=== PATIENT | male | born 1975 | race Caucasian/White ===

== ENCOUNTER 2017-07-05 17:32 | Emergency (ER) | payer MEDICAID, SELFPAY ==
[2017-07-05 17:33] VITALS: BP 133/67; PULSE 68; RESP 19; TEMP 37; O2SAT 99; BMI 23.1
--- NOTE | 2017-07-05 18:18 | ED.RN ---
PT STATED THAT HE WAS TIRED OF WAITING. LEFT WITHOUT BEING SEEN.
--- NOTE | 2017-07-05 18:26 | ED.RN ---
PT STATED THAT HE WAS TOLD BY THIS RN THAT WE WERE NOT BUSY. EXPLAINED TO PT THAT HE WOULD NOT HAVE BEEN TOLD THAT BECAUSE WE CANNOT GIVES TIMES OR STATE WE ARE BUSY OR NOT. PT STATED IT'S PLAN NAURUAN YOU KNOW IF YOU ARE BUSY OR NOT. THIS RN APOLOGIZED TO PT OF THE MISUNDERSTANDING, BUT AGAIN SAID WE NEVER SAY WE ARE NOT BUSY. PT ASKED FOR THIS RN'S NAME AND LEFT.
== END 2017-07-05 18:29 | disposition left against medical advice (07) ==
LOC: ED 18:25
PROVIDERS: Emergency Provider Emergency Medicine; Family Provider Nurse Practitioner Family; PCP Nurse Practitioner Family
DX: M27.3 Alveolitis of jaws (principal)

== ENCOUNTER 2017-08-18 02:52 | Emergency (ER) | payer MEDICAID, SELFPAY ==
[2017-08-18 02:53] VITALS: BP 137/92; PULSE 91; RESP 17; TEMP 36.4; O2SAT 99; BMI 25.8
--- NOTE | 2017-08-18 03:01 | RAD_ITS ---
STUDY: X-RAY CHEST REASON FOR EXAM: Male, 42 years old. Chest pain TECHNIQUE: Single AP portable view of the chest. COMPARISON: None. FINDINGS: The lungs are clear and expanded. There is no demonstrated pleural abnormality. Normal size heart. Normal mediastinum and luis. Normal visualized pulmonary arteries. Normal visualized aortic arch and descending thoracic aorta. Normal visualized thoracic spine. Normal visualized ribs, clavicles, and shoulders. There is no demonstrated abnormality of the visualized soft tissue structures of the upper abdomen. RAD/Chest 1 View (Portable) IMPRESSION: Normal x-ray examination of the chest. Electronically Signed: Nathalie Lentz MD at 3:29 EDT Tel , Service support ,
--- NOTE | 2017-08-18 03:01 | EKG12_ITS ---
Test Reason : CP Blood Pressure : / mmHG Vent. Rate : 085 BPM Atrial Rate : 085 BPM P-R Int : 150 ms QRS Dur : 092 ms QT Int : 360 ms P-R-T Axes : 083 078 060 degrees QTc Int : 428 ms Normal sinus rhythm Normal ECG Confirmed by BING HICKEY, DANIELLE ([id number]), story editor TRAVIS HARRISON ([id number]) on 08/19/2017 3:33:07 PM Referred By: BONG Confirmed By:DANIELLE SMART MD
[2017-08-18 03:10] LABS: Absolute Lymphocyte Count 2.63 X10^3/ul (0.83-4.51); Absolute Neutrophil Count 5.1 X10^3/uL (2.0-7.7); Basophil# 0.04 X10^3/uL; Basophil% 0.4 % (0-1); Eosinophil# 0.22 X10^3/uL; Eosinophils% 2.5 % (0-5); Hematocrit 44.8 % (40-54); Lymphocyte # 2.63 X10^3/ul (4.0); Lymphocyte % 29.6 % (19-41); Mean Corp Hgb Conc 33.5 g/gl (32-36); Mean Corpuscular Hgb 29.9 pg (27.0-32.0); Mean Corpuscular Volume 89.2 fL (80-94); Mean Platelet Vol. 9.6 fl (6.2-12.0); Monocyte# 0.87 X10^3/uL; Monocyte% 9.8 % (0-10); Neutrophil # 5.12 X10^3/uL (2.7-7.7); Neutrophil % 57.5 % (47-70); Platelet Count 294 K/mm3 (150-450); RBC Distribution Width CV 13.8 % (11.6-14.6); RBC Distribution Width SD 44.7 fl (35.1-43.9); Red Blood Count 5.02 M/mm3 (4.6-6.2); White Blood Count 8.9 K/mm3 (4.4-11.0)
[2017-08-18 03:13] LABS: POSITIVE COUNT NO; POSITIVE DIFFERENTIAL NO; POSITIVE MORPHOLOGY NO
[2017-08-18] MEDS: Aspirin 81 MG TAB.CHEW 324 MG PO (03:15)
[2017-08-18 03:43] LABS: Anion Gap 8 (5-15); BUN 13 mg/dL (7-18); BUN/Creat Ratio 14.6 RATIO (10-20); Calcium,Total 8.8 mg/dL (8.5-10.1); Chloride 107 mmol/L (98-107); Creatinine, Serum 0.89 mg/dL (0.70-1.30); EST Glomerular Filtration Rate 100 mL/min (>60); Est Glom Filt Rate - Afr Amer 121 mL/min (>60); Estimated Creatinine Clearance 126.99 ml/min; Glucose 85 mg/dL (74-106); Sodium Level 143 mmol/L (136-145)
--- NOTE | 2017-08-18 03:57 | ED.DCSUM_ITS ---
- ER Visit Summary Date of Service: 08/18/17 Chief Complaint: Chest pain History of Present Illness: The patient is a 42 M wax and waning chest pain past 4 days. Localized left lateral chest. Mild dyspnea. States just the discomfort. No worsening or relieving factors. No nausea. No vomiting. No diaphoresis. No recent illness. No PE risk factors. Tobacco history. Denies history of hypertension, diabetes, hypercholesterolemia. No family history of GA young age. States diagnosed with paroxysmal atrial fibrillation a few months back. He is cardioverted in the hospital. Taken off Xarelto by cardiology Dr. Canchola per patient. Does not recommend any additional therapy. Was told likely because of his caffeine use. Does admit to occasional marijuana. Physical Examination: General: Alert and oriented ?3, no acute distress HEENT: Normocephalic, atraumatic. Moist mucosa membranes Neck: supple, nontender. Cardiovascular: Regular rate and rhythm, no murmurs Respiratory: Normal breath sounds, symmetric, no distress Abdomen: Soft, nontender, nondistended Extremities: Nontender, no edema, pulses intact ?4 Neuro: no focal neurological deficits. Test Results: EKG sinus rate of [address] or T-wave changes. Troponin less than 0.02. Creatinine 0.89. Chest x-ray negative. Emergency Department Course and Treatment: Patient was treated with aspirin. Cardiac workup negative. Waxing waning symptoms past 4 days with a negative troponin less likely cardiac in nature. PE RC criteria was negative. Heart scores a 1. Heart pathway guideline was discussed with the patient. Discussed patient follow with PCP or Dr. Canchola for outpatient follow-up. Likely a stress test. Return if any worsening symptoms. Discussed tobacco cessation. All questions were answered. Treatment Plan: [] Disposition: Discharge Impression: 1. Atypical chest pain This note was generated with [employer] Pel[employer] software. It may contain incorrect words, spelling, and punctuation that were not noted in review of the chart prior to signing ED Disposition - Plan for ED Patient: Disposition: Home or Assisted Living Chief Complaint: Chest Pain Diagnosis: Atypical chest pain Instructions: ED Chest Pain Atypical Unkn Cause Referrals: Katiana De Dios NP-C [Primary Care Provider] - 3-5 Days
[2017-08-18 04:39] VITALS: BP 107/69; PULSE 84; RESP 16; O2SAT 97
== END 2017-08-18 04:39 | disposition home or self-care (01) ==
PROVIDERS: Emergency Provider Emergency Medicine; Family Provider Nurse Practitioner Family; PCP Nurse Practitioner Family
DX: R07.89 Other chest pain (principal); R06.00 Dyspnea, unspecified; F17.200 Nicotine dependence, unspecified, uncomplicated
CPT/HCPCS: 71045; 80048; 84484; 85025; 93005; 99285; A4216

== ENCOUNTER 2017-12-02 21:38 | Emergency (ER) | payer MEDICAID, SELFPAY ==
[2017-12-02 21:39] VITALS: BP 135/78; PULSE 92; RESP 20; TEMP 36.7; O2SAT 98; BMI 27.4
[2017-12-02] MEDS: HYDROcodone Bitartrate/Apap 5/325 Tablet PO (22:09)
--- NOTE | 2017-12-02 22:10 | ED.RN ---
PATIENT REFUSED NAPROXEN BECAUSE HE ALREADY TOOK SOME THIS EVENING.
--- NOTE | 2017-12-02 22:11 | ED.VISSUMM ---
- ER Visit Summary Date of Service: 12/02/17 Chief Complaint: Acute exacerbation of low back pain. History of Present Illness: The patient is a 42 M with history of chronic back pain secondary to degenerative disc disease. He states he bent over felt a pop. He denies bowel bladder dysfunction. I saddle paresthesia anesthesia. No foot drop. Denies quadricep weakness going up or down steps. There is no history of trauma. He denies fever, chills night sweats. He denies dysuria, frequency, urgency or hematuria. Localizes the pain to the low lumbar region. Physical Examination: Patient was lying on the cot with his feet dangling over the end of the bed at the knees and his head flexed to 90?. Vital signs remarkable slight elevation blood pressure 135/78. HEENT exam unremarkable. Insert cardiopulmonary exam abdomen soft nontender no palpable cell mass abdominal bruit. Inspection of the back is unremarkable. He has minimal pain if at any. Straight leg test is negative. Crossover test is negative. Patella and ankle reflex are 3+. EHL is intact. Normal sensation. No foot drop with walking. Movement causes him pain. Test Results: None are indicated Emergency Department Course and Treatment: Patient was treated with one [place] tablet and 500 mg Naprosyn. Treatment Plan: Rest, ice and anti-inflammatory Disposition: Discharged to home with spouse Impression: Acute lumbar strain without sciatica This note was generated with [employer] dictation software. It may contain incorrect words, spelling, and punctuation that were not noted in review of the chart prior to signing ED Disposition - Plan for ED Patient: Disposition: Home or Assisted Living Chief Complaint: Back Instructions: ED Sprain Strain Lumbar Prescriptions: Naproxen [Naprosyn] 500 mg PO BID #14 tab Referrals: Katiana De Dios, DOCTOR OF NURSING PRACTICE-C [Primary Care Provider] - 3-5 Days if not improving
--- NOTE | 2017-12-02 22:17 | ED.DCSUM_ITS ---
- ER Visit Summary Date of Service: 12/02/17 Chief Complaint: Acute exacerbation of low back pain. History of Present Illness: The patient is a 42 M with history of chronic back pain secondary to degenerative disc disease. He states he bent over felt a pop. He denies bowel bladder dysfunction. I saddle paresthesia anesthesia. No foot drop. Denies quadricep weakness going up or down steps. There is no history of trauma. He denies fever, chills night sweats. He denies dysuria, frequency, urgency or hematuria. Localizes the pain to the low lumbar region. Physical Examination: Patient was lying on the cot with his feet dangling over the end of the bed at the knees and his head flexed to 90?. Vital signs remarkable slight elevation blood pressure 135/78. HEENT exam unremarkable. Insert cardiopulmonary exam abdomen soft nontender no palpable cell mass abdominal bruit. Inspection of the back is unremarkable. He has minimal pain if at any. Straight leg test is negative. Crossover test is negative. Patella and ankle reflex are 3+. EHL is intact. Normal sensation. No foot drop with walking. Movement causes him pain. Test Results: None are indicated Emergency Department Course and Treatment: Patient was treated with one [place] tablet and 500 mg Naprosyn. Treatment Plan: Rest, ice and anti-inflammatory Disposition: Discharged to home with spouse Impression: Acute lumbar strain without sciatica This note was generated with [employer] dictation software. It may contain incorrect words, spelling, and punctuation that were not noted in review of the chart prior to signing ED Disposition - Plan for ED Patient: Disposition: Home or Assisted Living Chief Complaint: Back Instructions: ED Sprain Strain Lumbar Prescriptions: Naproxen [Naprosyn] 500 mg PO BID #14 tab Referrals: Katiana De Dios, SERVICE DOG TRAINER-C [Primary Care Provider] - 3-5 Days if not improving
== END 2017-12-02 22:47 | disposition home or self-care (01) ==
PROVIDERS: Emergency Provider Emergency Medicine; Family Provider Nurse Practitioner Family; PCP Nurse Practitioner Family
DX: S39.012A Strain of muscle, fascia and tendon of lower back, initial encounter (principal); X50.1XXA Overexertion from prolonged static or awkward postures, initial encounter; Y93.9 Activity, unspecified; Y92.9 Unspecified place or not applicable; Y99.9 Unspecified external cause status; R03.0 Elevated blood-pressure reading, without diagnosis of hypertension; R05 Cough; M54.9 Dorsalgia, unspecified; G89.29 Other chronic pain; Z72.0 Tobacco use
CPT/HCPCS: 99283

== ENCOUNTER 2018-01-04 19:37 | Emergency (ER) | payer MEDICAID, SELFPAY ==
[2018-01-04 19:39] VITALS: BP 140/90; PULSE 103; RESP 13; TEMP 36.6; O2SAT 100; BMI 26.9
--- NOTE | 2018-01-04 19:39 | ED.RN ---
PULLED OLD EKG'S FOR
--- NOTE | 2018-01-04 19:43 | EKG12_ITS ---
Test Reason : PALPITATIONS Blood Pressure : / mmHG Vent. Rate : 103 BPM Atrial Rate : 103 BPM P-R Int : 148 ms QRS Dur : 098 ms QT Int : 330 ms P-R-T Axes : 074 082 044 degrees QTc Int : 432 ms Sinus tachycardia Otherwise normal ECG Confirmed by MARGARITA HICKEY, NADINE ([id number]), video editor TRAVIS HARRISON ([id number]) on 01/07/2018 9:54:44 AM Referred By: AURE Confirmed By:NADINE AVILA MD
--- NOTE | 2018-01-04 19:48 | RAD_ITS ---
STUDY: X-RAY CHEST REASON FOR EXAM: Male, 42 years old. Chest pain and palpitations for several days. TECHNIQUE: Single AP portable view of the chest. COMPARISON: August 18, 2017. FINDINGS: Telemetry wires overlie the chest. The lungs are mildly hyperexpanded. There is no acute infiltrate or mass. There is no pneumothorax. There is no demonstrated pleural abnormality. Normal size heart. Normal mediastinum and luis. Normal visualized pulmonary arteries. Normal visualized aortic arch and descending thoracic aorta. The thoracic spine is obscured by the mediastinum. Normal visualized ribs, clavicles, and shoulders. There is no demonstrated abnormality of the visualized soft tissue structures of the upper abdomen. RAD/Chest 1 View (Portable) IMPRESSION: No acute cardiopulmonary disease or interval change. Electronically Signed: Eloy Zendejas DO at 20:17 EDT Tel [phone], Service support ,
[2018-01-04 19:53] VITALS: O2SAT 98
--- NOTE | 2018-01-04 19:56 | CT_ITS ---
STUDY: CTA CHEST REASON FOR EXAM: Male, 42 years old. Chest pain. History of hypertension and atrial fibrillation. RADIATION DOSAGE (If Supplied By Facility): CTDIvol = ( 16.91 ) mGy, DLP = ( 557.45 ) mGycm TECHNIQUE: The examination was performed with the intravenous administration of 100ML ml of Isovue 370 contrast material. Post-processing of the angiographic images was performed, with multiplanar reformation and 3D reconstruction. Individualized dose optimization techniques were used for this CT. COMPARISON: Chest, January 04, 2018. FINDINGS: Normal enhancement of the main pulmonary artery and right and left pulmonary arteries. Normal enhancement of the bilateral peripheral pulmonary arteries. There is no demonstrated pulmonary embolism. Normal thoracic aorta and visualized great vessels. There is no demonstrated aortic dissection. Normal heart and pericardium. Normal mediastinum. Normal hilar regions. Normal visualized trachea and bronchi. The lungs are hyper expanded, with flattening of the hemidiaphragms. Minimal subpleural blebs in both apices. There is no focal mass or infiltrate within the lungs. Normal pleura. Normal chest wall structures. Normal osseous structures. There are small cysts seen in segment 4A of the liver. The gallbladder is contracted. Abdomen appears otherwise unremarkable. CT/CTA Chest W/WO Contrast IMPRESSION: 1. No evidence of pulmonary embolus. 2. No aortic dissection or aneurysm. 3. Mild emphysematous changes lungs without focal mass or infiltrate. 4. Hepatic cysts. Electronically Signed: Eloy Zendejas DO at 21:20 EDT Tel [phone], Service support ,
[2018-01-04 20:04] LABS: Absolute Lymphocyte Count 3.27 X10^3/ul (0.83-4.51); Absolute Neutrophil Count 5.9 X10^3/uL (2.0-7.7); Basophil# 0.05 X10^3/uL; Basophil% 0.5 % (0-1); Eosinophil# 0.23 X10^3/uL; Eosinophils% 2.2 % (0-5); Hematocrit 44.8 % (40-54); Hemoglobin 15.6 g/dl (13.0-16.5); Lymphocyte # 3.27 X10^3/ul (4.0); Lymphocyte % 31.3 % (19-41); Mean Corp Hgb Conc 34.8 g/gl (32-36); Mean Corpuscular Hgb 29.8 pg (27.0-32.0); Mean Corpuscular Volume 85.7 fL (80-94); Mean Platelet Vol. 9.8 fl (6.2-12.0); Monocyte# 0.94 X10^3/uL; Neutrophil # 5.92 X10^3/uL (2.7-7.7); Neutrophil % 56.6 % (47-70); Platelet Count 319 K/mm3 (150-450); RBC Distribution Width SD 40.6 fl (35.1-43.9); Red Blood Count 5.23 M/mm3 (4.6-6.2); White Blood Count 10.5 K/mm3 (4.4-11.0)
[2018-01-04 20:14] LABS: POSITIVE COUNT NO; POSITIVE DIFFERENTIAL NO; POSITIVE MORPHOLOGY NO
[2018-01-04 20:16] LABS: Anion Gap 6 (5-15); BUN 14 mg/dL (7-18); BUN/Creat Ratio 16.5 RATIO (10-20); Calcium,Total 9.8 mg/dL (8.5-10.1); Chloride 106 mmol/L (98-107); Creatinine, Serum 0.85 mg/dL (0.70-1.30); EST Glomerular Filtration Rate 106 mL/min (>60); Est Glom Filt Rate - Afr Amer 128 mL/min (>60); Estimated Creatinine Clearance 136.69 ml/min; Glucose 89 mg/dL (74-106); Potassium 3.8 mmol/L (3.5-5.1); Sodium Level 140 mmol/L (136-145)
[2018-01-04 20:34] LABS: Thyroid Stim Hormone (TSH) 0.68 uIU/mL (0.358-3.74)
[2018-01-04] MEDS: Acetaminophen 500 MG Tablet 1000 MG PO (20:38)
[2018-01-04 22:24] VITALS: BP 110/53; PULSE 63; RESP 17; O2SAT 98
--- NOTE | 2018-01-04 23:13 | ED.VISSUMM ---
- ER Visit Summary Date of Service: 01/04/18 Chief Complaint: Chest pain palpitations History of Present Illness: The patient is a 42 M presenting for evaluation secondary chest pain and palpitations. Patient reports that over the course last 4-5 days he has been having issues with palpitations. Patient reports that the symptoms seem to got worse today. He reports that it is a pounding type sensation in his chest as well as tightness and heaviness in his chest. Patient states that he has no exacerbating relieving factors has been associated with him feeling somewhat ill recently associated with a cough and kind of generalized myalgias. Patient reports that he does have a history of spontaneous A. fib that he is status post cardioversion 4. Patient is a smoker, has a history of hypertension, and his mother also had a history of an abdominal aortic aneurysm and his family has a history of Sirena-Danlos syndrome. Physical Examination: Vital signs are within normal limits, except for tachycardia rate of 103 patient is afebrile. General: Patient is well-nourished well-developed and in no acute distress. Head: Normocephalic, atraumatic Eyes: Pupils equal round and reactive bilaterally, extra occular motion intact bialterally ENT: Moist mucous membranes Neck: Supple, no lymphadenopathy, no JVD, no meningismus CVS: Heart regular tachycardia, no murmurs, rubs or gallops, radial pulses 2+ bilaterally Resp: Respirations nondistressed, lung sounds clear bilaterally Abdomen: Soft, nontender, nondistended, no palpable masses, normal bowel sounds Back: Nontender Extremities: Nontender, atraumatic, active full range of motion, no peripheral edema Skin: warm, no rashes, no petechia Neuro: Alert and oriented x 4, CN 2-12 intact, no lateralizing neurological defecits Psyc: Normal affect Test Results: EKG demonstrates sinus tachycardia with rate of [address] segments normal T waves no changes from a prior EKG. CBC chemistry troponin TSH were all found to be unremarkable. CT angiogram of the chest shows no evidence of dissection a aortic aneurysm or pulmonary emboli Emergency Department Course and Treatment: Patient presented for evaluation secondary chest pain palpitations. His workup is negative as noted above. His MARCE score is 0 his heart score is 1. His symptoms seem rather atypical for anything cardiac. Patient potentially is having some palpitations and then has an element of anxiety over this. I do not believe he requires admission. Patient will follow up with his primary care physician. Disposition: Discharge Impression: 1. Palpitations This note was generated with [employer] dictation software. It may contain incorrect words, spelling, and punctuation that were not noted in review of the chart prior to signing ED Disposition - Plan for ED Patient: Disposition: Home or Assisted Living Chief Complaint: Chest Pain Diagnosis: Palpitations Instructions: ED Chest Pain NonCardiac Referrals: Katiana De Dios MOTORCYCLE SUBASSEMBLY REPAIRER-C [Primary Care Provider] - 1-2 Weeks
[2018-01-04 23:16] VITALS: BP 110/78; PULSE 76; RESP 18; O2SAT 99
--- NOTE | 2018-01-04 23:17 | ED.DCSUM_ITS ---
- ER Visit Summary Date of Service: 01/04/18 Chief Complaint: Chest pain palpitations History of Present Illness: The patient is a 42 M presenting for evaluation secondary chest pain and palpitations. Patient reports that over the course last 4-5 days he has been having issues with palpitations. Patient reports that the symptoms seem to got worse today. He reports that it is a pounding type sensation in his chest as well as tightness and heaviness in his chest. Patient states that he has no exacerbating relieving factors has been associated with him feeling somewhat ill recently associated with a cough and kind of generalized myalgias. Patient reports that he does have a history of spontaneous A. fib that he is status post cardioversion 4. Patient is a smoker , has a history of hypertension, and his mother also had a history of an abdominal aortic aneurysm and his family has a history of Sirena-Danlos syndrome. Physical Examination: Vital signs are within normal limits, except for tachycardia rate of 103 patient is afebrile. General: Patient is well-nourished well-developed and in no acute distress. Head: Normocephalic, atraumatic Eyes: Pupils equal round and reactive bilaterally, extra occular motion intact bialterally ENT: Moist mucous membranes Neck: Supple, no lymphadenopathy, no JVD, no meningismus CVS: Heart regular tachycardia, no murmurs, rubs or gallops, radial pulses 2+ bilaterally Resp: Respirations nondistressed, lung sounds clear bilaterally Abdomen: Soft, nontender, nondistended, no palpable masses, normal bowel sounds Back: Nontender Extremities: Nontender, atraumatic, active full range of motion, no peripheral edema Skin: warm, no rashes, no petechia Neuro: Alert and oriented x 4, CN 2-12 intact, no lateralizing neurological defecits Psyc: Normal affect Test Results: EKG demonstrates sinus tachycardia with rate of [address] segments normal T waves no changes from a prior EKG. CBC chemistry troponin TSH were all found to be unremarkable. CT angiogram of the chest shows no evidence of dissection a aortic aneurysm or pulmonary emboli Emergency Department Course and Treatment: Patient presented for evaluation secondary chest pain palpitations. His workup is negative as noted above. His MARCE score is 0 his heart score is 1. His symptoms seem rather atypical for anything cardiac. Patient potentially is having some palpitations and then has an element of anxiety over this. I do not believe he requires admission. Patient will follow up with his primary care physician. Disposition: Discharge Impression: 1. Palpitations This note was generated with [employer] dictation software. It may contain incorrect words, spelling, and punctuation that were not noted in review of the chart prior to signing ED Disposition - Plan for ED Patient: Disposition: Home or Assisted Living Chief Complaint: Chest Pain Diagnosis: Palpitations Instructions: ED Chest Pain NonCardiac Referrals: Katiana De Dios HONEYCOMB BLANKET MAKER-C [Primary Care Provider] - 1-2 Weeks
== END 2018-01-04 23:22 | disposition home or self-care (01) ==
PROVIDERS: Emergency Provider Emergency Medicine; Family Provider Nurse Practitioner Family; PCP Nurse Practitioner Family
DX: R00.2 Palpitations (principal); R00.0 Tachycardia, unspecified; R07.9 Chest pain, unspecified; I48.91 Unspecified atrial fibrillation; I10 Essential (primary) hypertension; F17.200 Nicotine dependence, unspecified, uncomplicated; Z79.82 Long term (current) use of aspirin; Z79.1 Long term (current) use of non-steroidal anti-inflammatories (NSAID)
CPT/HCPCS: 71045; 71275; 80048; 84443; 84484; 85025; 93005; 99284; Q9967; A4216

== ENCOUNTER 2018-04-21 22:57 | Emergency (ER) | payer MEDICAID, SELFPAY ==
[2018-04-21 22:57] VITALS: BP 154/84; PULSE 73; RESP 16; TEMP 35.7; BMI 29.1
--- NOTE | 2018-04-21 23:16 | ED.VISSUMM ---
- ER Visit Summary Date of Service: 04/21/18 Chief Complaint: Dental pain History of Present Illness: The patient is a 43 M status post root canal this morning, his numbing wore off and now he is in significant pain. He has no new complaints. He has no bleeding no fever chills and no facial swelling. Physical Examination: Otherwise unremarkable exam left lower last molar shows what I presume is a temporary filling, there is no periapical swelling no facial swelling and no drainable abscess. Emergency Department Course and Treatment: Patient persisted to ask me why he is having so much pain and to figure out his diagnosis, I told him he needs to follow-up with his dentist for that, I do not see any signs of infection, he is on antibiotics. I will give him analgesics for home. His last opiate prescription was 10 months ago Disposition: Discharge stable condition Impression: Dental pain This note was generated with [employer] dictation software. It may contain incorrect words, spelling, and punctuation that were not noted in review of the chart prior to signing ED Disposition - Plan for ED Patient: Disposition: Home or Assisted Living Chief Complaint: Dental Instructions: ED Tooth Pain Additional Instructions: Call your dentist in the morning for prompt reevaluation
--- NOTE | 2018-04-21 23:21 | ED.DEP ---
ED Disposition - Plan for ED Patient: Disposition: Home or Assisted Living Chief Complaint: Dental Instructions: ED Tooth Pain Prescriptions: Hydrocodone Bitart/Apap 5-325 [[place] 5MG-325MG] 1 tab PO Q4H PRN PRN 2 Days #10 tab PRN Reason: Pain Additional Instructions: Call your dentist in the morning for prompt reevaluation
[2018-04-21] MEDS: oxyCODONE 5 MG Tablet PO (23:23)
--- NOTE | 2018-04-21 23:24 | DCINST.ED_ITS ---
ED Disposition - Plan for ED Patient: Disposition: Home or Assisted Living Chief Complaint: Dental Instructions: ED Tooth Pain Prescriptions: Hydrocodone Bitart/Apap 5-325 [[place] 5MG-325MG] 1 tab PO Q4H PRN PRN 2 Days #10 tab PRN Reason: Pain Additional Instructions: Call your dentist in the morning for prompt reevaluation
== END 2018-04-21 23:32 | disposition home or self-care (01) ==
PROVIDERS: Emergency Provider Emergency Medicine; Family Provider Nurse Practitioner Family; PCP Nurse Practitioner Family
DX: K08.89 Other specified disorders of teeth and supporting structures (principal); Z98.818 Other dental procedure status; Z72.0 Tobacco use; Z79.82 Long term (current) use of aspirin; Z79.1 Long term (current) use of non-steroidal anti-inflammatories (NSAID)
CPT/HCPCS: 99283

== ENCOUNTER 2018-04-23 16:17 | Emergency (ER) | payer MEDICAID, SELFPAY ==
[2018-04-23 16:18] VITALS: BP 146/94; PULSE 90; RESP 16; TEMP 36.6; O2SAT 96; BMI 29.1
--- NOTE | 2018-04-23 16:38 | ED.DCSUM_ITS ---
- ER Visit Summary Date of Service: 04/23/18 Chief Complaint: [Dental pain] History of Present Illness: The patient is a 43 M [presents with dental pain and concern over the last 2 days. Patient states that he had a root canal done 2 days ago. Patient states that he had root canals on teeth #14 and 15. Feels like things went well with tooth #14 however he is having a lot of severe discomfort to tooth #15. Patient denies any fever although has had some chills. He denies any recent trauma. Currently he is on amoxicillin.] Physical Examination: [HEENT-PERRLA, EOMI. Cranial nerves II through XII grossly intact. TMs clear. Mucous membranes moist. No adenopathy. Dentition- patient has temporary fillings in teeth numbers 15 and 14. Patient has tenderness to palpation over tooth #14. No gingival erythema or abscess noted. Cardiovascular-regular rate and rhythm without murmur or ectopy Lungs-clear to auscultation, chest wall stable without crepitus or subcu emphysema Abdomen-normoactive bowel sounds, soft, nontender, no rebound or rigidity, no peritoneal signs. Extremities-intact ?4, normal range of motion, normal pulses, atraumatic] Test Results: [None indicated] Emergency Department Course and Treatment: [I did perform an oars report and I do not see any concerns for narcotic abuse at this point. Patient will be given a prescription for [place] to help manage his pain until he can see his dentist in 3 days.] Treatment Plan: [[place] for pain and I will switch him to clindamycin] Disposition: [Discharged home in stable condition. Patient advised to see his dentist as scheduled in 3 days.] Impression: [Dental pain status post root canal] This note was generated with [employer] dictation software. It may contain incorrect words, spelling, and punctuation that were not noted in review of the chart prior to signing ED Disposition - Plan for ED Patient: Chief Complaint: Dental Referrals: Katiana D eDios NP-C [Primary Care Provider] -
--- NOTE | 2018-04-23 16:38 | ED.DEP ---
ED Disposition - Plan for ED Patient: Chief Complaint: Dental Instructions: ED Tooth Pain Prescriptions: Hydrocodone Bitart/Apap 5-325 [[place] 5MG-325MG] 1 tab PO Q4H PRN PRN 2 Days #14 tab PRN Reason: Pain Clindamycin HCl [Cleocin] 300 mg PO Q6H #40 cap Referrals: Katiana De Dios, ENCYCLOPEDIA RESEARCH WORKER-C [Primary Care Provider] - Additional Instructions: see your dentist
--- NOTE | 2018-04-23 16:39 | DCINST.ED_ITS ---
ED Disposition - Plan for ED Patient: Chief Complaint: Dental Instructions: ED Tooth Pain Prescriptions: Hydrocodone Bitart/Apap 5-325 [[place] 5MG-325MG] 1 tab PO Q4H PRN PRN 2 Days #14 tab PRN Reason: Pain Clindamycin HCl [Cleocin] 300 mg PO Q6H #40 cap Referrals: Katiana De Dios, CAR MECHANIC HELPER-C [Primary Care Provider] - Additional Instructions: see your dentist
[2018-04-23 17:01] VITALS: RESP 14
== END 2018-04-23 17:02 | disposition home or self-care (01) ==
LOC: ED 17:01
PROVIDERS: Emergency Provider Emergency Medicine; Family Provider Nurse Practitioner Family; PCP Nurse Practitioner Family
DX: K08.89 Other specified disorders of teeth and supporting structures (principal); Z98.818 Other dental procedure status; Z72.0 Tobacco use; Z79.82 Long term (current) use of aspirin; Z79.1 Long term (current) use of non-steroidal anti-inflammatories (NSAID)
CPT/HCPCS: 99282

== ENCOUNTER 2018-06-30 01:00 | Emergency (ER) | payer MEDICAID, SELFPAY ==
--- NOTE | 2018-06-30 01:30 | CT_ITS ---
STUDY: CT BRAIN WITHOUT CONTRAST REASON FOR EXAM: Male, 43 years old. Headache RADIATION DOSAGE (If Supplied By Facility): CTDIvol = ( 44.99 ) mGy, DLP = ( 812.98 ) mGycm TECHNIQUE: Transaxial CT imaging of the brain was performed without administration of intravenous contrast material. Individualized dose optimization techniques were used for this CT. COMPARISON: None. FINDINGS: Normal soft tissue structures. Normal calvarium. Normal size ventricles and extra-axial spaces for the patient's age. Normal white matter tracts of the cerebral hemispheres. Normal basal ganglia and thalami. Normal brainstem. Normal cerebellum. There is no intracranial hemorrhage. There are no findings of an acute ischemic infarction. Normal visualized paranasal sinuses. CT/Brain/Head without Contrast IMPRESSION: Normal unenhanced CT scan of the brain. Electronically Signed: Bari García MD at 2:05 EST Tel , Service support ,
--- NOTE | 2018-07-04 23:41 | ED.DCSUM_ITS ---
- ER Visit Summary Date of Service: 07/04/18 Chief Complaint: [] Headache History of Present Illness: The patient is a 43 M complaining of headache since yesterday gradual onset continuous pressure throbbing the left frontal region. He tried Aleve with moderate relief. No history of migraines. He does have a sore throat. Physical Examination: [] Vital signs reviewed General: Well-nourished well-developed Head: Normocephalic atraumatic Eyes: Pupils equal round and reactive to light extraocular movements intact ENT: TMs clear no hemotympanum no trauma Neck: Nontender full range of motion Cardiovascular: Regular rate rhythm no murmurs normal S1-S2 Respiratory: No distress clear to auscultation bilaterally chest nontender Abdomen: Soft nontender nondistended normal bowel sounds no masses Back: Nontender no CVA tenderness Extremities: Nontender active range of motion ?4 extremities no trauma Skin: Normal color no trauma Neuro alert oriented cranial nerves II through XII intact normal strength sensation reflexes. No temporal artery tenderness Test Results: [] Emergency Department Course and Treatment: [] CT head negative. Given Toradol intramuscular with resolution of his headache. At this time will be discharged. Resting comfortably. I have a low suspicion for intracranial tumor or subarachnoid hemorrhage. We will follow-up as an outpatient Treatment Plan: [] Disposition: [] Impression: [] Headache This note was generated with [employer] dictation software. It may contain incorrect words, spelling, and punctuation that were not noted in review of the chart prior to signing ED Disposition - Plan for ED Patient: Referrals: Katiana De Dios, [id number] [Primary Care Provider] -
--- OUTSIDE RECORDS SUMMARY | 2018-09-01 01:38 | XMS RPT_ITS ---
:1975 Author Organization OH[facility] Care Team Providers Name Role Phone Deejay Whitt Attending Unavailable Swihart CAT DRIVER, Katiana Primary Care Unavailable Swihart CAT DRIVER, Katiana Primary Care Unavailable Elvin Painting Attending Unavailable Swihart CAT DRIVER, Katiana Primary Care Unavailable Jose Carlos Brandt Attending Unavailable Swihart CAT DRIVER, Katiana Primary Care Unavailable Sugey Ramirez Attending Unavailable Swihart CAT DRIVER, Katiana Primary Care Unavailable Simon Cerna Attending Unavailable Swihart CAT DRIVER, Katiana Primary Care Unavailable Reuben Cooper Attending Unavailable Swihart CAT DRIVER, Katiana Primary Care Unavailable Michelle Edwards Attending Unavailable PROBLEMS PROBLEMS DATE TYPE CONDITION / CODE ATTENDING STATUS SOURCE 04/23/2018 Unknown K08.89 - Other [place], Remus Active [facility] of Hospital teeth and Repository supporting structures / K08.89(ICD-10) PROCEDURES PROCEDURES No Procedure Records FoundRESULTS RESULTS BRAIN/HEAD WITHOUT Observed: 06/30/2018 Status: F Source: [place] CONTRAST 6:43 AM [facility] RE[facility]IT[facility] Imaging Services [address] [place] [address] Brain/Head without Contrast MR#: [id number] Acct: [id number] Name: GRETA ALMAGUER Rep #: [id number] : 1975 M 43 From: Bari García MD PCP: Katiana De Jesus Status: REG ER Study: Brain/Head without Contrast Date of Exam: 06/30/18 Exam# [id number] Ordering Dr: Deejay Whitt MD STUDY: CT BRAIN WITHOUT CONTRAST REASON FOR EXAM: Male, 43 years old. Headache RADIATION DOSAGE (If Supplied By Facility): CTDIvol = ( 44.99 ) mGy, DLP = ( 812.98 ) mGycm TECHNIQUE: Transaxial CT imaging of the brain was performed without administration of intravenous contrast material. Individualized dose optimization techniques were used for this CT. COMPARISON: None. FINDINGS: Normal soft tissue structures. Normal calvarium. Normal size ventricles and extra-axial spaces for the patient's age. Normal white matter tracts of the cerebral hemispheres. Normal basal ganglia and thalami. Normal brainstem. Normal cerebellum. There is no intracranial hemorrhage. There are no findings of an acute ischemic infarction. Normal visualized paranasal sinuses. CT/Brain/Head without Contrast IMPRESSION: Normal unenhanced CT scan of the brain. Electronically Signed: Bari García MD at 2:05 EST Tel , Service support , CC: Katiana MORALES; Deejay Whitt MD Hatch Supervisor: Signed DISCHARGE INSTRUCTION Observed: 04/23/2018 Status: F Source: [place] 4:39 PM [facility] REPOSITORY [facility] Medical Records Department [address] [place] [address] Discharge Instruction 04/23/188 MR#: [id number] Acct: [id number] Name: GRETA ALMAGUER Rep #: [id number] : 1975 43 From: Sugey Ramirez DO PCP: Katiana De Jesus Status: PRE ER ED Disposition - Plan for ED Patient: Chief Complaint: Dental Instructions: ED Tooth Pain Prescriptions: Hydrocodone Bitart/Apap 5-325 [Sunapee 5MG-325MG] 1 tab PO Q4H PRN PRN 2 Days #14 tab PRN Reason: Pain Clindamycin HCl [Cleocin] 300 mg PO Q6H #40 cap Referrals: Katiana De Dios, QUALITY ASSURANCE/R&D LAB TECHNICIAN-C [Primary Care Provider] - Additional Instructions: see your dentist What to do if you have Problems For any increased pain, shortness of breath, bleeding, nausea or vomiting, chest pain, or any unexpected problems, contact your Primary Care Provider. Call [facility] ([phone]) or report to the closest Emergency Room. Call 911 if necessary. 04/23/181638 <Electronically signed by Sugey Ramirez DO> Date Sugey Ramirez DO Cosigner Signature (If Indicated): Date CC: Katiana MORALES EMERGENCY DEPARTMENT Observed: 04/23/2018 Status: F Source: [place] SUMMARY 4:38 PM [facility] REPOSITORY [facility] Medical Records Department [address] [place] [address] Emergency Department Summary 04/23/186 MR#: [id number] Acct: [id number] Name: KAYEGRETA Rep #: [id number] : 1975 43 From: Sugey Ramirez DO PCP: Katiana De Jesus Status: PRE ER - ER Visit Summary Date of Service: 04/23/18 Chief Complaint: [Dental pain] History of Present Illness: The patient is a 43 M [presents with dental pain and concern over the last 2 days. Patient states that he had a root canal done 2 days ago. Patient states that he had root canals on teeth #14 and 15. Feels like things went well with tooth #14 however he is having a lot of severe discomfort to tooth #15. Patient denies any fever although has had some chills. He denies any recent trauma. Currently he is on amoxicillin.] Physical Examination: [HEENT-PERRLA, EOMI. Cranial nerves II through XII grossly intact. TMs clear. Mucous membranes moist. No adenopathy. Dentition- patient has temporary fillings in teeth numbers 15 and 14. Patient has tenderness to palpation over tooth #14. No gingival erythema or abscess noted. Cardiovascular-regular rate and rhythm without murmur or ectopy Lungs-clear to auscultation, chest wall stable without crepitus or subcu emphysema Abdomen-normoactive bowel sounds, soft, nontender, no rebound or rigidity, no peritoneal signs. Extremities-intact 4, normal range of motion, normal pulses, atraumatic] Test Results: [None indicated] Emergency Department Course and Treatment: [I did perform an oars report and I do not see any concerns for narcotic abuse at this point. Patient will be given a prescription for Sunapee to help manage his pain until he can see his dentist in 3 days.] Treatment Plan: [Sunapee for pain and I will switch him to clindamycin] Disposition: [Discharged home in stable condition. Patient advised to see his dentist as scheduled in 3 days.] Impression: [Dental pain status post root canal] This note was generated with [employer] dictation software. It may contain incorrect words, spelling, and punctuation that were not noted in review of the chart prior to signing ED Disposition - Plan for ED Patient: Chief Complaint: Dental Referrals: Katiana De Dios, QUALITY ASSURANCE/R&D LAB TECHNICIAN-C [Primary Care Provider] - What to do if you have Problems For any increased pain, shortness of breath, bleeding, nausea or vomiting, chest pain, or any unexpected problems, contact your Primary Care Provider. Call [facility] ([phone]) or report to the closest Emergency Room. Call 911 if necessary. 04/23/18 1638 <Electronically signed by Sugey Ramirez DO> Date Sugey Ramirez DO Cosigner Signature (If Indicated): Date CC: Katiana MORALES DISCHARGE INSTRUCTION Observed: 04/21/2018 Status: F Source: [place] 11:24 PM [facility] REPOSITORY [facility] Medical Records Department [address] [place] [address] Discharge Instruction 04/21/182320 MR#: [id number] Acct: [id number] Name: GRETA ALMAGUER Rep #: [id number] : 1975 43 From: Simon Cerna MD PCP: Katiana De Jesus Status: REG ER ED Disposition - Plan for ED Patient: Disposition: Home or Assisted Living Chief Complaint: Dental Instructions: ED Tooth Pain Prescriptions: Hydrocodone Bitart/Apap 5-325 [Sunapee 5MG-325MG] 1 tab PO Q4H PRN PRN 2 Days #10 tab PRN Reason: Pain Additional Instructions: Call your dentist in the morning for prompt reevaluation What to do if you have Problems For any increased pain, shortness of breath, bleeding, nausea or vomiting, chest pain, or any unexpected problems, contact your Primary Care Provider. Call [facility] ([phone]) or report to the closest Emergency Room. Call 911 if necessary. 04/21/182323 <Electronically signed by Simon Cerna MD> Date Simon Crena MD Cosigner Signature (If Indicated): Date CC: Katiana MORALES EMERGENCY DEPARTMENT Observed: 04/21/2018 Status: F Source: [place] SUMMARY 11:19 PM [facility] REPOSITORY [facility] Medical Records Department [address] [place] [address] Emergency Department Summary 04/21/18 2316 MR#: [id number] Acct: [id number] Name: GRETA ALMAGUER Rep #: [id number] : 1975 43 From: Simon Cerna MD PCP: Katiana De Jesus Status: REG ER - ER Visit Summary Date of Service: 04/21/18 Chief Complaint: Dental pain History of Present Illness: The patient is a 43 M status post root canal this morning, his numbing wore off and now he is in significant pain. He has no new complaints. He has no bleeding no fever chills and no facial swelling. Physical Examination: Otherwise unremarkable exam left lower last molar shows what I presume is a temporary filling, there is no periapical swelling no facial swelling and no drainable abscess. Emergency Department Course and Treatment: Patient persisted to ask me why he is having so much pain and to figure out his diagnosis, I told him he needs to follow-up with his dentist for that, I do not see any signs of infection, he is on antibiotics. I will give him analgesics for home. His last opiate prescription was 10 months ago Disposition: Discharge stable condition Impression: Dental pain This note was generated with [employer] dictation software. It may contain incorrect words, spelling, and punctuation that were not noted in review of the chart prior to signing ED Disposition - Plan for ED Patient: Disposition: Home or Assisted Living Chief Complaint: Dental Instructions: ED Tooth Pain Additional Instructions: Call your dentist in the morning for prompt reevaluation What to do if you have Problems For any increased pain, shortness of breath, bleeding, nausea or vomiting, chest pain, or any unexpected problems, contact your Primary Care Provider. Call [employer] [facility] ([phone]) or report to the closest Emergency Room. Call 911 if necessary. 04/21/18 8619 <Electronically signed by Simon Cerna MD> Date Simon Cerna MD Cosigner Signature (If Indicated): Date CC: Katiana MORALES 12 LEAD ELECTROCARDIOGRAM Observed: 01/07/2018 Status: F Source: [place] 9:55 AM [facility] Cardiovascular Services [address] [place] [address] 12 Lead EKG 01/04/181938 MR#: [id number] Acct: [id number] Name: GRETA ALMAGUER Rep #: [id number] : 1975 42 From: Simon Avila MD Attending Dr: Status: DEP ER Ordering Dr: Jose Carlos Brandt MD Date: 01/04/18 Location: ED Sex: M C Admitted: Test Reason : PALPITATIONS Blood Pressure : / mmHG Vent. Rate : 103 BPM Atrial Rate : 103 BPM P-R Int : 148 ms QRS Dur : 098 ms QT Int : 330 ms P-R-T Axes : 074 082 044 degrees QTc Int : 432 ms Sinus tachycardia Otherwise normal ECG Confirmed by MARGARITA HICKEY, SIMON ([id number]), general expeditor TRAVIS HARRISON ([id number]) on 01/07/2018 9:54:44 AM Referred By: AURE Confirmed By:SIMON AVILA MD 01/07/18 0954 Date Simon Avila MD CC: Katiana MORALES; Jose Carlos Brandt Signed EMERGENCY DEPARTMENT Observed: 01/05/2018 Status: F Source: [place] SUMMARY 1:45 AM [facility] REPOSITORY [facility] Medical Records Department [address] [place] [address] Emergency Department Summary 01/04/18 2313 MR#: [id number] Acct: [id number] Name: GRETA ALMAGUER Rep #: [id number] : 1975 42 From: Jose Carlos Brandt MD PCP: Katiana De Jesus Status: DEP ER - ER Visit Summary Date of Service: 01/04/18 Chief Complaint: Chest pain palpitations History of Present Illness: The patient is a 42 M presenting for evaluation secondary chest pain and palpitations. Patient reports that over the course last 4-5 days he has been having issues with palpitations. Patient reports that the symptoms seem to got worse today. He reports that it is a pounding type sensation in his chest as well as tightness and heaviness in his chest. Patient states that he has no exacerbating relieving factors has been associated with him feeling somewhat ill recently associated with a cough and kind of generalized myalgias. Patient reports that he does have a history of spontaneous A. fib that he is status post cardioversion 4. Patient is a smoker, has a history of hypertension, and his mother also had a history of an abdominal aortic aneurysm and his family has a history of Sirena-Danlos syndrome. Physical Examination: Vital signs are within normal limits, except for tachycardia rate of 103 patient is afebrile. General: Patient is well-nourished well-developed and in no acute distress. Head: Normocephalic, atraumatic Eyes: Pupils equal round and reactive bilaterally, extra occular motion intact bialterally ENT: Moist mucous membranes Neck: Supple, no lymphadenopathy, no JVD, no meningismus CVS: Heart regular tachycardia, no murmurs, rubs or gallops, radial pulses 2+ bilaterally Resp: Respirations nondistressed, lung sounds clear bilaterally Abdomen: Soft, nontender, nondistended, no palpable masses, normal bowel sounds Back: Nontender Extremities: Nontender, atraumatic, active full range of motion, no peripheral edema Skin: warm, no rashes, no petechia Neuro: Alert and oriented x 4, CN 2-12 intact, no lateralizing neurological defecits Psyc: Normal affect Test Results: EKG demonstrates sinus tachycardia with rate of [address] segments normal T waves no changes from a prior EKG. CBC chemistry troponin TSH were all found to be unremarkable. CT angiogram of the chest shows no evidence of dissection a aortic aneurysm or pulmonary emboli Emergency Department Course and Treatment: Patient presented for evaluation secondary chest pain palpitations. His workup is negative as noted above. His MARCE score is 0 his heart score is 1. His symptoms seem rather atypical for anything cardiac. Patient potentially is having some palpitations and then has an element of anxiety over this. I do not believe he requires admission. Patient will follow up with his primary care physician. Disposition: Discharge Impression: 1. Palpitations This note was generated with [employer] dictation software. It may contain incorrect words, spelling, and punctuation that were not noted in review of the chart prior to signing ED Disposition - Plan for ED Patient: Disposition: Home or Assisted Living Chief Complaint: Chest Pain Diagnosis: Palpitations Instructions: ED Chest Pain NonCardiac Referrals: Katiana De Dios, QUALITY ASSURANCE/R&D LAB TECHNICIAN-C [Primary Care Provider] - 1-2 Weeks What to do if you have Problems For any increased pain, shortness of breath, bleeding, nausea or vomiting, chest pain, or any unexpected problems, contact your Primary Care Provider. Call [employer] [facility] ([phone]) or report to the closest Emergency Room. Call 911 if necessary. 01/05/18 0145 <Electronically signed by Jose Carlos Brandt MD> Date Jose Carlos Brandt MD Cosigner Signature (If Indicated): Date CC: Katiana MORALES CTA CHEST W/WO Observed: 01/04/2018 Status: F Source: [place] CONTRAST 7:57 PM [facility] REPOSITORY [facility] [place] [address] CTA Chest W/WO Contrast MR#: [id number] Acct: [id number] Name: GRETA ALMAGUER Rep #: [id number] : 1975 M 42 From: Eloy Zendejas DO PCP: Katiana De Jesus Status: REG ER Study: CTA Chest W/WO Contrast Date of Exam: 01/04/18 Exam# [id number] Ordering Dr: Jose Carlos Brandt MD STUDY: CTA CHEST REASON FOR EXAM: Male, 42 years old. Chest pain. History of hypertension and atrial fibrillation. RADIATION DOSAGE (If Supplied By Facility): CTDIvol = ( 16.91 ) mGy, DLP = ( 557.45 ) mGycm TECHNIQUE: The examination was performed with the intravenous administration of 100ML ml of Isovue 370 contrast material. Post-processing of the angiographic images was performed, with multiplanar reformation and 3D reconstruction. Individualized dose optimization techniques were used for this CT. COMPARISON: Chest, January 04, 2018. FINDINGS: Normal enhancement of the main pulmonary artery and right and left pulmonary arteries. Normal enhancement of the bilateral peripheral pulmonary arteries. There is no demonstrated pulmonary embolism. Normal thoracic aorta and visualized great vessels. There is no demonstrated aortic dissection. Normal heart and pericardium. Normal mediastinum. Normal hilar regions. Normal visualized trachea and bronchi. The lungs are hyper expanded, with flattening of the hemidiaphragms. Minimal subpleural blebs in both apices. There is no focal mass or infiltrate within the lungs. Normal pleura. Normal chest wall structures. Normal osseous structures. There are small cysts seen in segment 4A of the liver. The gallbladder is contracted. Abdomen appears otherwise unremarkable. CT/CTA Chest W/WO Contrast IMPRESSION: 1. No evidence of pulmonary embolus. 2. No aortic dissection or aneurysm. 3. Mild emphysematous changes lungs without focal mass or infiltrate. 4. Hepatic cysts. Electronically Signed: Eloy Zendejas DO at 21:20 EDT Tel [phone], Service support , CC: Katiana MORALES; Jose Carlos Brandt Hatch Supervisor: Signed CBC W/DIFF, AUTOMATED Collected: 01/04/2018 Status: F Source: [place] 7:45 PM [facility] REPOSITORY TYPE CODE TESTS RESULT OUT OF RANGE REFERENCE UNITS LAB L100.1000 4.4-11.0 K/mm3 Normal WBC 10.5 LAB L100.1200 4.6-6.2 M/mm3 Normal RBC 5.23 LAB L100.1300 13.0-16.5 g/dl Normal HGB 15.6 LAB L100.1400 40-54 % Normal HCT 44.8 LAB L100.1500 80-94 fL Normal MCV 85.7 LAB L100.1600 27.0-32.0 pg Normal MCH 29.8 LAB L100.1700 32-36 g/gl Normal MCHC 34.8 LAB L100.1810 11.6-14.6 % Normal RDW CV 13.0 LAB L100.1820 35.1-43.9 fl Normal RDW SD 40.6 LAB L100.1900 150-450 K/mm3 Normal PLT 319 LAB L100.2000 6.2-12.0 fl Normal MPV 9.8 LAB L100.2100 47-70 % Normal NEUT% 56.6 LAB L100.2200 19-41 % Normal LY% 31.3 LAB L100.2300 0-10 % Normal MONO% 9.0 LAB L100.2400 0-5 % Normal EO% 2.2 LAB L100.2500 0-1 % Normal BASO% 0.5 LAB L100.2550 0.0-0.9 % Normal IM GRAN % 0.400 Result Comment: IG% - Immature Granulocytes (promyelocytes, myelocytes and metamyelocytes) > 1% indicates that a LEFT SHIFT is Present. LAB L100.2620 2.0-7.7 X10 3/uL Normal Absolute Neut 5.9 LAB L100.2720 0.83-4.51 X10 3/ul Normal Absolute Lymph 3.27 Performed By: #### L100.0100 #### [facility] [place], [address] BASIC METABOLIC Collected: 01/04/2018 Status: F Source: [place] PROFILE (BMP) 7:45 PM [facility] REPOSITORY TYPE CODE TESTS RESULT OUT OF RANGE REFERENCE UNITS LAB L501.0100 74-106 mg/dL Normal GLU 89 Result Comment: Please note revised GLUCOSE reference range effective 2017. LAB L501.1000 7-18 mg/dL Normal BUN 14 LAB L501.1100 0.70-1.30 mg/dL Normal CREAT,SERUM 0.85 Result Comment: The validity of the calculated GFR AND GFRAA in patients over 70 years has not been determined. Clinical correlation is essential. LAB L501.1110 >60 mL/min Normal EST GFR 106 Result Comment: Non- GFR Calc LAB L501.1115 >60 mL/min Normal EST GFR - AA 128 Result Comment: GFR Calc LAB L501.1255 ml/min Normal Estimated CRCL 136.69 LAB L501.1300 10-20 RATIO BUN/CRE Normal 16.5 LAB L501.2200 8.5-10 mg/dL .1 CA Normal 9.8 LAB L501.5300 136-14 mmol/L 5 NA Normal 140 LAB L501.5600 3.5-5. mmol/L 1 K Normal 3.8 LAB L501.5900 98-107 mmol/L CL Normal 106 LAB L501.6100 21.0-3 mmol/L 2.0 CO2 Normal 28.0 LAB L501.6200 5-15 GAP Normal 6 Performed By: #### L500.2500, L501.4010 #### [facility] [address] [place], [address] TROPONIN-I Collected: 01/04/2018 Status: F Source: [place] 7:45 PM [facility] REPOSITORY TYPE CODE TESTS RESULT OUT OF RANGE REFERENCE UNITS LAB L501.4010 <0.045 ng/mL Normal < 0.015 TROPONIN-I Result Comment: TROPONIN-I EXPECTED VALUES <0.045 Negative 0.045 - 0.590 Consistent with Cardiac Damage > OR = 0.600 Critical Value Not every elevated troponin is indicative of AK. These values should be used with clinical judgement in examining the patient's clinical picture for diagnosis. To establish a diagnosis of AK versus myocardial injury, there must be a demonstrated rise and/or fall in the troponin values, in addition to ischemic symptoms, EKG changes, new regional wall motion abnormality, and/or angiographical evidence. PLEASE NOTE: REFERENCE RANGES EDITED 17 Performed By: #### L500.2500, L501.4010 #### [facility] [address] [place], [address] THYROID STIM HORMONE Collected: 01/04/2018 Status: F Source: [place] (TSH) 7:45 PM [facility] REPOSITORY TYPE CODE TESTS RESULT OUT OF RANGE REFERENCE UNITS LAB L501.9520 0.358-3.74 uIU/mL Normal TSH 0.68 Performed By: #### L501.9520 #### [facility] [address] [place], [address] CHEST 1 VIEW Observed: 01/04/2018 Status: F Source: [place] (PORTABLE) 7:44 PM [facility] REPOSITORY [facility] Imaging Services [address] [place] [address] Chest 1 View (Portable) MR#: [id number] Acct: [id number] Name: GRETA ALMAGUER Rep #: [id number] : 1975 M 42 From: Eloy Zendejas DO PCP: Katiana De Jesus Status: REG ER Study: Chest 1 View (Portable) Date of Exam: 01/04/18 Exam# [id number] Ordering Dr: Jose Carlos Brandt MD STUDY: X-RAY CHEST REASON FOR EXAM: Male, 42 years old. Chest pain and palpitations for several days. TECHNIQUE: Single AP portable view of the chest. COMPARISON: August 18, 2017. FINDINGS: Telemetry wires overlie the chest. The lungs are mildly hyperexpanded. There is no acute infiltrate or mass. There is no pneumothorax. There is no demonstrated pleural abnormality. Normal size heart. Normal mediastinum and luis. Normal visualized pulmonary arteries. Normal visualized aortic arch and descending thoracic aorta. The thoracic spine is obscured by the mediastinum. Normal visualized ribs, clavicles, and shoulders. There is no demonstrated abnormality of the visualized soft tissue structures of the upper abdomen. RAD/Chest 1 View (Portable) IMPRESSION: No acute cardiopulmonary disease or interval change. Electronically Signed: Elyo Zendejas DO at 20:17 EDT Tel [phone], Service support , CC: Katiana MORALES; Jose Carlos Brandt Hatch Supervisor: Signed EMERGENCY DEPARTMENT Observed: 12/02/2017 Status: F Source: [place] SUMMARY 10:17 PM [facility] REPOSITORY [facility] Medical Records Department [address] [place] [address] Emergency Department Summary 12/02/17 2211 MR#: [id number] Acct: [id number] Name: GRETA ALMAGUER Rep #: [id number] : 1975 42 From: Elvin Painting MD PCP: Katiana De Jesus Status: REG ER - ER Visit Summary Date of Service: 12/02/17 Chief Complaint: Acute exacerbation of low back pain. History of Present Illness: The patient is a 42 M with history of chronic back pain secondary to degenerative disc disease. He states he bent over felt a pop. He denies bowel bladder dysfunction. I saddle paresthesia anesthesia. No foot drop. Denies quadricep weakness going up or down steps. There is no history of trauma. He denies fever, chills night sweats. He denies dysuria, frequency, urgency or hematuria. Localizes the pain to the low lumbar region. Physical Examination: Patient was lying on the cot with his feet dangling over the end of the bed at the knees and his head flexed to 90 . Vital signs remarkable slight elevation blood pressure 135/78. HEENT exam unremarkable. Insert cardiopulmonary exam abdomen soft nontender no palpable cell mass abdominal bruit. Inspection of the back is unremarkable. He has minimal pain if at any. Straight leg test is negative. Crossover test is negative. Patella and ankle reflex are 3+. EHL is intact. Normal sensation. No foot drop with walking. Movement causes him pain. Test Results: None are indicated Emergency Department Course and Treatment: Patient was treated with one Sunapee tablet and 500 mg Naprosyn. Treatment Plan: Rest, ice and anti-inflammatory Disposition: Discharged to home with spouse Impression: Acute lumbar strain without sciatica This note was generated with [employer] dictation software. It may contain incorrect words, spelling, and punctuation that were not noted in review of the chart prior to signing ED Disposition - Plan for ED Patient: Disposition: Home or Assisted Living Chief Complaint: Back Instructions: ED Sprain Strain Lumbar Prescriptions: Naproxen [Naprosyn] 500 mg PO BID #14 tab Referrals: Katiana De Dios, QUALITY ASSURANCE/R&D LAB TECHNICIAN-C [Primary Care Provider] - 3-5 Days if not improving What to do if you have Problems For any increased pain, shortness of breath, bleeding, nausea or vomiting, chest pain, or any unexpected problems, contact your Primary Care Provider. Call [facility] ([phone]) or report to the closest Emergency Room. Call 911 if necessary. 12/02/172216 <Electronically signed by Elvin Painting MD> Date Elvin Painting MD Cosigner Signature (If Indicated): Date CC: Katiana MORALES 12 LEAD ELECTROCARDIOGRAM Observed: 08/19/2017 Status: F Source: [place] 3:33 PM [facility] REPOSITORY [facility] Cardiovascular Services [address] [place] [address] 12 Lead EKG 08/18/17 0252 MR#: [id number] Acct: [id number] Name: GRETA ALMAGUER Rep #: [id number] : 1975 42 From: Javier Canchola MD Attending Dr: Status: DEP ER Ordering Dr: Reuben Cooper DO Date: 08/18/17 Location: ED Sex: M C Admitted: Test Reason : CP Blood Pressure : / mmHG Vent. Rate : 085 BPM Atrial Rate : 085 BPM P-R Int : 150 ms QRS Dur : 092 ms QT Int : 360 ms P-R-T Axes : 083 078 060 degrees QTc Int : 428 ms Normal sinus rhythm Normal ECG Confirmed by JAVIER CANCHOLA MD ([id number]), general expeditor TRAVIS HARRISON ([id number]) on 08/19/2017 3:33:07 PM Referred By: BONG Confirmed By:JAVIER CANCHOLA MD 08/19/17 1533 Date Javier Canchola MD CC: Katiana MORALES; Reuben Cooper Signed EMERGENCY DEPARTMENT Observed: 08/18/2017 Status: F Source: [place] SUMMARY 6:16 AM [facility] REPOSITORY [facility] Medical Records Department [address] [place] [address] Emergency Department Summary 08/18/17 0357 MR#: [id number] Acct: [id number] Name: GRETA ALMAGUER Rep #: [id number] : 1975 42 From: Reuben Rashid PCP: Katiana De Jesus Status: DEP ER - ER Visit Summary Date of Service: 08/18/17 Chief Complaint: Chest pain History of Present Illness: The patient is a 42 M wax and waning chest pain past 4 days. Localized left lateral chest. Mild dyspnea. States just the discomfort. No worsening or relieving factors. No nausea. No vomiting. No diaphoresis. No recent illness. No PE risk factors. Tobacco history. Denies history of hypertension, diabetes, hypercholesterolemia. No family history of AK young age. States diagnosed with paroxysmal atrial fibrillation a few months back. He is cardioverted in the hospital. Taken off Xarelto by cardiology Dr. Canchola per patient. Does not recommend any additional therapy. Was told likely because of his caffeine use. Does admit to occasional marijuana. Physical Examination: General: Alert and oriented 3, no acute distress HEENT: Normocephalic, atraumatic. Moist mucosa membranes Neck: supple, nontender. Cardiovascular: Regular rate and rhythm, no murmurs Respiratory: Normal breath sounds, symmetric, no distress Abdomen: Soft, nontender, nondistended Extremities: Nontender, no edema, pulses intact 4 Neuro: no focal neurological deficits. Test Results: EKG sinus rate of [address] or T-wave changes. Troponin less than 0.02. Creatinine 0.89. Chest x-ray negative. Emergency Department Course and Treatment: Patient was treated with aspirin. Cardiac workup negative. Waxing waning symptoms past 4 days with a negative troponin less likely cardiac in nature. PE RC criteria was negative. Heart scores a 1. Heart pathway guideline was discussed with the patient. Discussed patient follow with PCP or Dr. Canchola for outpatient follow-up. Likely a stress test. Return if any worsening symptoms. Discussed tobacco cessation. All questions were answered. Treatment Plan: [] Disposition: Discharge Impression: 1. Atypical chest pain This note was generated with Tradesyation software. It may contain incorrect words, spelling, and punctuation that were not noted in review of the chart prior to signing ED Disposition - Plan for ED Patient: Disposition: Home or Assisted Living Chief Complaint: Chest Pain Diagnosis: Atypical chest pain Instructions: ED Chest Pain Atypical Unkn Cause Referrals: Katiana De Dios, QUALITY ASSURANCE/R&D LAB TECHNICIAN-C [Primary Care Provider] - 3-5 Days What to do if you have Problems For any increased pain, shortness of breath, bleeding, nausea or vomiting, chest pain, or any unexpected problems, contact your Primary Care Provider. Call [facility] ([phone]) or report to the closest Emergency Room. Call 911 if necessary. 08/18/17 0616 <Electronically signed by Reuben Rashid> Date Reuben Rashid Cosigner Signature (If Indicated): Date CC: Katiana MORALES CHEST 1 VIEW Observed: 08/18/2017 Status: F Source: [place] (PORTABLE) 3:02 AM [facility] REPOSITORY [facility] Imaging Services [address] [place] [address] Chest 1 View (Portable) MR#: [id number] Acct: [id number] Name: GRETA ALMAGUER Rep #: [id number] : 1975 M 42 From: Nathalie Lentz MD PCP: Katiana De Jesus Status: PRE ER Study: Chest 1 View (Portable) Date of Exam: 08/18/17 Exam# [id number] Ordering Dr: Reuben Cooper DO STUDY: X-RAY CHEST REASON FOR EXAM: Male, 42 years old. Chest pain TECHNIQUE: Single AP portable view of the chest. COMPARISON: None. FINDINGS: The lungs are clear and expanded. There is no demonstrated pleural abnormality. Normal size heart. Normal mediastinum and luis. Normal visualized pulmonary arteries. Normal visualized aortic arch and descending thoracic aorta. Normal visualized thoracic spine. Normal visualized ribs, clavicles, and shoulders. There is no demonstrated abnormality of the visualized soft tissue structures of the upper abdomen. RAD/Chest 1 View (Portable) IMPRESSION: Normal x-ray examination of the chest. Electronically Signed: Nathalie Lentz MD at 3:29 EDT Tel , Service support , CC: Katiana MORALES; Reuben Cooper Hatch Supervisor: Signed CBC W/DIFF, AUTOMATED Collected: 08/18/2017 Status: F Source: [place] 2:55 AM [facility] REPOSITORY TYPE CODE TESTS RESULT OUT OF RANGE REFERENCE UNITS LAB L100.1000 4.4-11.0 K/mm3 Normal WBC 8.9 LAB L100.1200 4.6-6.2 M/mm3 Normal RBC 5.02 LAB L100.1300 13.0-16.5 g/dl Normal HGB 15.0 LAB L100.1400 40-54 % Normal HCT 44.8 LAB L100.1500 80-94 fL Normal MCV 89.2 LAB L100.1600 27.0-32.0 pg Normal MCH 29.9 LAB L100.1700 32-36 g/gl Normal MCHC 33.5 LAB L100.1810 11.6-14.6 % Normal RDW CV 13.8 LAB L100.1820 35.1-43.9 fl High RDW SD 44.7 LAB L100.1900 150-450 K/mm3 Normal PLT 294 LAB L100.2000 6.2-12.0 fl Normal MPV 9.6 LAB L100.2100 47-70 % Normal NEUT% 57.5 LAB L100.2200 19-41 % Normal LY% 29.6 LAB L100.2300 0-10 % Normal MONO% 9.8 LAB L100.2400 0-5 % Normal EO% 2.5 LAB L100.2500 0-1 % Normal BASO% 0.4 LAB L100.2550 0.0-0.9 % Normal IM GRAN % 0.200 Result Comment: IG% - Immature Granulocytes (promyelocytes, myelocytes and metamyelocytes) > 1% indicates that a LEFT SHIFT is Present. LAB L100.2620 2.0-7.7 X10 3/uL Normal Absolute Neut 5.1 LAB L100.2720 0.83-4.51 X10 3/ul Normal Absolute Lymph 2.63 Performed By: #### L100.0100 #### [facility] [address] [place], [address] BASIC METABOLIC Collected: 08/18/2017 Status: F Source: [place] PROFILE (BMP) 2:55 AM [facility] REPOSITORY Order Comment: 'TROP' Serial specimen #1, #2, #3, or #4: 1 TYPE CODE TESTS RESULT OUT OF RANGE REFERENCE UNITS LAB L501.0100 74-106 mg/dL Normal GLU 85 Result Comment: Please note revised GLUCOSE reference range effective 2017. LAB L501.1000 7-18 mg/dL Normal BUN 13 LAB L501.1100 0.70-1.30 mg/dL Normal CREAT,SERUM 0.89 Result Comment: The validity of the calculated GFR AND GFRAA in patients over 70 years has not been determined. Clinical correlation is essential. LAB L501.1110 >60 mL/min Normal EST GFR 100 Result Comment: Non- GFR Calc LAB L501.1115 >60 mL/min Normal EST GFR - AA 121 Result Comment: GFR Calc LAB L501.1255 ml/min Normal Estimated CRCL 126.99 LAB L501.1300 10-20 RATIO BUN/CRE Normal 14.6 LAB L501.2200 8.5-10 mg/dL .1 CA Normal 8.8 LAB L501.5300 136-14 mmol/L 5 NA Normal 143 LAB L501.5600 3.5-5. mmol/L 1 K Normal 4.0 LAB L501.5900 98-107 mmol/L CL Normal 107 LAB L501.6100 21.0-3 mmol/L 2.0 CO2 Normal 28.0 LAB L501.6200 5-15 GAP Normal 8 Performed By: #### L500.2500, L501.4010 #### [facility] [address] [place], [address] TROPONIN-I Collected: 08/18/2017 Status: F Source: [place] 2:55 AM [facility] REPOSITORY Order Comment: 'TROP' Serial specimen #1, #2, #3, or #4: 1 TYPE CODE TESTS RESULT OUT OF RANGE REFERENCE UNITS LAB L501.4010 <0.06 ng/mL Normal < 0.02 TROPONIN-I Result Comment: TROPONIN-I EXPECTED VALUES <0.05 NEGATIVE 0.06 - 0.59 AT RISK OF AK > OR = 0.60 SUGGEST AK Performed By: #### L500.2500, L501.4010 #### [facility] [address] [place], [place], [address] ALLERGIES ALLERGIES DATE TYPE / CODE NAME / CODE REACTION SEVERITY SOURCE 04/23/2018 Drug No Known Unknown [facility] Allergy/4160 Allergies/F00 [facility] [address]3843(SNOMED 1982605(RXNOR Repository CT) M) ENCOUNTERS ENCOUNTERS ADMIT/DISCHARGE ACCOUNT ADMITTING ENCOUNTER LOCATION SOURCE NUMBER CLASS 06/30/2018 [id number] Emergency [facility] ing:ED Repository 04/23/2018/ [id number] Emergency [address] ing:ED Repository 04/21/2018/ [id number] Emergency [address] ing:ED Repository 01/04/2018/ [id number] Emergency [facility] ing:ED Repository 12/02/2017/ [id number] Emergency [facility] ing:ED Repository 08/18/2017/ [id number] Emergency [address] ing:ED Repository 07/05/2017/ [id number] Emergency [address] ing:ED Repository PAYERS PAYERS ENCOUNTER GUARANTOR PAYER SUBSCRIBER SOURCE 06/30/2018 GRETA Lovell [id number] Primary GRETA GARCIA Insurance:CARESOURCEP SAIGERDOB: [facility] Number: [id number] Hospital [address]Pee: 330 [id number] Repository [phone] () Date:2018-06-30[address]ATTN: [place] [address]BI: 06/30/2018 Secondary NOT GIVENUNK [place] Insurance:SELF PAY [facility] Number: Effective Repository Date:2018-06-30 04/23/2018 GRETA Lovell [id number] Primary [address]TA [address] Insurance:CARESOURCEP SAIGERDOB: [facility] Number: [id number] Hospital [address]Mxu: 330 [id number] Repository [phone] () Date:2018-04-23[address]ATTN: [place] [address]OI: 04/23/2018 Secondary NOT GIVENUNK [place] Insurance:SELF PAY [facility] Number: Effective Repository Date:2018-04-23 04/21/2018 GRETA Lovell [id number] Primary GRETA GARCIA Insurance:CARESOURCEP SAIGERDOB: [facility] Number: [id number] Hospital [address]Qab: [phone] [id number] Repository [phone] () Date:2018-04-21[address]ATTN: [place] [address]RQ: 04/21/2018 Secondary NOT GIVENUNK [place] Insurance:SELF PAY [facility] Number: Effective Repository Date:2018-04-21 01/04/2018 GRETA ALMAGUER433 Primary [address]TA [address] Insurance:CARESOURCEP SAIGERDOB: [facility] Number: [id number] Hospital [address]Ofa: [phone] [id number] Repository [phone] (HP) Date:2018-01-04[address]ATTN: [place] [address]TN: 01/04/2018 Secondary NOT GIVENUNK [place] Insurance:SELF PAY [facility] Number: Effective Repository Date:2018-01-04 12/02/2017 GRETA ANTHONY3 Primary GRETA Alvarado [address] Insurance:CARESOURCEP SAIGERDOB: [facility] Number: [id number] Hospital [address]Sze: [phone] [id number] Repository [phone] (HP) Date:2017-12-02[address]ATTN: [place] [address]EB: 12/02/2017 Secondary NOT GIVENUNK [place] Insurance:SELF PAY [facility] Number: Effective Repository Date:2017-12-02 08/18/2017 GRETA ALMAGUER433 Primary GRETA Alvarado [address] Insurance:CARESOURCEP SAIGERDOB: [facility] Number: [id number] Hospital [address]Ama: [phone] [id number] Repository [phone] (HP) Date:2017-08-18[address]ATTN: CLAIMS [facility] [place] [address]XV: 08/18/2017 Secondary NOT GIVENUNK [place] Insurance:SELF PAY [facility] Number: Effective Repository Date:2017-08-18 07/05/2017 GRETA ALMAGUER433 Primary GRETA Bauer [address] Insurance:CARESOURCOSCAR TAVARESB: [facility] Number: [id number] Hospital [address]Jgb: [phone]) [id number] Repository [phone] () Date:2017-07-05[address]ATTN: [place] [address]CB: 07/05/2017 Secondary NOT GIVENANAHY Alvarado Insurance:SELF PAY [facility] Number: Effective Repository Date:2017-07-05
== END 2018-07-06 06:39 | disposition left against medical advice (07) ==
LOC: ED 06:39
PROVIDERS: Emergency Provider Emergency Medicine; Family Provider Nurse Practitioner Family; PCP Nurse Practitioner Family
DX: R69 Illness, unspecified (principal)
CPT/HCPCS: 70450

== ENCOUNTER 2018-10-18 03:06 | Emergency (ER) | payer MEDICAID, SELFPAY ==
[2018-07-15 09:29] VITALS: BMI 28.5
[2018-10-18 03:07] VITALS: BP 163/89; PULSE 107; RESP 16; TEMP 36.3; O2SAT 100; BMI 28.2
--- NOTE | 2018-10-18 03:19 | CT_ITS ---
HISTORY: UNSPECIFIED WEAKNESS EXAMINATION: CT Head or Brain W/O Contrast TECHNIQUE: Multiple axial images were obtained of the brain without intravenous contrast. A radiation dose optimization technique was used for this scan. IV Contrast dosage and agent: None. COMPARISON: 06/30/2018 FINDINGS: With comparison previous, no significant change. The ventricles are normal in size. Stable asymmetry of the superior cerebellar cisterns with the left side cistern larger than the right. Ocampo-white matter differentiation appears normal. No intracranial mass, hemorrhage, or acute parenchymal abnormality. No suspicious extra-axial fluid collection. As visualized, the mastoids and paranasal sinuses are clear. CT/Brain/Head without Contrast IMPRESSION: Negative for intracranial hemorrhage or acute disease. No significant interval change. Individualized dose optimization techniques were used for this CT. at 043 Reported and signed by: Americo Bedoya MD Electronically Signed: Americo Bedoya, at 4:34 EDT Tel , Service support ,
--- NOTE | 2018-10-18 03:19 | EKG12_ITS ---
Test Reason : GEN ILLNESS Blood Pressure : / mmHG Vent. Rate : 079 BPM Atrial Rate : 079 BPM P-R Int : 164 ms QRS Dur : 098 ms QT Int : 352 ms P-R-T Axes : 053 057 045 degrees QTc Int : 403 ms Normal sinus rhythm Minimal voltage criteria for LVH, may be normal variant Borderline ECG Confirmed by MARGARITA HICKEY, NADINE ([id number]), photographic editor WAQAS DENNISON ([id number]) on 10/20/2018 1:41:08 PM Referred By: Katiana De Dios Confirmed By:NADINE AVILA MD
--- NOTE | 2018-10-18 03:19 | RAD_ITS ---
HISTORY: Cough DIZZINESS EXAM:XR Chest 1 View portable COMPARISON: Portable chest and CTA chest 01/04/2018 FINDINGS: No significant change. Normal heart size. Hyperinflation. The upper lobes are emphysematous. No vascular congestion, pleural effusion, or acute pulmonary infiltration is seen. No pneumothorax. The bony thorax appears intact. RAD/Chest 1 View IMPRESSION: 1. No acute cardiopulmonary disease. No significant interval change. 2. Emphysema. at 0342 Reported and signed by: Americo Bedoya MD Electronically Signed: Americo Bedoya, at 3:41 EDT Tel , Service support ,
[2018-10-18 03:46] LABS: Absolute Lymphocyte Count 2.92 X10^3/ul (0.83-4.51); Absolute Neutrophil Count 9.3 X10^3/uL (2.0-7.7); Basophil# 0.04 X10^3/uL; Basophil% 0.3 % (0-1); Eosinophil# 0.36 X10^3/uL; Eosinophils% 2.7 % (0-5); Hematocrit 42.4 % (40-54); Hemoglobin 14.6 g/dl (13.0-16.5); Lymphocyte # 2.92 X10^3/ul (4.0); Lymphocyte % 21.9 % (19-41); Mean Corp Hgb Conc 34.4 g/gl (32-36); Mean Corpuscular Hgb 29.3 pg (27.0-32.0); Monocyte# 0.65 X10^3/uL; Monocyte% 4.9 % (0-10); Neutrophil # 9.33 X10^3/uL (2.7-7.7); Platelet Count 293 K/mm3 (150-450); RBC Distribution Width CV 13.5 % (11.6-14.6); RBC Distribution Width SD 41.4 fl (35.1-43.9); Red Blood Count 4.99 M/mm3 (4.6-6.2); White Blood Count 13.3 K/mm3 (4.4-11.0)
[2018-10-18 03:53] LABS: POSITIVE COUNT NO; POSITIVE DIFFERENTIAL NO; POSITIVE MORPHOLOGY NO
[2018-10-18 03:58] LABS: Anion Gap 7 (5-15); BUN 11 mg/dL (7-18); BUN/Creat Ratio 15.4 RATIO (10-20); Calcium,Total 8.8 mg/dL (8.5-10.1); Chloride 108 mmol/L (98-107); Creatinine, Serum 0.71 mg/dL (0.70-1.30); EST Glomerular Filtration Rate 129 mL/min (>60); Est Glom Filt Rate - Afr Amer 156 mL/min (>60); Estimated Creatinine Clearance 157.58 ml/min; Glucose 109 mg/dL (74-106); Sodium Level 142 mmol/L (136-145)
[2018-10-18 04:28] LABS: Bacteria 0 SEEN /hpf (None Seen); Mucous, Urine 0 SEEN /hpf (<or=2+); Red Blood Cells-Urine 0 SEEN /hpf (0-5); Squamous Epithelial Cells - UA 0 SEEN /hpf (0-5); White Blood Cells 0 SEEN /hpf (0-5)
[2018-10-18 04:34] LABS: Color, Urine Yellow (Yellow); Glucose, Dipstick Normal (Normal); Ketone-Dipstick Negative (Negative); Leukocyte Esterase-Dipstick Negative /ul (Negative); Nitrite-Dipstick Negative (Negative); Occult Blood-Urine Negative /ul (Negative); Protein-Dipstick Negative (Negative); Urine Bilirubin Dipstick Negative (Negative); Urine Clarity Clear (Clear); Urine Urobilinogen Normal (Normal); Urine pH 6.5 (5.0 - 8.0)
--- NOTE | 2018-10-18 04:45 | ED.DCSUM_ITS ---
- ER Visit Summary Date of Service: 10/18/18 Chief Complaint: Multiple complaints History of Present Illness: The patient is a 43 M who presents with multiple complaints. He states that over the last 2 to 3 days he has had a mild right- sided headache, twitching of his right eyelid, twitching in his chin, weakness and tingling in the right arm and leg, he is concerned there may be a possible varicose vein near his left ankle. He complains of urinary frequency. He had some right thigh pain. He states he has twitching in his kneecap. He complains of palpitations. He also has had some left-sided dental pain. Physical Examination: Heart rate 107 vitals otherwise normal Moist mucous membranes Heart regular rhythm slightly tachycardic on initial exam Lungs clear Abdomen soft Alert oriented no focal or lateralizing neurological deficits, NIH stroke scale is 0 his sensation is normal right touch his strength is normal Test Results: EKG shows sinus rhythm at a rate of 79. Labs are notable for white blood cell count 13.3. INR normal. Urine normal. Chest x-ray shows no acute disease and CT head negative for hemorrhage or acute disease. Emergency Department Course and Treatment: Work-up as above is unremarkable. Patient presented with multiple complaints. I do not believe that his symptoms are related to TIA or stroke. I believe the patient can be safely discharged home to follow-up as an outpatient. Treatment Plan: [] Disposition: Discharge Impression: Muscle twitching Weakness Dental pain Headache This note was generated with Volusion dictation software. It may contain incorrect words, spelling, and punctuation that were not noted in review of the chart prior to signing ED Disposition - Plan for ED Patient: Referrals: Michelle Escobar [Primary Care Provider] -
--- NOTE | 2018-10-18 04:47 | ED.DEP ---
ED Disposition - Plan for ED Patient: Instructions: ED Spasm Muscle, ED Weakness UKO Referrals: Ginger Elder,Michelle Bates [Primary Care Provider] -
[2018-10-18 05:06] VITALS: BP 158/87; PULSE 98; RESP 16; O2SAT 99
== END 2018-10-18 05:07 | disposition home or self-care (01) ==
PROVIDERS: Emergency Provider Emergency Medicine; Referring Provider Nurse Practitioner Family
DX: R25.3 Fasciculation (principal); R53.1 Weakness; K08.89 Other specified disorders of teeth and supporting structures; R51 Headache; R20.2 Paresthesia of skin; R35.0 Frequency of micturition; M79.651 Pain in right thigh; R00.2 Palpitations; Z72.0 Tobacco use; Z79.82 Long term (current) use of aspirin; Z79.1 Long term (current) use of non-steroidal anti-inflammatories (NSAID)
CPT/HCPCS: 70450; 71045; 80048; 81001; 85025; 85610; 93005; 99284; A4216

== ENCOUNTER 2018-10-25 15:21 | Emergency (ER) | payer MEDICAID, SELFPAY ==
[2018-10-25 15:22] VITALS: BP 142/87; PULSE 85; RESP 16; TEMP 36.5; O2SAT 97; BMI 29.4
--- NOTE | 2018-10-25 15:35 | VDLE_ITS ---
Reason For Study: Pain RLE RIGHT LEFT GSV is normal. CFV is compressible, spontaneous, phasic, CFV is compressible, spontaneous, phasic, competent, and demonstrates normal competent and demonstrates normal augmentation. augmentation. FV is compressible, spontaneous, phasic, competent and demonstrates normal augmentation. POP V is compressible, spontaneous, phasic, competent and demonstrates normal augmentation. T/P Trunk is compressible. PTV is compressible. RT PerV is compressible. Procedure Exam performed portable in ED. A preliminary report was called and/or faxed to Dr. Travis. Interpretation Summary There is no evidence of right lower extremity deep vein thrombosis. Right greater saphenous vein appears patent and compressible segmentally. Normal flow patterns left common femoral vein Ordering Physician: Chava Travis Referring Physician: Michelle Bates [facility] Performed By: Page Barnes, KARMA, RVT
--- NOTE | 2018-10-25 15:37 | ED.VISSUMM ---
- ER Visit Summary Date of Service: 10/25/18 Chief Complaint: Atraumatic right lower medial calf pain History of Present Illness: The patient is a 43 M status pain for months if not longer. He thinks is getting worse. Denies any falls or trauma. No fever or redness. He thinks it appears swollen. First he denies any history of DVT or PE. He is a smoker. Denies any recent travel, surgery or hospitalization. No hemoptysis. No chest pain. Physical Examination: Well-appearing middle-age male. Vital signs stable afebrile. No acute distress. HEENT exam unremarkable. Neck nontender. No lymphadenopathy. Lungs clear to auscultation bilaterally. Heart regular rate and rhythm no murmur rate about 80. Chest wall nontender. Abdomen soft nontender. Normal bowel sounds no peritoneal signs. Patient moving all 4 extremities. No edema. No cords. His right lower calf has very minimal tenderness. There is no edema. Both lower extremities neurovascular intact with easily palpable DP pulses. Normal dorsi and plantarflexion intact. Normal range of motion to his ankles, knees and hips. No signs of trauma. Back nontender. Neurologic exam normal. Test Results: Venous study right leg was negative. No signs of DVT. Emergency Department Course and Treatment: Discharge to home. Treatment Plan: Motrin and Tylenol for pain. Ice to the area. Follow-up if not improving. Disposition: Discharge Impression: Acute right lower calf pain secondary to musculoskeletal etiology Ruled out for DVT This note was generated with Qualys dictation software. It may contain incorrect words, spelling, and punctuation that were not noted in review of the chart prior to signing ED Disposition - Plan for ED Patient: Referrals: Michelle Escobar [Primary Care Provider] -
--- NOTE | 2018-10-25 16:15 | ED.DEP ---
ED Disposition - Plan for ED Patient: Disposition: Home or Assisted Living Referrals: Michelle Escobar [Primary Care Provider] - 1 Week if not improving Additional Instructions: Motrin for calf pain. The ultrasound was negative no blood clot. Follow-up with your primary care provider
[2018-10-25 16:24] VITALS: PULSE 69; RESP 18; O2SAT 97
== END 2018-10-25 16:25 | disposition home or self-care (01) ==
PROVIDERS: Emergency Provider Emergency Medicine
DX: M79.661 Pain in right lower leg (principal); R11.0 Nausea; I48.91 Unspecified atrial fibrillation; F17.200 Nicotine dependence, unspecified, uncomplicated; Z79.82 Long term (current) use of aspirin; Z79.1 Long term (current) use of non-steroidal anti-inflammatories (NSAID)
CPT/HCPCS: 93971; 99282

== ENCOUNTER 2018-11-17 18:34 | Emergency (ER) | payer MEDICAID, SELFPAY ==
[2018-11-17 18:35] VITALS: BP 133/85; PULSE 89; RESP 16; TEMP 36.4; O2SAT 96; BMI 27.6
--- NOTE | 2018-11-17 18:51 | EKG12_ITS ---
Test Reason : CP Blood Pressure : / mmHG Vent. Rate : 083 BPM Atrial Rate : 083 BPM P-R Int : 148 ms QRS Dur : 094 ms QT Int : 348 ms P-R-T Axes : 076 076 060 degrees QTc Int : 408 ms Normal sinus rhythm Possible Left atrial enlargement Borderline ECG Confirmed by MARGARITA HICKEY, NADINE ([id number]), editor & co founder ROSCOE CHILD ([id number]) on 11/19/2018 9:25:17 AM Referred By: SAIDA/DIMITRIOS Confirmed By:NADINE AVILA MD
--- NOTE | 2018-11-17 18:55 | RAD_ITS ---
STUDY: X-RAY CHEST REASON FOR EXAM: Male, 43 years old. Chest pain TECHNIQUE: Frontal views COMPARISON: October 18, 2018 FINDINGS: The lungs are clear and expanded. There is no demonstrated pleural abnormality. Normal size heart. Normal mediastinum and luis. Normal visualized pulmonary arteries. Normal visualized aortic arch and descending thoracic aorta. Normal visualized thoracic spine. Normal visualized ribs, clavicles, and shoulders. There is no demonstrated abnormality of the visualized soft tissue structures of the upper abdomen. RAD/Chest 1 View (Portable) IMPRESSION: Normal x-ray examination of the chest. Electronically Signed: Cristhian Alvarado DO at 20:00 EDT Tel [phone], Service support ,
[2018-11-17 19:01] LABS: Absolute Lymphocyte Count 3.13 X10^3/ul (0.83-4.51); Absolute Neutrophil Count 8.7 X10^3/uL (2.0-7.7); Basophil# 0.03 X10^3/uL; Basophil% 0.2 % (0-1); Eosinophil# 0.26 X10^3/uL; Hematocrit 45.1 % (40-54); Hemoglobin 15.3 g/dl (13.0-16.5); Lymphocyte # 3.13 X10^3/ul (4.0); Lymphocyte % 23.7 % (19-41); Mean Corp Hgb Conc 33.9 g/gl (32-36); Mean Corpuscular Hgb 29.1 pg (27.0-32.0); Mean Corpuscular Volume 85.7 fL (80-94); Mean Platelet Vol. 9.6 fl (6.2-12.0); Monocyte# 1.03 X10^3/uL; Monocyte% 7.8 % (0-10); Platelet Count 305 K/mm3 (150-450); RBC Distribution Width CV 13.4 % (11.6-14.6); Red Blood Count 5.26 M/mm3 (4.6-6.2); White Blood Count 13.2 K/mm3 (4.4-11.0)
[2018-11-17 19:03] LABS: POSITIVE COUNT NO; POSITIVE DIFFERENTIAL NO; POSITIVE MORPHOLOGY NO
[2018-11-17 19:13] VITALS: O2SAT 96
[2018-11-17 19:13] LABS: Anion Gap 4 (5-15); BUN 16 mg/dL (7-18); BUN/Creat Ratio 22.1 RATIO (10-20); Calcium,Total 9.5 mg/dL (8.5-10.1); Chloride 107 mmol/L (98-107); Creatinine, Serum 0.72 mg/dL (0.70-1.30); EST Glomerular Filtration Rate 126 mL/min (>60); Est Glom Filt Rate - Afr Amer 152 mL/min (>60); Estimated Creatinine Clearance 155.39 ml/min; Glucose 101 mg/dL (74-106); Potassium 4.1 mmol/L (3.5-5.1); Sodium Level 136 mmol/L (136-145)
[2018-11-17 19:40] VITALS: BP 144/81; PULSE 72; RESP 20; O2SAT 95
--- NOTE | 2018-11-17 20:03 | ED.VISSUMM ---
- ER Visit Summary Date of Service: 11/17/18 Chief Complaint: Chest pain and dental pain History of Present Illness: The patient is a 43 M noticing a past medical history. Patient states he was coming in for left upper molar dental pain he knows he has a cavity is appointment to see a dentist next week. About an hour prior to arrival he had left-sided chest pain. Denies any fall or trauma. Denies any fever or cough. No shortness of breath. No nausea. No diaphoresis. It was not exertional. He is never had a DVT or PE. No recent travel, surgery or admission. No calf pain or swelling. No hemoptysis. Is not pleuritic. There is a reproducible component to the pain on his left chest wall. He denies any back pain. Physical Examination: Well-appearing anxious middle-age male. Vital signs are stable afebrile. Pulse ox 95% room air no signs of hypoxia. HEENT exam unremarkable except left upper molar appears to have a cavity in the posterior aspect. There is no gingival swelling no abscess. No trismus. Able to open close his mouth any difficulty. No facial or jaw swelling. He has a nontender neck without lymphadenopathy. Lungs clear to auscultation bilaterally. Heart regular rhythm no murmur. Chest wall he does have reproducible tenderness over the left chest wall between his sternum and mid pectoralis muscle. There is no ecchymosis or bruising. There is no redness or warmth. There is no signs of trauma. There is no soft tissue deficit. There is no bony deformity. There is no crepitance or subcu air. Abdomen is soft and nontender. Normal bowel sounds no peritoneal signs. Patient is moving all 4 extremities. Neurovascular intact. Equal symmetrical radial pulses. Calves are nontender without edema or cords. 5 out of 5 meat wrapper strength. Dorsi plantarflexion intact. Back nontender. Unremarkable exam. Neurologically is awake alert with no focal motor deficits. Test Results: EKG sinus rhythm rate of 83 with no acute signs of [place] or ischemia. CBC White count of 13 normal H&H. Chemistries normal normal creatinine and gap. Troponin normal. Portal chest x-ray showed no acute abnormality. Normal mediastinum. Normal aortic knob. No cardiomegaly. Normal lung stephens read by myself. Emergency Department Course and Treatment: Clinically this is not cardiac chest pain or PE. Exam is consistent reproducible chest wall pain. With a negative work-up will be discharged home. Treatment Plan: Motrin or Naprosyn for pain. Follow-up with [facility] if not improving. Return if worse. Disposition: Discharge Impression: Acute musculoskeletal chest wall pain. This note was generated with [employer] dictation software. It may contain incorrect words, spelling, and punctuation that were not noted in review of the chart prior to signing ED Disposition - Plan for ED Patient: Referrals: [facility] Jael,Michelle Bates [Primary Care Provider] -
--- NOTE | 2018-11-17 20:06 | ED.DCSUM_ITS ---
- ER Visit Summary Date of Service: 11/17/18 Chief Complaint: Chest pain and dental pain History of Present Illness: The patient is a 43 M noticing a past medical history. Patient states he was coming in for left upper molar dental pain he knows he has a cavity is appointment to see a dentist next week. About an hour prior to arrival he had left-sided chest pain. Denies any fall or trauma. Denies any fever or cough. No shortness of breath. No nausea. No diaphoresis. It was not exertional. He is never had a DVT or PE. No recent travel, surgery or admission. No calf pain or swelling. No hemoptysis. Is not pleuritic. There is a reproducible component to the pain on his left chest wall. He denies any back pain. Physical Examination: Well-appearing anxious middle-age male. Vital signs are stable afebrile. Pulse ox 95% room air no signs of hypoxia. HEENT exam un remarkable except left upper molar appears to have a cavity in the posterior aspect. There is no gingival swelling no abscess. No trismus. Able to open close his mouth any difficulty. No facial or jaw swelling. He has a nontender neck without lymphadenopathy. Lungs clear to auscultation bilaterally. Heart regular rhythm no murmur. Chest wall he does have reproducible tenderness over the left chest wall between his sternum and mid pectoralis muscle. There is no ecchymosis or bruising. There is no redness or warmth. There is no signs of trauma. There is no soft tissue deficit. There is no bony deformity. There is no crepitance or subcu air. Abdomen is soft and nontender. Normal bowel sounds no peritoneal signs. Patient is moving all 4 extremities. Neurovascular intact. Equal symmetrical radial pulses. Calves are nontender without edema or cords. 5 out of 5 crystal syrup maker strength. Dorsi plantarflexion intact. Back nontender. Unremarkable exam. Neurologically is awake alert with no focal motor deficits. Test Results: EKG sinus rhythm rate of 83 with no acute signs of [place] or ischemia. CBC White count of 13 normal H&H. Chemistries normal normal creatinine and gap. Troponin normal. Portal chest x-ray showed no acute abnormality. Normal mediastinum. Normal aortic knob. No cardiomegaly. Normal lung stephens read by myself. Emergency Department Course and Treatment: Clinically this is not cardiac chest pain or PE. Exam is consistent reproducible chest wall pain. With a negative work-up will be discharged home. Treatment Plan: Motrin or Naprosyn for pain. Follow-up with [facility] if not improving. Return if worse. Disposition: Discharge Impression: Acute musculoskeletal chest wall pain. This note was generated with [employer] dictation software. It may contain incorrect words, spelling, and punctuation that were not noted in review of the chart prior to signing ED Disposition - Plan for ED Patient: Referrals: [facility] Michelle Elder [Primary Care Provider] -
--- NOTE | 2018-11-17 20:06 | ED.DEP ---
ED Disposition - Plan for ED Patient: Disposition: Home or Assisted Living Instructions: ED Strain Chest Wall Referrals: Ginger Elder,Michelle Bates [Primary Care Provider] - 1 Week if not improving Additional Instructions: Ice to chest wall. Motrin or naproxen for pain. Follow-up if not improving return if worse. All your tests including her x-ray, EKG and blood work were normal. This appears to be chest wall pain.
--- NOTE | 2018-11-17 20:16 | ED.RN ---
AFTER REGISTRATION COMPLETE, PT LEFT THE ROOM AND DEPARTMENT. ASKED PT IF HE WANTED HIS D/C INSTRUCTIONS. PT STATES NOPE. I'M NOT GETTING ANY PRESCRIPTIONS SO I DON'T NEED THEM.
== END 2018-11-17 20:19 | disposition home or self-care (01) ==
LOC: ED 20:13
PROVIDERS: Emergency Provider Emergency Medicine
DX: R07.89 Other chest pain (principal); K08.89 Other specified disorders of teeth and supporting structures; Z72.0 Tobacco use; Z79.82 Long term (current) use of aspirin; Z79.1 Long term (current) use of non-steroidal anti-inflammatories (NSAID); Z79.899 Other long term (current) drug therapy
CPT/HCPCS: 36415; 71045; 80048; 84484; 85025; 93005; 99283

== ENCOUNTER 2018-12-03 23:22 | Emergency (ER) | payer MEDICAID, SELFPAY ==
[2018-12-03 23:22] VITALS: BP 160/80; PULSE 85; RESP 22; TEMP 36.9; O2SAT 98; BMI 25.7
--- NOTE | 2018-12-03 23:29 | RAD_ITS ---
HISTORY:FELL DOWN STAIRS,LT SIDED RIB PAIN FELL DOWN STAIRS,LT SIDED RIB PAIN EXAMINATION/TECHNIQUE: XR Ribs Unilateral W/ PA Chest Min 3 Views: COMPARISON: Prior chest on November 17, 2018 FINDINGS: LINES/DEVICES: None. LUNGS: Left basilar atelectasis No pneumothorax. MEDIASTINUM AND CARDIOVASCULAR STRUCTURES: Cardiac silhouette not enlarged. Central airways and mediastinal contour are unremarkable. RIBS AND OSSEOUS STRUCTURES: Unremarkable. No evidence of displaced rib fractures. RAD/Ribs Uni Min 3V w/PA Chest IMPRESSION: Left basilar atelectasis No acute osseous abnormality at 0050 Reported and signed by: Merary Carrizales DO Electronically Signed: Merary Carrizales DO at 0:49 EDT Tel , Service support ,
[2018-12-04 00:25] VITALS: RESP 18
[2018-12-04] MEDS: HYDROcodone Bitartrate/Apap 5/325 Tablet PO (00:31)
--- NOTE | 2018-12-04 00:58 | ED.VISSUMM ---
- ER Visit Summary Date of Service: 12/04/18 Chief Complaint: Left rib pain History of Present Illness: The patient is a 43 M who has left rib pain. He was walking up some old steps and he fell through the steps and hurt his left rib. He has pain in the left lower rib area. Is worse with breathing and with coughing. Denies any head trauma or LOC. No previous injuries to his ribs. He took nothing for this at home. Physical Examination: Vital signs reviewed. HEENT exam is atraumatic. Heart is regular rate and rhythm. Lungs are clear bilaterally. He has left lower rib tenderness. There is no flail chest or step-offs. Abdomen is soft and nontender. There is an area of ecchymosis on the left upper abdomen. His GCS is 15. Test Results: Left rib x-ray interpreted by radiology reveals no fractures Emergency Department Course and Treatment: [place] for pain. X-rays are negative for fracture. Patient will be given a few [place] for home. He will ice the area and will follow-up with his PCP Treatment Plan: [] Disposition: Discharge Impression: Left rib contusion This note was generated with [employer] dictation software. It may contain incorrect words, spelling, and punctuation that were not noted in review of the chart prior to signing ED Disposition - Plan for ED Patient: Referrals: Michelle Escobar [Primary Care Provider] -
--- NOTE | 2018-12-04 01:00 | ED.DEP ---
ED Disposition - Plan for ED Patient: Disposition: Home or Assisted Living Instructions: Chest Wall Contusion Prescriptions: Hydrocodone Bitart/Apap 5-325 [[place] 5MG-325MG] 1 tab PO Q6H PRN PRN 3 Days #10 tab PRN Reason: Pain Prescription Printed Referrals: [facility] Jael,Michelle Bates [Primary Care Provider] -
[2018-12-04 01:14] VITALS: BP 146/97; PULSE 73; RESP 18; O2SAT 97
--- NOTE | 2018-12-04 01:16 | ED.RN ---
THIS NURSE REVIEWED D/C INSTRUCTIONS WITH PT. PT VERBALIZED UNDERSTANDING OF INSTRUCTIONS. PT DENIES FURTHER NEEDS OR QUESTIONS AT THIS TIME
== END 2018-12-04 01:17 | disposition home or self-care (01) ==
PROVIDERS: Emergency Provider Emergency Medicine; Referring Provider Nurse Practitioner Family
DX: S20.212A Contusion of left front wall of thorax, initial encounter (principal); W10.9XXA Fall (on) (from) unspecified stairs and steps, initial encounter; Y93.01 Activity, walking, marching and hiking; Y93.9 Activity, unspecified; Y92.9 Unspecified place or not applicable; Y99.9 Unspecified external cause status; Z72.0 Tobacco use
CPT/HCPCS: 71101; 99283

== ENCOUNTER 2018-12-08 18:37 | Emergency (ER) | payer MEDICAID, SELFPAY ==
[2018-12-08 18:37] VITALS: BP 152/87; PULSE 83; RESP 26; TEMP 36.6; O2SAT 97; BMI 28.9
--- NOTE | 2018-12-08 19:07 | CT_ITS ---
STUDY: CT CHEST WITHOUT CONTRAST REASON FOR EXAM: Male, 43 years old. Posttraumatic bilateral rib pain RADIATION DOSAGE (If Supplied By Facility): CTDIvol = ( 13.29 ) mGy, DLP = ( 482.81 ) mGycm TECHNIQUE: Transaxial imaging was performed without the administration of intravenous contrast material. Individualized dose optimization techniques were used for this CT. COMPARISON: Portable chest on November 17, 2018 Left RIBS December 04, 2018 FINDINGS: Subsegmental atelectasis is seen in both lower lobes greater on the right. There are emphysematous changes in the pulmonary apices There is no demonstrated pleural abnormality. Normal heart and pericardium. Normal mediastinum. Normal hilar regions. Normal unenhanced pulmonary arteries. Normal aorta arch and descending thoracic aorta. Dorsal spine demonstrates mild spondylosis There are tiny hypoattenuated densities within the liver most likely cysts CT/Chest without Contrast IMPRESSION: Mild subsegmental atelectasis in both lower lobes slightly greater on the right. No acute rib fractures Electronically Signed: Chava Kim MD at 20:05 EDT , Service support ,
--- NOTE | 2018-12-08 19:10 | ED.DCSUM_ITS ---
History of Present Illness Chief Complaint: Chest Other Narrative: 43-year-old male presents with continued left rib pain. He fell onto steps through the floor several days ago. He had a negative x-ray here but still has pain on the left lateral and lower ribs. He denies any other complaints. It is worse with palpation and when laying on that side. Is moderate in severity. - Past Medical History (1) Caffeine abuse Status: Chronic (2) Tobacco use Status: Chronic Past Medical History - Allergies and Home Meds Allergies/Adverse Reactions: Allergies No Known Allergies Allergy (Verified 12/08/18 18:39) Primary Care Physician: Michelle Escobar [Primary Care Provider] - Prior records reviewed: Yes Surgical History: - - Inguinal hernia repair in youth. Smoking Status: Current every day smoker - Family History Maternal Family History: Reports: - - History of AA with associated, known Sirena- Danlos. Review of Systems General: Denies: Chills, Fever, Sweats Eyes: Denies: Visual changes - bilaterally, Diplopia ENT: Denies: Rhinorrhea, Sore throat Cardiovascular: Denies: Chest pain, Palpitations Respiratory: Reports: - - Left rib pain. Denies: Dyspnea, Cough, Dyspnea on exertion Gastrointestinal: Denies: Abdominal pain, Nausea, Vomiting, Diarrhea, Melena, Hematochezia Genitourinary: Denies: Dysuria, Hematuria, Frequency Musculoskeletal: Denies: Back pain, Extremity Pain Skin: Denies: Rash, Wounds Neurological: Denies: Headache, Weakness, Numbness Physical Exam Vital Signs/Narrative: Vital Signs Temp Pulse Resp BP Pulse Ox 12/08/18 18:37 98 F 83 26 H 152/87 H 97 General: Well nourished, Well developed, No Acute Distress Head: Normocephalic, Atraumatic Eyes: Perrl, EOMI ENT: Moist mucous membranes, No rhinorrhea Neck: Supple, Nontender Cardiovascular: Regular rate, Regular rhythm, No murmurs Respiratory: No distress, CTA bilaterally, Chest nontender, Chest tenderness - Left lateral ribs. Superficial abrasion and ecchymosis noted. Abdomen: Soft, Nontender, Nondistended, Normal bowel sounds Back: Nontender, Normal Inspection Extremities: Nontender, No edema Skin: Normal color, No rash Neurological: Alert, Oriented x3, Cranial nerves II-XII grossly intact, Normal Strength, Normal Sensation Psychological: Normal affect, Normal Mood Diagnostic/Tx/Re-eval - Medical Decision Making CT chest without contrast is negative for acute process. No abdominal pain or evidence of other injuries. I feel he can safely be discharged home. I will prescribe him lidocaine patches to use as needed. ED Disposition - Plan for ED Patient: Disposition: Home or Assisted Living Diagnosis: Chest wall contusion Instructions: Chest Wall Contusion Prescriptions: Lidocaine [Lidocaine Pain Relief] 1 each TP DAILY #5 adh..patch Referrals: Michelle Escobar [Primary Care Provider] -
--- NOTE | 2018-12-08 21:13 | ED.DCSUM_ITS ---
History of Present Illness Chief Complaint: Chest Other - Past Medical History (1) Caffeine abuse Status: Chronic (2) Tobacco use Status: Chronic Past Medical History - Allergies and Home Meds Allergies/Adverse Reactions: Allergies No Known Allergies Allergy (Verified 12/08/18 18:39) Primary Care Physician: Michelle Escobar [Primary Care Provider] - Surgical History: - - Inguinal hernia repair in youth. Smoking Status: Current every day smoker - Family History Maternal Family History: Reports: - - History of AA with associated, known Sirena- Danlos. Physical Exam Vital Signs/Narrative: Vital Signs Temp Pulse Resp BP Pulse Ox 12/08/18 18:37 98 F 83 26 H 152/87 H 97 ED Disposition - Plan for ED Patient: Disposition: Home or Assisted Living Diagnosis: Chest wall contusion Instructions: Chest Wall Contusion Prescriptions: cycloBENZAPRine HCl [Flexeril] 10 mg PO TID PRN #20 tab PRN Reason: Muscle Spasm Lidocaine [Lidocaine Pain Relief] 1 ea TP DAILY #5 adh..patch Prescription Printed Naproxen [Naprosyn] 500 mg PO BID PRN #20 tab Referrals: Michelle Escobar [Primary Care Provider] -
--- NOTE | 2018-12-08 21:26 | ED.RN ---
pt expressing frustrations over prescriptions ordered. talked with patient, called pharmacy to make sure he could still get them filled tonight.
== END 2018-12-08 21:26 | disposition home or self-care (01) ==
PROVIDERS: Emergency Provider Emergency Medicine
DX: S20.212A Contusion of left front wall of thorax, initial encounter (principal); W13.3XXA Fall through floor, initial encounter; Y93.9 Activity, unspecified; Y92.9 Unspecified place or not applicable; F17.200 Nicotine dependence, unspecified, uncomplicated
CPT/HCPCS: 71250; 99282

== ENCOUNTER 2019-02-11 14:59 | Emergency (ER) | payer MEDICAID, SELFPAY ==
[2019-02-11 15:00] VITALS: BP 133/75; PULSE 81; RESP 20; TEMP 36.9; O2SAT 97; BMI 28.2
--- NOTE | 2019-02-11 15:10 | EKG12_ITS ---
Test Reason : CP Blood Pressure : / mmHG Vent. Rate : 078 BPM Atrial Rate : 078 BPM P-R Int : 148 ms QRS Dur : 096 ms QT Int : 364 ms P-R-T Axes : 078 068 052 degrees QTc Int : 414 ms Normal sinus rhythm Normal ECG Confirmed by TIMOTEO BAUTISTA ([id number]), film and video editor ROSCOE CHILD ([id number]) on 02/14/2019 2:20:02 PM Referred By: BRIAN Confirmed By:TIMOTEO BAUTISTA
--- NOTE | 2019-02-11 15:11 | CT_ITS ---
STUDY: CTA CHEST REASON FOR EXAM: Male, 43 years old. Chest pain for 2 days. Mid chest pain radiating into the left shoulder arm and back. RADIATION DOSAGE (If Supplied By Facility): CTDIvol = ( 13.86 ) mGy, DLP = ( 509.20 ) mGycm TECHNIQUE: The examination was performed with the intravenous administration of 100CC IV Isovue 370. Post-processing of the angiographic images was performed, with multiplanar reformation and 3D reconstruction. Individualized dose optimization techniques were used for this CT. COMPARISON: CT of the chest, December 08, 2018. CTA of the chest, January 04, 2018. FINDINGS: Normal enhancement of the main pulmonary artery and right and left pulmonary arteries. Normal enhancement of the bilateral peripheral pulmonary arteries. There is no demonstrated pulmonary embolism. Normal thoracic aorta and visualized great vessels. There is no demonstrated aortic dissection. Normal heart and pericardium. Nonspecific subcentimeter subcarinal lymph node. There is mild bilateral hilar lymphadenopathy. Normal visualized trachea and bronchi. The lungs are hyper expanded, with flattening of the hemidiaphragms. There is mild bullous formation in the lung apices. There is no focal mass or infiltrate. Normal pleura. Normal chest wall structures. Normal osseous structures. There are stable small hepatic cysts. CT/CTA Chest W/WO Contrast IMPRESSION: 1. No evidence of pulmonary embolus. 2. No aortic dissection or aneurysm. 3. Resolution of by basilar atelectatic changes seen in the prior study. There is no acute pulmonary disease. 4. There is no other major interval change. Electronically Signed: Eloy Zendejas DO at 16:25 EDT Tel [phone], Service support ,
[2019-02-11 15:27] VITALS: O2SAT 97
[2019-02-11 15:29] LABS: Absolute Lymphocyte Count 2.99 X10^3/uL (0.83-4.51); Absolute Neutrophil Count 4.3 X10^3/uL (2.0-7.7); Basophil# 0.05 X10^3/uL; Basophil% 0.6 % (0-1); Eosinophil# 0.24 X10^3/uL; Eosinophils% 2.9 % (0-5); Hematocrit 46.5 % (40-54); Hemoglobin 15.2 g/dL (13.0-16.5); Lymphocyte # 2.99 X10^3/ul (4.0); Lymphocyte % 36.4 % (19-41); Mean Corp Hgb Conc 32.7 g/dL (32-36); Mean Corpuscular Hgb 28.3 pg (27.0-32.0); Mean Corpuscular Volume 86.4 fL (80-94); Mean Platelet Vol. 9.3 fl (6.2-12.0); Monocyte# 0.62 X10^3/uL; Monocyte% 7.5 % (0-10); NRBC Flagged by Analyzer 0 % (0-5); Neutrophil # 4.29 X10^3/uL (2.7-7.7); Neutrophil % 52.2 % (47-70); Platelet Count 300 K/mm3 (150-450); RBC Distribution Width CV 13.6 % (11.6-14.6); RBC Distribution Width SD 43.3 fl (35.1-43.9); Red Blood Count 5.38 M/mm3 (4.6-6.2); White Blood Count 8.2 K/mm3 (4.4-11.0)
[2019-02-11] MEDS: Aspirin 81 MG TAB.CHEW 324 MG PO (15:29)
[2019-02-11] MEDS: 0.9% Normal Saline 1,000 ML 150 ML IV (15:29)
[2019-02-11 15:40] LABS: Anion Gap 2 (5-15); BUN 9 mg/dL (7-18); BUN/Creat Ratio 11.4 RATIO (10-20); Chloride 108 mmol/L (98-107); Creatinine, Serum 0.79 mg/dL (0.70-1.30); EST Glomerular Filtration Rate 114 mL/min (>60); Est Glom Filt Rate - Afr Amer 138 mL/min (>60); Estimated Creatinine Clearance 141.62 ml/min; Glucose 114 mg/dL (74-106); Potassium 4.1 mmol/L (3.5-5.1); Sodium Level 139 mmol/L (136-145)
--- NOTE | 2019-02-11 17:06 | ED.DCSUM_ITS ---
- ER Visit Summary Date of Service: 02/11/19 Chief Complaint: [Chest pain] History of Present Illness: The patient is a 43 M [presents to the emergency room chest pain is started for 5 days ago. Patient scrubs a pressure-like discomfort in the center of his chest and some aching in his left arm. Patient at times feels the discomfort and it was back. Patient will intermittently have sharp stabbing pains as well. Patient states that certain movements seem to exacerbate the symptoms. The discomfort is not exertional. Patient states that has been tiring easily but he is also quite out of shape he states that he is also been sweating easily. 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 Patient does have a history of palpitations and he has had history of A. fib. He is currently not anticoagulated. Patient also has history of anxiety. Patient also states that he has had a lot of heartburn issues lately and has nausea in the morning with a lot of burning in the center of his chest.] Patient states his chest discomfort has been continuous for last for 5 days. Physical Examination: [HEENT-PERRLA, EOMI. Cranial nerves II through XII grossly intact. TMs clear. Mucous membranes moist. No adenopathy. Cardiovascular-regular rate and rhythm without murmur or ectopy Lungs-clear to auscultation, chest wall stable without crepitus or subcu emphys [place] Abdomen-normoactive bowel sounds, soft, nontender, no rebound or rigidity, no peritoneal signs. Extremities-intact ?4, normal range of motion, normal pulses, atraumatic] Test Results: [EKG obtained on arrival showed a sinus rhythm with a ventricular rate of 78 bpm with no acute segment changes. CBC with it was normal. Chemistries unremarkable. Troponin is less than 0.15. CTA of the chest was negative for PE or dissection.] Emergency Department Course and Treatment: [Patient was given aspirin on arrival. Patient was observed on monitor.] Treatment Plan: [Will be given a prescription for Prevacid.] Patient's heart score is a 1 therefore I feel he is very low risk and can be discharged home. Disposition: [Discharged home stable condition.] Impression: [Chest pain-etiology uncertain] This note was generated with Dragon dictation software. It may contain incorrect words, spelling, and punctuation that were not noted in review of the chart prior to signing ED Disposition - Plan for ED Patient: Instructions: CHEST PAIN, Uncertain Cause Prescriptions: Lansoprazole [Prevacid] 30 mg PO DAILY #30 cap Prescription Printed Referrals: Michelle Escobar [Primary Care Provider] - 3-5 Days
[2019-02-11] MEDS: Mag Hydrox/Al Hydrox/Simeth 30 ML UDC PO (17:24)
[2019-02-11 17:29] VITALS: BP 107/88; PULSE 66; RESP 18; O2SAT 98
== END 2019-02-11 17:30 | disposition home or self-care (01) ==
LOC: ED 15:28
PROVIDERS: Emergency Provider Emergency Medicine
DX: R07.9 Chest pain, unspecified (principal); R12 Heartburn; M79.602 Pain in left arm; F41.9 Anxiety disorder, unspecified
CPT/HCPCS: 71275; 80048; 84484; 85025; 93005; 96360; 99285; J7030; Q9967; A4216

== ENCOUNTER 2019-05-01 23:01 | Emergency (ER) | payer MEDICAID, SELFPAY ==
[2019-05-01 23:01] VITALS: BP 183/105; PULSE 117; RESP 16; TEMP 36.6; O2SAT 100; BMI 28.8
--- NOTE | 2019-05-01 23:06 | ED.RN ---
RN CALLED FOR EKG, PULLED OLD EKGS FOR
--- NOTE | 2019-05-01 23:25 | CT_ITS ---
HISTORY: CHEST PAIN THROUGH TO BACK ALL DAY,ELEVATED BP,PT HAS LARGE FAMILY HX OF DISSECTIONS HX:ASTHMA,HTN,VASCULAR ELIZABETH-DANLOS EXAMINATION: CTA Chest WO/W Contrast Injection TECHNIQUE: Helically acquired images were obtained of the chest following IV contrast as per pulmonary angiogram protocol with 3D reconstructions. A radiation dose optimization technique was used for this scan. IV Contrast dosage and agent: 100ML 100mL Isovue-370 IV 100mL Isovue-370 100ML COMPARISON: 02/11/2019 FINDINGS: No significant interval change. LUNGS, PLEURA AND LARGE AIRWAYS: Biapical mild bleb formation, more so on the right. Mild dependent atelectasis, not unusual. Bilateral mild fissural thickening. No focal infiltrate or pleural effusion. No mass or suspicious lesion. PULMONARY ARTERIES: Normal in caliber. No pulmonary embolism. AORTA AND GREAT VESSELS: Normal in caliber. No evidence of dissection. HEART AND PERICARDIUM: Heart size is normal. No pericardial effusion. MEDIASTINUM AND AUNDREA: Stable right hilar 1.5 cm mildly enlarged lymph node. UPPER ABDOMEN: No acute pathology. Small hepatic cysts, unchanged. BONES: No acute osseous abnormality. CT/CTA Chest W/WO Contrast IMPRESSION: Stable exam. No PE, thoracic aortic dissection, or acute chest disease. Individualized dose optimization techniques were used for this CT. at 0034 Reported and signed by: Americo Bedoya MD Electronically Signed: Americo Bedoya, at 0:32 EST Tel , Service support ,
--- NOTE | 2019-05-01 23:25 | EKG12_ITS ---
Test Reason : CP Blood Pressure : / mmHG Vent. Rate : 105 BPM Atrial Rate : 105 BPM P-R Int : 154 ms QRS Dur : 098 ms QT Int : 330 ms P-R-T Axes : 068 065 032 degrees QTc Int : 436 ms Sinus tachycardia Possible Left atrial enlargement Left ventricular hypertrophy Nonspecific ST abnormality Abnormal ECG Confirmed by BING HICKEY, DANIELLE ([id number]), photography editor ROSCOE CHILD ([id number]) on 05/04/2019 11:35:17 AM Referred By: LYRIC Confirmed By:DANIELLE SMART MD
--- NOTE | 2019-05-01 23:26 | ED.DCSUM_ITS ---
History of Present Illness Chief Complaint: Chest Pain Informant: Patient Narrative: States he has had central chest tightness rating to his back since 1 PM this afternoon. It waxes and wanes. He stated that he wants to make sure he does not have an aortic dissection. He has a family history of aortic dissection and a family history of Sirena-Danlos syndrome. He has never been diagnosed per patient. He has had similar pains in the past. He had a negative cardiac work- up here [address] angios of the chest. He is never had aortic dissection himself. He denies any cardiac history. His only risk factor is that he smokes cigarettes. He stated he took a Tylenol this morning and Aleve in the early afternoon with minimal relief. He stated he has anxiety about aortic dissection and that is the main reason he came in. Denies any pulmonary embolism risk factors. Past Medical History - Allergies and Home Meds Allergies/Adverse Reactions: Allergies No Known Allergies Allergy (Verified 05/01/19 23:03) Primary Care Physician: Michelle Escobar [Primary Care Provider] - Prior records reviewed: Yes Past Medical History: None Surgical History: - - Inguinal hernia repair in youth. Lives: With Family Smoking Status: Current every day smoker Alcohol: None Drugs: Marijuana - Family History Maternal Family History: Reports: - - History of AA with associated, known Sirena- Danlos. Review of Systems General: Denies: Chills, Fever, Sweats Eyes: Denies: Visual changes - bilaterally, Diplopia ENT: Denies: Rhinorrhea, Sore throat Cardiovascular: Reports: Chest pain. Denies: Palpitations Respiratory: Denies: Dyspnea, Cough, Dyspnea on exertion Gastrointestinal: Denies: Abdominal pain, Nausea, Vomiting, Diarrhea, Melena, Hematochezia Genitourinary: Denies: Dysuria, Hematuria, Frequency Musculoskeletal: Reports: Back pain. Denies: Extremity Pain Skin: Denies: Rash, Wounds Neurological: Denies: Headache, Weakness, Numbness Physical Exam Vital Signs/Narrative: Vital Signs Temp Pulse Resp BP Pulse Ox 05/01/19 23:01 97.8 F 117 H 16 183/105 H 100 General: Well nourished, Well developed, No Acute Distress Head: Normocephalic, Atraumatic Eyes: Perrl, EOMI ENT: Moist mucous membranes, No rhinorrhea Neck: Supple, Nontender Cardiovascular: Regular rate, Regular rhythm, No murmurs Respiratory: No distress, CTA bilaterally, Chest nontender Abdomen: Soft, Nontender, Nondistended, Normal bowel sounds Back: Nontender, Normal Inspection Extremities: Nontender, No edema Skin: Normal color, No rash Neurological: Alert, Oriented x3, Cranial nerves II-XII grossly intact, Normal Strength, Normal Sensation Psychological: Normal affect, Normal Mood Diagnostic/Tx/Re-eval - Medical Decision Making EKG obtained shows sinus tachycardia at 105. No acute ischemic findings. Lab work and CT Margo of the chest obtained. Patient given a dose of aspirin and IV fluid bolus for renal protection. Work shows elevated white blood cell count at 17.5. No left shift however. Troponin negative. CT of the chest shows nothing acute he does have apical blebs. No dissection. At this time the patient is low risk heart score. I do not feel he needs admitted. He will follow-up as an outpatient ED Disposition - Plan for ED Patient: Diagnosis: Chest pain Instructions: CHEST PAIN, Uncertain Cause Referrals: Michelle Escobar [Primary Care Provider] -
[2019-05-01] MEDS: 0.9% Normal Saline 1,000 ML 1000 ML IV (23:31)
[2019-05-01] MEDS: Aspirin 81 MG TAB.CHEW 324 MG PO (23:31)
[2019-05-01 23:34] VITALS: O2SAT 96
[2019-05-01 23:35] LABS: Absolute Lymphocyte Count 7.83 X10^3/uL (0.83-4.51); Absolute Neutrophil Count 7.6 X10^3/uL (2.0-7.7); Basophil# 0.09 X10^3/uL; Basophil% 0.5 % (0-1); Eosinophil# 0.42 X10^3/uL; Eosinophils% 2.4 % (0-5); Hematocrit 41.7 % (40-54); Hemoglobin 14.3 g/dL (13.0-16.5); Lymphocyte # 7.83 X10^3/ul (4.0); Lymphocyte % 44.7 % (19-41); Mean Corp Hgb Conc 34.3 g/dL (32-36); Mean Corpuscular Hgb 29.3 pg (27.0-32.0); Mean Corpuscular Volume 85.5 fL (80-94); Monocyte# 1.53 X10^3/uL; Monocyte% 8.7 % (0-10); NRBC Flagged by Analyzer 0 % (0-5); Neutrophil # 7.59 X10^3/uL (2.7-7.7); Neutrophil % 43.3 % (47-70); POSITIVE DIFFERENTIAL YES; POSITIVE MORPHOLOGY YES; Platelet Count 329 K/mm3 (150-450); RBC Distribution Width SD 40.9 fl (35.1-43.9); Red Blood Count 4.88 M/mm3 (4.6-6.2); White Blood Count 17.5 K/mm3 (4.4-11.0)
[2019-05-01 23:46] LABS: Anion Gap 9 (5-15); BUN 17 mg/dL (7-18); BUN/Creat Ratio 19.9 RATIO (10-20); Calcium,Total 8.9 mg/dL (8.5-10.1); Chloride 103 mmol/L (98-107); Creatinine, Serum 0.85 mg/dL (0.70-1.30); EST Glomerular Filtration Rate 104 mL/min (>60); Est Glom Filt Rate - Afr Amer 126 mL/min (>60); Estimated Creatinine Clearance 130.28 ml/min; Glucose 122 mg/dL (74-106); Potassium 3.4 mmol/L (3.5-5.1); Sodium Level 138 mmol/L (136-145)
[2019-05-01 23:48] LABS: Differential Indicated SCAN CRITERIA MET
[2019-05-02 00:11] LABS: Differential Comment SCANNED; Reactive Lymphocyte 2+
[2019-05-02 00:52] VITALS: BP 136/78; PULSE 69; RESP 18; O2SAT 97
[2019-05-02 14:14] LABS: Pathologist Review Reviewed
== END 2019-05-02 00:53 | disposition home or self-care (01) ==
PROVIDERS: Emergency Provider Emergency Medicine
DX: R07.9 Chest pain, unspecified (principal); R00.0 Tachycardia, unspecified; D72.829 Elevated white blood cell count, unspecified; F17.210 Nicotine dependence, cigarettes, uncomplicated; Z79.899 Other long term (current) drug therapy
CPT/HCPCS: 71275; 80048; 84484; 85025; 93005; 96360; 99285; J7030; Q9967; A4216

== ENCOUNTER 2019-07-31 00:25 | Emergency (ER) | payer MEDICAID, SELFPAY ==
[2019-07-31 00:26] VITALS: BP 145/95; PULSE 104; RESP 16; TEMP 36.7; O2SAT 97; BMI 30.2
[2019-07-31 00:46] LABS: Absolute Lymphocyte Count 3.48 X10^3/uL (0.83-4.51); Absolute Neutrophil Count 7.4 X10^3/uL (2.0-7.7); Basophil# 0.07 X10^3/uL; Basophil% 0.6 % (0-1); Eosinophil# 0.26 X10^3/uL; Eosinophils% 2.1 % (0-5); Hematocrit 42.9 % (40-54); Hemoglobin 14.3 g/dL (13.0-16.5); Lymphocyte # 3.48 X10^3/ul (4.0); Mean Corp Hgb Conc 33.3 g/dL (32-36); Mean Corpuscular Hgb 28.7 pg (27.0-32.0); Mean Platelet Vol. 9.1 fl (6.2-12.0); Monocyte# 1.15 X10^3/uL; Monocyte% 9.3 % (0-10); NRBC Flagged by Analyzer 0 % (0-5); Neutrophil # 7.43 X10^3/uL (2.7-7.7); Neutrophil % 59.7 % (47-70); Platelet Count 278 K/mm3 (150-450); RBC Distribution Width CV 12.9 % (11.6-14.6); RBC Distribution Width SD 40.1 fl (35.1-43.9); Red Blood Count 4.99 M/mm3 (4.6-6.2); White Blood Count 12.4 K/mm3 (4.4-11.0)
[2019-07-31 00:51] VITALS: BP 129/83; PULSE 78; RESP 15; O2SAT 98
[2019-07-31 00:58] LABS: Anion Gap 7 (5-15); BUN 12 mg/dL (7-18); BUN/Creat Ratio 12.9 RATIO (10-20); Calcium,Total 8.7 mg/dL (8.5-10.1); Chloride 110 mmol/L (98-107); Creatinine, Serum 0.93 mg/dL (0.70-1.30); EST Glomerular Filtration Rate 94 mL/min (>60); Est Glom Filt Rate - Afr Amer 114 mL/min (>60); Estimated Creatinine Clearance 119.08 ml/min; Glucose 124 mg/dL (74-106); Potassium 3.4 mmol/L (3.5-5.1); Sodium Level 140 mmol/L (136-145)
[2019-07-31 01:06] LABS: Bacteria 0 SEEN /hpf (None Seen); Mucous, Urine 0 SEEN /hpf (<or=2+); Red Blood Cells-Urine 0 SEEN /hpf (0-5); Squamous Epithelial Cells - UA 0 SEEN /hpf (0-5); White Blood Cells 0 SEEN /hpf (0-5)
[2019-07-31 01:19] LABS: Color, Urine Yellow (Yellow); Glucose, Dipstick Normal (Normal); Ketone-Dipstick 5 mg/dl (Negative); Leukocyte Esterase-Dipstick 25 /ul (Negative); Nitrite-Dipstick Negative (Negative); Occult Blood-Urine Negative /ul (Negative); Protein-Dipstick 15 mg/dl (Negative); Urine Clarity Clear (Clear); Urine Urobilinogen 4 mg/dl (Normal)
[2019-07-31 01:27] LABS: Urine Bilirubin Dipstick 1 mg/dL (Negative)
--- NOTE | 2019-07-31 02:07 | ED.DCSUM_ITS ---
History of Present Illness Chief Complaint: Abd Pain Narrative: Patient is a 44-year-old male who presents with abdominal pain. He has been having some mild discomfort intermittently for about 2 weeks. He describes it as a sharp. Last night about 11 PM it became severe. His pain is epigastric and radiates through to the back. It is colicky. He does note a history of intolerance to fatty or greasy foods. However he is concerned because there is a family history of Sirena-Danlos syndrome with aortic aneurysms. He denies any recent illness otherwise such as fevers vomiting diarrhea. No abdominal surgeries. Past Medical History - Allergies and Home Meds Allergies/Adverse Reactions: Allergies No Known Allergies Allergy (Verified 07/31/19 00:54) Primary Care Physician: Arcelia Flores NP-C [Primary Care Provider] - Past Medical History: - - GERD Surgical History: - - Inguinal hernia repair in youth. Smoking Status: Current every day smoker - Family History Maternal Family History: Reports: - - History of AA with associated, known Sirena- Danlos. Review of Systems All systems negative except as indicated General: Denies: Fever Cardiovascular: Denies: Chest pain Respiratory: Denies: Dyspnea Gastrointestinal: Reports: Abdominal pain. Denies: Nausea, Vomiting, Diarrhea Skin: Denies: Rash Neurological: Denies: Headache Endocrine: Denies: Polyuria Allergy: Denies: Uticaria Physical Exam Vital Signs/Narrative: Vital Signs Temp Pulse Resp BP Pulse Ox 07/31/19 00:51 78 15 129/83 H 98 07/31/19 00:26 98.1 F 104 H 16 145/95 H 97 Inital Vital Signs reviewed: Yes General: Well nourished, Well developed Head: Normocephalic Eyes: EOMI ENT: Moist mucous membranes Neck: Supple Cardiovascular: Regular rhythm, Tachycardia Respiratory: No distress, CTA bilaterally Abdomen: Soft, - - Epigastric abdominal tenderness without guarding without rebound, no Glasgow sign Skin: Normal color Neurological: Alert Psychological: Normal affect Diagnostic/Tx/Re-eval - Medical Decision Making Patient's presentation is most concerning for biliary colic or gastritis rather than abdominal aortic aneurysm. However I did perform [id number] ultrasound and abdominal aorta measures 1.6 cm. Laboratory studies notable for mild l eukocytosis. Patient was initially treated with fluids Toradol Zofran. He had mild improvement of symptoms but still complains of 6/10 pain on reevaluation. He was given IV morphine. He also has some associated right upper quadrant tenderness. Therefore right upper quadrant ultrasound was obtained which is unremarkable. Patient does have follow-up with gastroenterology scheduled. Given his otherwise unremarkable labs and ultrasound my suspicion is this is most likely related to gastritis. He is already on Carafate and a proton pump inhibitor. Patient understands to return for new or worsening symptoms and was advised on specific signs and symptoms to monitor for and he was discharged. ED Disposition - Plan for ED Patient: Disposition: Home or Assisted Living Diagnosis: Abdominal pain Instructions: ABDOMINAL PAIN, Unkown Cause, (Male) Referrals: Arcelia Flores, RESORT HOUSEKEEPER-C [Primary Care Provider] -
[2019-07-31] MEDS: Ondansetron 4 MG/2 ML Vial IV (02:10)
[2019-07-31] MEDS: Ketorolac 30 MG/ML Syringe IV (02:10)
[2019-07-31] MEDS: 0.9% Normal Saline 1,000 ML 1000 ML IV (02:10)
[2019-07-31 03:01] LABS: ALB/GLOB Ratio 0.9 RATIO (0.9-2.4); AST(SGOT) 19 U/L (15-37); Alanine Aminotransfer ALT/SGPT 31 U/L (16-61); Albumin, Serum 3.8 g/dL (3.2-5.0); Alkaline Phosphatase 79 U/L (45-117); Globulin 4.1 g/dL (2.2-4.2); Lipase 119 U/L (73-393); Protein, Total 7.9 g/dL (6.4-8.2)
--- NOTE | 2019-07-31 03:14 | US_ITS ---
STUDY: ABDOMINAL ULTRASOUND - RIGHT UPPER QUADRANT REASON FOR VISIT: Male, 44 years old SEVERE ABDOMINAL PAIN TONIGHT DISCOMFORT FOR A WHILE TECHNIQUE: Ultrasound evaluation of the right upper quadrant was performed with real-time and static chowdhury-scale imaging. TECHNICAL QUALITY: Limited. Examination limited by bowel gas. COMPARISON: CTA chest 05/01/2019. 02/11/2019. 01/04/2018. CT chest 12/08/2018. CT abdomen pelvis 11/28/2016. FINDINGS: Liver: The liver measures 16 cm. There is normal echogenicity of the liver. The bile ducts are within normal limits. There is hepatic color flow. The direction of portal flow is hepatopetal. The peripherally low attenuation subcentimeter lesion in the hepatic parenchyma on prior CT are not appreciated. Gallbladder: Normal distended gallbladder. The gallbladder wall measures 2.4 mm. There is a negative sonographic Campos''s sign. There is no pericholecystic fluid. There are no gallstones. Common Bile Duct (C.B.D.): The common bile duct measures 3.4 mm. Pancreas: There is nonvisualization of the pancreas. Right Kidney: Normal size of the right kidney. The right kidney measures 11.5 x 4.5 x 5 cm. Normal renal cortex. The right cortex measures 1.2 cm. There is no demonstrated renal mass or cyst. There is no right hydronephrosis. US/Gallbladder IMPRESSION: No gallbladder inflammation, gallbladder calculi, biliary obstruction, ascites, hydronephrosis. Pancreas is obscured. Electronically Signed: Krystina Gaston MD at 5:09 EST , Service support ,
[2019-07-31 03:38] VITALS: BP 121/68; PULSE 68; RESP 14; O2SAT 96
[2019-07-31] MEDS: Morphine 4 MG/ML Syringe IV (03:38)
[2019-07-31 05:24] VITALS: BP 126/76; PULSE 80; RESP 16; O2SAT 98
== END 2019-07-31 05:26 | disposition home or self-care (01) ==
PROVIDERS: Emergency Provider Emergency Medicine; PCP Nurse Practitioner
DX: R10.13 Epigastric pain (principal); K21.9 Gastro-esophageal reflux disease without esophagitis; F17.200 Nicotine dependence, unspecified, uncomplicated; Z79.899 Other long term (current) drug therapy
CPT/HCPCS: 76705; 80053; 81001; 83690; 85025; 96361; 96374; 96375; 99283; J7030; A4216; J2405

== ENCOUNTER → 2019-08-15 09:46 | Outpatient (CLI) | payer MEDICAID, SELFPAY ==
[2019-08-02 16:31] VITALS: BMI 30.2
--- NOTE | 2019-08-15 09:47 | CDU_ITS ---
Reason For Study: Vertigo Rt. Velocities/BP Lt. Velocities/BP Prox CCA 130.2/24.3 cm/sec. Prox CCA 141.1/29.2 cm/sec. Mid CCA 126.6/26.1 cm/sec. Mid CCA 114.8/22.6 cm/sec. Dist CCA 117.5/29.8 cm/sec. Dist CCA 110.1/27 cm/sec. Prox ICA 93.7/18.8 cm/sec. Prox ICA 99.2/26.1 cm/sec. Mid ICA 82.7/27.9 cm/sec. Mid ICA 90/33.4 cm/sec. Dist ICA 97.4/36 cm/sec. Dist ICA 87.6/33.5 cm/sec. Rt. ICA/CCA = 0.8. Lt. ICA/CCA = 0.9. Prox ECA 122.9/17 cm/sec. Prox ECA 95/13.8 cm/sec. Rt. Vert. 55.6/16.3 cm/sec. Lt. Vert. 44.3/14.6 cm/sec. Right Extracranial There is intimal thickening but no significant atherosclerotic plaque noted in the right common carotid artery. There is intimal thickening but no significant atherosclerotic plaque noted in the right internal carotid artery. There is intimal thickening but no significant atherosclerotic plaque noted in the right external carotid artery. Antegrade flow is noted in the right vertebral artery. Left Extracranial There is intimal thickening but no significant atherosclerotic plaque noted in the left common carotid artery. There is intimal thickening but no significant atherosclerotic plaque noted in the left internal carotid artery. There is no significant atherosclerotic plaque noted in the left external carotid artery. Antegrade flow is noted in the left vertebral artery. Procedure Carotid Duplex [id number]. Exam performed in department. Interpretation Summary No significant atherosclerotic plaque or stenosis noted in the internal carotid arteries bilaterally. Flow within the vertebral arteries is antegrade bilaterally. Ordering Physician: Reji Barnes Referring Physician: Arcelia Flores Performed By: Yenni Higgins RVT
== END ==
PROVIDERS: PCP Nurse Practitioner; Referring Provider Nurse Practitioner Family; Visit Provider Nurse Practitioner Family
DX: I65.22 Occlusion and stenosis of left carotid artery (principal); R42 Dizziness and giddiness
CPT/HCPCS: 93880

== ENCOUNTER → 2019-08-15 09:51 | Outpatient (REF) | payer MEDICAID, SELFPAY ==
[2019-08-02 16:31] VITALS: BMI 30.2
== END ==
LOC: CVS 09:51
PROVIDERS: PCP Nurse Practitioner; Visit Provider Nurse Practitioner Family
DX: I48.0 Paroxysmal atrial fibrillation (principal)
CPT/HCPCS: 93270; 93271

== ENCOUNTER 2019-09-04 20:48 | Emergency (ER) | payer MEDICAID, SELFPAY ==
[2019-08-02 16:31] VITALS: BMI 30.2
[2019-09-04 20:49] VITALS: BP 147/94; PULSE 105; RESP 18; TEMP 36.6; O2SAT 98; BMI 28.2
--- NOTE | 2019-09-04 21:14 | RAD_ITS ---
STUDY: X-RAY CHEST REASON FOR EXAM: Male, 44 years old. CHEST PAIN MID CHEST, HEART MONITOR TECHNIQUE: Single AP portable view of the chest. COMPARISON: 12/04/2018. FINDINGS: Electronic device, which could be an implanted quality assurance monitor is seen over the upper mediastinum. The lungs are clear and expanded. There is no demonstrated pleural abnormality. Normal size heart. Normal mediastinum and luis. Normal visualized pulmonary arteries. Normal visualized aortic arch and descending thoracic aorta. Normal visualized thoracic spine. Normal visualized ribs, clavicles, and shoulders. There is no demonstrated abnormality of the visualized soft tissue structures of the upper abdomen. RAD/Chest 1 View (Portable) IMPRESSION: No definite acute or significant abnormality seen. Electronically Signed: Fermín Deluca MD at 21:35 EDT , Service support ,
--- NOTE | 2019-09-04 21:14 | EKG12_ITS ---
Test Reason : CHEST PAIN Blood Pressure : / mmHG Vent. Rate : 079 BPM Atrial Rate : 079 BPM P-R Int : 156 ms QRS Dur : 096 ms QT Int : 362 ms P-R-T Axes : 068 064 049 degrees QTc Int : 415 ms Normal sinus rhythm with sinus arrhythmia Normal ECG Confirmed by BING HICKEY, DANIELLE ([id number]), manuscript editor TRAVIS HARRISON ([id number]) on 09/05/2019 1:42:14 PM Referred By: DIMITRIOS Confirmed By:DANIELLE SMART MD
--- NOTE | 2019-09-04 21:15 | ED.DCSUM_ITS ---
History of Present Illness Chief Complaint: Chest Pain Informant: Patient Onset: Days - 3 Timing: Continuous Quality: - - discomfort Location: - - diffuse chest Current Severity: Mild Maximum Severity: Moderate Worsened By: - - Palpations worse with smoking tonight, and chest discomfort seems worse when palpitations present. Not Worsened By: Exertion, Movement of Arm, Movement of Torso, Eating, Breathing, Coughing Relieved By: Nothing Associated Symptoms: Diaphoresis - sweats a couple times; no near-syncope, Palpitations. Negative for: Nausea, Vomiting, Dyspnea, Cough, Fever, Lightheadedness Narrative: Patient has had palpitations for several months. Is currently wearing an event monitor that is been on his chest for 2 out of 4 weeks. He follows with Dr. Rudd. He is concerned he may have Euler Danlos syndrome, he has a history of it in the family and he has some of the features, and he is having issues with insurance covering the genetic test for it on him. Regardless, 3 days ago he was lying on the couch and rolled over onto his left side and immediately felt a sharp pain in his left chest that was relatively brief, but since then he has been having discomfort in his chest that is nonlocalized and more dull, constricting at times. It has been constant for the past 3 days, but he gets worse in the evenings when he is tired he states, as do the palpitations. Tonight for about an hour and a half he was having palpitations that felt like a skip every third beat. He did not have any other associated symptoms with that but it was concerning him. That is gone now. He called his cash register repairer and he referred him to the emergency department for further evaluation. He denies any recent illnesses otherwise. He denies doing any stimulants tonight. He does not do any drugs. He has had no pain radiating to his neck, jaw, back, arms, a bdomen although he admits he has different GI-related pains that he has been having for multiple months, he sometimes gets those intermittently in his epigastric area, sometimes in his upper chest/throat, part of the reason he has an event monitor on, apparently. CVD Risk Factors: Smoking. Negative for: Hypertension, Diabetes, Hypercholesterolemia, Family History 1' </=55 Past Medical History - Allergies and Home Meds Allergies/Adverse Reactions: Allergies No Known Allergies Allergy (Verified 09/04/19 20:52) Primary Care Physician: Arcelia Flores NP-C [Primary Care Provider] - Past Medical History: None Surgical History: - - Inguinal hernia repair in youth. Smoking Status: Current every day smoker - Family History Maternal Family History: Reports: - - History of AA with associated, known Sirena- Danlos. Review of Systems General: Reports: Sweats. Denies: Chills, Fever Eyes: Denies: Visual changes - bilaterally, Diplopia ENT: Denies: Rhinorrhea, Sore throat Cardiovascular: Reports: Chest pain, Palpitations. Denies: Heart racing Respiratory: Denies: Dyspnea, Cough, Dyspnea on exertion Gastrointestinal: Denies: Abdominal pain, Nausea, Vomiting, Diarrhea, Melena, Hematochezia Genitourinary: Denies: Dysuria, Hematuria, Frequency Musculoskeletal: Denies: Neck pain, Back pain, Swelling, Extremity Pain Skin: Denies: Rash, Wounds Neurological: Denies: Headache, Weakness, Numbness Physical Exam Vital Signs/Narrative: Vital Signs Temp Pulse Resp BP Pulse Ox 09/04/19 20:49 97.9 F 105 H 18 147/94 H 98 Inital Vital Signs reviewed: Yes General: Well nourished, Well developed, No Acute Distress - Conversive in full sentences Head: Normocephalic, Atraumatic Eyes: Perrl, EOMI ENT: Moist mucous membranes, No rhinorrhea Neck: Supple, Nontender, No lymphadenopathy, No JVD Cardiovascular: Regular rate, Regular rhythm, No murmurs, Normal S1, Normal S2. Negative for: Irregular, Tachycardia Respiratory: No distress, CTA bilaterally, Chest nontender Abdomen: Soft, Nontender, Nondistended, Normal bowel sounds Back: Nontender, Normal Inspection. Negative for: CVA tenderness Extremities: Nontender, No edema. Negative for: Calf Tenderness Skin: Normal color, No rash, No Trauma Neurological: Alert, Oriented x3, Cranial nerves II-XII grossly intact, Normal Strength, Normal Sensation Psychological: Normal affect, Normal Mood Diagnostic/Tx/Re-eval Impressions Chest X-Ray 09/04/19 21:14 IMPRESSION: No definite acute or significant abnormality seen. Electronically Signed: Fermín Deluca MD at 21:35 EDT , Service support , 09/04/19 21:14 Chest 1 View (Portable) [RAD] Stat Laboratory Results 09/04/19 09/04/19 21:04 21:04 WBC 12.3 H RBC 5.22 Hgb 14.8 Hct 43.8 MCV 83.9 MCH 28.4 MCHC 33.8 RDW Std Deviation 38.2 RDW Coeff of Alhaji 12.6 Plt Count 297 MPV 9.1 Immature Gran % (Auto) 0.200 Neut % (Auto) 63.4 Lymph % (Auto) 26.4 [place] % (Auto) 8.0 Eos % (Auto) 1.6 Baso % (Auto) 0.4 Absolute Neuts (auto) 7.8 H Absolute Lymphs (auto) 3.24 Nucleated RBC % 0 Sodium 141 Potassium 3.8 Chloride 109 H Carbon Dioxide 25.0 Anion Gap 7 BUN 11 Creatinine 0.70 Estim Creat Clear Calc 158.20 Est GFR (MDRD) Af Amer 158 Est GFR (MDRD) Non-Af 131 BUN/Creatinine Ratio 15.7 Glucose 102 Calcium 9.4 Troponin I < 0.015 - Rhythm Strip Rhythm Strip: Sinus Rhythm Rate: 79 Ectopy: None - EKG Initial EKG Interpretation: Sinus Rhythm, No Acute Injury Pattern - Normal axis. Normal EKG. No ectopy. Prior: Unchanged Treatment: GI Cocktail MARCE Risk: No Positive MARCE Elements Score: 0 - Medical Decision Making Work-up is unremarkable including troponin and EKG, essentially ruling out unstable angina given 3 days of practically constant discomfort of some sort. His chest x-ray is unremarkable including the mediastinum which appears narrow on the portable film. I do not think pulmonary embolus or aortic dissection need to be considered at this particular time. Patient had no palpitations here in the emergency department like he was having earlier. He still has some discomfort and I offered a GI cocktail which he was amenable to trying. ED Disposition - Plan for ED Patient: Disposition: Home or Assisted Living Diagnosis: Chest pain, unspecified, Palpitations Instructions: ED Chest Pain Atypical Unkn Cause Referrals: Arcelia Flores, MARYBETH-C [Primary Care Provider] - Javier Canchola MD [STAFF PHYSICIAN] - (call after the weekend for follow up instructions)
[2019-09-04 21:31] LABS: Absolute Lymphocyte Count 3.24 X10^3/uL (0.83-4.51); Absolute Neutrophil Count 7.8 X10^3/uL (2.0-7.7); Basophil# 0.05 X10^3/uL; Basophil% 0.4 % (0-1); Eosinophils% 1.6 % (0-5); Hematocrit 43.8 % (40-54); Hemoglobin 14.8 g/dL (13.0-16.5); Lymphocyte # 3.24 X10^3/ul (4.0); Lymphocyte % 26.4 % (19-41); Mean Corp Hgb Conc 33.8 g/dL (32-36); Mean Corpuscular Hgb 28.4 pg (27.0-32.0); Mean Corpuscular Volume 83.9 fL (80-94); Mean Platelet Vol. 9.1 fl (6.2-12.0); Monocyte# 0.98 X10^3/uL; NRBC Flagged by Analyzer 0 % (0-5); Neutrophil # 7.75 X10^3/uL (2.7-7.7); Neutrophil % 63.4 % (47-70); Platelet Count 297 K/mm3 (150-450); RBC Distribution Width CV 12.6 % (11.6-14.6); RBC Distribution Width SD 38.2 fl (35.1-43.9); Red Blood Count 5.22 M/mm3 (4.6-6.2); White Blood Count 12.3 K/mm3 (4.4-11.0)
[2019-09-04 21:48] VITALS: BP 133/97; PULSE 66; RESP 12; O2SAT 97
[2019-09-04 21:50] LABS: Anion Gap 7 (5-15); BUN 11 mg/dL (7-18); BUN/Creat Ratio 15.7 RATIO (10-20); Calcium,Total 9.4 mg/dL (8.5-10.1); Chloride 109 mmol/L (98-107); EST Glomerular Filtration Rate 131 mL/min (>60); Est Glom Filt Rate - Afr Amer 158 mL/min (>60); Glucose 102 mg/dL (74-106); Potassium 3.8 mmol/L (3.5-5.1); Sodium Level 141 mmol/L (136-145)
[2019-09-04 22:03] VITALS: BP 148/90; PULSE 60; RESP 14; O2SAT 97
[2019-09-04] MEDS: Mag Hydrox/Al Hydrox/Simeth 30 ML UDC PO (22:18)
[2019-09-04 22:25] VITALS: BP 129/79; PULSE 86; RESP 14; O2SAT 99
== END 2019-09-04 22:26 | disposition home or self-care (01) ==
PROVIDERS: Emergency Provider Emergency Medicine; PCP Nurse Practitioner
DX: R07.9 Chest pain, unspecified (principal); R00.2 Palpitations; F17.200 Nicotine dependence, unspecified, uncomplicated; Z79.899 Other long term (current) drug therapy
CPT/HCPCS: 71045; 80048; 84484; 85025; 93005; 99285; A4216

== ENCOUNTER 2019-09-15 17:50 | Emergency (ER) | payer MEDICAID, SELFPAY ==
[2019-09-15 17:51] VITALS: BP 147/81; PULSE 85; RESP 16; TEMP 36.7; O2SAT 96; BMI 29.1
--- NOTE | 2019-09-15 18:04 | EKG12_ITS ---
Test Reason : Blood Pressure : / mmHG Vent. Rate : 078 BPM Atrial Rate : 078 BPM P-R Int : 162 ms QRS Dur : 100 ms QT Int : 384 ms P-R-T Axes : 059 058 029 degrees QTc Int : 437 ms Normal sinus rhythm Normal ECG Confirmed by DANIELLE SMART MD ([id number]), supervising film or videotape editor TRAVIS HARRISON ([id number]) on 09/19/2019 8:34:28 AM Referred By: Confirmed By:DANIELLE SMART MD
--- NOTE | 2019-09-15 18:23 | ED.VISSUMM ---
- ER Visit Summary Date of Service: 09/15/19 Chief Complaint: Abdominal pain History of Present Illness: The patient is a 44 M presenting with abdominal pain. Patient states this has been ongoing for the past 8 weeks. He states he has had daily pain. He states that anytime he tries to eat his pain worsens. He has been seen by [facility] and is awaiting an endoscopy. He is on omeprazole, Bentyl, and Carafate. He states the pain was more severe today and he was unable to eat therefore he presented to the ED. He complains of nausea with no vomiting. He denies fever. Denies shortness of breath. Denies other complaints. Physical Examination: Vitals are stable. Patient is afebrile. Alert no acute distress. HEENT exam is unremarkable. Neck is supple. Lungs are clear and equal bilaterally. Heart is regular rate and rhythm. Abdomen is soft epigastric tenderness with no guarding or rebound Extremities are unremarkable. Skin is warm and dry. No focal neurologic deficit. Remainder of exam is unremarkable. Emergency Department Course and Treatment: Patient was given morphine, Zofran IV. EKG is sinus rhythm rate of 78 with no acute ischemic changes. Abdominal xray shows normal x-ray examination of the chest, abdomen, and pelvis. CBC, chemistries unremarkable. Liver lipase are normal. Troponin is negative. On reevaluation, patient is resting comfortably. He is given a prescription for Zofran. Advised to follow-up with his GI physician. Advised to return to the ED for worsening complaints. Disposition: Discharge home Impression: Epigastric pain This note was generated with [employer] dictation software. It may contain incorrect words, spelling, and punctuation that were not noted in review of the chart prior to signing ED Disposition - Plan for ED Patient: Instructions: ED Unknown Causes of Abdominal Pain Male Prescriptions: Ondansetron [Zofran Odt] 4 mg PO Q8H PRN PRN #10 tab PRN Reason: Nausea Prescription Printed Referrals: Arcelia Flores NP-C [Primary Care Provider] -
[2019-09-15] MEDS: Morphine 4 MG/ML Syringe IV (18:24)
[2019-09-15] MEDS: Ondansetron 4 MG/2 ML Vial IV (18:24)
[2019-09-15] MEDS: 0.9% Normal Saline 1,000 ML 1000 ML IV (18:24)
[2019-09-15 18:34] LABS: Absolute Lymphocyte Count 3.69 X10^3/uL (0.83-4.51); Absolute Neutrophil Count 3.6 X10^3/uL (2.0-7.7); Basophil# 0.05 X10^3/uL; Basophil% 0.6 % (0-1); Eosinophil# 0.26 X10^3/uL; Eosinophils% 3.1 % (0-5); Hematocrit 43.1 % (40-54); Hemoglobin 14.2 g/dL (13.0-16.5); Lymphocyte # 3.69 X10^3/ul (4.0); Lymphocyte % 44.1 % (19-41); Mean Corp Hgb Conc 32.9 g/dL (32-36); Mean Corpuscular Hgb 28.5 pg (27.0-32.0); Mean Corpuscular Volume 86.4 fL (80-94); Mean Platelet Vol. 9.1 fl (6.2-12.0); Monocyte% 9.6 % (0-10); NRBC Flagged by Analyzer 0 % (0-5); Neutrophil # 3.55 X10^3/uL (2.7-7.7); Neutrophil % 42.4 % (47-70); Platelet Count 282 K/mm3 (150-450); RBC Distribution Width CV 12.6 % (11.6-14.6); RBC Distribution Width SD 39.7 fl (35.1-43.9); Red Blood Count 4.99 M/mm3 (4.6-6.2); White Blood Count 8.4 K/mm3 (4.4-11.0)
--- NOTE | 2019-09-15 18:38 | RAD_ITS ---
STUDY: X-RAY - ACUTE ABDOMINAL SERIES REASON FOR EXAM: Male, 44 years old. Abdominal pain TECHNIQUE: Single view of the chest. Supine, and erect view(s) of the abdomen were obtained. COMPARISON: 09/04/2019. FINDINGS: The lungs are clear and expanded. Normal size heart. Normal mediastinum and luis. Normal visualized pulmonary arteries. Normal visualized aortic arch and descending thoracic aorta. There is a non-specific bowel gas pattern. The soft tissue structures of the abdomen and pelvis are unremarkable. Normal visualized osseous structures. RAD/Acute Abdomen Inc Chest IMPRESSION: Normal x-ray examination of the chest, abdomen, and pelvis. Electronically Signed: Fermín Deluca MD at 18:56 EDT , Service support ,
[2019-09-15 19:09] LABS: AST(SGOT) 23 U/L (15-37); Alanine Aminotransfer ALT/SGPT 30 U/L (16-61); Albumin, Serum 4.1 g/dL (3.2-5.0); Alkaline Phosphatase 82 U/L (45-117); Anion Gap 5 (5-15); BUN 13 mg/dL (7-18); BUN/Creat Ratio 18.6 RATIO (10-20); Calcium,Total 9.2 mg/dL (8.5-10.1); Chloride 109 mmol/L (98-107); EST Glomerular Filtration Rate 131 mL/min (>60); Est Glom Filt Rate - Afr Amer 158 mL/min (>60); Glucose 92 mg/dL (74-106); Lipase 211 U/L (73-393); Potassium 4.1 mmol/L (3.5-5.1); Protein, Total 8.1 g/dL (6.4-8.2); Sodium Level 138 mmol/L (136-145)
--- NOTE | 2019-09-15 20:03 | ED.DEP ---
ED Disposition - Plan for ED Patient: Instructions: ED Unknown Causes of Abdominal Pain Male Prescriptions: Ondansetron [Zofran Odt] 4 mg PO Q8H PRN PRN #10 tablet PRN Reason: Nausea Referrals: Arcelia Flores, CLASSIFICATION AND TREATMENT DIRECTOR-C [Primary Care Provider] -
--- NOTE | 2019-09-15 20:22 | ED.RN ---
pt expressed frustration about not getting pain medication prescription at [facility]. stated I will be back here tomorrow. RN spoke with MD. reinforced with pt to call his GI dr in the am.
== END 2019-09-15 20:24 | disposition home or self-care (01) ==
LOC: ED 18:27
PROVIDERS: Emergency Provider Emergency Medicine; PCP Nurse Practitioner
DX: R10.13 Epigastric pain (principal); R19.7 Diarrhea, unspecified; R11.0 Nausea; K21.9 Gastro-esophageal reflux disease without esophagitis; Z79.899 Other long term (current) drug therapy
CPT/HCPCS: 74022; 80053; 83690; 84484; 85025; 93005; 96361; 96374; 96375; 99284; J7030; A4216; J2405

== ENCOUNTER 2019-09-19 01:55 | Emergency (ER) | payer MEDICAID, SELFPAY ==
[2019-09-19 01:57] VITALS: BP 144/106; PULSE 105; RESP 16; TEMP 36.8; O2SAT 95; BMI 28.8
--- NOTE | 2019-09-19 02:48 | ED.VIS.DENTA ---
History of Present Illness Chief Complaint: Dental Informant: Patient Onset: Weeks - 1 Context: Gradual Onset Timing: Continuous Quality: aching Location: left maxillary molars Current Severity: Severe Maximum Severity: Severe Worsened by: chewing Relieved by: - - nothing Associated Symptoms: Facial Swellling, - - no fevers Narrative: Patient presenting with gradual worsening of tooth ache in the left maxillary molar region. He states he woke up tonight and is face was swollen. He denies any fevers. He is also having some discomfort in his left nostril, with a rash that is uncomfortable, painful. No purulent discharge from anywhere. He states he is aware of the tooth issues and this area, and knows he needs root canals in them, but a dentist will not perform them because of the pandemic and the fact that it is an elective procedure. Past Medical History - Allergies and Home Meds Allergies/Adverse Reactions: Allergies No Known Allergies Allergy (Verified 09/15/19 17:50) Primary Care Physician: Arcelia Flores NP-C [Primary Care Provider] - Surgical History: - - Inguinal hernia repair in youth. Smoking Status: Former smoker - Family History Maternal Family History: Reports: - - History of AA with associated, known Sirena-Danlos. Review of Systems General: Denies: Chills, Fever, Sweats ENT: Reports: - - Left facial swelling. Left upper dental pain. Left nasal pain/rash. Cardiovascular: Denies: Chest pain, Palpitations Respiratory: Denies: Dyspnea, Cough, Dyspnea on exertion Gastrointestinal: Denies: Abdominal pain, Nausea, Vomiting, Diarrhea, Melena, Hematochezia Physical Exam Vital Signs/Narrative: Vital Signs Temp Pulse Resp BP Pulse Ox 09/19/19 01:57 98.3 F 105 H 16 144/106 H 95 Inital Vital Signs reviewed: Yes General: Well nourished, Well developed, - - Well-appearing, no distress Head: Normocephalic, Atraumatic ENT: Moist mucous membranes, No rhinorrhea, - - Mild left mid face swelling without abscess/fluctuance, normal on the right. Right naris is clear and normal. Left naris, there is crusty yellow rash on the floor/medial aspect of the nostril. No abscess. No purulent discharge. No bleeding. Mouth/Throat: Normal inspection lips/gums, Normal oral mucosa, No focal abscess, Normal posterior oropharynx, No sublingual edema, Normal Stensen's duct, Focal dental decay - Mild, external aspect of tooth #15 near the gumline, Tenderness on tooth percussion - Teeth numbers 14-15. Negative for: Dental trauma, Dentral fracture, Focal gum swelling, Gingivitis, Trismus Neck: Supple, No lymphadenopathy Respiratory: No distress Skin: Normal color, No rash, No Trauma Neurological: Alert, Oriented x3, Cranial nerves II-XII grossly intact, Normal Strength, Normal Sensation, Normal Gait Psychological: Normal affect, Normal Mood Diagnostic/Tx/Re-eval - Medical Decision Making Patient is reassured there is no abscess to drain, but placing him on antibiotics I think is reasonable to prevent an abscess with the possibility of an early dental infection. With regards to his nostril, this is consistent with what is likely MRSA infection/colonization, and mupirocin should take care of that, so I will prescribe him that and amoxicillin as well as a short prescription for [place]. He was given doses here. ED Disposition - Plan for ED Patient: Disposition: Home or Assisted Living Diagnosis: Nostril infection, Dental infection Instructions: ED [facility] Dental Prescriptions: Amoxicillin 875 mg PO BID #20 tab Prescription Printed Mupirocin 1 applic NASAL BID 10 Days #1 tube Prescription Printed Referrals: Arcelia Flores NP-C [Primary Care Provider] - (And/or your dentist)
[2019-09-19] MEDS: AMOXICILLIN 500 MG CAPSULE PO (02:56)
[2019-09-19] MEDS: HYDROcodone Bitartrate/Apap 5/325 Tablet PO (02:57)
[2019-09-19 03:06] VITALS: BP 132/77; PULSE 94; RESP 17; O2SAT 99
== END 2019-09-19 03:07 | disposition home or self-care (01) ==
PROVIDERS: Emergency Provider Emergency Medicine; PCP Nurse Practitioner
DX: K04.7 Periapical abscess without sinus (principal); L08.89 Other specified local infections of the skin and subcutaneous tissue; R21 Rash and other nonspecific skin eruption; Z79.899 Other long term (current) drug therapy; Z87.891 Personal history of nicotine dependence
CPT/HCPCS: 99283

== ENCOUNTER → 2019-10-18 13:04 | Outpatient (CLI) | payer MEDICAID, SELFPAY ==
[2019-08-02 16:31] VITALS: BMI 30.2
[2019-09-19 01:57] VITALS: BMI 28.8
--- NOTE | 2019-10-18 13:06 | STE_ITS ---
Reason For Study: CHEST PAIN Stress Results Protocol: Azam Protocol Maximum Predicted HR: 177 bpm Target HR: 150 bpm % Maximum Predicted HR: 92 % DurationHeart Rate Stage (mm:ss) (bpm) BP Comment BASELINE 87 130/74 STAGE 1 3:00 116 150/70SLIGHT SOB STAGE 2 3:00 130 168/68 STAGE 3 3:00 144 172/78SOB NOTED, NO CP STAGE 4 1:01 162 / SOB RECOVERY 96 130/82 Stress Duration: 10:01 mm:ss Maximum Stress HR: 162 bpm Baseline Echocardiogram Findings Stress Echo Wall motion Data Resting WM Intermediate WM Stress WM Interpretation Summary Exercise stress echo. 44-year-old man with a history of chest pain. Stress protocol: Resting EKG demonstrates normal sinus rhythm with a rate of 77 bpm normal intervals are noted resting blood pressure is 130/74 mmHg. The patient exercised according to regular Azam protocol for total duration of 10 minutes the maximum heart rate attained was 162 bpm which was 91% of maximum practice heart rate the maximum workload was 13.5 metabolic equivalents. At rest there were no ST or T wave changes noted suggest ischemia at peak exercise upsloping ST changes were noted with no meet the criteria for ischemia. The resting blood pressure 730/74 with a peak blood pressure 172/78 mmHg. No clinical angina was noted. Stress echocardiographic images. Resting echocardiographic images demonstrated preserved ejection fraction estimated at 55 to 60%. There is a mid ventricular false tendon noted. The stress echocardiographic images demonstrated thickening of all nugent with reduction in low ventricular cavity size and peaking of ejection fraction of 65 to 70%. No wall motion abnormalities are noted. Conclusion: Normal exercise stress echo with no evidence of ischemia at a high workload. No arrhythmias noted. No clinical angina noted. Excellent functional capacity. Ordering Physician: Reji Barnes Referring Physician: Reji Barnes Performed By: Raine Bauman, KARMA, RVT
--- OUTSIDE RECORDS SUMMARY | 2020-03-20 09:15 | XMS RPT_ITS | CCD ---
:1975 External Reference #:[id number] Author Organization [facility] Care Team Providers Name Role Phone Nghia Palomares Unavailable Unavailable Maureen RN, L Unavailable Nghia Palomares Unavailable Unavailable Gilles Jimenez Primary Care Provider Medications Medication Name Sig Date Prescriber Location Acetaminophen acetaminophen (TYLENOL) 500 [facility] Provider [facility] mg tablet Take 500 mg by ([phone]) mouth every 8 hours as needed. 0 Active Comment: Take 500 mg by mouth every 8 hours as needed. Bifidobacterium Bifidobacterium 10-21-2019 [facility] Infantis Infantis (ALIGN) 4 mg Palmer ([id number] ) cap Take 1 capsule by mouth once daily. 30 capsule 2 10/21/2019 Active Comment: Take 1 capsule by mouth once daily. Dicyclomine dicyclomine (BENTYL) 20 10-21-2019 [facility] mg tablet Take 1 tablet Palmer ([phone]) by mouth before meals and at bedtime. 120 tablet 3 10/21/2019 Active Comment: Take 1 tablet by mouth befor e meals and at bedtime. iv contrast iv contrast (will be 01-24-2020 - Nathansalas Benedict nd (will be provided with 01-24-2020 [facility] ([id number]) provided with radiology test) Nathan radiology test) Inject 1 Each Statsevych intravenously one time only for [address] Neck W IVCON No IV access, insert saline lock prior to the sedation, infusion, injection for imaging exam. Discontinue saline lock post exam. If Pt. has a central line or IVAD, may access for administration according to line specific nursing protocol. Once exam is complete flush line and de-access according to line specific nursing protocol in the CT contrast administration guidelines link. 1 Each 0 01/24/2020 01/24/2020 Active Comment: Inject 1 Each intravenously one time only for [address] Neck W IVCON No IV access, insert saline lock p rior to the sedation, infusion, injection for imaging exam. Discontinue sa line lock post exam. If Pt. has a central line or IVAD, may access for admi nistration according to line specific nursing protocol. Once exam is compl ete flush line and de-access according to line specific nursing protocol in the CT contrast administration guidelines link. Omeprazole omeprazole (PRILOSEC) 40 10-21-2019 - Mag Redd [facility] mg capsule Indications: 04-27-2020 [facility] (441 [id number]) Gastroesophageal reflux disease without esophagitis , Epigastric pain Take 1 capsule by mouth once daily. 60 capsule 0 02/27/2020 04/27/2020 Active Comment: Take 1 capsule by mouth once daily. rivaroxaban XARELTO 20 MG TABS 03-12-2017 Greta Barnes NP [facility] One tablet by mouth Group (4 [id number]) daily RIVAROXABAN [id number] Greta Barnes NP Sucralfate sucralfate (CARAFATE) 03-16-2020 - [place] ([facility]) [facility] 1 gram tablet 04-15-2020 Older [place] ([id number]) Indications: Upper ([facility]) Older abdominal pain , Heartburn Take 1 tablet by mouth before meals and at bedtime. 120 tablet 0 03/16/2020 04/15/2020 Active Comment: Take 1 tablet by mouth befor e meals and at bedtime. tamsulosin tamsulosin ER (FLOMAX) 10-28-2019 - [place] ([facility]) [facility] 0.4 mg Indications: 02-14-2020 Older ([id number]) Lower urinary tract symptoms (LUTS) Take 1 capsule by mouth daily at bedtime. 30 capsule 1 02/14/2020 Active Comment: Take 1 capsule by mouth angel y at bedtime. Problems Active Problems Category Problem Name Status Date Location Abdominal pain Epigastric pain Active 09-16-2019 - [facility] ([id number]) Cardiac dysrhythmias Atrial fibrillation Active 03-12-2017 - [facility] ([id number]) Esophageal disorders Gastroesophageal reflux Active 0 - [facility] disease without (89076) esophagitis Genitourinary symptoms Lower urinary tract Active [facility] and ill-defined symptoms (88166) conditions Other gastrointestinal Heartburn Active [facility] disorders (49648) Past or Other Problems Category Problem Name Status Date Location Other gastrointestinal Dysphagia Completed 09-16-2019 - [facility] disorders ([id number]) Results Result Name Value Range Unit Interpretation Flag Date Location cnpn on 2020-03-16 REMEDIOSN Telephone (INTMWS) Normal 03-16-2020 [facility] KAYEGRETA ([id number]) 1975 [facility] Date Time Provider Department ([id number]) 03/16/20 PHU JIMENEZ INTMWS During your visit today, we recorded the following informati on about you: Yaz Trujillo LPN 03/16/2020 12:35 PM Signed Pt went to ER yesterday due to eating ma c and ch and started with severe chest pain. They checked his heart and did not show anything. They were thinking could be gastric issues. Pt was given morphine a nd a lidocaine drink and sent home. No other directions except to call his pcp right away. Pt is afraid to eat and has not eating anything since. Getting f luids in. He is desperate and needs to know what to do next. He is on multiple medications. Carafate, bentyl and Prilosec. Please advise pt. Yaz Flores APRN.CNP 03/16/2020 1:16 PM Signed Please schedule patient for ER follow-up. Recommend eating bland, soft diet and 6 small meals instead of 3 larger meals a day. Avoid s picy, greasy, high fat content foods. GREGORIO Waldron LPN 03/16/2020 2:04 PM Signed ER follow up scheduled. Given instructions from provider. Patient is asking if he can get a refill of carafate to help with the abdominal pain until his appointment. He [place] Flores APRN.CNP 03/16/2020 2:11 PM Signed The following approved medic ation requests have been transmitted electronically. Signed Prescriptions Disp Refills sucralfate (CARAFATE) 1 gram tablet 120 tablet 0 Sig: Take 1 tablet by mouth before meals and at bedtime. CHAKA: No Authorizing Provider: ARCELIA FLORES (REMEDIOS) GREGORIO Waldron LPN 03/16/2020 3:36 PM Signed Left message that Rx has been sent Allergies As of Date: 03/16/2020 (No Known Allergies) Date Reviewed: 10/21/2019 Reviewed by: Mag Palmer - Fully Assessed Reason for Visit: ER yesterday/not eating [Other] Visit Diagnoses:Upper abdominal pain [R10.10] Heartburn [R12] Order(s):sucralfate (CARAFATE) 1 gram tabletTake 1 tablet by mouth before meals and at bedtime.Disp: 120 tabletRfl: 0 Prescriptions as of 03/16/2020 Sig: SUCRALFATE 1 GRAM TABLET Take 1 tablet by mouth before* OMEPRAZOLE 40 MG CAPSULE,SERENITY* Take 1 capsule by mouth once * TAMSULOSIN 0.4 MG CAPSULE Take 1 capsule by mouth daily* ALIGN 4 MG CAPSULE Take 1 capsule by mouth once * DICYCLOMINE 20 MG TABLET Take 1 tablet by mouth before* ACETAMINOPHEN 500 MG TABLET Take 500 mg by mouth every 8 * Problem List As Of Date 03/16/2020 Noted Resolved Gastroesophageal reflux disease without esophag*09/16/2019 Epigastric pain [R10.13] 09/16/2019 Other dysphagia [R13.19] 09/16/2019 Prescriptions ordered this encounter Disp Refills Start End SUCRALFATE 1 GRAM TABLET 120 * 0 03/16/2020 04/15/2020 Route: ORAL Sig: Take 1 tablet by mouth before meals and at bedtime. Medications Discontinued During This Encounter Prescriptions - sucralfate (CARAFATE) 1 gram tablet (Discontinued) Take 1 tablet by mouth before meals and at bedtime. Encounter Status:Closed by HEATHER VENEGAS LPN on 03/16/20 obsolete on 2020-02 OBSOLETE Refill (GSTNOR) Normal 02-27-[address] [facility] GRETA RESTREPO ([id number]) 1975 [facility] Date Time Provider Department ([id number]) 02/27/20 MAG PALMER GSTNOR During your visit today, we recorded the following informati on about you: Allergies As of Date: 02/27/2020 (No Known Allergies) Date Reviewed: 10/21/2019 Reviewed by: Mag Palmer - Fully Assessed Reason for Visit: Refill Request [94] Visit Diagnoses:Gastroesophageal reflux disease without es ophagitis [K21.9] Epigastric pain [R10.13] Order(s):omeprazole (PRILOSEC) 40 mg capsuleTake 1 capsule b y mouth once daily.Disp: 60 capsuleRfl: 0 Prescriptions as of 02/27/2020 Sig: OMEPRAZOLE 40 MG CAPSULE,SERENITY* Take 1 capsule by mouth once * TAMSULOSIN 0.4 MG CAPSULE Take 1 capsule by mouth daily* ALIGN 4 MG CAPSULE Take 1 capsule by mouth once * DICYCLOMINE 20 MG TABLET Take 1 tablet by mouth before* ACETAMINOPHEN 500 MG TABLET Take 500 mg by mouth every 8 * Problem List As Of Date 02/27/2020 Noted Resolved Gastroesophageal reflux disease without esophag*09/16/2019 Epigastric pain [R10.13] 09/16/2019 Other dysphagia [R13.19] 09/16/2019 Prescriptions ordered this encounter Disp Refills Start End OMEPRAZOLE 40 MG CAPSULE,DELAYED REL* 60 c* 0 02/27/2020 Route: ORAL Sig: Take 1 capsule by mouth once daily. Cosign required by MAG PALMER[[id number]] Medications Discontinued During This Encounter Prescriptions - omeprazole 40 mg capsule (Discontinued) Take 1 capsule by mouth once daily. Encounter Status:Closed by KENDRA BEDOYA MA on 02/27/20 obsolete on 2020-02 OBSOLETE Refill (INTMWS) Normal 02-14-[address] [facility] GRETA ALMAGUER ([id number]) 1975 [facility] Date Time Provider Department ([id number]) 02/14/20 PHU JIMENEZ INTMWS During your visit today, we recorded the following informati on about you: Dora Singh LPN 02/14/2020 11:21 AM Signed Spoke to Patient, he was not taking Tamsulosin on angel y basis, I definitely need the med. Patient has been identified by name and date of : Yes Patient phones for refill(s): Pending Prescriptions Disp Refills TAMSULOSIN 0.4 MG CAPSULE 30 capsule 1 Sig: Take 1 capsule by mouth daily at bedtime. CHAKA: No Date of last office visit in primary care: 10/28/2019 Physical: 04/09/2020 Dora Singh LPN Allergies As of Date: 02/14/2020 (No Known Allergies) Date Reviewed: 10/21/2019 Reviewed by: Mag Palmer - Fully Assessed Reason for Visit: Refill Request [94] Visit Diagnosis:Lower urinary tract symptoms (LUTS) [R39.9] Order(s):tamsulosin ER (FLOMAX) 0.4 mgTake 1 capsule by mout h daily at bedtime.Disp: 30 capsuleRfl: 1 Prescriptions as of 02/14/2020 Sig: TAMSULOSIN 0.4 MG CAPSULE Take 1 capsule by mouth daily* ALIGN 4 MG CAPSULE Take 1 capsule by mouth once * DICYCLOMINE 20 MG TABLET Take 1 tablet by mouth before* OMEPRAZOLE 40 MG CAPSULE,SERENITY* Take 1 capsule by mouth once * ACETAMINOPHEN 500 MG TABLET Take 500 mg by mouth every 8 * Problem List As Of Date 02/14/2020 Noted Resolved Gastroesophageal reflux disease without esophag*09/16/2019 Epigastric pain [R10.13] 09/16/2019 Other dysphagia [R13.19] 09/16/2019 Prescriptions ordered this encounter Disp Refills Start End TAMSULOSIN 0.4 MG CAPSULE 30 c* 1 02/14/2020 Route: ORAL Sig: Take 1 capsule by mouth daily at bedtime. Medications Discontinued During This Encounter Prescriptions - tamsulosin ER (FLOMAX) 0.4 mg (Discontinued) Take 1 capsule by mouth daily at bedtime. Encounter Status:Closed by FAINAARCELIA REMEDIOS on 02/14/20 progress on 2020-01 PROGRESS HNO ID: [id number] Normal 01-24-2020 [facility] Author: Charity [employer]) Gely Horan [facility] ([id number]) Service: ? Author Type: Battery Repairer Type: Progress Notes Filed: 01/24/2020 4:00 PM Note Text: Radiology Service Progress Note DATE OF SERVICE: January 24, 2020 TIME: 4:00 PM PATIENT IDENTITY VERIFICATION COMPLETED USING TWO (2) [address] IDENTIFIERS: Name and Date of confirmed by patient luz albrechterin. FALL SCREENING: Has the patient had 2 falls in the last year or 1 fall with injury or currently using an Ambulatory Assistive Devic e (Walker, Cane, Wheelchair, Crutches, etc.)? No PATIENT GENDER DATA: Male PATIENT RELEVANT IMPLANT DATA REVIEWED: Yes ALLERGIES: Reviewed and unchanged CONTRAST ALLERGY: NO. EXAM: CT -CONTRAST INDUCED NEPHROPATHY RISK FACTORS: Not applicabl e CREATININE: Creatinine Date Value Ref Range Status 07/27/2019 0.67 (L) 0.73 - 1.22 mg/dL Final eGFR-All Other Races Date Value Ref Range Status 07/27/2019 >60 . Final Comment: eGFR (Estimated GFR) Units of measure: mL/min/1.73 meters sq uared eGFR is derived from the reexpressed MDRD Study equation [facility] ng the following parameters: serum creatinine, age, gender and race. The crea tinine assay has been calibrated to be traceable to IDMS. An eGFR <60 mL/min/1.73m2 for >3 months is consistent with c hronic kidney disease. Refer to KDOQI guidelines for clinical interpretati on. In patients with unstable renal function, e.g. those with ac nenana kidney injury, the eGFR may not accurately reflect actual GFR. eGFR- Date Value Ref Range Status 07/27/2019 >60 Final P.O.C.T. RESULTS: N/A January 24, 2020 TREATMENT: N/A PERIPHERAL IV DATA: Ambulatory: A peripheral IV was started in the Left forearm with a Angio cath: 22 gauge. RADIOLOGY DEPARTMENT: CT; Exam(s) Completed: Neck SIGNATURE: Gely Dutton PATIENT NAME: Greta Williamson iger DATE: January 24, 2020 TIME: 4:[address] neck soft tissue w ivcon on 2020-01-24 CT NECK SOFT * * *Final Report* * * Normal 01-06 [facility] TISSUE W IVCON DATE OF EXAM: Jan 24 2020 3:57PM [facility] ([id number]) [facility] 0013 - CT NECK SOFT TISSUE W IVCON / 19 PROCEDURE REASON: Neck Pain * * * * Physician Interpretation * * * * CT NECK SOFT TISSUE W IVCON History: Neck Pain Right neck swelling Comparison: None Technique: A series of contiguous helical scans were perform ed from the skull base to the aortic arch with intravenous contrast. Contrast: Omnipaque 300. Contrast Dose: 100 cc Route of Administration: IV CT Radiation dose: Integrated Dose-length product (DLP) for this visit = 898 mGy*cm. CT Dose Reduction Employed: Automated exposure control(AEC) and iterative recon RESULT: Postoperative change: None apparent. Suprahyoid Neck: Nasopharynx and oropharynx appear normal. Parapharyngeal tissue planes are preserved. Oral cavity and floor of mouth appear normal within constraints of artifact from dent al amalgam. Parotid and submandibular spaces are normal. Sheep Sticker spac es appear normal. Infrahyoid Neck: Hypopharynx, larynx, and imaged infraglotti c trachea appear normal. Imaged upper esophagus is unremarkable. Thyro id gland is homogeneous without evidence of discrete nodule. Lymph Nodes: No cervical lymphadenopathy by size criteria. S cattered nonenlarged cervical lymph nodes by size criteria, with the largest in the left level IIA measuring up to 1.4 cm in short axis. Carotid Space: No masses. Patent extracranial carotid system s and internal jugular veins bilaterally. Orbits, Face and Skull Base: Orbital soft tissue planes are preserved. Paranasal sinuses are clear, but there is a deformity of bot h the anterior and posterior nugent of the right maxillary sinus, w hich may due to prior trauma. Mastoid air cells and middle ear cavities a re clear. No evidence of an osteolytic or osteoblastic process in the skull base. Imaged intracranial contents: No abnormal intracranial enhan cement, mass effect, or hydrocephalus. Cervical spine and remaining osseous structures: No discrete osteolytic or osteoblastic process. No significant spondylotic changes in the visualized spine. Lung apices: Imaged lung apices are clear of focal consolida tion or mass. Other: There are bilateral slightly elongated styloid proces ses, with the right side measuring up to 5.6 cm. The right sided process d oes abut the distal cervical right ICA, but without significant compressi on. IMPRESSION: No neck mass or cervical lymphadenopathy by size criteria. Scattered nonenlarged cervical lymph nodes are noted, which are likely reactive, with the largest in left level IIA measuring 1.3 c m in short axis. Bilateral styloid processes are elongated, and the right-fe ed styloid process does abut the right cervical ICA, but no significant compression of the right ICA to indicate [place]'s syndrome. 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 Java Jsf Developer: MARIELLE Transcribe Date/Time: Jan 24 2020 3:58P Dictated by : JAJA MCALLISTER MD This examination was interpreted and the report reviewed and electronically signed by: JAJA MCALLISTER MD on Jan 24 2020 4:06PM EST [id number] [facility]INT[facility]) Normal 01-24-[address] [facility] GRETA ALMAGUER ([id number]) 1975 [facility] Date Time Provider Department ([id number]) 01/24/20 PHU JIMENEZ INTAbilioWS During your visit today, we recorded the following informati on about you: Dora Singh LPN 01/24/2020 4:54 PM Signed ----- Message from Phu Jimenez sent at 01/24/2020 4:30 PM EDT ----- Results will be discussed by Dr. Burdick, ENT. Please have hi m do labs that were ordered. Dora Singh LPN 01/24/2020 4:55 PM Signed Left message to call office AND speak to nurse. Dora Trujillo LEAD ETL DEVELOPER 01/24/2020 6:18 PM Signed Spoke with patient and information listed below given. Miriam husain has schedule lab apt for tomorrow. He will be fasting. Yaz Trujillo LPN Allergies As of Date: 01/24/2020 (No Known Allergies) Date Reviewed: 10/21/2019 Reviewed by: Mag Palmer - Fully Assessed Reason for Visit: results [Other] Prescriptions as of 01/24/2020 Sig: IV CONTRAST (RADIOLOGY PROCED* Inject 1 Each intravenously o * TAMSULOSIN 0.4 MG CAPSULE Take 1 capsule by mouth daily* ALIGN 4 MG CAPSULE Take 1 capsule by mouth once * DICYCLOMINE 20 MG TABLET Take 1 tablet by mouth before* OMEPRAZOLE 40 MG CAPSULE,SERENITY* Take 1 capsule by mouth once * ACETAMINOPHEN 500 MG TABLET Take 500 mg by mouth every 8 * Problem List As Of Date 01/24/2020 Noted Resolved Gastroesophageal reflux disease without esophag*09/16/2019 Epigastric pain [R10.13] 09/16/2019 Other dysphagia [R13.19] 09/16/2019 Encounter Status:Closed by YAZ TRUJILLO LPN on 01/24/20 cnpn on 2019-12-20 CNPN Telephone (INTMWS) Normal 12-20-[address] [facility] GRETA ALMAGUER ([id number]) 1975 [facility] Date Time Provider Department ([id number]) 12/20/19 PHU JIMENEZ INTMWS During your visit today, we recorded the following informati on about you: Ashley Tracy RN 12/20/2019 9:19 AM Signed Kendra from Dr. Burdick office called, verified pt by name an d birthdate. Kendra wanted to let PCP know after multiple calls, emails and at tempts pt did not have apt with Dr. Burdick as recommended. Pt does not have apt scheduled at this time Ashley Jimenez MD 12/21/2019 10:06 AM Signed Noted. Allergies As of Date: 12/20/2019 (No Known Allergies) Date Reviewed: 10/21/2019 Reviewed by: Mag Palmer - Fully Assessed Reason for Visit: Clinical Update [1735] Prescriptions as of 12/20/2019 Sig: TAMSULOSIN 0.4 MG CAPSULE Take 1 capsule by mouth daily* ALIGN 4 MG CAPSULE Take 1 capsule by mouth once * DICYCLOMINE 20 MG TABLET Take 1 tablet by mouth before* OMEPRAZOLE 40 MG CAPSULE,SERENITY* Take 1 capsule by mouth once * ACETAMINOPHEN 500 MG TABLET Take 500 mg by mouth every 8 * Problem List As Of Date 12/20/2019 Noted Resolved Gastroesophageal reflux disease without esophag*09/16/2019 Epigastric pain [R10.13] 09/16/2019 Other dysphagia [R13.19] 09/16/2019 Encounter Status:Closed by PHU JIMENEZ MD on 12/21/19 progress on 2019-10 PROGRESS HNO ID: [id number] Normal 10-28-2019 [facility] Author: Phu Jimenez [facility] ([id number]) Service: ? Author Type: Physician Type: Progress Notes Filed: 10/28/2019 3:47 PM Note Text: This note was created using PhotoSolarter. Subjective This Team Access Model visit is a virtual encounter. It requ ired patient-provider interaction for the medical decision making as documented below. Greta Almaguer's identity was confirmed by The limitatio ns of telemedicine were reviewed, and verbal consent was obtained for this encounter. This encounter is not related to previous similar encounter within the past 7 days. No face to face visit is planned in the next day in connection to this encounter. This telemedicine encounter was accomplished via Zoom. Patient presents with: Mass: right neck Edema: right leg Urinary Frequency: longstanding Greta Almaguer is a patient I am seeing for the first time. He was concerned about right neck swelling and discomfort for almost 2 months , associated with sore throat and some dysphagia. He was recently evaluat ed for GERD, dysphagia, and epigastric pain. Upper GI symptoms were much better but throat and neck symptoms have not improved. Other associated symptoms were right facial pressure, but this was not exactly new as he had a history of blunt right face trauma. Other concern was longstanding urinary frequency, slow urina tion, hesitancy. He tried his father's tamsulosin in the past and he felt like a new man. Other concern was swelling and discoloration of his right lo wer leg. Review of Systems Constitutional: Negative for appetite change, chills, diapho resis, fatigue and fever. HENT: Positive for ear pain, mouth sores, sinus pressure, so re throat and trouble swallowing. Negative for hearing loss and voice fernández ge. Eyes: Negative for visual disturbance. Right eye twitching Respiratory: Negative for cough, chest tightness and shortne ss of breath. Gastrointestinal: Negative for abdominal pain, nausea and vo miting. Genitourinary: Positive for decreased urine volume, difficul ty urinating, frequency and urgency. Negative for dysuria, flank pain and hematuria. PAST MEDICAL HISTORY Diagnosis Date - Atrial fibrillation and flutter (HCC) - Blunt trauma of face 2009 right side - Dysphagia 09/16/2019 - Gastroesophageal reflux disease without esophagitis 020 - GERD (gastroesophageal reflux disease) - Inguinal hernia - Reflux esophagitis - Spinal stenosis PAST SURGICAL HISTORY Procedure Laterality Date - EGD 09/27/2019 reflux esophagitis, neg H Pylori - PAST SURGICAL HISTORY OF 1975 had hernia repair at FAMILY HISTORY Problem Relation Age of Onset - Aneurysm Mother Ehler Danlos - other (rare tissue disease) Mother - other (Other) Mother vascular Ehler Danlos Syndrome - other (lung cancer) Maternal Grandmother - other (Fhx of rare connective tissue dx.) Other - other (bph) Father prostate enlargement ACTIVE PROBLEM LIST Gastroesophageal Reflux Disease Without Esophagitis Epigastric Pain Other Dysphagia Current Outpatient Medications Medication Sig - Bifidobacterium Infantis (ALIGN) 4 mg cap Take 1 capsule b y mouth once daily. - dicyclomine (BENTYL) 20 mg tablet Take 1 tablet by mouth b efore meals and at bedtime. - omeprazole 40 mg capsule Take 1 capsule by mouth once angel y. - acetaminophen (TYLENOL) 500 mg tablet Take 500 mg by mouth every 8 hours as needed. No current facility-administered medications for this visit. Objective There were no vitals taken for this visit. Physical Exam Constitutional: Appearance: Normal appearance. He is not ill-appearing. HENT: Head: Normocephalic. Nose: Nasal deformity and septal deviation present. No conge stion or rhinorrhea. Right Sinus: No frontal sinus tenderness. Left Sinus: No maxillary sinus tenderness or frontal sinus t enderness. Eyes: Extraocular Movements: Extraocular movements intact. Conjunctiva/sclera: Conjunctivae normal. Pupils: Pupils are equal, round, and reactive to light. Neck: Musculoskeletal: Neck supple. No muscular tenderness. Comments: Soft tissue fullness, right paratracheal/laryngeal area moving up with deglutition. Pulmonary: Effort: Pulmonary effort is normal. Breath sounds: Normal breath sounds. Musculoskeletal: General: No swelling. Right lower leg: No edema. Left lower leg: No edema. Comments: Varicose vein right distal leg with some discolora tion. Neurological: Mental Status: He is alert. Assessment and Plan ASSESSMENT/PLAN: 1. Localized swelling, mass and lump, neck - ICD9: 784.2, IC D10: R22.1 (primary diagnosis) - CONSULT TO ENT. He preferred local. Refer to Dr. Burdick. - TSH BLD - T4 FREE/FREE THYROX 2. Sore throat - ICD9: 462, ICD10: J02.9 - CONSULT TO ENT 3. Dysphagia, unspecified type - ICD9: 787.20, ICD10: R13.10 - CONSULT TO ENT 4. Lower urinary tract symptoms (LUTS) - ICD9: 788.99, ICD10 : R39.9 Chronic. - URINALYSIS WITH MICROSCOPIC - PSA/PROSTSPECAG DIAG - TAMSULOSIN 0.4 MG CAPSULE - BASIC METABOLIC PNL 5. Asymptomatic varicose veins of right lower extremity - IC D9: 454.9, ICD10: I83.91 Reassured. 6. Screening for HIV without presence of risk factors - ICD9 : V73.89, ICD10: Z11.4 - HIV 1 2 COMBO(AG/AB),WITH REFLEX TO DIFFERENTIATION 7. Screening for lipid disorders - ICD9: V77.91, ICD10: Z13. 220 - LIPID PANEL, NONFASTING Patient indicated understanding and willingness to follow re commendations. Phu Jimenez MD progress on 2019-10 PROGRESS HNO ID: [id number] Normal 10-21-2019 [facility] Author: Mag Palmer [facility] ([id number]) Service: ? Author Type: Physician Type: Progress Notes Filed: 10/21/2019 1:36 PM Note Text: NEW phone CONSULT I had a phone consult with Mr. Almaguer today. This consult was requested by SELF for an opinion regarding abdominal symptoms, GERD , and my final recommendations will be commun icated to the requesting health care provider by way of the shared medical record for internal providers or letter via the [facility] Postal Se rvice for external providers. HISTORY: Mr Almaguer was seen by Ms Anu mike for multitude of GI complaints. Predominantly abdominal discomfort, reflux. He was referred for EGD for suspected PUD. EGD performed by me on 09/27/2019 showed possible endoscopic SSBE (not confirmed on biopsies) - consistent with reflux esophagitis. Duodenal bx negative for celiac disease, gastric bx negative for H pylor i. He was given a course of antibiotic and started on Omeprazol e 40mg po daily and Bentyl 20mg po bedtime. Interim history: Since then his cramps have significantly improved. Does repo rt occasional sensation of incontinence His main complaint today was intermittent nausea, pain in th roat. Reports post nasal drip, smoker's cough with whitish phlegm. Reports several years of acid regurgitation/heartburn now im proved to good extent with Omeprazole 40mg po [facility] Reports mother has IBS. Denies any vomiting, fever/chills, hematemesis, melena, tereso tochezia, loss of appetite, loss of weight, shortness of breath, abdominal pain, jaundice. PAST MEDICAL HISTORY Diagnosis Date - Atrial fibrillation and flutter (HCC) - Dysphagia 09/16/2019 - Gastroesophageal reflux disease without esophagitis 020 - GERD (gastroesophageal reflux disease) - Inguinal hernia - Reflux esophagitis - Spinal stenosis PAST SURGICAL HISTORY Procedure Laterality Date - EGD 09/27/2019 reflux esophagitis, neg H Pylori - PAST SURGICAL HISTORY OF 1975 had hernia repair at FAMILY HISTORY Problem Relation Age of Onset - other (rare tissue disease) Mother - other (ibs) Mother - other (lung cancer) Maternal Grandmother - other (Fhx of rare connective tissue dx.) Other Social History Tobacco Use - Smoking status: Current Every Day Smoker - Smokeless tobacco: Never Used Substance Use Topics - Alcohol use: Not Currently Frequency: Never Drinks per session: Patient refused Binge frequency: Never - Drug use: Yes Types: Marijuana Comment: daily Current Outpatient Medications Medication Sig Dispense Refill - Omeprazole 40 mg capsule Take 1 capsule by mouth twice ignacio ly. 60 capsule 1 - ondansetron orally disintegrating (ZOFRAN ODT) 4 mg disint egrating tablet Take 1 tablet by mouth every 8 hours as needed for Na usea/Vomiting. - dicyclomine (BENTYL) 20 mg tablet Take 1 tablet by mouth b efore meals and at bedtime. 120 tablet 3 - acetaminophen (TYLENOL) 500 mg tablet Take 500 mg by mouth every 8 hours as needed. No current facility-administered medications for this visit. ALLERGIES No Known Allergies REVIEW OF SYSTEMS: 12 point system reviewed and negative other than HPI/interva l history/review of systems. PHYSICAL FINDINGS OF NOTE: Deferred physical exam as visit was completed over the phone /MyChart. REVIEWED ITEMS 1. EGD I reviewed the following available records: As above. IMPRESSION 1. Mr Rosina with multitude of GI symptoms including abdomin al cramps that have significantly improved after he says he get antibiotics and on dicyclomine. R/o IBS, SIBO. Overall doing well. 2. GERD - controlled to good extent on Omeprazole 40mg po da tiana. 3. Nausea, sore throat, pain in throat, smoker's cough - r/o post nasal drip, smoking (now quit) vs LPR as the possible etiology. De nies dysphagia. RECOMMENDATION: Continue Omeprazole 40mg po daily for total of 12 weeks. Add Pepcid 20mg po bedtime. Continue Bentyl at current doses. Add Align 4mg po daily. Advised to get referral to ENT from PCP to evaluate possible LPR vs post nasal drip/sinusitis. Antireflux measures discussed in detail - raising head end of the bed to 4 to 6 inches. - avoiding meals with in 3 hours of bedtime. - weight loss. - Avoid wearing tight fitting garments around waist. - discussed the role of specific food in causing/worsening G ERD like chocolates, alcohol, tomatoes, bananas, onions, coffee, etc is controversial and if certain food worsens GERD, avoid or dominguez it intake. I have offered the patient an outpatient appointment with me or Ms Anu Thorpe for further care at [facility] in 6 months. During this patient visit I have spent approximately 12 dunia jason in counseling regarding interpretation, education and coordinat ion of care. Mag Palmer MD 1:11 PM CHIEF COMPLAINT: ASHLEY Almaguer is a 44 year old male here today for . Current Outpatient Medications Medication Sig - Omeprazole 40 mg capsule Take 1 capsule by mouth twice ignacio ly. - ondansetron orally disintegrating (ZOFRAN ODT) 4 mg disint egrating tablet Take 1 tablet by mouth every 8 hours as needed for Na usea/Vomiting. - dicyclomine (BENTYL) 20 mg tablet Take 1 tablet by mouth b efore meals and at bedtime. - acetaminophen (TYLENOL) 500 mg tablet Take 500 mg by mouth every 8 hours as needed. No current facility-administered medications for this visit. ALLERGIES No Known Allergies Social History Tobacco Use - Smoking status: Current Every Day Smoker - Smokeless tobacco: Never Used Substance Use Topics - Alcohol use: Not Currently Frequency: Never Drinks per session: Patient refused Binge frequency: Never - Drug use: Yes Types: Marijuana Comment: daily PAST MEDICAL HISTORY Diagnosis Date - Atrial fibrillation and flutter (HCC) - Dysphagia 09/16/2019 - Gastroesophageal reflux disease without esophagitis 020 - Inguinal hernia - Reflux esophagitis - Spinal stenosis PAST SURGICAL HISTORY Procedure Laterality Date - EGD 09/27/2019 reflux esophagitis, neg H Pylori - PAST SURGICAL HISTORY OF 1975 had hernia repair at FAMILY HISTORY Problem Relation Age of Onset - other (rare tissue disease) Mother - other (ibs) Mother - other (lung cancer) Maternal Grandmother REVIEW OF SYSTEMS Review of Systems Constitutional: Positive for appetite change. HENT: Positive for sore throat. Respiratory: Positive for chest tightness. Gastrointestinal: Positive for constipation, diarrhea and na usea. All other systems reviewed and are negative. PHYSICAL EXAM There were no vitals taken for this visit. Physical Exam cnpn on 2019-09-29 CNPN Telephone (GSTNOR) Normal 09-29-2019 [facility] GRETA ALMAGUER ([id number]) 1975 [facility] Provider Department ([id number]) 09/29/19 MAG PALMER During your visit today, we recorded the following informati on about you: Shellie Bragg Pss 09/29/2019 8:32 AM Signed Return in 3 weeks for office visit Jennyfer Mondragon 09/30/2019 1:47 PM Signed Called pt, sched for 5-12 Allergies As of Date: 09/29/2019 (No Known Allergies) Date Reviewed: 09/27/2019 Reviewed by: Mag Palmer - Fully Assessed Reason for Visit: Office [Other] Prescriptions as of 09/29/2019 Sig: OMEPRAZOLE 40 MG CAPSULE,SERENITY* Take 1 capsule by mouth twice * ONDANSETRON 4 MG DISINTEGRATI* Take 1 tablet by mouth every * DICYCLOMINE 20 MG TABLET Take 1 tablet by mouth before* ACETAMINOPHEN 500 MG TABLET Take 500 mg by mouth every 8 * Problem List As Of Date 09/29/2019 Noted Resolved Gastroesophageal reflux disease without esophag*09/16/2019 Epigastric pain [R10.13] 09/16/2019 Other dysphagia [R13.19] 09/16/2019 Encounter Status:Closed by JENNYFER MONDRAGON on 09/30/19 CNPN Telephone (GSTNOR) Normal 09-29-[address] [facility] GRETA ALMAGUER ([id number]) 1975 [facility] Time Provider Department ([id number]) 09/29/19 MAG PALMER During your visit today, we recorded the following informati on about you: Kendra Bedoya Ma 09/29/2019 9:49 AM Addendum ----- Message from Mag Palmer sent at 09/29/2019 9:2 4 AM EDT ----- Biopsies are normal/negative from duodenum/stomach. Es ophageal biopsies show some inflammation from reflux. Recommend to continue PPI and follow up with Ms Mike as scheduled. Please inform patient. Left voicemail with above message for patient Kendra Bedoya CMA Allergies As of Date: 09/29/2019 (No Known Allergies) Date Reviewed: 09/27/2019 Reviewed by: Mag Palmer - Fully Assessed Reason for Visit: Results [95] Prescriptions as of 09/29/2019 Sig: OMEPRAZOLE 40 MG CAPSULE,SERENITY* Take 1 capsule by mouth twice * ONDANSETRON 4 MG DISINTEGRATI* Take 1 tablet by mouth every * DICYCLOMINE 20 MG TABLET Take 1 tablet by mouth before* ACETAMINOPHEN 500 MG TABLET Take 500 mg by mouth every 8 * Problem List As Of Date 09/29/2019 Noted Resolved Gastroesophageal reflux disease without esophag*09/16/2019 Epigastric pain [R10.13] 09/16/2019 Other dysphagia [R13.19] 09/16/2019 Encounter Status:Closed by BEDOYA KENDRA ALMONTE on 09/29/19 surgical pathology on 2019-09-27 SURGICAL Specimen originated from [facility] Normal 09-27-2019 [facility] Specimen #: [id number] Clinic Submitting Physician: MAG PALMER MD [facility] ([id number]) FINAL DIAGNOSIS 1. Duodenum, biopsy (A) - Duodenal mucosa with no diagnostic alteration. - No evidence of celiac disease. 2. Stomach, biopsy (B) - Reactive gastropathy. - No morphologic evidence of Helicobacter pylori organisms o n routine stain. 3. Esophagus, biopsy (C) - Esophageal squamous and inflamed gastric cardiofundic-type mucosa, consistent with reflux esophagitis . - Negative for intestinal metaplasia. KL/AB/rw 09/28/2019 Derrell Novoa M.D. (Electronic Signature) SPECIMEN SUBMITTED A: DUODENUM, BIOPSY B: GASTRIC, BIOPSY C: ESOPHAGUS, BIOPSY CLINICAL DATA ABDOMINAL PAIN AND GERD GROSS DESCRIPTION A. Received in formalin are multiple pieces of lira, soft t issue aggregating to 1.0 x 0.2 x 0.2 cm. Totally submitted in one cassette. B. Received in formalin are multiple pieces of lira, soft t issue aggregating to 1.0 x 0.2 x 0.1 cm. Totally submitted in one cassette. C. Received in formalin is one piece of lira, soft tissue juan c suring 0.2 x 0.1 x 0.1 cm. Totally submitted in one cassette. Gross examination performed at [facility], [address] [place] [address] 09/27/2019 9:09:07 PM Date of Report: 09/28/2019 Date of Procedure: 09/27/2019 Date of Receipt: 09/27/2019 Submitted by: MAG PALMER MD Location: [facility] Diagnostic interpretation performed at [facility], [address] [place] [address]. CLIA Number: [id number] obsolete on 2019-09 OBSOLETE Procedure (ASCNOR) Normal 09-27-2019 [facility] GRETA ALMAGUER ([id number]) 1975 M [facility] Date Time Provider Department ([id number]) 09/27/19 2:00 PM MAG PALMER During your visit today, we recorded the following informati on about you: Temperature Pulse Respiration Blood pressure 98.2 degrees 72/minute 16/minute 134/80 Weight Height 104.8 kg 1.88 m Mag Palmer MD 09/27/2019 2:01 PM Signed HISTORY AND PHYSICAL Greta Almaguer, 44 year old male here for EGD for abdominal annika n, nausea and heartburn. H pylori IgG negative. CBC, CMP, lipase, amylase, US abdomen - normal. On omeprazole 40mg po daily Current history and physical on file: Yes Is a new History and Physical required for today's visit? No Indication for procedure: Abdominal pain PROCEDURE(S) SCHEDULED FOR: EGD (Esophagogastroduodenoscopy) with or without biopsies, r emoval of polyps or lesions, dilation ( any means), treatm ent of bleeding ( any means), Barrx treatment of Milo's Esophagus, image tube placemen t or cryo therapy treatment based on clinical findings. BASELINE BEHAVIOR: Calm BASELINE ORIENTATION: A AND O x3 All medications and allergies reviewed: Yes Skin Assessment: Warm dry mucus membranes pink Airway/Respiratory Assessment: Airway: visualization of the uvula- Yes Mouth: opening greater than 2 fingerbreadths- Yes Neck: full range of motion- Yes Breath sounds clear/equal- Yes Cardiac Assessment: Regular rate and rhythm without murmur Abdominal Assessment: Abdomen soft, non-tender, no masses or organomegaly. Sedation Plan: Moderate Additional Comments: None MD Dominique Mejia RN 09/27/2019 1:35 PM Signed AMBULATORY PATIENT EDUCATION NOTE TOPIC: GI PROCEDURES: esophagogastroduodenoscopy (EGD) READINESS TO LEARN INSTRUCTION PROVIDED TO: Patient, readness to learn accessed prior to procedure, Family member and Patient and family member COGNITIVE ABILITY: Alert and oriented PTED MOTIVATION TO LEARN: Interested FAMILY SUPPORT: High - Very involved in pt care IPATIENT LEARNS BEST BY: Individual Instruction Written Instruction - Hand-outs Verbal Instruction FACTORS AFFECTING LEARNING: None PHYSICAL LIMITATIONS AFFECTING LEARNING: None Dominique Tracy RN 09/27/2019 1:35 PM Signed Discharge instructions given and patient voices unders tanding. All questions answered. Dominique Jaramillo, MACHINE CLERICAL VERIFIER.TAX COMMISSIONER 09/27/2019 2:09 PM Signed POST ANESTHESIA EVALUATION NOTE SERVICE DATE: 09/27/2019 SERVICE TIME: 2:09 PM : 1975 Vitals: 09/27/19 1339 09/27/19 1402 Temp: 36.8 ?C (98.2 ?F) 36.8 ?C (98.2 ?F) 09/27/19 1339 09/27/19 1402 BP: 138/92 134/80 09/27/19 1339 09/27/19 1402 Pulse: 67 72 09/27/19 1339 09/27/19 1402 Resp: 16 16 09/27/19 1339 09/27/19 1402 SpO2: 95% 95% Validated Vital Signs: Yes POST ANES STATUS: No apparent anesthetic complications. The patient is appropriately hydrated with stable respiratory and cardiovas cular status. Patient has safe and adequate airway con trol. The patient has appropriate pain relief and no significant post operative nausea or vom iting. The patient has achieved baseline mental status. Intra-Operative Events: No Significant Anesthesia Events Further assessment by Anesthesia Service: None Other Remarks: SIGNATURE: Kelsey Jaramillo APRN.CRNA PATIENT NAME: Greta hough DATE: September 27, 2019 TIME: 2:09 PM PAGER/CONTACT #: Dominique Tracy RN 09/27/2019 2:37 PM Signed POST OP LEARNING RESPONSE INSTRUCTION PROVIDED TO: Patient METHOD OF INSTRUCTION: Written instruction - handouts Verbal instruction PATIENT / FAMILY RESPONSE: Verbalizes understanding of: POST -PROCEDURE INSTRUCTIONS-Correct actions to take to reduce post proced ure complications FOLLOW-UP PLAN: call office for 3week f/u SUPPLEMENTAL MATERIAL: GERD,gastritis handouts given REFERRAL (RECOMMENDATION): None Electronically Signed By: Dominique Tracy RN In Department: A MBULATORY SURGERY Referring Provider: MAG PALMER [[id number]] Allergies As of Date: 09/27/2019 (No Known Allergies) Date Reviewed: 09/27/2019 Reviewed by: Mag Palmer - Fully Assessed Reason for Visit: Outpatient Endoscopy [481] Abdominal Pain [1] Primary Visit Diagnosis:Epigastric pain [R10.13] Order(s):SURGICAL PATHOLOGY [[id number]] Order #: [id number] EGD [[id number]] Order #: [id number]. #:[id number] Prescriptions as of 09/27/2019 Sig: OMEPRAZOLE 40 MG CAPSULE,SERENITY* Take 1 capsule by mouth twice * DICYCLOMINE 20 MG TABLET Take 1 tablet by mouth before* ACETAMINOPHEN 500 MG TABLET Take 500 mg by mouth every 8 * ONDANSETRON 4 MG DISINTEGRATI* Take 1 tablet by mouth every * Problem List As Of Date 09/27/2019 Noted Resolved Gastroesophageal reflux disease without esophag*09/16/2019 Epigastric pain [R10.13] 09/16/2019 Other dysphagia [R13.19] 09/16/2019 Other instructions from your clinician: Discharge instructions given and patient voices mona moffett All questions answered. Dominique Tracy RN Visit Notes: >> Dominique Tracy RN [facility] Sep 27, 2019 1:33 PM Status: Signed AMBULATORY PATIENT EDUCATION NOTE TOPIC: GI PROCEDURES: esophagogastroduodenoscopy (EGD) READINESS TO LEARN INSTRUCTION PROVIDED TO: Patient, readness to learn accessed prior to procedure, Family member and Patient and family member COGNITIVE ABILITY: Alert and oriented PTED MOTIVATION TO LEARN: Interested FAMILY SUPPORT: High - Very involved in pt care IPATIENT LEARNS BEST BY: Individual Instruction Written Instruction - Hand-outs Verbal Instruction FACTORS AFFECTING LEARNING: None PHYSICAL LIMITATIONS AFFECTING LEARNING: None Dominique Tracy RN >> Kelsey Jaramillo jesus Sep 27, 2019 2:09 PM Status: Si gned POST ANESTHESIA EVALUATION NOTE SERVICE DATE: 09/27/2019 SERVICE TIME: 2:09 PM : 1975 Vitals: 09/27/19 1339 09/27/19 1402 Temp: 36.8 ?C (98.2 ?F) 36.8 ?C (98.2 ?F) 09/27/19 1339 09/27/19 1402 BP: 138/92 134/80 09/27/19 1339 09/27/19 1402 Pulse: 67 72 09/27/19 1339 09/27/19 1402 Resp: 16 16 09/27/19 1339 09/27/19 1402 SpO2: 95% 95% Validated Vital Signs: Yes POST ANES STATUS: No apparent anesthetic complications. The patient is appropriately hydrated with stable respiratory and cardiovas cular status. Patient has safe and adequate airway control. The patient raygoza s appropriate pain relief and no significant post operative nausea or vomi ting. The patient has achieved baseline mental status. Intra-Operative Events: No Significant Anesthesia Events Further assessment by Anesthesia Service: None Other Remarks: SIGNATURE: Kelsey Jaramillo APRN.CRNA PATIENT NAME: Greta Wells DATE: September 27, 2019 TIME: 2:09 PM PAGER/CONTACT #: >> Dominique Tracy RN jesus Sep 27, 2019 2:36 PM Status: Signed POST OP LEARNING RESPONSE INSTRUCTION PROVIDED TO: Patient METHOD OF INSTRUCTION: Written instruction - handouts Verbal instruction PATIENT / FAMILY RESPONSE: Verbalizes understanding of: POST -PROCEDURE INSTRUCTIONS-Correct actions to take to reduce post procedur e complications FOLLOW-UP PLAN: call office for 3week f/u SUPPLEMENTAL MATERIAL: GERD,gastritis handouts given REFERRAL (RECOMMENDATION): None Electronically Signed By: Dominique Tracy RN In Department: [facility] ULATORY SURGERY Encounter Status:Closed by MAG PALMER MD on 09/27/19 history physical on 2019-09-27 HISTORY HNO ID: [id number] Normal 09-27-2019 [facility] Author: Mag Palmer [facility] Service: ? [facility] Author Type: Physician ([id number]) Type: HANDP Filed: 09/27/2019 2:01 PM Note Text: HISTORY AND PHYSICAL Greta Almaguer, 44 year old male here for EGD for abdominal annika n, nausea and heartburn. H pylori IgG negative. CBC, CMP, lipase, amylase, US abdomen - normal. On omeprazole 40mg po daily Current history and physical on file: Yes Is a new History and Physical required for today's visit? No Indication for procedure: Abdominal pain PROCEDURE(S) SCHEDULED FOR: EGD (Esophagogastroduodenoscopy) with or without biopsies, r emoval of polyps or lesions, dilation ( any means), treatment of bleed ing ( any means), Barrx treatment of Milo's Esophagus, image tube pl acement or cryo therapy treatment based on clinical findings. BASELINE BEHAVIOR: Calm BASELINE ORIENTATION: A AND O x3 All medications and allergies reviewed: Yes Skin Assessment: Warm dry mucus membranes pink Airway/Respiratory Assessment: Airway: visualization of the uvula- Yes Mouth: opening greater than 2 fingerbreadths- Yes Neck: full range of motion- Yes Breath sounds clear/equal- Yes Cardiac Assessment: Regular rate and rhythm without murmur Abdominal Assessment: Abdomen soft, non-tender, no masses or organomegaly. Sedation Plan: Moderate Additional Comments: None Mag Palmer MD cnpn on 2019-09-26 [facility] Telephone [facility] Normal 09-26-[address] [facility] GRETA ALMAGUER ([id number]) 1975 M [facility] Provider Department ([id number]) 09/26/19 MAG PALMER During your visit today, we recorded the following informati on about you: Charity Moscoso RN 09/26/2019 12:10 PM Signed Lm to call if cough cold or respiratory flu symptoms Allergies As of Date: 09/26/2019 (No Known Allergies) Date Reviewed: 08/16/2019 Reviewed by: Deejay Garcia - Fully Assessed Reason for Visit: PreOp Call [[id number]] Prescriptions as of 09/26/2019 Sig: OMEPRAZOLE 40 MG CAPSULE,SERENITY* Take 1 capsule by mouth twice * ONDANSETRON 4 MG DISINTEGRATI* Take 1 tablet by mouth every * DICYCLOMINE 20 MG TABLET Take 1 tablet by mouth before* ACETAMINOPHEN 500 MG TABLET Take 500 mg by mouth every 8 * Problem List As Of Date 09/26/2019 Noted Resolved Gastroesophageal reflux disease without esophag*09/16/2019 Epigastric pain [R10.13] 09/16/2019 Other dysphagia [R13.19] 09/16/2019 Encounter Status:Closed by CHARITY MOSCOSO RN on 09/26/19 cnpn on 2019-09-16 CNPN Telephone (MERCED) Normal 09-16-[address] [facility] ROSINAGRETA ([id number]) 1975 [facility] Provider Department ([id number]) 09/16/19 ANU MIKE During your visit today, we recorded the following informati on about you: Ashley Tracy RN 09/16/2019 11:31 AM Signed Pt called, verified by name and birthdat e. Pt verbally aggressive. Pt upset he went to ER last night as advised and was sent home. Pt sta jason he was given nausea medication and sent home. Pt states he h as not eaten and is starving but I'm afraid to eat. Pt states he is suffering. Please advise Ashley Roblero RN 09/16/2019 12:07 PM Signed Message routed to PCP to review, please review message fro m yesterday also. Jie Mike is out of office for another week and Jennyfer bolden CNP covering for Jie is asking how to get patient's EGD resche duled. Please review and advise. MAULIK Brooke MA 09/16/2019 12:12 PM Signed Also pt is requesting refill for Omeprazole as well in refill encounter. Are we filling or GI? Marva Jimenez MD 09/16/2019 1:19 PM Signed Reviewed ER report with benign findings on exam, labs, abd ominal xray, EKG, troponin. Patient's request for medication is as follows Signed Prescriptions Disp Refills Omeprazole 40 mg capsule 60 capsule 1 Sig: Take 1 capsule by mouth twice daily. CHAKA: No Authorizing Provider: PHU JIMENEZ Dose increased. Follow up with GI. MD Alivia Ferreiraorah Tres WESLEY 09/16/2019 1:29 PM Signed Patient notified of providers message and verbalized under standing. Patient is talking with GI now. Anu Mike RN MACHINE CLERICAL VERIFIER.NURSE OUTREACH CASE MANAGER 09/16/2019 3:05 PM Signed I spoke to Sandhya, at [facility], who will fax a letter to [facility] stating that the patient can have the EG D with propofol since the EGD is a low risk procedure. I have spoken to Adri Cruz, Endo nurse gas station manager at [facility]. She will have anesthesia review his chart early next week and she will contact the patient. I have notified the patient that [facility] will be con tacting him early next week regarding setting the EGD up. The patient reports th e minute anything hits my stomach I get a puls ating feeling of pain. No relief with dicyclomine. Taking omeprazole twice a da y. He has sucralfate at home and will resume taking it. Anu Mike RN MACHINE CLERICAL VERIFIER.NURSE OUTREACH CASE MANAGER Allergies As of Date: 09/16/2019 (No Known Allergies) Date Reviewed: 08/16/2019 Reviewed by: Deejay Garcia - Fully Assessed Reason for Visit: Patient Update [1234] Visit Diagnoses:Gastroesophageal reflux disease without es ophagitis [K21.9] Epigastric pain [R10.13] Other dysphagia [R13.19] Order(s):Omeprazole 40 mg capsuleTake 1 capsule by mouth twice daily.Disp: 60 capsuleRfl: 1 Prescriptions as of 09/16/2019 Sig: OMEPRAZOLE 40 MG CAPSULE,SERENITY* Take 1 capsule by mouth twice * ONDANSETRON 4 MG DISINTEGRATI* Take 1 tablet by mouth every * DICYCLOMINE 20 MG TABLET Take 1 tablet by mouth before* ACETAMINOPHEN 500 MG TABLET Take 500 mg by mouth every 8 * Problem List As Of Date 09/16/2019 Noted Resolved Gastroesophageal reflux disease without esophag*09/16/2019 Epigastric pain [R10.13] 09/16/2019 Other dysphagia [R13.19] 09/16/2019 Prescriptions ordered this encounter Disp Refills Start End OMEPRAZOLE 40 MG CAPSULE,DELAYED REL* 60 c* 1 09/16/2019 Route: ORAL Sig: Take 1 capsule by mouth twice daily. Medications Discontinued During This Encounter Omeprazole 40 mg capsule 30 c* 0 07/26/2019 09/16/2019 Route: ORAL Sig: Take 1 capsule by mouth once daily. Disc: Reason for discontinue is not on file. Encounter Status:Closed by MERARY NASSAR LPN on 09/16/19 obsolete on 2019-09 OBSOLETE Refill (INTMWS) Normal 09-15-2019 [facility] GRETA Harden ([id number]) 1975 [facility] Time Provider Department ([id number]) 09/15/19 ARCELIA FLORES ([facility]) INTMWS During your visit today, we recorded the following informati on about you: Marva Saleh MA 09/16/2019 12:00 PM Signed Are we filling the medication as pt is following with Jie Mike? Pt has phone encounters is upset due to abd pain. Marva Jimenez MD 09/16/2019 1:32 PM Signed See duplicated encounter. Allergies As of Date: 09/15/2019 (No Known Allergies) Date Reviewed: 08/16/2019 Reviewed by: Deejay Garcia - Fully Assessed Reason for Visit: Refill Request [94] Visit Diagnoses:Upper abdominal pain [R10.10] Heartburn [R12] Prescriptions as of 09/15/2019 Sig: DICYCLOMINE 20 MG TABLET Take 1 tablet by mouth before* ACETAMINOPHEN 500 MG TABLET Take 500 mg by mouth every 8 * X OMEPRAZOLE 40 MG CAPSULE,SERENITY* Take 1 capsule by mouth onc e * Problem List As Of Date: 09/15/2019 (None) Encounter Status:Closed by PHU JIMENEZ MD on 09/16/19 cnpn on 2019-09-15 CNPN Telephone (LAILAWS) Normal 09-15-[address] [facility] GRETA ALMAGUER ([id number]) 1975 [facility] Time Provider Department ([id number]) 09/15/19 ANU MIKE During your visit today, we recorded the following informati on about you: Ashley Tracy RN 09/15/2019 2:42 PM Signed Pt called, verified by name and birthdate. Pt states he is having upper abd pain pain and he is suffering and incapacitated. Pt stat es it feels like there are seizures in my stomach. Pt states he has raygoza d these symptoms since last office visit on 08-10-2019 but they are getting worse . Pt states he is taking meds as ordered and tylenol to help with pain but i s not getting any relief. Pt wants to know what he should do so he doesn't hav e to go to ER. Please advise Ashley Robledo, NICOLETTE.NURSE OUTREACH CASE MANAGER 09/15/2019 3:40 PM Signed Called pt. Reporting having worsening of epigast pancho abd pain, same as when he saw Jie ~1 month ago but worse. Reports when he awakes h e has no pain, as soon as he eats he has severe pain in the epigas tric region, currently states its debilitating and he can't do anything becaus e of the severity. No N/V, no noted hematochezia or melena. Taking tylenol, bentyl a nd PPI w/o relief. Was planned for EGD but this was cancelled 2 / COVID. No known hx of pancreatitis, smoker quit 1 week ago, reports hx of EtOH but nothing recent. No NSAIDs. No pain in RUQ or lower abd. Eating very li ttle d/t pain flaring w/ food, reports wt loss. DDx: PUD v. Gastritis v. Pancreatitis Advised ER evaluation d/t severity of symptoms, pt rel uctant but understands rationale, will present to [place] ER for evaluation. Jennyfer Robledo CNP Gastroenterology and Hepatology Pager: [phone] Allergies As of Date: 09/15/2019 (No Known Allergies) Date Reviewed: 08/16/2019 Reviewed by: Deejay Garcia - Fully Assessed Reason for Visit: Abdominal Pain [1] Prescriptions as of 09/15/2019 Sig: DICYCLOMINE 20 MG TABLET Take 1 tablet by mouth before* ACETAMINOPHEN 500 MG TABLET Take 500 mg by mouth every 8 * OMEPRAZOLE 40 MG CAPSULE,SERENITY* Take 1 capsule by mouth once * Problem List As Of Date: 09/15/2019 (None) Encounter Status:Closed by JENNYFER ROBLEDO on 09/15/19 bettina on 2019-09-05 [facility] Tele[facility] (GASTWS) Normal 09-05-[address] [facility] GRETA ALMAGUER ([id number]) 1975 [facility] Time Provider Department ([id number]) 09/05/19 ANU MIKE During your visit today, we recorded the following informati on about you: Yaz Roblero RN 09/05/2019 12:39 PM Signed Patient calls very upset, stating no one called him today to tell him his EGD would be cancelled. Asking what can I do now, I can hardly swallow or eat anything?. Asking for call from Anu Mike CNP soon. Please review and advise. MAULIK Brooke RN APRN.CNP 09/05/2019 4:55 PM Signed I left a message for the patient checking to see if he followed through with the stress test that Dr. Vance had recommended since there isn't any documentation sent from that office. Judy sutton [place] reviewed his chart and saw that he had informed me of that test on 08/11. Their protocol won't allow the procedure without that having been completed. I recommended that he go to the [facility] if his swallowing worsens. Anu Mike RN APRN.REMEDIOS Mike RN APRN.CNP 09/22/2019 9:56 AM Signed Please refer to current/newer messages. Anu Mike RN APRN.CNP Allergies As of Date: 09/05/2019 (No Known Allergies) Date Reviewed: 08/16/2019 Reviewed by: Deejay Garcia - Fully Assessed Reason for Visit: Difficulty Swallowing [207] procedure cancelled [Other] Prescriptions as of 09/05/2019 Sig: DICYCLOMINE 20 MG TABLET Take 1 tablet by mouth before* ACETAMINOPHEN 500 MG TABLET Take 500 mg by mouth every 8 * X OMEPRAZOLE 40 MG CAPSULE,SERENITY* Take 1 capsule by mouth onc e * Problem List As Of Date: 09/05/2019 (None) Encounter Status:Closed by ANU MIKE CNP on 09/22/19 nursing prog on NURSING PROG HNO ID: [id number] Normal 08-16-19 [facility] Author: Sharyn (Rn) MAULIK Oliveros Talent ([id number]) Service: Nursing Author Type: Registered Nurse Type: Nursing Progress Note Filed: 08/16/2019 9:43 AM Note Text: Called patient to inquire about stress test-if it was comple gayla. Patient stated care source will not pay for the stress test so sonya snyder is cancelling EGD until further notice. cnpn on 2019-08-16 CNPN Telephone (GENSWS) Normal 08-16-[address] [facility] GRETA ALMAGUER ([id number]) 1975 [facility] Time Provider Department ([id number]) 08/16/19 LEE PERRY GENSWS During your visit today, we recorded the following informati on about you: Huy Garrison 08/16/2019 1:01 PM Signed Received an e mail stating [facility] will not agree to do the procedure. Will reschedule with another facility. Chayo Rondon LPN 08/16/2019 1:09 PM Signed Spoke to Jie MORALES as well as Dr. Garcia and h e is willing to do EGD here in [place] under local anesthesia. Huy Garrison 08/16/2019 2:29 PM Signed 09-05-2019 EGD jose Allergies As of Date: 08/16/2019 (No Known Allergies) Date Reviewed: 08/16/2019 Reviewed by: Deejay Garcia - Fully Assessed Reason for Visit: 09-05-2019 EGD Jose [Other] Prescriptions as of 08/16/2019 Sig: DICYCLOMINE 20 MG TABLET Take 1 tablet by mouth before* ACETAMINOPHEN 500 MG TABLET Take 500 mg by mouth every 8 * SUCRALFATE 1 GRAM TABLET Take 1 tablet by mouth before* X OMEPRAZOLE 40 MG CAPSULE,SERENITY* Take 1 capsule by mouth onc e * Problem List As Of Date: 08/16/2019 (None) Encounter Status:Closed by HUY GARRISON on 10/07/19 history physical on 2019-08-10 HISTORY PHYSICAL HNO ID: [id number] Normal 03- [facility] Author: Anu Mkie Joseph ([id number]) Service: ? Author Type: Nurse Practitioner Type: HANDP Filed: 08/12/2019 8:27 AM Note Text: Greta Almaguer a 44 year old male who is a consultation request ed by Arcelia Flroes APRN, for an opinion regarding multiple Gi concerns i ncluding upper abdominal pain, nausea, heartburn and diarrhea. My final rec ommendations will be communicated back to the requesting provider by way of shared Medical record. The patient has not been seen previously. Th e patient denies a family history of colon cancer. Family history: Ehl er Danlos and IBS. The patient reports a history of atrial fibrillation, but is n't on any medication for it. Seeing [facility] and has stress test next we ek, then 30 day monitor. The patient was seen by Arcelia on 07/26/19 leading to this consu ltation. The note has been reviewed. Component Latest Ref Rng AND Units 07/27/2019 Protein, Total 6.3 - 8.0 g/dL 7.8 Albumin 3.9 - 4.9 g/dL 4.6 Calcium 8.5 - 10.2 mg/dL 9.3 Bilirubin, Total 0.2 - 1.3 mg/dL 0.3 Alkaline Phosphatase 38 - 113 U/L 74 AST 14 - 40 U/L 17 Glucose 74 - 99 mg/dL 101 (H) BUN 9 - 24 mg/dL 14 Creatinine 0.73 - 1.22 mg/dL 0.67 (L) Sodium 136 - 144 mmol/L 138 Potassium 3.7 - 5.1 mmol/L 3.9 Chloride 97 - 105 mmol/L 105 CO2 22 - 30 mmol/L 23 Anion Gap 9 - 18 mmol/L 10 ALT 10 - 54 U/L 18 eGFR- >60 eGFR-All Other Races . >60 Amylase 30 - 104 U/L 29 (L) Lipase 16 - 61 U/L 14 (L) Component Latest Ref Rng AND Units 07/27/2019 H. pylori IgG, Qualitative Negative Negative H pylori Ab, IgG U/mL <0.4 Component Latest Ref Rng AND Units 07/27/2019 WBC 3.70 - 11.00 k/uL 9.88 RBC 4.20 - 6.00 m/uL 5.10 Hemoglobin 13.0 - 17.0 g/dL 14.6 Hematocrit 39.0 - 51.0 % 44.0 MCV 80.0 - 100.0 fL 86.3 MCH 26.0 - 34.0 pG 28.6 MCHC 30.5 - 36.0 g/dL 33.2 RDW-CV 11.5 - 15.0 % 13.1 Platelet Count 150 - 400 k/uL 316 MPV 9.0 - 12.7 fL 9.1 Neut% % 46.2 Abs Neut (ANC) 1.45 - 7.50 k/uL 4.42 Lymph% % 38.6 Abs Lymph 1.00 - 4.00 k/uL 3.70 Dolores% % 12.2 Abs Dolores <0.87 k/uL 1.17 (H) Eosin% % 2.7 Abs Eosin <0.46 k/uL 0.26 Baso% % 0.3 Abs Baso <0.11 k/uL 0.03 RUQ US 07/27/19: IMPRESSION: Mildly coarse echotexture of the liver. Pancreas is not clearly visualized due to overlying bowel ga s. Presenting complaint: The patient presents today reporting I have had stomach pain forever and now can't get around it. worse t he past 2 weeks. Rates it as a 7/10 continuously. Location: upper abdomen it's all right here - rubbing epig astric region, with radiation up into his chest as the severity inc reases. Described as: intermittent sharp with constant quivering. Aggravating factors: eating - gut wrenching pain and have t o lay on my stomach. Put himself on the BRAT diet. Alleviating factors: none. Can't see any difference with the omeprazole/sucralfate. Reports that he has never had an appetite. Smokes cannabis t o get an appetite. Denies herbal supplements. Bowel routine varies from loose to firm. No watery diarrhea. Some with mucus. Sometimes sees blood on the paper with wiping since I was a teenager. No black stool. Admits to poor diet, eats a lot of junk food. Drinks 3 cups of coffee daily. Denies alcohol use. Has cut back to 4 cigarettes a da y, does notice some worsening symptoms when he smokes. REVIEW OF SYSTEMS: GENERAL: Weight loss RESPIRATORY: Negative for cough, hemoptysis, wheezing, COPD, dyspnea or shortness of breath CARDIOVASCULAR: history of atrial fib/flutter. GI: The patient states that his appetite has been poor. He d oes not get hungry. There has been some nausea, no vomiting. He denies d ysphagia and denies odynophagia. There has been indigestion with heartbur n. There has not been regurgitation. Bowel habits have been irregular. Th ere has partially been diarrhea. There has not been constipation. Th e patient denies rectal bleeding. There has not been melena. Daily abd ominal pain that is located in the epigastric region. MUSCULOSKELETAL: History of back pain and spinal stenosis. PSYCH: Negative for sleep disturbance, mood disorder and rec ent psychosocial stressors. HEMATOLOGY/LYMPHOLOGY Negative for prolonged bleeding, bruis ing easily or swollen nodes ENDOCRINE: Negative for cold or heat intolerance, polyuria, polydipsia and goiter NEURO: No history of headaches, syncope, paralysis, seizures or tremors All other reviewed and negative other than HPI. PAST MEDICAL HISTORY Diagnosis Date - Atrial fibrillation and flutter (HCC) - Spinal stenosis PAST SURGICAL HISTORY Procedure Laterality Date - PAST SURGICAL HISTORY OF had hernia repair at FAMILY HISTORY Problem Relation Age of Onset - other (rare tissue disease) Mother - other (ibs) Mother - other (lung cancer) Maternal Grandmother Current Outpatient Medications Medication Sig Dispense Refill - acetaminophen (TYLENOL) 500 mg tablet Take 500 mg by mouth every 8 hours as needed. - Omeprazole 40 mg capsule Take 1 capsule by mouth once angel y. 30 capsule 0 - sucralfate (CARAFATE) 1 gram tablet Take 1 tablet by mouth before meals and at bedtime. 120 tablet 0 No current facility-administered medications for this visit. SOCIAL HISTORY: Patient is single. He quit smoking last weekend. Now vaping. He uses cannabis daily. Greta reports his alcohol use as never. PHYSICAL EXAMINATION: Blood pressure 126/82, pulse 80, height 188 cm (6' 2), weig ht 104.8 kg (231 lb), SpO2 98 %. General Appearance: Alert, appears uncomfortable, but in no acute distress, well-hydrated, well nourished. Skin: Skin color, texture, turgor normal, no suspicious rash es or lesions. Head: Normocephalic, no masses, lesions or abnormalities. Eyes: Anicteric sclera. Pupils are equally round and reactiv e to light. Extraocular movements are intact. Neck: Supple, no adenopathy; thyroid symmetric, normal size, no bruits. Lungs: lungs clear to auscultation. No wheezing, rhonchi, ra les. Heart: RRR without murmur. Abdomen: Bowel sounds normal. Abdomen soft, TTP bilateral up per abdomen. No guarding or rebound. Negative Campos's sign. No masses, o rganomegaly. Extremities: No deformities, edema, skin discoloration, club thad or cyanosis. Impression: consider gastric ulcer Plan:Start dicyclomine. I have explained that I do not presc ribe narcotics. The patient is scheduled for upper endoscopy. Pre paration for the procedure and the procedure itself have been explained i n detail. The risks, benefits, anticipated outcomes and possible complicat ions were mentioned. I also explained the procedure in understandable terms and the patient was given printed material concerning the planned pr ocedure. The patient had the opportunity to ask questions concerning the planned procedure. The patient freely consents to the planned proced ure. The patient is asked to call with any questions or concerns, or if there is a change in health status between now and the scheduled p rocedure. I have personally interviewed and examined this patient. I h ave read the information that the MA documented in this encounter. I spen t 30 minutes in the visit, with more than 50% of the total lxfs-dw-clfy t srinivas of the visit in counseling / coordination of care. Anu Mike RN APRN.REMEDIOS amezcua on 2019-08-10 CNOV Office Visit ([facility]) Normal 08-10-19 20 [facility]ent Jael ALMAGUER,GRETA ([id number]) 1975 M [facility]ent Date Time Provider Department ([id number]) 08/10/19 8:40 AM ANU MIKE During your visit today, we recorded the following informati on about you: Pulse Blood pressure Weight Height 80/minute 126/82 104.8 kg 1.88 m Anu Mike RN APRN.[facility] 08/12/2019 8:27 AM Signed Greta Almaguer a 44 year old male who is a consultation r equested by Arcelia Flores APRN, for an opinion regarding multiple Gi david rns including upper abdominal pain, nausea, heartburn and diarrhea. My final recommendatio ns will be communicated back to the requesting provider by way of shared Medical record. The patient has not been seen previously. The vanessa smith denies a family history of colon cancer. Family history: Ehler Danlos and IBS. The patient reports a history of atrial fibrillation, but is n't on any medication for it. Seeing [facility] and has stress test next week, then 30 day monitor. The patient was seen by Arcelia on 07/26/19 leading t o this consultation. The note has been reviewed. Component Latest Ref Rng AND Units 07/27/2019 Protein, Total 6.3 - 8.0 g/dL 7.8 Albumin 3.9 - 4.9 g/dL 4.6 Calcium 8.5 - 10.2 mg/dL 9.3 Bilirubin, Total 0.2 - 1.3 mg/dL 0.3 Alkaline Phosphatase 38 - 113 U/L 74 AST 14 - 40 U/L 17 Glucose 74 - 99 mg/dL 101 (H) BUN 9 - 24 mg/dL 14 Creatinine 0.73 - 1.22 mg/dL 0.67 (L) Sodium 136 - 144 mmol/L 138 Potassium 3.7 - 5.1 mmol/L 3.9 Chloride 97 - 105 mmol/L 105 CO2 22 - 30 mmol/L 23 Anion Gap 9 - 18 mmol/L 10 ALT 10 - 54 U/L 18 eGFR- >60 eGFR-All Other Races . >60 Amylase 30 - 104 U/L 29 (L) Lipase 16 - 61 U/L 14 (L) Component Latest Ref Rng AND Units 07/27/2019 H. pylori IgG, Qualitative Negative Negative H pylori Ab, IgG U/mL <0.4 Component Latest Ref Rng AND Units 07/27/2019 WBC 3.70 - 11.00 k/uL 9.88 RBC 4.20 - 6.00 m/uL 5.10 Hemoglobin 13.0 - 17.0 g/dL 14.6 Hematocrit 39.0 - 51.0 % 44.0 MCV 80.0 - 100.0 fL 86.3 MCH 26.0 - 34.0 pG 28.6 MCHC 30.5 - 36.0 g/dL 33.2 RDW-CV 11.5 - 15.0 % 13.1 Platelet Count 150 - 400 k/uL 316 MPV 9.0 - 12.7 fL 9.1 Neut% % 46.2 Abs Neut (ANC) 1.45 - 7.50 k/uL 4.42 Lymph% % 38.6 Abs Lymph 1.00 - 4.00 k/uL 3.70 Dolores% % 12.2 Abs Dolores <0.87 k/uL 1.17 (H) Eosin% % 2.7 Abs Eosin <0.46 k/uL 0.26 Baso% % 0.3 Abs Baso <0.11 k/uL 0.03 RUQ US 07/27/19: IMPRESSION: Mildly coarse echotexture of the liver. Pancreas is not clearly visualized due to overlying bowel ga s. Presenting complaint: The patient presen ts today reporting I have had stomach pain forever and now can't get around it . worse the past 2 weeks. Rates it as a 7/10 continuously. Location: upper abdomen it's all right here - rubbing epig astric region, with radiation up into his chest as the severity increases. Described as: intermittent sharp with constant quivering. Aggravating factors: eating - gut wrenching pain and have t o lay on my stomach. Put himself on the BRAT diet. Alleviating factors: none. Can't see any difference with the omeprazole/sucralfate. Reports that he has never had an appetit e. Smokes cannabis to get an appetite. Denies herbal supplements. Bowel routine varies from loose to firm. No wate ry diarrhea. Some with mucus. Sometimes sees blood on the paper with wiping since I was a teenager. No black stool. Admits to poor diet, eats a lot of junk food. Drinks 3 cups of coffee daily. Denies alcohol use. Has cut back to 4 cigarettes a day, does notice some worsening symptoms when he smokes. REVIEW OF SYSTEMS: GENERAL: Weight loss RESPIRATORY: Negative for cough, hemoptysis, wheezing, COPD, dyspnea or shortness of breath CARDIOVASCULAR: history of atrial fib/flutter. GI: The patient states that his appetite has been poor. He d oes not get hungry. There has been some nausea, no vomiting. He denies dysphagia and denies odynophagia. There has been indigestion with heartburn. Ther e has not been regurgitation. Bowel habits have been irregular. There has p artially been diarrhea. There has not been constipatio n. The patient denies rectal bleeding. There has not been melena. Daily abdominal pain that is loca gayla in the epigastric region. MUSCULOSKELETAL: History of back pain and spinal stenosis. PSYCH: Negative for sleep disturbance, mood disorder a nd recent psychosocial stressors. HEMATOLOGY/LYMPHOLOGY Negative for prolonged bleeding, bruis ing easily or swollen nodes ENDOCRINE: Negative for cold or heat intolerance, polyuria, polydipsia and goiter NEURO: No history of headaches, syncope, paralysis, seizures or tremors All other reviewed and negative other than HPI. PAST MEDICAL HISTORY Diagnosis Date - Atrial fibrillation and flutter (HCC) - Spinal stenosis PAST SURGICAL HISTORY Procedure Laterality Date - PAST SURGICAL HISTORY OF had hernia repair at FAMILY HISTORY Problem Relation Age of Onset - other (rare tissue disease) Mother - other (ibs) Mother - other (lung cancer) Maternal Grandmother Current Outpatient Medications Medication Sig Dispense Refill - acetaminophen (TYLENOL) 500 mg tablet Take 500 mg by mouth every 8 hours as needed. - Omeprazole 40 mg capsule Take 1 capsule by mouth once da tiana. 30 capsule 0 - sucralfate (CARAFATE) 1 gram tablet Take 1 tab let by mouth before meals and at bedtime. 120 tablet 0 No current facility-administered medications for this visit. SOCIAL HISTORY: Patient is single. He quit smoking last weekend. Now vaping. He uses cannabis daily. Greta reports his alcohol use as never. PHYSICAL EXAMINATION: Blood pressure 126/82, pulse 80, height 188 cm (6' 2) , weight 104.8 kg (231 lb), SpO2 98 %. General Appearance: Alert, appears uncomfortable, but in n o acute distress, well-hydrated, well nourished. Skin: Skin color, texture, turgor normal, no suspicious rash es or lesions. Head: Normocephalic, no masses, lesions or abnormalities. Eyes: Anicteric sclera. Pupils are equally round and reactiv e to light. Extraocular movements are intact. Neck: Supple, no adenopathy; thyroid symmetric, normal size, no bruits. Lungs: lungs clear to auscultation. No wheezing, rhonchi, ra les. Heart: RRR without murmur. Abdomen: Bowel sounds normal. Abdomen soft, TTP bilateral upper abdomen. No guarding or rebound. Negative Campos's sign. No masses, orga nomegaly. Extremities: No deformities, edema, skin discolo ration, clubbing or cyanosis. Impression: consider gastric ulcer Plan:Start dicyclomine. I raygoza ve explained that I do not prescribe narcotics. The patient is scheduled for upp er endoscopy. Preparation for the procedure and the procedure itself have been explained in detail. The risks, b enefits, anticipated outcomes and possible complications were mention ed. I also explained the procedure in understandable terms and the lou ent was given printed material concerning the planned procedure. The patie nt had the opportunity to ask questions concerning the planned procedur e. The patient freely consents to the planned procedure. The patient is asked to call with any questions or concerns, or if there is a change in health status between now and the scheduled proced ure. I have personally interviewed and examined this patient. I h ave read the information that the GAGE zazueta mented in this encounter. I spent 30 minutes in the visit, with more than 50% of the total lixj-md-dkjn time of the visit in counseling / coordination of care. Anu Mike RN MACHINE CLERICAL VERIFIER.REMEDIOS Mike RN MACHINE CLERICAL VERIFIER.REMEDIOS 08/12/2019 8:25 AM Addendum Proceed with the stress test next week. Continue current medications. Start the new blue pill, phuc ing it about 30-60 minutes before eating, and again at bedtime. Please follow the instructions for upper endoscopy. Your procedure will be with Dr. Perry at the [facility] on August 22. this will be with the deeper sedation we call MAC. The endoscopy staff will call you the day before the proce dure, to give you specifics on time. (Thursday for a Thursday procedure) Follow up with me on August 29, arriving at 7:45. Anu Mike RN APRN.CNP 08/16/2019 12:27 PM Signed Addended by: ANU MIKE CNP on: 08/16/2019 12:27 PM Modules accepted: Orders Referring Provider: ARCELIA FLORES (REMEDIOS) [[id number]] Allergies As of Date: 08/10/2019 (Not on File) Date Reviewed: 08/10/2019 Reviewed by: Jessica Camacho Ma - Fully Assessed Reason for Visit: Consult [502] Cmt: abdominal pain, nausea, diarrhea Visit Diagnoses:Upper abdominal pain [R10.10] Nausea [R11.0] Diarrhea, unspecified type [R19.7] Heartburn [R12] Order(s):CONSULT TO GASTROENTEROLOGY [9010] Order #: [id number]: 1 dicyclomine (BENTYL) 20 mg tabletTake 1 tablet by mouth befo re meals and at bedtime.Disp: 120 tabletRfl: 3 EGD [[id number]] Order #: [id number] FUTURE Prescriptions as of 08/10/2019 Sig: DICYCLOMINE 20 MG TABLET Take 1 tablet by mouth before* ACETAMINOPHEN 500 MG TABLET Take 500 mg by mouth every 8 * OMEPRAZOLE 40 MG CAPSULE,SERENITY* Take 1 capsule by mouth once * SUCRALFATE 1 GRAM TABLET Take 1 tablet by mouth before* Problem List As Of Date: 08/10/2019 (None) Other instructions from your clinician: Proceed with the stress test next week. Continue current medications. Start the new blue pill, taking it about 30-60 minutes befor e eating, and again at bedtime. Please follow the instructions for upper endoscopy. Your procedure will be with Dr. Perry at the [facility] on August 22. this will be with the deeper sedation we call MAC. The endoscopy staff will call you the day before the procedu re, to give you specifics on time. (Thursday for a Thursday procedure) Follow up with me on August 29, arriving at 7:45. Prescriptions ordered this encounter Disp Refills Start End DICYCLOMINE 20 MG TABLET 120 * 3 08/10/2019 Route: ORAL Sig: Take 1 tablet by mouth before meals and at bedtime. Encounter Status:Closed by ANU MIKE CNP on 08/12/19 us abd right upper quadrant on 2019-07-27 US ABD RIGHT * * *Final Report* * * Normal 07-09 [facility] UPPER QUADRANT DATE OF EXAM: Jul 27 2019 8:59AM [facility] ([id number]) WRU 1032 - US ABD RIGHT UPPER QUADRANT / 60 PROCEDURE REASON: multiple diagnoses * * * * Physician Interpretation * * * * EXAM TITLE: US ABD RIGHT UPPER QUADRANT HISTORY: Right upper quadrant abdominal pain. TECHNIQUE: Sonography of the right upper quadrant was perfor med. Images were obtained and stored in a permanent archive. MQ: [id number] COMPARISON: None. RESULT: Limitations: Excessive bowel gas. Pancreas: Not clearly visualized, likely due to overlying arun wel gas. Liver: Echotexture: Mildly coarse Echogenicity: Normal Surface contour: Smooth Lesions: None. Biliary: No intrahepatic biliary duct dilation. CBD: 4 mm. Gallbladder: Normal caliber -Contents: No cholelithiasis -Wall: 3 mm in thickness -Other: Negative sonographic Campos's sign. Right Kidney: Within normal limits, measuring 11.7 cm in [facility]. Ascites: None. IMPRESSION: Mildly coarse echotexture of the liver. Pancreas is not clearly visualized due to overlying bowel ga s. Java Jsf Developer: MARIELLE Transcribe Date/Time: Jul 27 2019 9:02A Dictated by : YOLY TORREZ MD This examination was interpreted and the report reviewed and electronically signed by: YOLY TORREZ MD on Jul 27 2019 9:06AM EST [id number] progress on 2019-07 PROGRESS HNO ID: [id number] Normal 07-27-2019 [facility] Author: Jennyfer ([facility]) [facility] ([id number]) Service: ? Author Type: Backup Administrative Coordinator Type: Progress Notes Filed: 07/27/2019 9:00 AM Note Text: Radiology Service Progress Note PATIENT NAME: Greta Almaguer DATE OF SERVICE: July 27, 2019 TIME: 8:59 AM PATIENT IDENTITY VERIFICATION COMPLETED USING TWO (2) IDENTI FIERS: Name and Date of confirmed by patient verbally. PATIENT GENDER DATA: Male PATIENT RELEVANT IMPLANT DATA REVIEWED: Not Applicable RADIOLOGY DEPARTMENT: Ultrasound PERIPHERAL IV DATA: Not applicable SIGNED BY: JENNYFER SÁNCHEZ RDMS RVLiliya July 27, 2019 8:59 AM lipase on 2019-07-09 9 Lipase [Catalytic activity/Vol] 14 16-61 U/L Low 07-27-2019 [facility] ([id number]) Comment: Performed By: #### HPYLRI, L IPA, AMYL ####[place] [id number] [place] [address] [phone] helico pylori ab on 2019-07-27 H pylori Ab, IgG <0.4 Normal 07-27-2019 [facility] ([id number]) Comment: Result Comment: U/mL are int erpreted as follows: Negative specimens <0.9 Indeterminate specimens >=0. 9 to <1.1 Positive specimens >=1.1 Results were obtained with t [employer]i IMMULITE 2000 H.pylori IgG EIA. Results obtained from other manufacturers' assay methods may not be used interchangeably. Performed By: #### HPYLRI, L IPA, AMYL ####[place] [id number] [place] [address] [phone] H. pylori IgG, Qual Negative Negative Normal 07-27-2019 [facility] ([id number]) Comment: Result Comment: H. pylori Ig G antibodies were not detected in the sample. Negative results by this jason t do not preclude recent primary infection. Performed By: #### HPYLRI, L IPA, AMYL ####[place] [id number] [place] [address] [phone] comp metabolic panel on 2019-07-27 Albumin [Mass/Vol] 4.6 3.9-4.9 g/dL Normal 07-27-2019 [facility] ([id number]) ALP [Catalytic 74 38-113 U/L Normal 07-27-2019 [facility] activity/Vol] [place] and ([id number]) ALT [Catalytic 18 10-54 U/L Normal 07-27-2019 [facility] activity/Vol] [place] and (24333) Anion gap 10 9-18 mmol/L Normal 07-27-2019 [facility] [Moles/Vol] [place] (09803) AST [Catalytic 17 14-40 U/L Normal 07-27-2019 [facility] activity/Vol] [facility] and (55454) Bilirubin [Mass/Vol] 0.3 0.2-1.3 mg/dL Normal 0 [facility] (24118) Calcium [Mass/Vol] 9.3 8.5-10.2 mg/dL Normal 07-27-2019 [facility] (15323) Chloride [Moles/Vol] 105 97-105 mmol/L Normal 0 [facility] (15791) CO2 [Moles/Vol] 23 22-30 mmol/L Normal 07-27-2019 [facility] ([id number]) Creatinine 0.67 0.73-1.22 mg/dL Low 07-27-2019 [facility] [Mass/Vol] [facility] (96351) eGFR- Amer. >60 Normal 07-27-2019 [facility] (61230) GFR/1.73 sq M >60 mL/min/{1.73_m Normal 07-27-2019 [facility] predicted among 2} [facility] ([id number]) non-blacks MDRD (S/P/Bld) [Vol rate/Area] Comment: Result Comment: eGFR (Estima gayla GFR) Units of measure: mL/min/1.73 meters squared eGFR is derived from the ree xpressed MDRD Study equation using the following parameters: serum creatinine, age, gender and race. The creatinine assay has been calibrated to be traceable to IDMS. An eGFR <60 mL/min/1.73m2 fo r >3 months is consistent with chronic kidney disease. Refer to KDOQI guidelines for clinical interpretation. In patients with unstable re nal function, e.g. those with acute kidney injury, the eGFR may not accurately reflect actual GFR. Glucose [Mass/Vol] 101 74-99 mg/dL High 07-27-2019 [facility] (61897) Comment: Result Comment: The [place] Diabetes Association (ADA) provides guidance for cutoff values for fasting glucose and random glucose. The ADA defines fasting as no caloric intake for at least 8 hours. Fas ting plasma glucose results between 100 to 125 mg/dL indicate increased risk for diabetes (prediabetes). Fasting plasma glucose resul ts greater than or equal to 126 mg/dL meet the criteria for diagnosis of diabetes. In the absence of unequivocal hyperglycemia, results should be confirmed by repeat testing. In a patient with classic s ymptoms of hyperglycemia or hyperglycemic crisis, random plasma glucose results greater than or equal to 200 mg/dL meet the criteria for diagnosis of diabetes. Reference: Standards of [facility] Care in Diabetes 2016, [place] Diabetes Association. Diabetes Care. 2016.39(Suppl 1). Potassium [Moles/Vol] 3.9 3.7-5.1 mmol/L Normal 07-27-19 [facility] ([id number]) Protein [Mass/Vol] 7.8 6.3-8.0 g/dL Normal 07-27-2019 [facility] (45128) Sodium [Moles/Vol] 138 136-144 mmol/L Normal 07-27-2019 [facility] (27513) Urea nitrogen [Mass/Vol] 14 9-24 mg/dL Normal 07-27 [facility] (08076) cbc and differential on 2019-07-27 Abs Baso 0.03 <0.11 k/uL Normal 07-27-2019 [facility] (61460) Abs Dolores 1.17 <0.87 k/uL High 07-27-2019 [facility] (81361) Abs Neut 4.42 1.45-7.50 k/uL Normal 07-27-2019 [facility] (81470) Basophils/100 WBC (Bld) 0.3 % Normal 2019 [facility] (23358) Eosinophils (Bld) [#/Vol] 0.26 <0.46 k/uL Normal 07-09 [facility] (39005) Eosinophils/100 WBC (Bld) 2.7 % Normal 07-09 [facility] (59787) Erythrocyte distribution 13.1 11.5-15.0 % Normal 07-27 [facility] width (RBC) [Ratio] [facility] ([id number]) Hematocrit (Bld) [Volume 44.0 39.0-51.0 % Normal 07-27 [facility] fraction] [facility] ([id number]) Hemoglobin (Bld) 14.6 13.0-17.0 g/dL Normal 07-27-2019 [facility] [Mass/Vol] [facility] (33120) Lymphocytes (Bld) [#/Vol] 3.70 1.00-4.00 k/uL Normal 07-09 [facility] (40719) Lymphocytes/100 WBC (Bld) 38.6 % Normal 07-09 [facility] (90643) MCH (RBC) [Entitic mass] 28.6 26.0-34.0 pG Normal 07-27 [facility] (42985) MCHC (RBC) [Mass/Vol] 33.2 30.5-36.0 g/dL Normal 07-27-19 20 [facility] (88053) MCV (RBC) [Entitic vol] 86.3 80.0-100.0 fL Normal 07-27 [facility] (08364) Monocytes/100 WBC (Bld) 12.2 % Normal 2019 [facility] (19109) Neutrophils/100 WBC (Bld) 46.2 % Normal 07-09 [facility] (14740) Platelet mean volume 9.1 9.0-12.7 fL Normal 0 [facility] (Bld) [Entitic vol] [facility] (14452) Platelets (Bld) [#/Vol] 316 150-400 k/uL Normal 2019 [facility] (61783) RBC (Bld) [#/Vol] 5.10 4.20-6.00 m/uL Normal 07-27-2019 [facility] (25758) WBC (Bld) [#/Vol] 9.88 3.70-11.00 k/uL Normal 07-27-2019 [facility] (24032) amylase on Amylase [Catalytic 29 30-104 U/L Low 07-27-2019 [facility] activity/Vol] (73811 ) Comment: Performed By: #### HPYLRI, L IPA, AMYL ####[facility] [place] [address] [phone] progress on 2019-07 PROGRESS HNO ID: [id number] Normal 07-26-2019 [facility] Author: Arcelia (Remedios) [facility] ([id number]) Service: ? Author Type: Nurse Practitioner Type: Progress Notes Filed: 07/26/2019 4:41 PM Note Text: CC: Patient presents with: Abdominal Pain HPI Greta Almaguer is a 44 year old male who presents today for abo ve Abdominal pain x months but worse over the past 3 days. Location: upper abdomen with radiation up into his chest Described as: sharp Aggravating factors: eating Alleviating factors: none Associated symptoms: heart burn, reflux, nausea, diarrhea s tools look like they are covered in boogers, bloating, belching, decre ased appetite Denies: blood in stools or black stools, vomiting, problem s wallowing, odynophagia, fever, chills, unintentional weight loss GI history: none. Surgeries: None. Endoscopy: None Family history: Irritable bowel syndrome and Gonzaloisadora Rojas Admits to poor diet, eats a lot of junk food. Drinks 3 cups of coffee daily. Denies alcohol use. Has cut back to 4 cigarettes a da y, does notice some worsening symptoms when he smokes ROS See HPI PAST MEDICAL HISTORY Diagnosis Date - Atrial fibrillation and flutter (HCC) - Spinal stenosis PAST SURGICAL HISTORY Procedure Laterality Date - PAST SURGICAL HISTORY OF [facility] Patient has no allergy information on record. MEDICATIONS acetaminophen (TYLENOL) 500 mg tablet Take 500 mg by mouth e very 8 hours as needed. Omeprazole Magnesium (PRILOSEC OTC) 20 mg tablet Take 1 tabl et by mouth daily before breakfast. 1/2 hr before meal. naproxen sodium (ALEVE) 220 mg tablet Take 220 mg by mouth t wice daily with meals. hydrOXYzine HCl (ATARAX) 25 mg tablet Take 1-2 tablets by mo [facility] every 4 hours as needed. FAMILY HISTORY Problem Relation Age of Onset - other (rare tissue disease) Mother - other (ibs) Mother - other (lung cancer) Maternal Grandmother Social History Tobacco Use - Smoking status: Current Every Day Smoker - Smokeless tobacco: Never Used Substance Use Topics - Alcohol use: Not Currently Frequency: Never Drinks per session: Patient refused Binge frequency: Never - Drug use: Yes Types: Marijuana Comment: daily PHYSICAL EXAM BP (P) 136/84 (BP Site: Left Arm, BP Position: Sitting, BP C uff Size: Large Adult) Pulse (P) 92 Temp (P) 37.5 ?C (99.5 ?F) (Te mporal Artery) Wt (P) 102.5 kg (226 lb) SpO2 (P) 97% General Appearance: in no acute distress, alert, appears unc omfortable Lungs: lungs clear to auscultation. No wheezing, rhonchi, ra les Heart: RRR without murmur, gallop, or rubs. No ectopy Abdomen: Soft, non-distended. moderate generalized abdominal tenderness with palpation. No guarding or rebound tenderness. Negative Campos's sign. Bowel sounds normal and active. No masses, organomegal y. ASSESSMENT/PLAN: 1. Upper abdominal pain - ICD9: 789.09, ICD10: R10.10 (prima ry diagnosis) Etiology unclear. Differential Diagnosis includes GERD, PUD, Gastritis, IBS and Gall bladder colic/cholelithiasisPatient was seen fo r these symptoms in February but have worsened over the past few da ys. He was previously referred to GI but no showed appointment - CONSULT TO GASTROENTEROLOGY for further evaluation and rec ommendations Work-up with: - CBC + DIFF - COMP METABOLIC PANEL - H PYLORI IGG AB - US ABD RT UPPER QUADRANT - AMYLASE BLD - LIPASE BLD Increase OMEPRAZOLE to 40 MG CAPSULE,DELAYED RELEASE and add SUCRALFATE 1 GRAM TABLET Follow-up and further recommendations pending results 2. Nausea - ICD9: 787.02, ICD10: R11.0 As above - CONSULT TO GASTROENTEROLOGY - CBC + DIFF - COMP METABOLIC PANEL - H PYLORI IGG AB - US ABD RT UPPER QUADRANT - AMYLASE BLD - LIPASE BLD - US ABD RT UPPER QUADRANT 3. Diarrhea, unspecified type - ICD9: 787.91, ICD10: R19.7 As above - CONSULT TO GASTROENTEROLOGY - CBC + DIFF - COMP METABOLIC PANEL - H PYLORI IGG AB - US ABD RT UPPER QUADRANT - AMYLASE BLD - LIPASE BLD 4. Heartburn - ICD9: 787.1, ICD10: R12 As above - CONSULT TO GASTROENTEROLOGY - OMEPRAZOLE 40 MG CAPSULE,DELAYED RELEASE - SUCRALFATE 1 GRAM TABLET Prescription instructions reviewed with patient as applicabl e. Potential red flag symptoms discussed with the patient. Reviewed appro priate action plan to take if red flag symptoms occur. Patient agreeable t o treatment plan. Arcelia Flores APRN.CNP cnov on 2019-07-26 CNOV Office Visit (INTMWS) Normal 07-26-[address] GRETA ALMAGUER ([id number]) 1975 M [facility] Date Time Provider Department ([id number]) 07/26/19 4:00 PM ARCELIA FLORES ([facility]) INTMWS During your visit today, we recorded the following informati on about you: Arcelia Flores APRN.CNP 07/26/2019 4:41 PM Signed CC: Patient presents with: Abdominal Pain HPI Greta Almaguer is a 44 year old male who presents today for abo ve Abdominal pain x months but worse over the past 3 days. Location: upper abdomen with radiation up into his chest Described as: sharp Aggravating factors: eating Alleviating factors: none Associated symptoms: heart burn, reflux, nausea, diarrhea stools look like they are covered in boogers, bloating, belching, decreased appetite Denies: blood in stools or black stools, vomiting, problem s wallowing, odynophagia, fever, chills, unintentional weight loss GI history: none. Surgeries: None. Endoscopy: None Family history: Irritable bowel syndrome and Ehler Danlos Admits to poor diet, eats a lot of junk food. Drinks 3 cups of coffee daily. Denies alcohol use. Has cut back to 4 cigarettes a day, does notice some worsening symptoms when he smokes ROS See HPI PAST MEDICAL HISTORY Diagnosis Date - Atrial fibrillation and flutter (HCC) - Spinal stenosis PAST SURGICAL HISTORY Procedure Laterality Date - PAST SURGICAL HISTORY OF [facility] repair [facility] Patient has no allergy information on record. MEDICATIONS acetaminophen (TYLENOL) 500 mg tablet Take 500 mg by mouth every 8 hours as needed. Omeprazole Magnesium (PRILOSEC OTC) 20 mg tablet Take 1 tablet by mouth daily before breakfast. 1/2 hr before meal. naproxen sodium (ALEVE) 220 mg tablet Take 220 mg by mouth twice daily with meals. hydrOXYzine HCl (ATARAX) 25 mg tablet Take 1-2 t ablets by mouth every 4 hours as needed. FAMILY HISTORY Problem Relation Age of Onset - other (rare tissue disease) Mother - other (ibs) Mother - other (lung cancer) Maternal Grandmother Social History Tobacco Use - Smoking status: Current Every Day Smoker - Smokeless tobacco: Never Used Substance Use Topics - Alcohol use: Not Currently Frequency: Never Drinks per session: Patient refused Binge frequency: Never - Drug use: Yes Types: Marijuana Comment: daily PHYSICAL EXAM BP (P) 136/84 (BP Site: Left Arm, BP Position: Sitting, BP Cuff Size: Large Adult) Pulse (P) 92 Temp (P) 37.5 ?C (99.5 ?F) (Temporal Artery) Wt (P) 102.5 kg (226 lb) SpO2 (P) 97% General Appearance: in no acute distress, alert, appears unc omfortable Lungs: lungs clear to auscultation. No wheezing, rhonchi, ra les Heart: RRR without murmur, gallop, or rubs. No ectopy Abdomen: Soft, non-distended. moderate generalized abd ominal tenderness with palpation. No guarding or rebound tenderness. Negative Mur phy's sign. Bowel sounds normal and active. No masses, organomegaly. ASSESSMENT/PLAN: 1. Upper abdominal pain - ICD9: 789.09, ICD10: R10.10 (prima ry diagnosis) Etiology unclear. Differenti al Diagnosis includes GERD, PUD, Gastritis, IBS and Gall bladder colic/cholelithiasisPatient was seen for these symptoms in February but have worsened over the pas t few days. He was previously referred to GI but no showed appointment - CONSULT TO GASTROENTEROLOGY for further evaluation and rec ommendations Work-up with: - CBC + DIFF - COMP METABOLIC PANEL - H PYLORI IGG AB - US ABD RT UPPER QUADRANT - AMYLASE BLD - LIPASE BLD Increase OMEPRAZOLE to 40 MG CAPSULE,DEL AYED RELEASE and add SUCRALFATE 1 GRAM TABLET Follow-up and further recommendations pending results 2. Nausea - ICD9: 787.02, ICD10: R11.0 As above - CONSULT TO GASTROENTEROLOGY - CBC + DIFF - COMP METABOLIC PANEL - H PYLORI IGG AB - US ABD RT UPPER QUADRANT - AMYLASE BLD - LIPASE BLD - US ABD RT UPPER QUADRANT 3. Diarrhea, unspecified type - ICD9: 787.91, ICD10: R19.7 As above - CONSULT TO GASTROENTEROLOGY - CBC + DIFF - COMP METABOLIC PANEL - H PYLORI IGG AB - US ABD RT UPPER QUADRANT - AMYLASE BLD - LIPASE BLD 4. Heartburn - ICD9: 787.1, ICD10: R12 As above - CONSULT TO GASTROENTEROLOGY - OMEPRAZOLE 40 MG CAPSULE,DELAYED RELEASE - SUCRALFATE 1 GRAM TABLET Prescription instructions reviewed with patient as anjelica licable. Potential red flag symptoms discussed with the patient. Review ed appropriate action plan to take if red flag symptoms occur. Patient agreeable to treatm ent plan. GREGORIO Waldron APRN.CNP 07/26/2019 4:29 PM Signed To ER if you develop severe abdominal pain, vomiting that wo n't stop, high fever, rigid/hard abdomen. Referring Provider: SELF [[id number]] Allergies As of Date: 07/26/2019 (Not on File) Date Reviewed: 07/26/2019 Reviewed by: Dora Singh LPN - Fully Assessed Reason for Visit: Abdominal Pain [1] Reason For Visit History Recorded Primary Visit Diagnosis:Upper abdominal pain [R10.10] Other Visit Diagnoses:Nausea [R11.0] Diarrhea, unspecified type [R19.7] Heartburn [R12] Order(s):CONSULT TO GASTROENTEROLOGY [9010] Order #: [id number]: 1 FUTURE CBC + DIFF [SQCBCDIF] Order #: [id number] FUTURE COMP METABOLIC PANEL [SQCMP] Order #: [id number] FUTURE H PYLORI IGG AB [SQHPYLRI] Order #: [id number] FUTURE AMYLASE BLD [SQAMYL] Order #: [id number] FUTURE LIPASE BLD [SQLIPA] Order #: [id number] FUTURE Omeprazole 40 mg capsuleTake 1 capsule by mouth once daily.D isp: 30 capsuleRfl: 0 sucralfate (CARAFATE) 1 gram tabletTake 1 tablet by mouth be fore meals and at bedtime.Disp: 120 tabletRfl: 0 US ABD RT UPPER QUADRANT [[id number]] Order #: [id number] FUTUR E Prescriptions as of 07/26/2019 Sig: ACETAMINOPHEN 500 MG TABLET Take 500 mg by mouth every 8 * OMEPRAZOLE 40 MG CAPSULE,SERENITY* Take 1 capsule by mouth once * SUCRALFATE 1 GRAM TABLET Take 1 tablet by mouth before* Problem List As Of Date: 07/26/2019 (None) Other instructions from your clinician: To ER if you develop severe abdominal pain, vomiting that wo n't stop, high fever, rigid/hard abdomen. Prescriptions ordered this encounter Disp Refills Start End OMEPRAZOLE 40 MG CAPSULE,DELAYED REL* 30 c* 0 07/26/2019 Route: ORAL Sig: Take 1 capsule by mouth once daily. SUCRALFATE 1 GRAM TABLET 120 * 0 07/26/2019 08/25/2019 Route: ORAL Sig: Take 1 tablet by mouth before meals and at bedtime. Medications Discontinued During This Encounter naproxen sodium (ALEVE) 220 mg tablet 07/26/2019 Class: Historical Med Route: ORAL Sig: Take 220 mg by mouth twice daily with meals. Disc: Discontinued by Patient hydrOXYzine HCl (ATARAX) 25 mg tablet 30 t* 0 03/03/201907/26 Route: ORAL Sig: Take 1-2 tablets by mouth every 4 hours as needed. Patient not taking: Reported on 07/26/2019 Disc: Discontinued by Patient Omeprazole Magnesium (PRILOSEC OTC) * 30 t* 1 03/03/201907/26 Route: ORAL Sig: Take 1 tablet by mouth daily before breakfast. 1/2 hr b efore meal. Disc: Changing Therapy/Dosage Form Encounter Status:Closed by ARCELIA FLORES CNP on 07/26/19 replaced document: [facility] ecg observati ons on 2017-03-31 EKG QRS axis 80 deg Invalid 03-31-2017 - [place] Interpretation Code 03-31-2017 [facility] ([id number]) Interpretation Sinus Rhythm Invalid 03-31-2017 - [place] WITHIN Interpretation Code 03-31-2017 [facility] NORMAL ([id number]) LIMITS P [place] 71 deg Invalid 03-31-2017 - [place] Interpretation Code 03-31-2017 [facility] ([id number]) WI Interval 168 ms Invalid 03-31-2017 - [place] Interpretation Code 03-31-2017 [facility] ([id number]) Pulse (Heart Rate) 71 BPM /min Invalid 03-31-2017 - [place] Interpretation Code 03-31-2017 [facility] ([id number]) QRS Duration 92 ms Invalid 03-31-2017 - [place] Interpretation Code 03-31-2017 [facility] ([id number]) QT Interval new path ms Invalid 03-31-2017 - [place] Interpretation Code 03-31-2017 [facility] ([id number]) QTc [place] 391 ms Invalid 03-31-2017 - [place] Interpretation Code 03-31-2017 [facility] ([id number]) T [place] 62 deg Invalid 03-31-2017 - [place] Interpretation Code 03-31-2017 [facility] ([id number]) office visit: jhr o n 2017-03-31 Documentation of Done Invalid Interpretation 03-31-2017 - [place] [facility] current medications Code 03-31-2017 Group ([id number]) (procedure) Fall risk assessment No Invalid Interpretat ion 03-31-2017 - [place] [facility] Code 03-31-2017 Group (44 691) Protein mass conc Done Invalid Interpretation 03-31-2017 - [place] [facility] Code 03-31-2017 Group (44 691) clinical lists update: preload on 2017-03-12 Tobacco smoking Current every Invalid 03-12-2017 - [place] [facility] status [facility] day smoker Interpretation Code 017 Group (10651) Tobacco use Current every Invalid 03-12-2017 - [place] [facility] day smoker Interpretation Code 7 Group (86682) Vital Signs Vital Sign Description Value / Unit Date Location The following section is limited to 5 en tries per type and includes entries from the following time range: 20170331 - [id number] 4. BMI (Body Mass Index) 23.25 kg/m2 03-31-2017 - 03-31-2017 [place] [facility] ([id number]) BP Diastolic 78 mm[Hg] 03-31-2017 - 03-31-2017 [place] [facility] (13684) BP Systolic 120 mm[Hg] 03-31-2017 - 03-31-2017 [place] [facility] ([id number]) Heart rate 71 /min 03-31-2017 - 03-31-2017 [place] [facility] (31509) Height 190.5 cm 03-31-2017 - 03-31-2017 [facility] ([id number]) Pulse (Heart Rate) 71 /min 03-31-2017 - 03-31-2017 [place] [facility] (06461) Respiratory Rate 18 /min 03-31-2017 - 03-31-2017 [place] [facility] (91378) Weight 84.37 kg 03-31-2017 - 03-31-2017 [place] [facility] (58200) Encounters Date Type Reason Provider Location 02-27-2020 Patient External [facility] - encounter Provider 02-27-2020 procedure 02-27-2020 Refill Gastroesophageal [facility] - reflux disease without [place] 02-27-2020 esophagitis Comment: Refill Request 02-14-2020 - Refill Lower urinary tract Phu Jimenez [facility] 02-14-2020 symptoms [place] Comment: Refill Request 02-27-2020 - Results Only External External-[facility] 02-27-2020 Provider 03-16-2020 - Telephone Upper abdominal Phu Campoverde [facility] 03-16-2020 encounter pain Tony [place] Comment: ER yesterday/not eating 01-24-2020 - 01-24-2020 Telephone encounter Phu bartlett [facility] [place] Comment: results Procedures Procedure Name Date Provider Location EXTERNAL IMAGING 02-27-2020 - External Provider [facility] ([id number]) 02-27-2020 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03-31-2017 - Greta Barnes NP [place] [facility] 03-31-2017 ([id number]) Ecg routine ecg w/least 03-31-2017 - Greta Barnes NP [place] [facility] 12 lds w/i&r 03-31-2017 ([id number]) Follow Up Appt 1 year 03-31-2017 - [facility] 03-31-2017 ([id number]) Plan of Treatment Plan Description Date Location INFLUENZA (#1) INFLUENZA (#1) 2020 - [facility] 02-07-2020 ([id number]) Appointment no information 04-01-2018 - [place] [facility] 04-01-2018 ([id number]) 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03-31-2017 - [place] [facility] 03-31-2017 ([id number]) Follow Up Appt 1 year Follow Up Appt 1 year 03-31-2017 - [place] [facility] Group 03-31-2017 ([id number]) Appointment Appointment 03-31-2017 - [facility] 03-31-2017 ([id number]) Appointment Appointment 03-17-2017 - [facility] 03-17-2017 ([id number]) LIPID SCREEN LIPID SCREEN 2011 - [facility] 2011 ([id number]) ONE PNEUMOVAX PRIOR TO ONE PNEUMOVAX PRIOR TO 1995 - [facility] AGE 66 AGE 66 1995 ([id number]) DTAP,TDAP,TD (1 - Tdap) DTAP,TDAP,TD (1 - Tdap) 1995 - [facility] 1995 ([id number]) HEPATITIS C SCREENING HEPATITIS C SCREENING 1994 - [facility] 1994 ([id number]) HIV SCREENING HIV SCREENING 1994 - [facility] 1994 ([id number]) no information [facility] ([id number]) Payers Payer Name Policy Number Location [employer] [id number] [facility] (44 195) The following information is from the original human readable contentNo Payer Records Found Social History Type Social History Date Location Description Tobacco use and exposure Never used 10-28-2019 - [facility] 10-28-2019 ([id number]) History SDOH Social 2 07-26-2019 - [facility] Membership 07-26-2019 ([id number]) Alcohol intake Ex-drinker (finding) 10-28-2019 - [facility] 10-28-2019 ([id number]) History SDOH Alcohol 1 07-26-2019 - [facility] Frequency 07-26-2019 ([id number]) History SDOH Alcohol Std 98 07-26-2019 - [facility] Drinks 07-26-2019 ([id number]) History SDOH Social 4 07-26-2019 - [facility] Phone 07-26-2019 ([id number]) Tobacco smoking status Current every day smoker 10-28-2019 - [facility] NHIS 10-28-2019 ([id number]) History SDOH Social 8 07-26-2019 - [facility] Living 07-26-2019 ([id number]) History SDOH Physical 3 07-26-2019 - [facility] Activity MPS 07-26-2019 ([id number]) History SDOH Stress 5 07-26-2019 - [facility] 07-26-2019 ([id number]) History SDOH Education 14 07-26-2019 - [facility] 07-26-2019 ([id number]) Sex Assigned At Not on file [facility] ([id number]) Exposure to SARS-CoV-2 Not sure [facility] (event) ([id number]) The following information is from the original human readable contentNo Social History Records Found Advance Directives No Advanced Directives Records Found Documents on File Type Date Recorded Patient 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 This clinical summary was aggregated from multiple sources. Caution should be exercised in using it in the provision of clinical care. This summary normalizes information from multiple sources, and as a consequence, information in this document may materially changethe coding, format and clinical context of patient data. In addition, data may be omittedin some cases. CLINICAL DECISIONS SHOULD BE BASED ON THE PRIMARY CLINICAL RECORDS. [facility] provides no warranty or guarantee of the accuracy or completeness of information in this document. UNRECOGNIZED CONTENT PROVIDED BELOW FOR UNRECOGNIZED SECTION Source Comments In the event this information is protected by the Federal Confidentiality of Alcohol and Drug Abuse Patient Records regulations: The Federal rules restrict any use of the information to criminally investigate or prosecute any alcohol or drug abuse patient.[facility] the event this information is protected by the Federal Confidentiality of Alcohol and Drug Abuse Patient Records regulations: The Federal rules restrict any use of the information to criminally investigate or prosecute any alcohol or drug abuse patient.[facility] the event this information is protected by the Federal Confidentiality of Alcohol and Drug Abuse Patient Records regulations: The Federal rules restrict any use of the information to criminally investigate or prosecute any alcohol or drug abuse patient.[facility] the event this information is protected by the Federal Confidentiality of Alcohol and Drug Abuse Patient Records regulations: The Federal rules restrict any use of the information to criminally investigate or prosecute any alcohol or drug abuse patient.[facility] the event this information is protected by the Federal Confidentiality of Alcohol and Drug Abuse Patient Records regulations: The Federal rules restrict any use of the information to criminally investigate or prosecute any alcohol or drug abuse patient.[facility] the event this information is protected by the Federal Confidentiality of Alcohol and Drug Abuse Patient Records regulations: The Federal rules restrict any use of the information to criminally investigate or prosecute any alcohol or drug abuse patient.[facility] UNRECOGNIZED CONTENT PROVIDED BELOW FOR UNRECOGNIZED SECTION Reason for Visit Reason Onset Date Comments results 01/24/2020 Reason Onset Date Comments Refill Request 02/14/2020 Reason Onset Date Comments Refill Request 02/27/2020 Reason Comments ER yesterday/not eating UNRECOGNIZED CONTENT PROVIDED BELOW FOR UNRECOGNIZED SECTION Miscellaneous Notes Telephone Encounter - Yaz Trujillo LPN - 01/24/2020 6:17 PM EDTSpoke with patient and information listed below given. Patient has schedule lab apt for tomorrow. Hewill be fasting. Yaz Trujillo LPN Telephone Encounter - Dora Singh LPN - 01/24/2020 4:55 PM EDTLeft message to call office & speak to nurse. Dora Snigh LPN Telephone Encounter - Dora Singh LPN - 01/24/2020 4:54 PM EDT----- Message from Phu Jimenez sent at 01/24/2020 4:30 PM EDT ----- Results will be discussed by Dr. Burdick, ENT. Please have him do labs that were ordered. documented in this encounterTelephone Encounter - Dora Singh LPN - 02/14/2020 11:17 AM EDT Spoke to Patient, he was not taking Tamsulosin on daily basis, I definitely need the med. Patient has been identified by name and date of : Yes Patient phones for refill(s): Pending Prescriptions Disp Refills TAMSULOSIN 0.4 MG CAPSULE 30 capsule 1 Sig: Take 1 capsule by mouth daily at bedtime. CHAKA: No Date of last office visit in primary care: 10/28/2019 Physical: 04/09/2020 Dora Singh LPN documented in this encounterTelephone Encounter - Heather Venegas LPN - 03/16/2020 3:35 PM EDTLeft message that Rx has been sent elephone Encounter - Arcelia Flores) - 03/16/2020 2:11 PM EDT The following approved medication requests have been transmitted electronically. Signed Prescriptions Disp Refills sucralfate (CARAFATE) 1 gram tablet 120 tablet 0 Sig: Take 1 tablet by mouth before meals and at bedtime. CHAKA: No Authorizing Provider: ARCELIA FLORES) Arcelia Flores APRN.CNP elephone Encounter - Heather Venegas LPN - 03/16/2020 2:02 PM EDTER follow up scheduled. Given instructions from provider. Patient is asking if he can get a refill of carafate to help with the abdominal pain until his appointment. He elephone Encounter - Arcelia Flores) - 03/16/2020 1:14 PM EDTPlease schedule patient for ER follow-up. Recommend eating bland, soft diet and 6 small meals instead of 3 larger meals a day. Avoid spicy, greasy, high fat content foods. Arcelia Flores APRN.CNP elephone Encounter - Yaz Trujillo LPN - 03/16/2020 12:31 PM EDTPt went to ER yesterday due to eating mac and ch and started with severe chest pain. They checked his heart and did not show anything. They were thinking could be gastric issues. Pt was given morphine and a lidocaine drink and sent home. No other directions except to call his pcp right away. Pt is afraid to eat and has not eating anything since. Getting fluids in. He is desperate and needs to know what to do next. He is on multiple medications. Carafate, bentyl and Prilosec. Please advise pt. Suhas Trujillo LPN documented in this encounter UNRECOGNIZED CONTENT PROVIDED BELOW FOR UNRECOGNIZED SECTION No Status Records Found UNRECOGNIZED CONTENT PROVIDED BELOW FOR UNRECOGNIZED SECTION INFORMATION SOURCE DATE CREATED AUTHOR AUTHOR'S ORGANIZATIO N 03/17/2020 [facility] [place]
== END ==
PROVIDERS: PCP Nurse Practitioner; Referring Provider Nurse Practitioner Family; Visit Provider Nurse Practitioner Family
DX: R07.9 Chest pain, unspecified (principal)
CPT/HCPCS: 93017; 93350

== ENCOUNTER 2019-11-06 01:04 | Emergency (ER) | payer MEDICAID, SELFPAY ==
[2019-11-06 01:05] VITALS: TEMP 36.9; BMI 30.2
--- NOTE | 2019-11-06 01:06 | CT_ITS ---
STUDY: CTA OF THE ABDOMEN AND PELVIS REASON FOR EXAM: Male, 44 years old. R/O DISSECTION, FAMILY H/O DISSECTION DUE TO ELIZABETH DANLOS SYNDROME. CP X 2 WEEKS IN BACK RADIATING TO FRONT, DIAPHORESIS RADIATION DOSAGE (If Supplied By Facility): CTDIvol = ( 18.345 ) mGy, DLP = ( 1051.88 ) mGycm TECHNIQUE: Axial CT angiography multi-detector data acquisition was obtained of the abdomen and pelvis following intravenous administration of IV 100mL Isovue-370. Axial images and MIP images were reconstructed from the axial data set. Post-processing of the angiographic images was performed, with multiplanar reformation and 3D reconstruction. Individualized dose optimization techniques were used for this CT. TECHNICAL QUALITY: Good COMPARISON: None. Descriptors of Narrowing: None (0%) Mild (< 50%) Moderate (50-70%) Severe (70-90%) Subtotal/Total Occlusion (90-100%) Non-Evaluable (technically non-diagnostic FINDINGS: The abdominal aorta is normal in caliber. There is NO aneurysm, dissection, stenosis , thrombosis or occlusion. The mesenteric, renal and pelvic branches are patent and normal in caliber. There is mild calcified atherosclerosis. There are incidental subcentimeter cysts in the liver. Gallbladder, pancreas and spleen are unremarkable. Adrenal glands and kidneys are unremarkable. There is NO bowel obstruction. The appendix is normal. There is NO ascites or free air. The bony structures are intact. CT/CTA Abdomen W/WO Contrast IMPRESSION: The abdominal aorta is normal in caliber. There is NO aneurysm, dissection, stenosis , thrombosis or occlusion. The mesenteric, renal and pelvic branches are patent and normal in caliber. There is mild calcified atherosclerosis. Electronically Signed: Gerald Campos MD at 2:56 EDT , Service support ,
--- NOTE | 2019-11-06 01:06 | CT_ITS ---
STUDY: CTA CHEST REASON FOR EXAM: Male, 44 years old. R/O DISSECTION, FAMILY H/O DISSECTION DUE TO ELIZABETH DANLOS SYNDROME. CP X 2 WEEKS IN BACK RADIATING TO FRONT, DIAPHORESIS RADIATION DOSAGE (If Supplied By Facility): CTDIvol = ( 18.345 ) mGy, DLP = ( 1051.88 ) mGycm TECHNIQUE: The examination was performed with the intravenous administration of IV 100mL Isovue-370. Post-processing of the angiographic images was performed, with multiplanar reformation and 3D reconstruction. Individualized dose optimization techniques were used for this CT. COMPARISON: None. FINDINGS: There is suboptimal opacification of the pulmonary arteries to indicate cortex pulmonary embolism. Normal thoracic aorta and visualized great vessels. There is no demonstrated aortic dissection. Normal heart and pericardium. Normal mediastinum. Normal hilar regions. Normal visualized trachea and bronchi. The lungs are well expanded. Normal pulmonary parenchyma. Normal pleura. Normal chest wall structures. Normal osseous structures. Normal visualized upper abdomen. CT/CTA Chest W/WO Contrast IMPRESSION: Normal thoracic aorta. There is NO aneurysm or dissection. Electronically Signed: Gerald Campos MD at 2:48 EDT , Service support ,
--- NOTE | 2019-11-06 01:06 | EKG12_ITS ---
Test Reason : CP Blood Pressure : / mmHG Vent. Rate : 076 BPM Atrial Rate : 076 BPM P-R Int : 160 ms QRS Dur : 092 ms QT Int : 370 ms P-R-T Axes : 064 060 048 degrees QTc Int : 416 ms Normal sinus rhythm Minimal voltage criteria for LVH, may be normal variant Borderline ECG Confirmed by BING HICKEY, DANIELLE ([id number]), metropolitan editor ROSCOE CHILD ([id number]) on 11/08/2019 1:38:42 PM Referred By: BRIAN Confirmed By:DANIELLE SMART MD
[2019-11-06 01:08] VITALS: BP 174/97; PULSE 89; RESP 20; O2SAT 97
[2019-11-06 01:09] VITALS: O2SAT 97
[2019-11-06] MEDS: Aspirin 81 MG TAB.CHEW 324 MG PO (01:17)
--- NOTE | 2019-11-06 01:21 | ED.DCSUM_ITS ---
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 The patient states he has been having this nontraumatic, nonexertional pain between his shoulder blades for the past few weeks. He states that he did have a stress test last week which was normal. He states today, the pain worsened and began to go to his left arm and into his left chest. He is concerned because there is a family history of aortic dissection. He denies any nausea or vomiting. He denies any other systemic symptoms. He states that he does take medications for GERD, but no other significant medical history. Prior similar symptoms: No Recent Illness/Hospitalization: No Past Medical History - Allergies and Home Meds Allergies/Adverse Reactions: Allergies No Known Allergies Allergy (Verified 09/15/19 17:50) Primary Care Physician: Phu Jimenez MD [Primary Care Provider] - Prior records reviewed: Yes Past Medical History: - - GERD Surgical History: - - Inguinal hernia repair in youth. Smoking Status: Former smoker - Family History Maternal Family History: Reports: - - History of AA with associated, known Sirena- Danlos. Review of Systems General: Denies: Chills, Fever, Sweats Eyes: Denies: Visual changes - bilaterally, Diplopia ENT: Denies: Rhinorrhea, Sore throat Cardiovascular: Reports: Chest pain. Denies: Palpitations Respiratory: Reports: Dyspnea. Denies: Cough, Dyspnea on exertion Gastrointestinal: Denies: Abdominal pain, Nausea, Vomiting, Diarrhea, Melena, Hematochezia Genitourinary: Denies: Dysuria, Hematuria, Frequency Musculoskeletal: Reports: Back pain. Denies: Extremity Pain Skin: Denies: Rash, Wounds Neurological: Denies: Headache, Weakness, Numbness Physical Exam Vital Signs/Narrative: Vital Signs Temp Pulse Resp BP Pulse Ox 11/06/19 01:09 97 11/06/19 01:08 89 20 H 174/97 H 97 11/06/19 01:05 98.5 F Inital Vital Signs reviewed: Yes General: Well nourished, Well developed, No Acute Distress Head: Normocephalic, Atraumatic Eyes: Perrl, EOMI ENT: Moist mucous membranes, No rhinorrhea Neck: Supple, Nontender Cardiovascular: Regular rate, Regular rhythm, No murmurs Respiratory: No distress, CTA bilaterally, Chest nontender Abdomen: Soft, Nontender, Nondistended, Normal bowel sounds Back: Nontender, Normal Inspection Extremities: Nontender, No edema Skin: Normal color, No rash Neurological: Alert, Oriented x3, Cranial nerves II-XII grossly intact, Normal Strength, Normal Sensation Psychological: Normal affect, Normal Mood Diagnostic/Tx/Re-eval Clinical Impression(s) from Imaging Studies Abdomen CTA 11/06/19 01:06 IMPRESSION: The abdominal aorta is normal in caliber. There is NO aneurysm, dissection, stenosis , thrombosis or occlusion. The mesenteric, renal and pelvic branches are patent and normal in caliber. There is mild calcified atherosclerosis. Electronically Signed: Gerald Campos MD at 2:56 EDT , Service support , Chest CTA 11/06/19 01:06 IMPRESSION: Normal thoracic aorta. There is NO aneurysm or dissection. Electronically Signed: Gerald Campos MD at 2:48 EDT , Service support , Abnormal Lab Results 11/06/19 11/06/19 01:17 01:17 WBC 9.7 RBC 4.84 Hgb 13.8 Hct 41.7 MCV 86.2 MCH 28.5 MCHC 33.1 RDW Std Deviation 40.3 RDW Coeff of [place] 12.8 Plt Count 321 MPV 9.2 Immature Gran % (Auto) 0.300 Neut % (Auto) 39.0 L Lymph % (Auto) 47.2 H [place] % (Auto) 9.9 Eos % (Auto) 3.0 Baso % (Auto) 0.6 Absolute Neuts (auto) 3.8 Absolute Lymphs (auto) 4.55 H Nucleated RBC % 0 Sodium 141 Potassium 3.8 Chloride 109 H Carbon Dioxide 26.0 Anion Gap 6 BUN 15 Creatinine 0.69 L Estim Creat Clear Calc 160.50 Est GFR (MDRD) Af Amer 160 Est GFR (MDRD) Non-Af 132 BUN/Creatinine Ratio 21.7 H Glucose 121 H Calcium 9.0 Troponin I < 0.015 - Medical Decision Making The patient presents to the emergency department with upper back pain that is radiated into his chest. He is concerned because of the strong family history of dissection. He has normal pulses in his upper extremities, but given the acute worsening of his pain, metabolic work-up was pursued. EKG shows sinus rhythm without evidence of acute ischemia. Cardiac enzymes were negative. He is been having this pain for 2 weeks with negative cardiac enzymes. My suspicion for ACS is very low. The patient did have a recent negative stress test also. Patient underwent CTA which shows no evidence of dissection, embolus, or other dangerous process. On reevaluation, he is resting comfortably. At this point, I do not have a great explanation for his upper back pain, but with his thorough work-up and recent outpatient evaluation I do feel that he is safe for follow-up. The patient will be discharged home. Impression 1. Atypical chest pain ED Disposition - Plan for ED Patient: Instructions: ED Chest Pain NonCardiac Referrals: Phu Jimenez MD [Primary Care Provider] -
[2019-11-06 01:32] LABS: Absolute Lymphocyte Count 4.55 X10^3/uL (0.83-4.51); Absolute Neutrophil Count 3.8 X10^3/uL (2.0-7.7); Basophil# 0.06 X10^3/uL; Basophil% 0.6 % (0-1); Eosinophil# 0.29 X10^3/uL; Hematocrit 41.7 % (40-54); Hemoglobin 13.8 g/dL (13.0-16.5); Lymphocyte # 4.55 X10^3/ul (4.0); Lymphocyte % 47.2 % (19-41); Mean Corp Hgb Conc 33.1 g/dL (32-36); Mean Corpuscular Hgb 28.5 pg (27.0-32.0); Mean Corpuscular Volume 86.2 fL (80-94); Mean Platelet Vol. 9.2 fl (6.2-12.0); Monocyte# 0.96 X10^3/uL; Monocyte% 9.9 % (0-10); NRBC Flagged by Analyzer 0 % (0-5); Neutrophil # 3.76 X10^3/uL (2.7-7.7); Platelet Count 321 K/mm3 (150-450); RBC Distribution Width CV 12.8 % (11.6-14.6); RBC Distribution Width SD 40.3 fl (35.1-43.9); Red Blood Count 4.84 M/mm3 (4.6-6.2); White Blood Count 9.7 K/mm3 (4.4-11.0)
[2019-11-06 01:52] LABS: Anion Gap 6 (5-15); BUN 15 mg/dL (7-18); BUN/Creat Ratio 21.7 RATIO (10-20); Chloride 109 mmol/L (98-107); Creatinine, Serum 0.69 mg/dL (0.70-1.30); EST Glomerular Filtration Rate 132 mL/min (>60); Est Glom Filt Rate - Afr Amer 160 mL/min (>60); Glucose 121 mg/dL (74-106); Potassium 3.8 mmol/L (3.5-5.1); Sodium Level 141 mmol/L (136-145)
[2019-11-06] MEDS: Ondansetron 4 MG/2 ML Vial IV (02:30)
[2019-11-06] MEDS: Morphine 4 MG/ML Syringe IV (02:30)
--- NOTE | 2019-11-06 02:52 | ED.RN ---
CALLED CT, JULIANA SAID RADIOLOGIST WAS READING CT ABDOMEN NOW. UPDATED.
[2019-11-06 03:08] VITALS: BP 116/77; PULSE 69; RESP 15; O2SAT 99
--- OUTSIDE RECORDS SUMMARY | 2020-03-20 19:38 | XMS RPT_ITS | CCD ---
:1975 External Reference #:[id number] Author Organization [facility] Care Team Providers Name Role Phone Nghia Palomares Unavailable Unavailable Maureen RN, L Unavailable Nghia Palomares Unavailable Unavailable Gilles Jimenez Primary Care Provider Medications Medication Name Sig Date Prescriber Location Acetaminophen acetaminophen (TYLENOL) 500 [facility] Provider [facility] mg tablet Take 500 mg by (44 195) mouth every 8 hours as needed. 0 Active Comment: Take 500 mg by mouth every 8 hours as needed. Bifidobacterium Bifidobacterium 10-21-2019 [facility] Infantis Infantis (ALIGN) 4 mg Palmer (68351 ) cap Take 1 capsule by mouth once daily. 30 capsule 2 10/21/2019 Active Comment: Take 1 capsule by mouth once daily. Dicyclomine dicyclomine (BENTYL) 20 10-21-2019 [facility] mg tablet Take 1 tablet Palmer (441 95) by mouth before meals and at bedtime. 120 tablet 3 10/21/2019 Active Comment: Take 1 tablet by mouth befor e meals and at bedtime. iv contrast iv contrast (will be 01-24-2020 - Nathansalas [place] nd (will be provided with 01-24-2020 [facility] (53039) provided with radiology test) Nathan radiology test) [...] omeprazole (PRILOSEC) 40 10-21-2019 - Mag Redd [facility] mg capsule Indications: 04-27-[address] [facility] (441 95) Gastroesophageal reflux disease without esophagitis , Epigastric pain Take 1 capsule by mouth once daily. 60 capsule 0 02/27/2020 04/27/2020 Active Comment: Take 1 capsule by mouth once daily. rivaroxaban XARELTO 20 MG TABS 03-12-2017 Greta Barnes NP [facility] One tablet by mouth Group (4 4691) daily RIVAROXABAN [phone] Greta Barnes NP Sucralfate sucralfate (CARAFATE) 03-16-2020 - Arcelia ([facility]) [facility] 1 gram tablet 04-15-2020 Older Arcelia (04799) Indications: Upper ([facility]) Older abdominal pain , Heartburn Take 1 tablet by mouth before meals and at bedtime. 120 tablet 0 03/16/2020 04/15/2020 Active Comment: Take 1 tablet by mouth befor e meals and at bedtime. tamsulosin tamsulosin ER (FLOMAX) 10-28-2019 - Arcelia ([facility]) [facility] 0.4 mg Indications: 02-14-2020 Older (49431) Lower urinary tract symptoms (LUTS) Take 1 capsule by mouth daily at bedtime. 30 capsule 1 02/14/2020 Active Comment: Take 1 capsule by mouth angel y at bedtime. Problems Active Problems Category Problem Name Status Date Location Abdominal pain Epigastric pain Active 09-16-2019 - [facility] (06446) Cardiac dysrhythmias Atrial fibrillation Active 03-12-2017 - [facility] (66034) Esophageal disorders Gastroesophageal reflux Active 0 - [facility] disease without (84717) esophagitis Genitourinary symptoms Lower urinary tract Active [facility] and ill-defined symptoms (92715) conditions Other gastrointestinal Heartburn Active [facility] disorders (98794) Past or Other Problems Category Problem Name Status Date Location Other gastrointestinal Dysphagia Completed 09-16-2019 - [facility] disorders (61465) Results Result Name Value Range Unit Interpretation Flag Date Location cnpn on 2020-03-16 REMEDIOSN Telephone (INTMWS) Normal 03-16-2020 [facility] KAYEGRETA ([id number]) 1975 M [place] Date Time Provider Department (18247) 03/16/20 PHU JIMENEZ INTMWS During your visit [...] OBSOLETE Refill (GSTNOR) Normal 02-27-2020 [facility] GRETA RESTREPO ([id number]) 1975 [facility] Date Time Provider Department (48721) 02/27/20 MAG PALMER GSTNOR During your visit [...] mouth once daily. Cosign required by MAG PALMER[[id number]] Medications Discontinued During This Encounter Prescriptions - omeprazole 40 mg capsule (Discontinued) Take 1 capsule by mouth once daily. Encounter Status:Closed by KENDRA BEDOYA MA on 02/27/20 obsolete on 2020-02 OBSOLETE Refill (INTMWS) Normal 02-14-2020 [facility] GRETA ALMAGUER ([id number]) 1975 [facility] Date Time Provider Department (15482) 02/14/20 PHU JIMENEZ INTMWS During your visit [...] 02/14/20 progress on 2020-01 PROGRESS HNO ID: [id number] Normal 01-24-2020 [facility] Author: Charity [employer]) Gely Horan [place] (05355) Service: ? Author Type: Magnetic Resonance Imaging Coordinator Type: Progress Notes Filed: 01/24/2020 4:00 PM [...] derived from the reexpressed MDRD Study equation [facility] ng the following parameters: serum creatinine, age, gender and race. The crea tinine assay has been calibrated to be traceable to IDMS. An eGFR <60 mL/min/1.73m2 for >3 months is consistent with c hronic kidney disease. Refer to KDOQI guidelines for clinical interpretati on. In patients with unstable renal function, e.g. those with ac [place] kidney injury, the eGFR may not accurately [...] * *Final Report* * * Normal 01-06 [facility] TISSUE W IVCON DATE OF EXAM: Jan 24 2020 3:57PM [place] (13418) [facility] 0013 - CT NECK SOFT TISSUE [...] amalgam. Parotid and submandibular spaces are normal. Cocktail Lounge Manager spac es appear normal. 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 Tableau Report Developer: MARIELLE Transcribe Date/Time: Jan 24 2020 3:58P Dictated by : JAJA MCALLISTER MD This examination was interpreted and the report reviewed and electronically signed by: JAJA MCALLISTER MD on Jan 24 2020 4:06PM EST [id number] [facility]INT[facility]) Normal 01-24-2020 [place] [facility] GRETA ALMAGUER ([id number]) 1975 [facility] Date Time Provider Department (12965) 01/24/20 PHU JIMENEZ INTAbilioWS During your visit [...] office AND speak to nurse. Dora Trujillo STROBOROMA OPERATOR 01/24/2020 6:18 PM Signed Spoke with patient [...] on 2019-12-20 CNPN Telephone (INTMWS) Normal 12-20-2019 [place] [facility] GRETA ALMAGUER ([id number]) 1975 [facility] Date Time Provider Department (10251) 12/20/19 PHU JIMENEZ INTMWS During your visit [...] 12/21/19 progress on 2019-10 PROGRESS HNO ID: [id number] Normal 10-28-2019 [facility] Author: Phu Jimenez [place] ([id number]) Service: ? Author Type: Physician Type: Progress Notes Filed: 10/28/2019 3:47 PM Note Text: This note was created using Onavoter. Subjective This Team Access Model visit is [...] MD progress on 2019-10 PROGRESS HNO ID: [id number] Normal 10-21-2019 [facility] Author: Mag Palmer [place] (69044) Service: ? Author Type: Physician Type: Progress [...] for internal providers or letter via the [facility] Postal [facility] rvice for external providers. [...] 40mg po daily that he takes in [facility]. Reports mother has IBS. Denies any vomiting, [...] Ms Anu Thorpe for further care at [facility] in 6 months. During this patient visit [...] on 2019-09-29 CNPN Telephone (GSTNOR) Normal 09-29-2019 [facility] GRETA ALMAGUER ([id number]) 1975 [facility] Provider Department (63772) 09/29/19 MAG PALMER During your visit today, [...] on 09/30/19 CNPN Telephone (GSTNOR) Normal 09-29-2019 [place] [facility] GRETA ALMAGUER ([id number]) 1975 [facility] Time Provider Department (81544) 09/29/19 MAG PALMER During your visit today, [...] pathology on 2019-09-27 SURGICAL Specimen originated from [facility] Normal 09-27-2019 [place] PATHOLOGY Specimen #: [id number] Clinic Submitting Physician: MAG PALMER MD [place] ([id number]) FINAL DIAGNOSIS 1. Duodenum, biopsy (A) - [...] in one cassette. Gross examination performed at [facility], [address] [place] [address] 09/27/2019 9:09:07 PM Date of Report: 09/28/2019 Date of Procedure: 09/27/2019 Date of Receipt: 09/27/2019 Submitted by: MAG PALMER MD Location: [facility] Diagnostic interpretation performed at [facility], [address] [place] [address]. CLIA Number: [id number] obsolete on 2019-09 OBSOLETE Procedure (ASCNOR) Normal 09-27-2019 [place] [facility]ael GRETA ALMAGUER ([id number]) 1975 M [place] Date Time Provider Department (97412) 09/27/19 2:00 PM MAG PALMER During your [...] unders tanding. All questions answered. Dominique Jaramillo, FINANCIAL DATA ANALYST.COTTON BUYER 09/27/2019 2:09 PM Signed POST ANESTHESIA EVALUATION [...] A MBULATORY SURGERY Referring Provider: MAG PALMER [[id number]] Allergies As of Date: 09/27/2019 (No Known Allergies) Date Reviewed: 09/27/2019 Reviewed by: Mag Palmer - Fully Assessed Reason for Visit: Outpatient Endoscopy [481] Abdominal Pain [1] Primary Visit Diagnosis:Epigastric pain [R10.13] Order(s):SURGICAL PATHOLOGY [[id number]] Order #: [id number] EGD [[id number]] Order #: [id number]. #:[id number]-ENDO Prescriptions as of 09/27/2019 Sig: OMEPRAZOLE [...] RN Visit Notes: >> Dominique Tracy RN [facility] Sep 27, 2019 1:33 PM Status: Signed [...] Signed By: Dominique Tracy RN In Department: [facility] ULATORY SURGERY Encounter Status:Closed by MAG PALMER MD on 09/27/19 history physical on 2019-09-27 HISTORY HNO ID: [id number] Normal 09-27-2019 [place] PHYSICAL Author: Mag Palmer [facility] Service: ? [place] Author Type: Physician ([id number]) Type: HANDP Filed: 09/27/2019 2:01 PM Note [...] Palmer MD cnpn on 2019-09-26 [facility] Normal 09-26-2019 [place] [facility] GRETA ALMAGUER ([id number]) 1975 M [facility] Provider Department (85696) 09/26/19 MAG PALMER During your visit today, we recorded the following informati on about you: Charity Moscoso RN 09/26/2019 12:10 PM Signed Lm to call if cough cold or respiratory flu symptoms Allergies As of Date: 09/26/2019 (No Known Allergies) Date Reviewed: 08/16/2019 Reviewed by: Deejay Garcia - Fully Assessed Reason for Visit: PreOp Call [2904] Prescriptions as of 09/26/2019 Sig: OMEPRAZOLE 40 [...] on 2019-09-16 CNPN Telephone (MERCED) Normal 09-16-2019 [place] [facility] ROSINAGRETA ([id number]) 1975 [facility] Provider Department (65423) 09/16/19 ANU MIKE During your visit today, [...] talking with GI now. Anu Mike RN FINANCIAL DATA ANALYST.MELANGEUR OPERATOR 09/16/2019 3:05 PM Signed I spoke to Sandhya, at [facility], who will fax a letter to [facility] stating that the patient can have the EG D with propofol since the EGD is a low risk procedure. I have spoken to Adri Cruz, Endo nurse manager field at [facility]. She will have anesthesia review his chart early next week and she will contact the patient. I have notified the patient that [facility] will be con tacting him early next week regarding setting the EGD up. The patient reports th e minute anything hits my stomach I get a puls ating feeling of pain. No relief with dicyclomine. Taking omeprazole twice a da y. He has sucralfate at home and will resume taking it. Anu Mike RN FINANCIAL DATA ANALYST.MELANGEUR OPERATOR Allergies As of Date: 09/16/2019 (No Known [...] (INTMWS) Normal 09-15-2019 [place] [facility] GRETA Harden ([id number]) 1975 [facility] Time Provider Department (50525) 09/15/19 ARCELIA FLORES ([facility]) INTMWS During your visit today, we recorded [...] on 2019-09-15 CNPN Telephone (LAILAWS) Normal 09-15-2019 [place] [facility] GRETA ALMAGUER ([id number]) 1975 [facility] Time Provider Department (57934) 09/15/19 ANU MIKE During your visit today, [...] go to ER. Please advise Ashley Robledo, NICOLETTE.MELANGEUR OPERATOR 09/15/2019 3:40 PM Signed Called pt. Reporting [...] uctant but understands rationale, will present to [place] [facility] for evaluation. Jennyfer Robledo CNP Gastroenterology and Hepatology Pager: [phone] Allergies As of Date: 09/15/2019 (No Known [...] JENNYFER ROBLEDO on 09/15/19 bettina on 2019-09-05 [facility] (GASTWS) Normal 09-05-2019 [place] [facility] GRETA ALMAGUER ([id number]) 1975 [facility] Time Provider Department (41067) 09/05/19 ANU MIKE During your visit today, [...] documentation sent from that office. Judy sutton [place] reviewed his chart and saw that he had informed me of that test on 08/11. Their protocol won't allow the procedure without that having been completed. I recommended that he go to the [place] [facility] if his swallowing worsens. Anu [...] nursing prog on NURSING PROG HNO ID: [id number] Normal 08-16-19 [facility] Author: Sharyn (Rn) MAULIK Oliveros [place] ([id number]) Service: Nursing Author Type: Registered Nurse Type: Nursing Progress Note Filed: 08/16/2019 9:43 AM Note Text: Called patient to inquire about stress test-if it was comple gayla. Patient stated care source will not pay for the stress test so sonya snyder is cancelling EGD until further notice. cnpn on 2019-08-16 CNPN Telephone (GENSWS) Normal 08-16-2019 [place] [facility] GRETA ALMAGUER ([id number]) 1975 [facility] Time Provider Department (78530) 08/16/19 LEE PERRY GENSWS During your visit today, we recorded the following informati on about you: Huy Garrison 08/16/2019 1:01 PM Signed Received an e mail stating [facility] will not agree to do the procedure. Will reschedule with another facility. Chayo Rondon LPN 08/16/2019 1:09 PM Signed Spoke to Jie MORALES as well as Dr. Garcia and h e is willing to do EGD here in [place] under local anesthesia. Huy Garrison 08/16/2019 2:29 [...] physical on 2019-08-10 HISTORY PHYSICAL HNO ID: [id number] Normal 03- [facility] Author: Anu Mike Joesph ([id number]) Service: ? Author Type: Nurse Practitioner Type: HANDP Filed: 08/12/2019 8:27 AM Note Text: Greta Almaguer a 44 year old male who is a consultation request ed by Arcelia Flores APRN, for an opinion [...] Abs Lymph 1.00 - 4.00 k/uL 3.70 [place]% % 12.2 Abs [place] <0.87 k/uL 1.17 (H) Eosin% % 2.7 [...] with more than 50% of the total ltfx-op-pfwr t srinivas of the visit in counseling / coordination of care. Anu Mike RN APRN.REMEDIOS amezcua on 2019-08-10 CNOV Office Visit ([facility]) Normal 08-10-19 20 [place] Jael ALMAGUER,GRETA ([id number]) 1975 M [place] Date Time Provider Department (27149) 08/10/19 8:40 AM ANU MIKE During your visit today, we recorded the following informati on about you: Pulse Blood pressure Weight Height 80/minute 126/82 104.8 kg 1.88 m Anu Mike RN APRN.[facility] 08/12/2019 8:27 AM Signed Greta Almaguer a [...] n't on any medication for it. Seeing [facility] and has stress test next week, then [...] Abs Lymph 1.00 - 4.00 k/uL 3.70 [place]% % 12.2 Abs [place] <0.87 k/uL 1.17 (H) Eosin% % 2.7 [...] with more than 50% of the total qili-of-tgxc time of the visit in counseling / coordination of care. Anu Mike RN FINANCIAL DATA ANALYST.REMEDIOS Mike RN FINANCIAL DATA ANALYST.REMEDIOS 08/12/2019 8:25 AM Addendum Proceed with the stress test next week. Continue current medications. Start the new blue pill, phuc ing it about 30-60 minutes before eating, and again at bedtime. Please follow the instructions for upper endoscopy. Your procedure will be with Dr. Perry at the [facility] on August 22. this will be [...] accepted: Orders Referring Provider: ARCELIA FLORES (REMEDIOS) [[id number]] Allergies As of Date: 08/10/2019 (Not on File) Date Reviewed: 08/10/2019 Reviewed by: Jessica Camacho Ma - Fully Assessed Reason for Visit: Consult [502] Cmt: abdominal pain, nausea, diarrhea Visit Diagnoses:Upper abdominal pain [R10.10] Nausea [R11.0] Diarrhea, unspecified type [R19.7] Heartburn [R12] Order(s):CONSULT TO GASTROENTEROLOGY [9010] Order #: [id number]: 1 dicyclomine (BENTYL) 20 mg tabletTake 1 tablet by mouth befo re meals and at bedtime.Disp: 120 tabletRfl: 3 EGD [[id number]] Order #: [id number] FUTURE Prescriptions as of 08/10/2019 Sig: DICYCLOMINE [...] will be with Dr. Perry at the [facility] on August 22. this will be [...] * *Final Report* * * Normal 07-09 [facility] UPPER QUADRANT DATE OF EXAM: Jul 27 2019 8:59AM [place] (55803) WRU 1032 - US ABD RIGHT UPPER [...] normal limits, measuring 11.7 cm in [facility]. Ascites: None. IMPRESSION: Mildly coarse echotexture of the liver. Pancreas is not clearly visualized due to overlying bowel ga s. Tableau Report Developer: MARIELLE Transcribe Date/Time: Jul 27 2019 9:02A Dictated by : YOLY TORREZ MD This examination was interpreted and the report reviewed and electronically signed by: YOLY TORREZ MD on Jul 27 2019 9:06AM EST [id number] progress on 2019-07 PROGRESS HNO ID: [id number] Normal 07-27-2019 [facility] Author: Jennyfer ([facility]) Kyung [place] ([id number]) Service: ? Author Type: Safety Tech Type: Progress Notes Filed: 07/27/2019 9:00 AM [...] [Catalytic activity/Vol] 14 16-61 U/L Low 07-27-2019 [facility] (74991) Comment: Performed By: #### HPYLRI, L IPA, AMYL ####[place] [address] [place] [address] [phone] helico pylori ab on 2019-07-27 H pylori Ab, IgG <0.4 Normal 07-27-2019 [place] (18056) Comment: Result Comment: U/mL are int erpreted as follows: Negative specimens <0.9 Indeterminate specimens >=0. 9 to <1.1 Positive specimens >=1.1 Results were obtained with t [employer] IMMULITE 2000 H.pylori IgG EIA. Results obtained from other manufacturers' assay methods may not be used interchangeably. Performed By: #### HPYLRI, L IPA, AMYL ####[place] [address] [place] [address] [phone] H. pylori IgG, Qual Negative Negative Normal 07-27-2019 [facility] (68596) Comment: Result Comment: H. pylori Ig G antibodies were not detected in the sample. Negative results by this jason t do not preclude recent primary infection. Performed By: #### HPYLRI, L IPA, AMYL ####[place] [address] [place] [address] [phone] comp metabolic panel on 2019-07-27 Albumin [Mass/Vol] 4.6 3.9-4.9 g/dL Normal 07-27-2019 [facility] (56885) ALP [Catalytic 74 38-113 U/L Normal 07-27-2019 [facility] activity/Vol] [place] and (07212) ALT [Catalytic 18 10-54 U/L Normal 07-27-2019 [facility] activity/Vol] [place] and (79933) Anion gap 10 9-18 mmol/L Normal 07-27-2019 [facility] [Moles/Vol] [place] d (25440) AST [Catalytic 17 14-40 U/L Normal 07-27-2019 [facility] activity/Vol] [facility] and (38143) Bilirubin [Mass/Vol] 0.3 0.2-1.3 mg/dL Normal 0 [facility] (88696) Calcium [Mass/Vol] 9.3 8.5-10.2 mg/dL Normal 07-27-2019 [facility] (98640) Chloride [Moles/Vol] 105 97-105 mmol/L Normal 0 [facility] (27462) CO2 [Moles/Vol] 23 22-30 mmol/L Normal 07-27-2019 [facility] (84664) Creatinine 0.67 0.73-1.22 mg/dL Low 07-27-2019 [facility] [Mass/Vol] [place] (25253) eGFR- Amer. >60 Normal 07-27-2019 [facility] (82356) GFR/1.73 sq M >60 mL/min/{1.73_m Normal 07-27-2019 [facility] predicted among 2} [facility] (82999) non-blacks MDRD (S/P/Bld) [Vol rate/Area] Comment: Result [...] Glucose [Mass/Vol] 101 74-99 mg/dL High 07-27-2019 [facility] (49388) Comment: Result Comment: The [place] Diabetes Association (ADA) provides guidance for cutoff [...] for diagnosis of diabetes. Reference: Standards of [facility] Care in Diabetes 2016, [place] [employer] Association. Diabetes Care. 2016.39(Suppl 1). Potassium [Moles/Vol] 3.9 3.7-5.1 mmol/L Normal 07-27-19 [facility] (44963) Protein [Mass/Vol] 7.8 6.3-8.0 g/dL Normal 07-27-2019 [facility] (79645) Sodium [Moles/Vol] 138 136-144 mmol/L Normal 07-27-2019 [facility] (04925) Urea nitrogen [Mass/Vol] 14 9-24 mg/dL Normal 07-27 [facility] (29612) cbc and differential on 2019-07-27 Abs Baso 0.03 <0.11 k/uL Normal 07-27-2019 [facility] (70173) Abs [place] 1.17 <0.87 k/uL High 07-27-2019 [facility] (51923) Abs Neut 4.42 1.45-7.50 k/uL Normal 07-27-2019 [facility] (48496) Basophils/100 WBC (Bld) 0.3 % Normal 2019 [facility] (43922) Eosinophils (Bld) [#/Vol] 0.26 <0.46 k/uL Normal 07-09 [facility] (11858) Eosinophils/100 WBC (Bld) 2.7 % Normal 07-09 [facility] (67887) Erythrocyte distribution 13.1 11.5-15.0 % Normal 07-27 [facility] width (RBC) [Ratio] [place] (56734) Hematocrit (Bld) [Volume 44.0 39.0-51.0 % Normal 07-27 [facility] fraction] [place] (40805) Hemoglobin (Bld) 14.6 13.0-17.0 g/dL Normal 07-27-[address] [facility] [Mass/Vol] [place] (55789) Lymphocytes (Bld) [#/Vol] 3.70 1.00-4.00 k/uL Normal 07-09 [facility] (10574) Lymphocytes/100 WBC (Bld) 38.6 % Normal 07-09 [facility] (46391) MCH (RBC) [Entitic mass] 28.6 26.0-34.0 pG Normal 07-27 [facility] (10686) MCHC (RBC) [Mass/Vol] 33.2 30.5-36.0 g/dL Normal 07-27-19 20 [facility] (12689) MCV (RBC) [Entitic vol] 86.3 80.0-100.0 fL Normal 07-27 [facility] (54171) Monocytes/100 WBC (Bld) 12.2 % Normal 2019 [facility] (05790) Neutrophils/100 WBC (Bld) 46.2 % Normal 07-09 [facility] (56087) Platelet mean volume 9.1 9.0-12.7 fL Normal 0 [facility] (Bld) [Entitic vol] [place] (86562) Platelets (Bld) [#/Vol] 316 150-400 k/uL Normal 2019 [facility] (81493) RBC (Bld) [#/Vol] 5.10 4.20-6.00 m/uL Normal 07-27-2019 [facility] (40242) WBC (Bld) [#/Vol] 9.88 3.70-11.00 k/uL Normal 07-27-2019 [facility] (94088) amylase on Amylase [Catalytic 29 30-104 U/L Low 07-27-2019 [facility] activity/Vol] (15554 ) Comment: Performed By: #### HPYLRI, L IPA, AMYL ####[facility] [place] [address] [phone] progress on 2019-07 PROGRESS HNO ID: [id number] Normal 07-26-2019 [facility] Author: Arcelia (Remedios) [facility] ([id number]) Service: ? Author Type: Nurse Practitioner Type: [...] mg tablet Take 1-2 tablets by mo [facility] every 4 hours as needed. FAMILY [...] 2019-07-26 CNOV Office Visit (INTMWS) Normal 07-26-19 [place] [facility] GRETA ALMAGUER ([id number]) 1975 M [place] Date Time Provider Department (54150) 07/26/19 4:00 PM ARCELIA FLORES (RE[facility]) INTMWS [...] Order(s):CONSULT TO GASTROENTEROLOGY [9010] Order #: [id number]: 1 FUTURE CBC + DIFF [SQCBCDIF] Order #: [id number] FUTURE COMP METABOLIC PANEL [SQCMP] Order #: [id number] FUTURE H PYLORI IGG AB [SQHPYLRI] Order #: [id number] FUTURE AMYLASE BLD [SQAMYL] Order #: [id number] FUTURE LIPASE BLD [SQLIPA] Order #: [id number] FUTURE Omeprazole 40 mg capsuleTake 1 capsule by mouth once daily.D isp: 30 capsuleRfl: 0 sucralfate (CARAFATE) 1 gram tabletTake 1 tablet by mouth be fore meals and at bedtime.Disp: 120 tabletRfl: 0 US ABD RT UPPER QUADRANT [[id number]] Order #: [id number] FUTUR E Prescriptions as of 07/26/2019 Sig: [...] ARCELIA FLORES CNP on 07/26/19 replaced document: [facility] ecg observati ons on 2017-03-31 EKG QRS axis 80 deg Invalid 03-31-2017 - [place] Interpretation Code 03-31-2017 [facility] ([id number]) Interpretation Sinus Rhythm Invalid 03-31-2017 - [place] WITHIN Interpretation Code 03-31-2017 [facility] NORMAL ([id number]) LIMITS P [place] 71 deg Invalid 03-31-2017 - [place] Interpretation Code 03-31-2017 [facility] ([id number]) AL Interval 168 ms Invalid 03-31-2017 - [place] Interpretation Code 03-31-2017 [facility] ([id number]) Pulse (Heart Rate) 71 BPM /min Invalid 03-31-2017 - [place] Interpretation Code 03-31-2017 [facility] ([id number]) QRS Duration 92 ms Invalid 03-31-2017 - [place] [facility] Interpretation Code 03-31-2017 [facility] ([id number]) QT Interval new path ms Invalid 03-31-2017 - [place] Interpretation Code 03-31-2017 [facility] ([id number]) QTc [place] 391 ms Invalid 03-31-2017 - [place] Interpretation Code 03-31-2017 [facility] ([id number]) T [place] 62 deg Invalid 03-31-2017 - [place] Interpretation Code 03-31-2017 [facility] ([id number]) office visit: jhr o n 2017-03-31 Documentation of Done Invalid Interpretation 03-31-2017 - [place] [facility] current medications Code 03-31-2017 Group ([id number]) (procedure) Fall risk assessment No Invalid Interpretat ion 03-31-2017 - [place] [facility] Code 03-31-2017 Group (44 691) Protein mass conc Done Invalid Interpretation 03-31-2017 - [place] [facility] Code 03-31-2017 Group (44 691) clinical lists update: preload on 2017-03-12 Tobacco smoking Current every Invalid 03-12-2017 - [place] [facility] status [facility] day smoker Interpretation Code 017 Group (15392) Tobacco use Current every Invalid 03-12-2017 - [place] [facility] day smoker Interpretation Code 7 Group (01031) Vital Signs Vital Sign Description Value / Unit Date Location The following section is limited to 5 en tries per type and includes entries from the following time range: 20170331 - [id number] 4. BMI (Body Mass Index) 23.25 kg/m2 03-31-2017 - 03-31-2017 [place] [facility] ([id number]) BP Diastolic 78 mm[Hg] 03-31-2017 - 03-31-2017 [place] [facility] (03415) BP Systolic 120 mm[Hg] 03-31-2017 - 03-31-2017 [place] [facility] (43729) Heart rate 71 /min 03-31-2017 - 03-31-2017 [place] [facility] (59350) Height 190.5 cm 03-31-2017 - 03-31-2017 [facility] (86312) Pulse (Heart Rate) 71 /min 03-31-2017 - 03-31-2017 [place] [facility] (72496) Respiratory Rate 18 /min 03-31-2017 - 03-31-2017 [place] [facility] (04960) Weight 84.37 kg 03-31-2017 - 03-31-2017 [place] [facility] (10574) Encounters Date Type Reason Provider Location 02-27-2020 Patient External [facility] - encounter Provider 02-27-2020 procedure 02-27-2020 Refill Gastroesophageal [facility] - reflux disease without [place] 02-27-2020 esophagitis Comment: Refill Request 02-14-2020 - Refill Lower urinary tract Phu Jimenez In [facility] 02-14-2020 symptoms [place] Comment: Refill Request 02-27-2020 - Results Only External [facility] 02-27-2020 Provider 03-16-2020 - Telephone Upper abdominal Phu Campoverde [facility] 03-16-2020 encounter pain Tony [place] Comment: ER yesterday/not eating 01-24-2020 - 01-24-2020 Telephone encounter Phu bartlett [facility] [place] Comment: results Procedures Procedure Name Date Provider Location EXTERNAL IMAGING 02-27-2020 - External Provider [facility] ([id number]) 02-27-2020 TAX SPECIALIST 03-31-2017 - Greta Barnes NP [place] [facility] 03-31-2017 ([id number]) Ecg routine ecg w/least 03-31-2017 - Greta Barnes NP [place] [facility] 12 lds w/i&r 03-31-2017 ([id number]) Follow Up Appt 1 year 03-31-2017 - [facility] 03-31-2017 ([id number]) Plan of Treatment Plan Description Date Location INFLUENZA (#1) INFLUENZA (#1) 2020 - [facility] 02-07-2020 ([id number]) Appointment no information 04-01-2018 - [place] [facility] 04-01-2018 ([id number]) TAX SPECIALIST TAX SPECIALIST 03-31-2017 - [place] [facility] 03-31-2017 ([id number]) Follow Up Appt 1 year Follow Up Appt 1 year 03-31-2017 - [facility] [facility] 03-31-2017 ([id number]) Appointment Appointment 03-31-2017 - [place] [facility] 03-31-2017 ([id number]) Appointment Appointment 03-17-2017 - [place] [facility] 03-17-2017 ([id number]) LIPID SCREEN LIPID SCREEN 2011 - [facility] 2011 ([id number]) ONE PNEUMOVAX PRIOR TO ONE PNEUMOVAX PRIOR TO 1995 - [facility] AGE 66 A[facility] 66 1995 ([id number]) DTAP,TDAP,TD (1 - Tdap) DTAP,TDAP,TD (1 - Tdap) 1995 - [facility] 1995 ([id number]) HEPATITIS C SCREENING HEPATITIS C SCREENING 1994 - [facility] 1994 ([id number]) HIV SCREENING HIV SCREENING 1994 - [facility] 1994 ([id number]) no information [facility] ([id number]) Payers Payer Name Policy Number Location [employer] [id number] [facility] (44 195) The following information is from the original human readable contentNo Payer Records Found Social History Type Social History Date Location Description Tobacco use and exposure Never used 10-28-2019 - [facility] 10-28-2019 ([id number]) History SDOH Social 2 07-26-2019 - [facility] 07-26-2019 ([id number]) Alcohol intake Ex-drinker (finding) 10-28-2019 - [facility] 10-28-2019 ([id number]) History SDOH Alcohol 1 07-26-2019 - [facility] Frequency 07-26-2019 ([id number]) History SDOH Alcohol Std 98 07-26-2019 - [facility] Drinks 07-26-2019 (41246) History SDOH Social 4 07-26-2019 - [facility] [employer] Phone 07-26-2019 ([id number]) Tobacco smoking status Current every day smoker 10-28-2019 - [facility] NHIS 10-28-2019 ([id number]) History SDOH Social 8 07-26-2019 - [facility] [employer] Living 07-26-2019 ([id number]) History SDOH Physical 3 07-26-2019 - [facility] Activity MPS 07-26-2019 ([id number]) History SDOH Stress 5 07-26-2019 - [facility] inic 07-26-2019 ([id number]) History SDOH Education 14 07-26-2019 - [facility] 07-26-2019 ([id number]) Sex Assigned At Not on file [facility] ([id number]) Exposure to SARS-CoV-2 Not sure [facility] (event) ([id number]) The following information is from the original human readable contentNo Social History Records Found Advance Directives No Advanced Directives Records Found Documents on File Type Date Recorded 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 [facility] provides no warranty or guarantee of the accuracy or completeness of information in this document. UNRECOGNIZED CONTENT PROVIDED BELOW FOR UNRECOGNIZED SECTION Source Comments In the event this information is protected by the Federal Confidentiality of Alcohol and Drug Abuse Patient Records regulations: The Federal rules restrict any use of the information to criminally investigate or prosecute any alcohol or drug abuse patient.[facility] the event this information is protected by the Federal Confidentiality of Alcohol and Drug Abuse Patient Records regulations: The Federal rules restrict any use of the information to criminally investigate or prosecute any alcohol or drug abuse patient.[facility] the event this information is protected by the Federal Confidentiality of Alcohol and Drug Abuse Patient Records regulations: The Federal rules restrict any use of the information to criminally investigate or prosecute any alcohol or drug abuse patient.[facility] the event this information is protected by the Federal Confidentiality of Alcohol and Drug Abuse Patient Records regulations: The Federal rules restrict any use of the information to criminally investigate or prosecute any alcohol or drug abuse patient.[facility] the event this information is protected by the Federal Confidentiality of Alcohol and Drug Abuse Patient Records regulations: The Federal rules restrict any use of the information to criminally investigate or prosecute any alcohol or drug abuse patient.[facility] the event this information is protected by the Federal Confidentiality of Alcohol and Drug Abuse Patient Records regulations: The Federal rules restrict any use of the information to criminally investigate or prosecute any alcohol or drug abuse patient.[facility] UNRECOGNIZED CONTENT PROVIDED BELOW FOR UNRECOGNIZED SECTION [...] call office & speak to nurse. Dora Singh LPN Telephone Encounter - Dora Singh LPN [...] DATE CREATED AUTHOR AUTHOR'S ORGANIZATIO N 03/17/2020 [facility] Gonzales sewell
--- OUTSIDE RECORDS SUMMARY | 2020-03-20 19:39 | XMS RPT_ITS | CCD ---
:1975 External Reference #:[id number] Author Organization [facility] Care Team Providers Name Role Phone Nghia Palomares Unavailable Unavailable Maureen RN, L Unavailable Nghia Palomares Unavailable Unavailable Gilles Jimenez Primary Care Provider Medications Medication Name Sig Date Prescriber Location Acetaminophen acetaminophen (TYLENOL) 500 [facility] Provider [facility] mg tablet Take 500 mg by (44 195) mouth every 8 hours as needed. 0 Active Comment: Take 500 mg by mouth every 8 hours as needed. Bifidobacterium Bifidobacterium 10-21-2019 [facility] Infantis Infantis (ALIGN) 4 mg Palmer (35372 ) cap Take 1 capsule by mouth once daily. 30 capsule 2 10/21/2019 Active Comment: Take 1 capsule by mouth once daily. Dicyclomine dicyclomine (BENTYL) 20 10-21-2019 [facility] mg tablet Take 1 tablet Palmer (441 95) by mouth before meals and at bedtime. 120 tablet 3 10/21/2019 Active Comment: Take 1 tablet by mouth befor e meals and at bedtime. iv contrast iv contrast (will be 01-24-2020 - Nathansalas [place] nd ([facility] be [facility] (48278[facility] provided with radiology test) Nathan radiology test) [...] omeprazole (PRILOSEC) 40 10-21-2019 - Mag Redd [facility] mg capsule Indications: 04-27-2020 [facility] (441 95) Gastroesophageal reflux disease without esophagitis , Epigastric pain Take 1 capsule by mouth once daily. 60 capsule 0 02/27/2020 04/27/2020 Active Comment: Take 1 capsule by mouth once daily. rivaroxaban XARELTO 20 MG TABS 03-12-2017 Greta Barnes NP [facility] One tablet by mouth Group (4 4691) daily RIVAROXABAN [id number] Greta Barnes NP Sucralfate sucralfate (CARAFATE) 03-16-2020 - Arcelia ([facility]) [facility] 1 gram tablet 04-15-2020 Older Arcelia (70876) Indications: Upper ([facility]) Older abdominal pain , Heartburn Take 1 tablet by mouth before meals and at bedtime. 120 tablet 0 03/16/2020 04/15/2020 Active Comment: Take 1 tablet by mouth befor e meals and at bedtime. tamsulosin tamsulosin ER (FLOMAX) 10-28-2019 - Arcelia ([facility]) [facility] 0.4 mg Indications: 02-14-2020 Older (00210) Lower urinary tract symptoms (LUTS) Take 1 capsule by mouth daily at bedtime. 30 capsule 1 02/14/2020 Active Comment: Take 1 capsule by mouth angel y at bedtime. Problems Active Problems Category Problem Name Status Date Location Abdominal pain Epigastric pain Active 09-16-2019 - [facility] (81365) Cardiac dysrhythmias Atrial fibrillation Active 03-12-2017 - [facility] (83653) Esophageal disorders Gastroesophageal reflux Active 0 - [facility] disease without (26262) esophagitis Genitourinary symptoms Lower urinary tract Active [facility] and ill-defined symptoms (12537) conditions Other gastrointestinal Heartburn Active [facility] disorders (59063) Past or Other Problems Category Problem Name Status Date Location Other gastrointestinal Dysphagia Completed 09-16-2019 - [facility] disorders (09419) Results Result Name Value Range Unit Interpretation Flag Date Location cnpn on 2020-03-16 REMEDIOSN Telephone (INTMWS) Normal 03-16-2020 [place] [facility] KAYEGRETA ([id number]) 1975 M [place] Date Time Provider Department (53968) 03/16/20 PHU JIMENEZ INTMWS During your visit [...] OBSOLETE Refill (GSTNOR) Normal 02-27-2020 [facility] GRETA RESTREPO ([id number]) 1975 [facility] Date Time Provider Department (01476) 02/27/20 MAG PALMER GSTNOR During your visit [...] mouth once daily. Cosign required by MAG PALMER[[id number]] Medications Discontinued During This Encounter Prescriptions - omeprazole 40 mg capsule (Discontinued) Take 1 capsule by mouth once daily. Encounter Status:Closed by KENDRA BEDOYA MA on 02/27/20 obsolete on 2020-02 OBSOLETE Refill (INTMWS) Normal 02-14-2020 [facility] GRETA ALMAGUER ([id number]) 1975 [facility] Date Time Provider Department (96520) 02/14/20 PHU JIMENEZ INTMWS During your visit [...] 02/14/20 progress on 2020-01 PROGRESS HNO ID: [id number] Normal 01-24-2020 [facility] Author: Charity [employer]) Gely Horan [place] (28525) Service: ? Author Type: Wedding Planner Type: Progress Notes Filed: 01/24/2020 4:00 PM [...] derived from the reexpressed MDRD Study equation [facility] ng the following parameters: serum creatinine, age, gender and race. The crea tinine assay has been calibrated to be traceable to IDMS. An eGFR <60 mL/min/1.73m2 for >3 months is consistent with c hronic kidney disease. Refer to KDOQI guidelines for clinical interpretati on. In patients with unstable renal function, e.g. those with ac [place]e kidney injury, the eGFR may not accurately [...] * *Final Report* * * Normal 01-06 [facility] TISSUE W IVCON DATE OF EXAM: Jan 24 2020 3:57PM [place] (25141) [facility] 0013 - CT NECK SOFT TISSUE [...] amalgam. Parotid and submandibular spaces are normal. Upscale Security Officer spac es appear normal. 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 Vice President Business & Corporate Development: MARIELLE Transcribe Date/Time: Jan 24 2020 3:58P Dictated by : JAJA MCALLISTER MD This examination was interpreted and the report reviewed and electronically signed by: JAJA MCALLISTER MD on Jan 24 2020 4:06PM EST [id number] [facility] Tele[facility] (INTMWS) Normal 01-24-2020 [place] [facility] GRETA ALMAGUER ([id number]) 1975 [facility] Date Time Provider Department (36739) 01/24/20 PHU JIMENEZ INTAbilioWS During your visit [...] office AND speak to nurse. Dora Trujillo TANNING WHEEL FILLER 01/24/2020 6:18 PM Signed Spoke with patient [...] on 2019-12-20 CNPN Telephone (INTMWS) Normal 12-20-2019 [place] [facility] GRETA ALMAGUER ([id number]) 1975 [facility] Date Time Provider Department (07834) 12/20/19 PHU JIMENEZ INTMWS During your visit [...] 12/21/19 progress on 2019-10 PROGRESS HNO ID: [id number] Normal 10-28-2019 [facility] Author: Phu Jimenez [place] ([id number]) Service: ? Author Type: Physician Type: Progress Notes Filed: 10/28/2019 3:47 PM Note Text: This note was created using [employer]. Subjective This Team Access Model visit is [...] MD progress on 2019-10 PROGRESS HNO ID: [id number] Normal 10-21-2019 [facility] Author: Mag Palmer [place] ([id number]) Service: ? Author Type: Physician Type: Progress [...] for internal providers or letter via the [facility] Postal [facility] rvice for external providers. [...] 40mg po daily that he takes in [facility]. Reports mother has IBS. Denies any vomiting, [...] Ms Anu Thorpe for further care at [facility] in 6 months. During this patient visit [...] on 2019-09-29 CNPN Telephone (GSTNOR) Normal 09-29-2019 [place] [facility] GRETA ALMAGUER ([id number]) 1975 [facility] Provider Department (38555) 09/29/19 MAG PALMER During your visit today, [...] on 09/30/19 CNPN Telephone (GSTNOR) Normal 09-29-2019 [place] [facility] GRETA ALMAGUER ([id number]) 1975 [facility] Time Provider Department (15787) 09/29/19 MAG PALMER During your visit today, [...] pathology on 2019-09-27 SURGICAL Specimen originated from [facility] Normal 09-27-2019 [place] [facility]Y Specimen #: [id number] Clinic Submitting Physician: MAG PALMER MD [place] ([id number]) FINAL DIAGNOSIS 1. Duodenum, biopsy (A) - [...] in one cassette. Gross examination performed at [facility], [address] [place] [address] 09/27/2019 9:09:07 PM Date of Report: 09/28/2019 Date of Procedure: 09/27/2019 Date of Receipt: 09/27/2019 Submitted by: MAG PALMER MD Location: [facility] Diagnostic interpretation performed at [facility], [address] [place] [address]. CLIA Number: [id number] obsolete on 2019-09 OBSOLETE Procedure (ASCNOR) Normal 09-27-2019 [place] [facility] GRETA ALMAGUER ([id number]) 1975 M [place] Date Time Provider Department (53693) 09/27/19 2:00 PM MAG PALMER During your [...] unders tanding. All questions answered. Dominique Jaramillo, BEEKEEPER.DRY PLASTERER 09/27/2019 2:09 PM Signed POST ANESTHESIA EVALUATION [...] A MBULATORY SURGERY Referring Provider: MAG PALMER [[id number]] Allergies As of Date: 09/27/2019 (No Known Allergies) Date Reviewed: 09/27/2019 Reviewed by: Mag Palmer - Fully Assessed Reason for Visit: Outpatient Endoscopy [481] Abdominal Pain [1] Primary Visit Diagnosis:Epigastric pain [R10.13] Order(s):SURGICAL PATHOLOGY [2583956] Order #: [id number] EGD [2093065] Order #: [id number]. #:[id number] Prescriptions as of 09/27/2019 Sig: OMEPRAZOLE [...] RN Visit Notes: >> Dominique Tracy RN [facility] Sep 27, 2019 1:33 PM Status: Signed [...] Signed By: Dominique Tracy RN In Department: [facility] Encounter Status:Closed by MAG PALMER MD on 09/27/19 history physical on 2019-09-27 HISTORY HNO ID: [id number] Normal 09-27-2019 [place] PHYSICAL Author: Mag Palmer [facility] Service: ? [place] Author Type: Physician ([id number]) Type: HANDP Filed: 09/27/2019 2:01 PM Note [...] Palmer MD cnpn on 2019-09-26 [facility] Tele[facility] Normal 09-26-2019 [place] [facility] GRETA ALMAGUER ([id number]) 1975 M [facility] Provider Department (77261) 09/26/19 MAG PALMER During your visit today, we recorded the following informati on about you: Charity Moscoso RN 09/26/2019 12:10 PM Signed Lm to call if cough cold or respiratory flu symptoms Allergies As of Date: 09/26/2019 (No Known Allergies) Date Reviewed: 08/16/2019 Reviewed by: Deejay Garcia - Fully Assessed Reason for Visit: PreOp Call [8364] Prescriptions as of 09/26/2019 Sig: OMEPRAZOLE 40 [...] on 2019-09-16 CNPN Telephone (MERCED) Normal 09-16-2019 [place] [facility] ROSINAGRETA ([id number]) 1975 [facility] Provider Department (65936) 09/16/19 ANU MIKE During your visit today, [...] talking with GI now. Anu Mike RN BEEKEEPER.BALL MAKER 09/16/2019 3:05 PM Signed I spoke to Sandhya, at [facility], who will fax a letter to [facility] stating that the patient can have the EG D with propofol since the EGD is a low risk procedure. I have spoken to Adri Cruz, Endo nurse producer arborist manager at [facility]. She will have anesthesia review his chart early next week and she will contact the patient. I have notified the patient that [facility] will be con tacting him early next week regarding setting the EGD up. The patient reports th e minute anything hits my stomach I get a puls ating feeling of pain. No relief with dicyclomine. Taking omeprazole twice a da y. He has sucralfate at home and will resume taking it. Anu Mike RN BEEKEEPER.BALL MAKER Allergies As of Date: 09/16/2019 (No Known [...] (INTMWS) Normal 09-15-2019 [place] [facility] GRETA Harden ([id number]) 1975 [facility] Time Provider Department (48568) 09/15/19 ARCELIA FLORES ([facility]) INTMWS During your visit today, we recorded [...] on 2019-09-15 CNPN Telephone (LAILAWS) Normal 09-15-2019 [place] [facility] GRETA ALMAGUER ([id number]) 1975 [facility] Time Provider Department (53761) 09/15/19 ANU MIKE During your visit today, [...] go to ER. Please advise Ashley Robledo, NICOLETTE.BALL MAKER 09/15/2019 3:40 PM Signed Called pt. Reporting [...] uctant but understands rationale, will present to [place] ER for evaluation. Jennyfer Robledo CNP Gastroenterology and Hepatology Pager: [phone] Allergies As of Date: 09/15/2019 (No Known [...] JENNYFER ROBLEDO on 09/15/19 bettina on 2019-09-05 [facility] Tele[facility] (GASTWS) Normal 09-05-2019 [place] [facility] GRETA ALMAGUER ([id number]) 1975 [facility] Time Provider Department (72356) 09/05/19 ANU MIKE During your visit today, [...] documentation sent from that office. Judy sutton [place] reviewed his chart and saw that he had informed me of that test on 08/11. Their protocol won't allow the procedure without that having been completed. I recommended that he go to the [facility] if his swallowing worsens. Anu [...] nursing prog on NURSING PROG HNO ID: [id number] Normal 08-16-19 [facility] Author: Sharyn (Rn) MAULIK Oliveros [place] ([id number]) Service: Nursing Author Type: Registered Nurse Type: Nursing Progress Note Filed: 08/16/2019 9:43 AM Note Text: Called patient to inquire about stress test-if it was comple gayla. Patient stated care source will not pay for the stress test so sonya snyder is cancelling EGD until further notice. cnpn on 2019-08-16 CNPN Telephone (GENSWS) Normal 08-16-2019 [place] [facility] GRETA ALMAGUER ([id number]) 1975 [facility] Time Provider Department (66938) 08/16/19 LEE PERRY GENSWS During your visit today, we recorded the following informati on about you: Huy Garrison 08/16/2019 1:01 PM Signed Received an e mail stating [facility] will not agree to do the procedure. Will reschedule with another facility. Chayo Rondon LPN 08/16/2019 1:09 PM Signed Spoke to Jie MORALES as well as Dr. Garcia and h e is willing to do EGD here in [place] under local anesthesia. Huy Garrison 08/16/2019 2:29 [...] physical on 2019-08-10 HISTORY PHYSICAL HNO ID: [id number] Normal 03- [facility] Author: Anu Mike [place] ([id number]) Service: ? Author Type: Nurse Practitioner Type: [...] Abs Lymph 1.00 - 4.00 k/uL 3.70 Apache% % 12.2 Abs Apache <0.87 k/uL 1.17 (H) Eosin% % 2.7 [...] with more than 50% of the total rxkg-aa-zbhf t srinivas of the visit in counseling / coordination of care. Anu Mike RN APRN.REMEDIOS amezcua on 2019-08-10 CNOV Office Visit ([facility]) Normal 08-10-19 20 [place] Jael ALMAGUER,GRETA ([id number]) 1975 M [place] Date Time Provider Department (75694) 08/10/19 8:40 AM ANU MIKE During your visit today, we recorded the following informati on about you: Pulse Blood pressure Weight Height 80/minute 126/82 104.8 kg 1.88 m Anu Mike RN APRN.[facility] 08/12/2019 8:27 AM Signed Greta Almaguer a [...] n't on any medication for it. Seeing [facility] and has stress test next week, then [...] Abs Lymph 1.00 - 4.00 k/uL 3.70 Apache% % 12.2 Abs Apache <0.87 k/uL 1.17 (H) Eosin% % 2.7 [...] with more than 50% of the total zizs-ug-nnxj time of the visit in counseling / coordination of care. Anu Mike RN BEEKEEPER.REMEDIOS Mike RN BEEKEEPER.REMEDIOS 08/12/2019 8:25 AM Addendum Proceed with the stress test next week. Continue current medications. Start the new blue pill, phuc ing it about 30-60 minutes before eating, and again at bedtime. Please follow the instructions for upper endoscopy. Your procedure will be with Dr. Perry at the [facility] on August 22. this will be [...] accepted: Orders Referring Provider: ARCELIA FLORES (REMEDIOS) [[id number]] Allergies As of Date: 08/10/2019 (Not on File) Date Reviewed: 08/10/2019 Reviewed by: Jessica Camacho Ma - Fully Assessed Reason for Visit: Consult [502] Cmt: abdominal pain, nausea, diarrhea Visit Diagnoses:Upper abdominal pain [R10.10] Nausea [R11.0] Diarrhea, unspecified type [R19.7] Heartburn [R12] Order(s):CONSULT TO GASTROENTEROLOGY [9010] Order #: [id number]: 1 dicyclomine (BENTYL) 20 mg tabletTake 1 tablet by mouth befo re meals and at bedtime.Disp: 120 tabletRfl: 3 EGD [1372617] Order #: [id number] FUTURE Prescriptions as of 08/10/2019 Sig: DICYCLOMINE [...] will be with Dr. Perry at the [facility] on August 22. this will be [...] * *Final Report* * * Normal 07-09 [facility] UPPER QUADRANT DATE OF EXAM: Jul 27 2019 8:59AM [place] (85488) WRU 1032 - US ABD RIGHT UPPER [...] normal limits, measuring 11.7 cm in [facility]. Ascites: None. IMPRESSION: Mildly coarse echotexture of the liver. Pancreas is not clearly visualized due to overlying bowel ga s. Vice President Business & Corporate Development: MARIELLE Transcribe Date/Time: Jul 27 2019 9:02A Dictated by : YOLY TORREZ MD This examination was interpreted and the report reviewed and electronically signed by: YOLY TORREZ MD on Jul 27 2019 9:06AM EST [id number] progress on 2019-07 PROGRESS HNO ID: [id number] Normal 07-27-2019 [facility] Author: Jennyfer ([facility]) Kyung [place] (09001) Service: ? Author Type: Bread Pan Greaser Type: Progress Notes Filed: 07/27/2019 9:00 AM [...] [Catalytic activity/Vol] 14 16-61 U/L Low 07-27-2019 [facility] (16262) Comment: Performed By: #### HPYLRI, L IPA, AMYL ####[place] [id number] [place] [address] [phone] helico pylori ab on 2019-07-27 H pylori Ab, IgG <0.4 Normal 07-27-2019 [facility] (88465) Comment: Result Comment: U/mL are int erpreted as follows: Negative specimens <0.9 Indeterminate specimens >=0. 9 to <1.1 Positive specimens >=1.1 Results were obtained with t FaceAlerta IMMULITE 2000 H.pylori IgG EIA. Results obtained from other manufacturers' assay methods may not be used interchangeably. Performed By: #### HPYLRI, L IPA, AMYL ####[place] [id number] [place] [address] [phone] H. pylori IgG, Qual Negative Negative Normal 07-27-2019 [facility] (51521) Comment: Result Comment: H. pylori Ig G antibodies were not detected in the sample. Negative results by this jason t do not preclude recent primary infection. Performed By: #### HPYLRI, L IPA, AMYL ####[place] [id number] [place] [address] [phone] comp metabolic panel on 2019-07-27 Albumin [Mass/Vol] 4.6 3.9-4.9 g/dL Normal 07-27-2019 [facility] (15574) ALP [Catalytic 74 38-113 U/L Normal 07-27-2019 [facility] activity/Vol] [place] and (75393) ALT [Catalytic 18 10-54 U/L Normal 07-27-2019 [facility] activity/Vol] [place] and (98314) Anion gap 10 9-18 mmol/L Normal 07-27-2019 [facility] [Moles/Vol] [place] (07943) AST [Catalytic 17 14-40 U/L Normal 07-27-2019 [facility] activity/Vol] [facility] and (21496) Bilirubin [Mass/Vol] 0.3 0.2-1.3 mg/dL Normal 0 [facility] (48986) Calcium [Mass/Vol] 9.3 8.5-10.2 mg/dL Normal 07-27-2019 [facility] (43018) Chloride [Moles/Vol] 105 97-105 mmol/L Normal 0 [facility] (15656) CO2 [Moles/Vol] 23 22-30 mmol/L Normal 07-27-2019 [facility] (82618) Creatinine 0.67 0.73-1.22 mg/dL Low 07-27-2019 [facility] [Mass/Vol] [place] (75108) eGFR- Amer. >60 Normal 07-27-2019 [facility] (95998) GFR/1.73 sq M >60 mL/min/{1.73_m Normal 07-27-2019 [facility] predicted among 2} [facility] (01191) non-blacks MDRD (S/P/Bld) [Vol rate/Area] Comment: Result [...] Glucose [Mass/Vol] 101 74-99 mg/dL High 07-27-2019 [facility] (12061) Comment: Result Comment: The [place] Diabetes Association (ADA) provides guidance for cutoff [...] for diagnosis of diabetes. Reference: Standards of [facility] Care in Diabetes 2016, [place] [employer] Association. Diabetes Care. 2016.39(Suppl 1). Potassium [Moles/Vol] 3.9 3.7-5.1 mmol/L Normal 07-27-19 [facility] (02706) Protein [Mass/Vol] 7.8 6.3-8.0 g/dL Normal 07-27-2019 [facility] (75284) Sodium [Moles/Vol] 138 136-144 mmol/L Normal 07-27-2019 [facility] (24940) Urea nitrogen [Mass/Vol] 14 9-24 mg/dL Normal 07-27 [facility] (84767) cbc and differential on 2019-07-27 Abs Baso 0.03 <0.11 k/uL Normal 07-27-2019 [facility] (38716) Abs Apache 1.17 <0.87 k/uL High 07-27-2019 [facility] (63261) Abs Neut 4.42 1.45-7.50 k/uL Normal 07-27-2019 [facility] (28792) Basophils/100 WBC (Bld) 0.3 % Normal 2019 [facility] (82559) Eosinophils (Bld) [#/Vol] 0.26 <0.46 k/uL Normal 07-09 [facility] (31696) Eosinophils/100 WBC (Bld) 2.7 % Normal 07-09 [facility] (35052) Erythrocyte distribution 13.1 11.5-15.0 % Normal 07-27 [facility] width (RBC) [Ratio] [place] (29527) Hematocrit (Bld) [Volume 44.0 39.0-51.0 % Normal 07-27 [facility] fraction] [place] (89043) Hemoglobin (Bld) 14.6 13.0-17.0 g/dL Normal 07-27-2019 [facility] [Mass/Vol] [place] (16327) Lymphocytes (Bld) [#/Vol] 3.70 1.00-4.00 k/uL Normal 07-09 [facility] (00322) Lymphocytes/100 WBC (Bld) 38.6 % Normal 07-09 [facility] (54305) MCH (RBC) [Entitic mass] 28.6 26.0-34.0 pG Normal 07-27 [facility] (36188) MCHC (RBC) [Mass/Vol] 33.2 30.5-36.0 g/dL Normal 07-27-19 20 [facility] (02152) MCV (RBC) [Entitic vol] 86.3 80.0-100.0 fL Normal 07-27 [facility] (43813) Monocytes/100 WBC (Bld) 12.2 % Normal 2019 [facility] (87899) Neutrophils/100 WBC (Bld) 46.2 % Normal 07-09 [facility] (78115) Platelet mean volume 9.1 9.0-12.7 fL Normal 0 [facility] (Bld) [Entitic vol] [place] (02140) Platelets (Bld) [#/Vol] 316 150-400 k/uL Normal 2019 [facility] (57796) RBC (Bld) [#/Vol] 5.10 4.20-6.00 m/uL Normal 07-27-2019 [facility] [place] (80343) WBC (Bld) [#/Vol] 9.88 3.70-11.00 k/uL Normal 07-27-2019 [facility] (90003) amylase on Amylase [Catalytic 29 30-104 U/L Low 07-27-2019 [facility] activity/Vol] (53371 ) Comment: Performed By: #### HPYLRI, L IPA, AMYL ####[facility] [place] [address] [phone] progress on 2019-07 PROGRESS HNO ID: [id number] Normal 07-26-2019 [facility] Author: Arcelia (Remedios) [facility] (54012) Service: ? Author Type: Nurse Practitioner Type: [...] mg tablet Take 1-2 tablets by mo [facility] every 4 hours as needed. FAMILY [...] 2019-07-26 CNOV Office Visit (INTMWS) Normal 07-26-19 [place] [facility] GRETA ALMAGUER ([id number]) 1975 M [place] Date Time Provider Department (97475) 07/26/19 4:00 PM ARCELIA FLORES ([facility]) INTMWS [...] Order(s):CONSULT TO GASTROENTEROLOGY [9010] Order #: [id number]: 1 FUTURE CBC + DIFF [SQCBCDIF] Order #: [id number] FUTURE COMP METABOLIC PANEL [SQCMP] Order #: [id number] FUTURE H PYLORI IGG AB [SQHPYLRI] Order #: [id number] FUTURE AMYLASE BLD [SQAMYL] Order #: [id number] FUTURE LIPASE BLD [SQLIPA] Order #: [id number] FUTURE Omeprazole 40 mg capsuleTake 1 capsule by mouth once daily.D isp: 30 capsuleRfl: 0 sucralfate (CARAFATE) 1 gram tabletTake 1 tablet by mouth be fore meals and at bedtime.Disp: 120 tabletRfl: 0 US ABD RT UPPER QUADRANT [[id number]] Order #: [id number] FUTUR E Prescriptions as of 07/26/2019 Sig: [...] ARCELIA FLORES CNP on 07/26/19 replaced document: [facility] observati ons on 2017-03-31 EKG QRS axis 80 deg Invalid 03-31-2017 - [place] Interpretation Code 03-31-2017 [facility] (84096) Interpretation Sinus Rhythm Invalid 03-31-2017 - [place] WITHIN Interpretation Code 03-31-2017 [facility] NORMAL (37657) LIMITS P [place] 71 deg Invalid 03-31-2017 - [place] Interpretation Code 03-31-2017 [facility] (18762) DE Interval 168 ms Invalid 03-31-2017 - [place] Interpretation Code 03-31-2017 [facility] ([id number]) Pulse (Heart Rate) 71 BPM /min Invalid 03-31-2017 - [place] Interpretation Code 03-31-2017 [facility] ([id number]) QRS Duration 92 ms Invalid 03-31-2017 - [place] Interpretation Code 03-31-2017 [facility] ([id number]) QT Interval new path ms Invalid 03-31-2017 - [place] Interpretation Code 03-31-2017 [facility] ([id number]) QTc [place] 391 ms Invalid 03-31-2017 - [place] Interpretation Code 03-31-2017 [facility] ([id number]) T [place] 62 deg Invalid 03-31-2017 - [place] Interpretation Code 03-31-2017 [facility] ([id number]) office visit: jhr o n 2017-03-31 Documentation of Done Invalid Interpretation 03-31-2017 - [place] [facility] current medications Code 03-31-2017 Group ([id number]) (procedure) Fall risk assessment No Invalid Interpretat ion 03-31-2017 - [place] [facility] Code 03-31-2017 Group (44 691) Protein mass conc Done Invalid Interpretation 03-31-2017 - [place] [facility] Code 03-31-2017 Group ([id number] [id number]) clinical lists update: preload on 2017-03-12 Tobacco smoking Current every Invalid 03-12-2017 - [place] [facility] status [facility] day smoker Interpretation Code 017 Group (35170) Tobacco use Current every Invalid 03-12-2017 - [place] [facility] day smoker Interpretation Code 7 Group ([id number]) Vital Signs Vital Sign Description Value / Unit Date Location The following section is limited to 5 en tries per type and includes entries from the following time range: 20170331 - 20170309 4. BMI (Body Mass Index) 23.25 kg/m2 03-31-2017 - 03-31-2017 [place] [facility] ([id number]) BP Diastolic 78 mm[Hg] 03-31-2017 - 03-31-2017 [place] [facility] ([id number]) BP Systolic 120 mm[Hg] 03-31-2017 - 03-31-2017 [place] [facility] ([id number]) Heart rate 71 /min 03-31-2017 - 03-31-2017 [place] [facility] ([id number]) Height 190.5 cm 03-31-2017 - 03-31-2017 [facility] ([id number]) Pulse (Heart Rate) 71 /min 03-31-2017 - 03-31-2017 [place] [facility] ([id number]) Respiratory Rate 18 /min 03-31-2017 - 03-31-2017 [place] [facility] ([id number]) Weight 84.37 kg 03-31-2017 - 03-31-2017 [place] [facility] ([id number]) Encounters Date Type Reason Provider Location 02-27-2020 Patient External [facility] - encounter Provider 02-27-2020 procedure 02-27-2020 Refill Gastroesophageal [facility] - reflux disease without [place] 02-27-2020 esophagitis Comment: Refill Request 02-14-2020 - Refill Lower urinary tract Phu Jimenez In ternal Medicine 02-14-2020 symptoms [place] Comment: Refill Request 02-27-2020 - Results Only External [facility] 02-27-2020 Provider 03-16-2020 - Telephone Upper abdominal Phu Campoverde [facility] 03-16-2020 encounter pain Tony [place] Comment: ER yesterday/not eating 01-24-2020 - 01-24-2020 Telephone encounter Phu bartlett [facility] [place] Comment: results Procedures Procedure Name Date Provider Location EXTERNAL IMAGING 02-27-2020 - External Provider [facility] ([id number]) 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 - Greta Barnes NP [place] [facility] 03-31-2017 ([id number]) Ecg routine ecg w/least 03-31-2017 - Greta Barnes NP [place] [facility] 12 lds w/i&r 03-31-2017 ([id number]) Follow Up Appt 1 year 03-31-2017 - [facility] 03-31-2017 ([id number]) Plan of Treatment Plan Description Date Location INFLUENZA (#1) INFLUENZA (#1) 2020 - [facility] 02-07-2020 ([id number]) Appointment no information 04-01-2018 - [place] [facility] 04-01-2018 ([id number]) 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 - [place] [facility] 03-31-2017 ([id number]) Follow Up Appt 1 year Follow Up Appt 1 year 03-31-2017 - [facility] [facility] 03-31-2017 ([id number]) Appointment Appointment 03-31-2017 - [place] [facility] 03-31-2017 ([id number]) Appointment Appointment 03-17-2017 - [place] [facility] 03-17-2017 ([id number]) LIPID SCREEN LIPID SCREEN 2011 - [facility] 2011 ([id number]) ONE PNEUMOVAX PRIOR TO ONE PNEUMOVAX PRIOR TO 1995 - [facility] AGE 66 AGE 66 1995 ([id number]) DTAP,TDAP,TD (1 - Tdap) DTAP,TDAP,TD (1 - Tdap) 1995 - [facility] 1995 ([id number]) HEPATITIS C SCREENING HEPATITIS C SCREENING 1994 - [facility] 1994 ([id number]) HIV SCREENING HIV SCREENING 1994 - [facility] 1994 ([id number]) no information [facility] ([id number]) Payers Payer Name Policy Number Location [employer] [id number] [facility] (44 195) The following information is from the original human readable contentNo Payer Records Found Social History Type Social History Date Location Description Tobacco use and exposure Never used 10-28-2019 - [facility] 10-28-2019 ([id number]) History SDOH Social 2 07-26-2019 - [facility] Membership 07-26-2019 ([id number]) Alcohol intake Ex-drinker (finding) 10-28-2019 - [facility] linic 10-28-2019 ([id number]) History SDOH Alcohol 1 07-26-2019 - [facility] linic Frequency 07-26-2019 ([id number]) History SDOH Alcohol Std 98 07-26-2019 - [facility] Drinks 07-26-2019 ([id number]) History SDOH Social 4 07-26-2019 - [facility] Phone 07-26-2019 ([id number]) Tobacco smoking status Current every day smoker 10-28-2019 - [facility] NHIS 10-28-2019 ([id number]) History SDOH Social 8 07-26-2019 - [facility] Living 07-26-2019 ([id number]) History SDOH Physical 3 07-26-2019 - [facility] Activity MPS 07-26-2019 ([id number]) History SDOH Stress 5 07-26-2019 - [facility] inic 07-26-2019 ([id number]) History SDOH Education 14 07-26-2019 - [facility] 07-26-2019 ([id number]) Sex Assigned At Not on file [facility] ([id number]) Exposure to SARS-CoV-2 Not sure [facility] (event) ([id number]) The following information is from the original human readable contentNo Social History Records Found Advance Directives No Advanced Directives Records Found Documents on File Type Date 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 [facility] provides no warranty or guarantee of the accuracy or completeness of information in this document. UNRECOGNIZED CONTENT PROVIDED BELOW FOR UNRECOGNIZED SECTION Source Comments In the event this information is protected by the Federal Confidentiality of Alcohol and Drug Abuse Patient Records regulations: The Federal rules restrict any use of the information to criminally investigate or prosecute any alcohol or drug abuse patient.[facility] the event this information is protected by the Federal Confidentiality of Alcohol and Drug Abuse Patient Records regulations: The Federal rules restrict any use of the information to criminally investigate or prosecute any alcohol or drug abuse patient.[facility] the event this information is protected by the Federal Confidentiality of Alcohol and Drug Abuse Patient Records regulations: The Federal rules restrict any use of the information to criminally investigate or prosecute any alcohol or drug abuse patient.[facility] the event this information is protected by the Federal Confidentiality of Alcohol and Drug Abuse Patient Records regulations: The Federal rules restrict any use of the information to criminally investigate or prosecute any alcohol or drug abuse patient.[facility] the event this information is protected by the Federal Confidentiality of Alcohol and Drug Abuse Patient Records regulations: The Federal rules restrict any use of the information to criminally investigate or prosecute any alcohol or drug abuse patient.[facility] the event this information is protected by the Federal Confidentiality of Alcohol and Drug Abuse Patient Records regulations: The Federal rules restrict any use of the information to criminally investigate or prosecute any alcohol or drug abuse patient.[facility] UNRECOGNIZED CONTENT PROVIDED BELOW FOR UNRECOGNIZED SECTION [...] DATE CREATED AUTHOR AUTHOR'S ORGANIZATIO N 03/17/2020 [facility] Gonzales sewell
== END 2019-11-06 03:09 | disposition home or self-care (01) ==
LOC: ED 02:00
PROVIDERS: Emergency Provider Emergency Medicine; PCP Internal Medicine
DX: R07.89 Other chest pain (principal); R06.00 Dyspnea, unspecified; M54.6 Pain in thoracic spine; K21.9 Gastro-esophageal reflux disease without esophagitis; Z79.899 Other long term (current) drug therapy; Z87.891 Personal history of nicotine dependence
CPT/HCPCS: 71275; 74175; 80048; 84484; 85025; 93005; 96374; 96375; 99285; Q9967; A4216; J2405

== ENCOUNTER 2020-01-27 17:02 | Emergency (ER) | payer MEDICAID, SELFPAY ==
[2020-01-27 17:03] VITALS: BP 154/111; PULSE 91; RESP 16; TEMP 36.8; O2SAT 94; BMI 31.0
--- NOTE | 2020-01-27 17:11 | CT_ITS ---
STUDY: CTA CHEST REASON FOR EXAM: Male, 44 years old. ? DISSECTION. Chest and back pain. Hx of Sirena-Danlos syndrome, HTN, afib, asthma and cirrhosis RADIATION DOSAGE (If Supplied By Facility): CTDIvol = ( 20.99 ) mGy, DLP = ( 570.59 ) mGycm TECHNIQUE: The examination was performed with the intravenous administration of Isovue 300 100ml. Post-processing of the angiographic images was performed, with multiplanar reformation and 3D reconstruction. Individualized dose optimization techniques were used for this CT. COMPARISON: CT of the chest dated NOVEMBER 06, 2019. CTA of the chest dated May 01 2019. FINDINGS: Normal enhancement of the main pulmonary artery and right and left pulmonary arteries. There is limited enhancement of the bilateral peripheral pulmonary arteries. There is no demonstrated pulmonary embolism. Normal thoracic aorta and visualized great vessels. There is no demonstrated aortic dissection. Normal heart size and pericardium. Normal mediastinum. Normal hilar regions. Normal visualized trachea and bronchi. The lungs are well expanded. Mild linear scarring is seen in the lateral aspect of the left lower lobe. No pneumonic consolidation or pulmonary edema. No pleural effusion. Normal pleura. Normal chest wall structures. Normal osseous structures. No demonstrated acute or significant process of the visualized upper abdomen. Small benign cyst is seen in the anterior aspects of the right and left lobes of the liver unchanged from multiple prior studies. CT/CTA Chest W/WO Contrast IMPRESSION: 1. No demonstrated pulmonary embolism or arterial dissection. 2. Mild linear scarring is seen in the lateral aspect of the left lower lobe. No pneumonic consolidation or pulmonary edema. No pleural effusion. Electronically Signed: Matthieu Birch MD at 19:08 EDT , Service support ,
--- NOTE | 2020-01-27 17:11 | EKG12_ITS ---
Test Reason : CP Blood Pressure : / mmHG Vent. Rate : 076 BPM Atrial Rate : 076 BPM P-R Int : 160 ms QRS Dur : 094 ms QT Int : 360 ms P-R-T Axes : 046 051 032 degrees QTc Int : 405 ms Normal sinus rhythm Normal ECG Confirmed by MINDI HICKEY, PATTIE ([id number]), film and video editor WAQAS DENNISON ([id number]) on 01/31/2020 8:59:22 AM Referred By: BOY Confirmed By:CIPRIANO OBREGON MD
--- NOTE | 2020-01-27 17:20 | ED.DCSUM_ITS ---
- ER Visit Summary Date of Service: 01/27/20 Chief Complaint: Chest pain History of Present Illness: The patient is a 44 M presenting with chest pain. Patient states that this has been ongoing for the past 4 days. He states the pain is continuous but waxes and wanes. It is a sharp pain in his mid to left chest. He also complains of left upper back pain. He denies shortness of breath. He states he has chronic nausea. He has a family history of Sirena- Danlos syndrome. He had a normal stress echo October 18, 2019. Physical Examination: Vitals are stable. Patient is afebrile. Alert no acute distress. HEENT exam is unremarkable. Neck is supple. Lungs are clear and equal bilaterally. Heart is regular rate and rhythm. Abdomen is soft nontender nondistended. Extremities are unremarkable. Skin is warm and dry. No focal neurologic deficit. Remainder of exam is unremarkable. Emergency Department Course and Treatment: EKG is sinus rate of 76 with no acute ischemic changes. CBC, chemistries unremarkable. Troponin is negative. CTA chest shows no demonstrated pulmonary embolism or arterial dissection. Mild linear scarring is seen in the lateral aspect of the left lower lobe. No pneumonic consolidation or pulmonary edema. No pleural effusion. On reevaluation, patient is resting comfortably. He has had persistent pain for the past 4 days with a negative troponin. He had a normal stress test in October of this year. He is comfortable with discharge home to follow-up with his primary care physician. Advised return to ED for worsening complaints. Disposition: Discharge home Impression: Atypical chest pain This note was generated with [employer] dictation software. It may contain incorrect words, spelling, and punctuation that were not noted in review of the chart prior to signing ED Disposition - Plan for ED Patient: Referrals: Phu Jimenez MD [Primary Care Provider] -
[2020-01-27] MEDS: Aspirin 81 MG TAB.CHEW 324 MG PO (17:24)
[2020-01-27 17:35] LABS: Absolute Neutrophil Count 5.2 X10^3/uL (2.0-7.7); Basophil# 0.05 X10^3/uL; Basophil% 0.6 % (0-1); Eosinophil# 0.15 X10^3/uL; Eosinophils% 1.7 % (0-5); Hematocrit 45.3 % (40-54); Lymphocyte % 30.5 % (19-41); Mean Corp Hgb Conc 33.1 g/dL (32-36); Mean Corpuscular Hgb 28.7 pg (27.0-32.0); Mean Corpuscular Volume 86.6 fL (80-94); Mean Platelet Vol. 9.2 fl (6.2-12.0); Monocyte# 0.73 X10^3/uL; Monocyte% 8.2 % (0-10); NRBC Flagged by Analyzer 0 % (0-5); Neutrophil % 58.8 % (47-70); Platelet Count 330 K/mm3 (150-450); RBC Distribution Width CV 12.5 % (11.6-14.6); RBC Distribution Width SD 39.6 fl (35.1-43.9); Red Blood Count 5.23 M/mm3 (4.6-6.2); White Blood Count 8.9 K/mm3 (4.4-11.0)
[2020-01-27 17:45] LABS: Anion Gap 6 (5-15); BUN 7 mg/dL (7-18); BUN/Creat Ratio 9.3 RATIO (10-20); Calcium,Total 9.3 mg/dL (8.5-10.1); Chloride 111 mmol/L (98-107); Creatinine, Serum 0.75 mg/dL (0.70-1.30); EST Glomerular Filtration Rate 120 mL/min (>60); Est Glom Filt Rate - Afr Amer 145 mL/min (>60); Estimated Creatinine Clearance 147.66 ml/min; Glucose 113 mg/dL (74-106); Potassium 4.3 mmol/L (3.5-5.1); Sodium Level 139 mmol/L (136-145)
[2020-01-27 18:07] VITALS: BP 149/96; PULSE 69; RESP 15; O2SAT 99
[2020-01-27 19:05] VITALS: BP 149/96; PULSE 61; RESP 17; O2SAT 96
--- NOTE | 2020-01-27 19:24 | ED.DEP ---
ED Disposition - Plan for ED Patient: Instructions: ED Chest Pain Atypical Unkn Cause Referrals: Phu Jimenez MD [Primary Care Provider] -
== END 2020-01-27 19:32 | disposition home or self-care (01) ==
LOC: ED 17:29
PROVIDERS: Emergency Provider Emergency Medicine; PCP Internal Medicine
DX: R07.89 Other chest pain (principal); M54.6 Pain in thoracic spine; R11.0 Nausea; I48.91 Unspecified atrial fibrillation; K21.9 Gastro-esophageal reflux disease without esophagitis; Z72.0 Tobacco use; Z79.899 Other long term (current) drug therapy
CPT/HCPCS: 71275; 80048; 84484; 85025; 93005; 99285; Q9967; A4216

== ENCOUNTER 2020-03-15 21:06 | Emergency (ER) | payer MEDICAID, SELFPAY ==
[2020-03-15 21:07] VITALS: BP 164/107; PULSE 125; RESP 18; TEMP 36.1; O2SAT 98; BMI 28.2
--- NOTE | 2020-03-15 21:27 | EKG12_ITS ---
Test Reason : CP Blood Pressure : / mmHG Vent. Rate : 105 BPM Atrial Rate : 105 BPM P-R Int : 152 ms QRS Dur : 096 ms QT Int : 340 ms P-R-T Axes : 056 068 029 degrees QTc Int : 449 ms Sinus tachycardia Minimal voltage criteria for LVH, may be normal variant Borderline ECG Confirmed by MINDI HICKEY, PATTIE ([id number]), editor map WAQAS DENNISON ([id number]) on 03/21/2020 11:04:41 AM Referred By: ZOLTAN Confirmed By:CIPRIANO OBREGON MD
--- NOTE | 2020-03-15 21:33 | CT_ITS ---
HISTORY: ? DISSECTION. Chest and abdomen pain. Hx of Sirena danlos and fatty cirrhosis TECHNIQUE: CT angiogram images of the abdomen and pelvis were obtained with 100 mL Isovue-370 IV contrast. Enteric contrast was not administered. 3D MIP images reviewed to aid in vascular evaluation. A radiation dose optimization technique was used for this scan. Number of images including paperwork: [id number] COMPARISON: 11/06/2019 FINDINGS: AORTA: No aneurysm or dissection. Mild atherosclerotic plaque. VISCERAL ARTERIES: Unremarkable. ILIAC ARTERIES: Unremarkable. VISUALIZED FEMORAL ARTERIES: Unremarkable. LOWER CHEST: Refer to CT chest report LIVER AND BILIARY TRACT: Small well-defined hypodense hepatic lesions are unchanged and compatible with cysts. No follow-up warranted per consensus guidelines. No radiopaque calculi. No biliary dilatation. SPLEEN: Unremarkable. PANCREAS: Unremarkable. ADRENAL GLANDS: Unremarkable. KIDNEYS/URETERS: Unremarkable. BOWEL: Unremarkable. LYMPH NODES: No pathologic appearing adenopathy. FREE FLUID: No significant free fluid. FREE AIR: None. PELVIS: Unremarkable. OSSEOUS AND SOFT TISSUE STRUCTURES: No acute skeletal findings. CT/Abdomen/Pelvis W IV Cont ONLY IMPRESSION: No acute vascular abnormality of the abdomen and pelvis. Individualized dose optimization techniques were used for this CT. at 2227 Reported and signed by: Sari Alcazar MD Electronically Signed: Sari Alcazar MD at 22:27 EDT Tel , Service support ,
--- NOTE | 2020-03-15 21:33 | CT_ITS ---
HISTORY: ? DISSECTION. Chest and abdomen pain. Hx of Sirena danlos and fatty cirrhosis ADDITIONAL HISTORY: None provided. EXAMINATION/TECHNIQUE: CTA Chest W/ Contrast Injection (and W/O Contrast Images if performed) PULMONARY EMBOLISM PROTOCOL: 2D and 3D images to include MIP and/or volume rendered images CONTRAST: IV 100mL Isovue-370 Number of images including paperwork: 1010 A radiation dose optimization technique was used for this scan. COMPARISON: 01/27/2020 FINDINGS: PULMONARY ARTERIES: No central or large peripheral filling defects. AORTA AND GREAT VESSELS: Unremarkable. HEART/PERICARDIUM: Unremarkable. MEDIASTINUM: Unremarkable. ADENOPATHY: No pathologic appearing adenopathy. THYROID: Unremarkable visualized portions. LUNG PARENCHYMA: No consolidation or mass. Dependent atelectasis. Paraseptal emphysema at the apices. PLEURAL SPACES: Unremarkable. UPPER ABDOMEN: Unremarkable. OSSEOUS AND SOFT TISSUE STRUCTURES: No acute skeletal findings. CT/Chest WITH Contrast IMPRESSION: No acute vascular abnormality of the chest. Individualized dose optimization techniques were used for this CT. at 2233 Reported and signed by: Sari Alcazar MD Electronically Signed: Sari Alcazar MD at 22:33 EDT Tel , Service support ,
--- NOTE | 2020-03-15 21:39 | ED.DCSUM_ITS ---
History of Present Illness Chief Complaint: Chest Pain Informant: Patient Narrative: Patient is a 44-year-old male who presents to emerge department for acute onset chest pain and shortness of breath. Started an hour prior to arrival in the emergency department. It starts in his chest and goes down to his upper abdomen. He denies ever experiencing this before in the past. He has had GERD- like symptoms but does not feel like this is similar. Radiation into his back. He has had some intermittent chest pains over the past 4 days of the pain going down his left arm. He denies any radiation into his arm at this time. He was concerned as he has a family history of Sirena-Danlos although he never personally got diagnosed with this. His mother of an aortic aneurysm. He denies any recent cough, cold, congestion. No fevers or chills. He did try taking his omeprazole and his antacid but did not give him any relief. Past Medical History - Allergies and Home Meds Allergies/Adverse Reactions: Allergies No Known Allergies Allergy (Verified 03/15/20 21:09) Primary Care Physician: Phu Jimenez MD [Primary Care Provider] - 2 Days Past Medical History: None Surgical History: - - Inguinal hernia repair in youth. Smoking Status: Current every day smoker - Family History Maternal Family History: Reports: - - History of AA with associated, known Sirena- Danlos. Review of Systems All systems negative except as indicated General: Denies: Chills, Fever, Sweats Eyes: Denies: Visual changes - bilaterally, Diplopia ENT: Denies: Rhinorrhea, Sore throat Cardiovascular: Reports: Chest pain. Denies: Palpitations Respiratory: Reports: Dyspnea. Denies: Cough Gastrointestinal: Reports: Abdominal pain. Denies: Nausea, Vomiting, Diarrhea Genitourinary: Denies: Dysuria, Hematuria, Frequency Musculoskeletal: Denies: Back pain, Extremity Pain Skin: Denies: Rash, Wounds Neurological: Denies: Headache, Weakness, Numbness Physical Exam Vital Signs/Narrative: Vital Signs Temp Pulse Resp BP Pulse Ox 03/15/20 21:07 97 F L 125 H 18 164/107 H 98 Inital Vital Signs reviewed: Yes General: Well nourished, Well developed, Acute Distress - Mild distress Head: Normocephalic, Atraumatic Eyes: Perrl, EOMI ENT: Moist mucous membranes, No rhinorrhea Neck: Supple, Nontender Cardiovascular: Regular rhythm, No murmurs, Tachycardia, - - 2+ radial pulse bilaterally Respiratory: No distress, CTA bilaterally, Chest nontender Abdomen: Soft, Nondistended, Normal bowel sounds, Tender - Epigastric Back: Nontender, Normal Inspection Extremities: Nontender, No edema, - - 2+ DP pulse bilateral. Negative for: Edema, Calf Tenderness Skin: Normal color, No rash Neurological: Alert, Oriented x3, Cranial nerves II-XII grossly intact, Normal Strength, Normal Sensation Psychological: Normal affect, Normal Mood Diagnostic/Tx/Re-eval - EKG Initial EKG Interpretation: - - Rate of 105 bpm in sinus tachycardia. Normal intervals. Normal axis. No ST elevations or depressions appreciated. No T wave abnormalities. - Medical Decision Making Patient presents to the ED for chest pain and epigastric abdominal pain. With history of Sirena-Danlos he was in severe discomfort with abnormal vital signs so he was taken over for CT scan immediately. This did not show any evidence of aortic dissection or obvious pulmonary embolism. No obvious source for his pain. His initial troponin is negative. EKG not showing signs of ischemia or arrhythmia. After morphine he is feeling much better. He still having some discomfort so was given a GI cocktail. This almost completely resolved his pain is feeling much better. Out of an abundance of precaution we did perform a second troponin test. This does all seem to be GI related. Patient is to follow-up with his PCP. Warning signs and symptoms for which to return to the ED are reviewed with him. He understands and is agreeable this plan. Patient discharged home in stable condition. Upon discharge vital signs are much improved. His heart rates in the 80s and blood pressures in the 120 systolic. He is not hypoxic at any point. ED Disposition - Plan for ED Patient: Disposition: Home or Assisted Living Diagnosis: Chest pain, Epigastric abdominal pain Instructions: ED Epigastric Pain [facility], ED Chest Pain [facility] Referrals: Phu Jimenez MD [Primary Care Provider] - 2 Days
[2020-03-15 21:45] VITALS: O2SAT 94
[2020-03-15 21:54] LABS: Absolute Lymphocyte Count 6.51 X10^3/uL (0.83-4.51); Absolute Neutrophil Count 6.1 X10^3/uL (2.0-7.7); Basophil# 0.08 X10^3/uL; Basophil% 0.6 % (0-1); Eosinophil# 0.36 X10^3/uL; Eosinophils% 2.5 % (0-5); Hemoglobin 14.3 g/dL (13.0-16.5); Lymphocyte # 6.51 X10^3/ul (4.0); Lymphocyte % 45.5 % (19-41); Mean Corp Hgb Conc 33.3 g/dL (32-36); Mean Corpuscular Hgb 28.9 pg (27.0-32.0); Mean Corpuscular Volume 86.9 fL (80-94); Monocyte# 1.14 X10^3/uL; NRBC Flagged by Analyzer 0 % (0-5); Neutrophil # 6.14 X10^3/uL (2.7-7.7); Neutrophil % 42.9 % (47-70); POSITIVE DIFFERENTIAL YES; Platelet Count 367 K/mm3 (150-450); RBC Distribution Width CV 13.2 % (11.6-14.6); RBC Distribution Width SD 42.1 fl (35.1-43.9); Red Blood Count 4.95 M/mm3 (4.6-6.2); White Blood Count 14.3 K/mm3 (4.4-11.0)
[2020-03-15 22:00] LABS: Differential Indicated SCAN CRITERIA MET
[2020-03-15 22:07] VITALS: BP 129/78; PULSE 78; RESP 18; O2SAT 95
[2020-03-15 22:15] LABS: Anion Gap 7 (5-15); BUN 14 mg/dL (7-18); BUN/Creat Ratio 15.6 RATIO (10-20); Calcium,Total 8.3 mg/dL (8.5-10.1); Chloride 108 mmol/L (98-107); EST Glomerular Filtration Rate 98 mL/min (>60); Est Glom Filt Rate - Afr Amer 118 mL/min (>60); Estimated Creatinine Clearance 123.05 ml/min; Glucose 135 mg/dL (74-106); Lipase 38 U/L (73-393); Magnesium 1.9 mg/dL (1.6-2.6); Potassium 4.5 mmol/L (3.5-5.1); Sodium Level 140 mmol/L (136-145)
[2020-03-15] MEDS: Morphine 4 MG/ML Syringe IV (22:29)
[2020-03-15 22:43] LABS: Platelet Estimate ADEQUATE (ADEQ); Red Cell Morphology NORM C+C NORMAL (NORM C&C)
[2020-03-15 22:44] LABS: Anisocytosis RARE
[2020-03-15 23:26] VITALS: BP 120/77; PULSE 72; RESP 18; O2SAT 95
[2020-03-15] MEDS: Mag Hydrox/Al Hydrox/Simeth 30 ML UDC PO (23:30)
[2020-03-16] VITALS: BP 136/85; PULSE 70; RESP 18; O2SAT 95
[2020-03-16 00:43] VITALS: BP 112/72; PULSE 74; RESP 15; O2SAT 99
[2020-03-19 11:55] LABS: Pathologist Review Reviewed
== END 2020-03-16 00:49 | disposition home or self-care (01) ==
PROVIDERS: Emergency Provider Emergency Medicine; PCP Internal Medicine
DX: R07.9 Chest pain, unspecified (principal); R10.13 Epigastric pain; R06.02 Shortness of breath; F17.200 Nicotine dependence, unspecified, uncomplicated; Z79.899 Other long term (current) drug therapy
CPT/HCPCS: 36415; 71260; 74177; 80048; 83690; 83735; 84484; 85025; 93005; 96374; 99284; Q9967; A4216

== ENCOUNTER 2020-07-13 17:44 | Emergency (ER) | payer MEDICAID, SELFPAY ==
[2020-07-13 17:44] VITALS: BP 179/95; PULSE 74; RESP 18; TEMP 35.3; O2SAT 96; BMI 29.5
[2020-07-13 18:25] LABS: Absolute Lymphocyte Count 2.95 X10^3/uL (0.83-4.51); Basophil# 0.06 X10^3/uL; Basophil% 0.7 % (0-1); Eosinophil# 0.18 X10^3/uL; Hematocrit 42.9 % (40-54); Hemoglobin 14.5 g/dL (13.0-16.5); Lymphocyte # 2.95 X10^3/ul (4.0); Mean Corp Hgb Conc 33.8 g/dL (32-36); Mean Corpuscular Hgb 28.5 pg (27.0-32.0); Mean Corpuscular Volume 84.3 fL (80-94); Mean Platelet Vol. 9.3 fl (6.2-12.0); Monocyte# 0.73 X10^3/uL; Monocyte% 8.2 % (0-10); NRBC Flagged by Analyzer 0 % (0-5); Neutrophil # 4.97 X10^3/uL (2.7-7.7); Neutrophil % 55.7 % (47-70); Platelet Count 326 K/mm3 (150-450); RBC Distribution Width CV 13.1 % (11.6-14.6); RBC Distribution Width SD 40.3 fl (35.1-43.9); Red Blood Count 5.09 M/mm3 (4.6-6.2); White Blood Count 8.9 K/mm3 (4.4-11.0)
[2020-07-13 18:33] LABS: Anion Gap 4 (5-15); BUN 10 mg/dL (7-18); BUN/Creat Ratio 11.6 RATIO (10-20); Chloride 109 mmol/L (98-107); Creatinine, Serum 0.86 mg/dL (0.70-1.30); EST Glomerular Filtration Rate 102 mL/min (>60); Est Glom Filt Rate - Afr Amer 123 mL/min (>60); Estimated Creatinine Clearance 127.44 ml/min; Glucose 86 mg/dL (74-106); Potassium 4.1 mmol/L (3.5-5.1); Sodium Level 139 mmol/L (136-145)
--- NOTE | 2020-07-13 19:15 | CT_ITS ---
STUDY: CT ABDOMEN AND PELVIS WITH CONTRAST REASON FOR EXAM: Male, 45 years old. RUQ ABD PAIN X 5 DAYS. WORSE AFTER EATING. NAUSEA. RADIATION DOSAGE (If Supplied By Facility): CTDIvol = ( 14.53 ) mGy, DLP = ( 1321.94 ) mGycm TECHNIQUE: Transaxial images were obtained from the dome of the diaphragm to the symphysis pubis with oral contrast. Oral and amp;amp; IV Gastrografin and amp;amp; 100mL Isovue-300 was administered. Sagittal and coronal images were reconstructed. Individualized dose optimization techniques were used for this CT. COMPARISON: CT of abdomen and pelvis dated March 15, 2020 FINDINGS: The visualized lung bases are unremarkable. The visualized portions of the heart are within normal limits. Reidentification of numerous tiny benign cysts scattered throughout the liver which is otherwise normal. Tiny punctate hyperdensity seen in the neck of the gallbladder could possibly represent stones or sludge or vascularity. Correlation with a right upper quadrant ultrasound can be obtained if indicated. Normal spleen. Normal pancreas. Normal bilateral adrenal glands. Normal right kidney. Normal left kidney. Normal visualized stomach. Normal small intestine. Normal colon. The appendix is visualized and appears normal. No free air or free fluid or bowel dilatation. There is diffuse atherosclerotic calcification of the abdominal aorta, without a demonstrated aneurysm. Normal inferior vena cava. Normal retroperitoneum. Normal urinary bladder. Normal abdominal wall. Normal osseous structures. CT/Abdomen/Pelvis WITH Contrast IMPRESSION: 1. Tiny punctate hyperdensity seen in the neck of the gallbladder could possibly represent stones or sludge or vascularity. Correlation with a right upper quadrant ultrasound can be obtained if indicated. Electronically Signed: Matthieu Birch MD at 21:38 EST , Service support ,
--- NOTE | 2020-07-13 19:19 | ED.VIS.GEN ---
History of Present Illness Chief Complaint: Abd Pain Informant: Patient Onset: Weeks Context: Gradual Onset Current Severity: Mild Maximum Severity: Moderate Narrative: Patient present secondary to right abdominal pain. He states approximately a year ago he had noted some pain in the right lower quadrant. It was very mild but he did mention it to his PCP at the time. Because of Covid he did not undergo further testing at that time. He states for the past several weeks he has had a constant pain in the right mid to lower abdomen. After he eats he will also get a spasm-like pain in the right upper quadrant. He denies fever or chills. No vomiting or change in bowel habits. He denies any prior abdominal surgery. Past Medical History - Allergies and Home Meds Allergies/Adverse Reactions: Allergies No Known Allergies Allergy (Verified 07/13/20 17:46) Primary Care Physician: Phu Jimenez MD [Primary Care Provider] - Past Medical History: None Surgical History: - - Inguinal hernia repair in youth. Lives: Spouse/ Significant Other Smoking Status: Current every day smoker - Family History Maternal Family History: Reports: - - History of AA with associated, known Sirena-Danlos. Review of Systems General: Denies: Chills, Fever Eyes: Denies: Visual changes - bilaterally ENT: Denies: Bilateral ear pain Cardiovascular: Denies: Chest pain Respiratory: Denies: Dyspnea, Cough Gastrointestinal: Reports: Abdominal pain. Denies: Vomiting, Diarrhea Genitourinary: Denies: Dysuria, Frequency Musculoskeletal: Denies: Swelling, Extremity Pain Skin: Denies: Rash, Wounds Neurological: Denies: Headache Hematologic: Denies: Easy bruising, Easy bleeding Allergy: Denies: Uticaria Physical Exam Vital Signs/Narrative: Vital Signs Temp Pulse Resp BP Pulse Ox 07/13/20 17:44 95.5 F L 74 18 179/95 H 96 Inital Vital Signs reviewed: Yes General: Well nourished, Well developed Head: Normocephalic ENT: Moist mucous membranes Neck: Supple Cardiovascular: Regular rate, Regular rhythm Respiratory: No distress, CTA bilaterally Abdomen: Soft, Normal bowel sounds, Tender - Mild right-sided abdominal tenderness.. Negative for: Guarding, Rebound tenderness Extremities: Nontender Skin: Normal color Neurological: Alert, Oriented x3 Psychological: Normal affect Diagnostic/Tx/Re-eval Impressions Abdomen/Pelvis CT 07/13/20 19:15 IMPRESSION: 1. Tiny punctate hyperdensity seen in the neck of the gallbladder could possibly represent stones or sludge or vascularity. Correlation with a right upper quadrant ultrasound can be obtained if indicated. Electronically Signed: Matthieu Birch MD at 21:38 EST , Service support , Abdomen Ultrasound 07/13/20 21:52 IMPRESSION: 1. No demonstrated acute or significant process 2. No visualized gallstones or obvious sludge Electronically Signed: Matthieu Birch MD at 23:06 EST , Service support , 07/13/20 19:15 Abdomen/Pelvis WITH Contrast [CT] Stat 07/13/20 21:52 Abdomen Limited [US] Stat Laboratory Results 07/13/20 07/13/20 07/13/20 18:10 18:10 18:10 WBC 8.9 RBC 5.09 Hgb 14.5 Hct 42.9 MCV 84.3 MCH 28.5 MCHC 33.8 RDW Std Deviation 40.3 RDW Coeff of Alhaji 13.1 Plt Count 326 MPV 9.3 Immature Gran % (Auto) 0.400 Neut % (Auto) 55.7 Lymph % (Auto) 33.0 Hernando % (Auto) 8.2 Eos % (Auto) 2.0 Baso % (Auto) 0.7 Absolute Neuts (auto) 5.0 Absolute Lymphs (auto) 2.95 Nucleated RBC % 0 Sodium 139 Potassium 4.1 Chloride 109 H Carbon Dioxide 26.0 Anion Gap 4 L BUN 10 Creatinine 0.86 Estim Creat Clear Calc 127.44 Est GFR (MDRD) Af Amer 123 Est GFR (MDRD) Non-Af 102 BUN/Creatinine Ratio 11.6 Glucose 86 Calcium 9.0 Total Bilirubin 0.30 Direct Bilirubin < 0.05 AST 15 ALT 31 Alkaline Phosphatase 94 Total Protein 8.1 Albumin 4.1 Globulin 4.0 Lipase 58 L Urine Color Urine Clarity Urine pH Ur Specific [place] Urine Protein Urine Glucose (UA) Urine Ketones Urine Occult Blood Urine Nitrite Urine Bilirubin Urine Urobilinogen Ur Leukocyte Esterase Urine RBC Urine WBC Ur Squamous Epith Cells Urine Bacteria Urine Mucus 07/13/20 19:55 WBC RBC Hgb Hct MCV MCH MCHC RDW Std Deviation RDW Coeff of Alhaji Plt Count MPV Immature Gran % (Auto) Neut % (Auto) Lymph % (Auto) Hern[place] % (Auto) Eos % (Auto) Baso % (Auto) Absolute Neuts (auto) Absolute Lymphs (auto) Nucleated RBC % Sodium Potassium Chloride Carbon Dioxide Anion Gap BUN Creatinine Estim Creat Clear Calc Est GFR (MDRD) Af Amer Est GFR (MDRD) Non-Af BUN/Creatinine Ratio Glucose Calcium Total Bilirubin Direct Bilirubin AST ALT Alkaline Phosphatase Total Protein Albumin Globulin Lipase Urine Color Yellow Urine Clarity Sl. Cloudy Urine pH 8.0 Ur Specific [place] 1.010 Urine Protein Negative Urine Glucose (UA) Normal Urine Ketones 5 H Urine Occult Blood Negative Urine Nitrite Negative Urine Bilirubin Negative Urine Urobilinogen Normal Ur Leukocyte Esterase 25 H Urine RBC 0 SEEN Urine WBC 0-5 SEEN Ur Squamous Epith Cells 0-5 SEEN Urine Bacteria 0 SEEN Urine Mucus 0 SEEN - Medical Decision Making Patient is given morphine and Zofran. Blood work is unremarkable. CT scan raises question of possible stone and gallbladder neck and ultrasound is recommended. Ultrasound is performed and is unremarkable. Test results discussed with the patient. He will follow with his primary care physician for further evaluation. He is reassured with the findings tonight. He is given return instructions. ED Disposition - Plan for ED Patient: Disposition: Home or Assisted Living Diagnosis: Abdominal pain Instructions: ED Unknown Causes of Abdominal ... Referrals: Phu Jimenez MD [Primary Care Provider] - As soon as possible
[2020-07-13] MEDS: Morphine 4 MG/ML Syringe IV (19:42)
[2020-07-13] MEDS: Ondansetron 4 MG/2 ML Vial IV (19:42)
[2020-07-13] MEDS: 0.9% Normal Saline 1,000 ML 150 ML IV (19:42)
[2020-07-13 20:03] LABS: Bacteria 0 SEEN /hpf (None Seen); Mucous, Urine 0 SEEN /hpf (<or=2+); Red Blood Cells-Urine 0 SEEN /hpf (0-5)
[2020-07-13 20:05] LABS: Color, Urine Yellow (Yellow); Glucose, Dipstick Normal (Normal); Ketone-Dipstick 5 mg/dl (Negative); Leukocyte Esterase-Dipstick 25 /ul (Negative); Nitrite-Dipstick Negative (Negative); Occult Blood-Urine Negative /ul (Negative); Protein-Dipstick Negative (Negative); Urine Bilirubin Dipstick Negative (Negative); Urine Clarity Sl. Cloudy (Clear); Urine Urobilinogen Normal (Normal)
[2020-07-13 20:07] LABS: AST(SGOT) 15 U/L (15-37); Alanine Aminotransfer ALT/SGPT 31 U/L (16-61); Albumin, Serum 4.1 g/dL (3.2-5.0); Alkaline Phosphatase 94 U/L (45-117); Bilirubin, Direct < 0.05 mg/dL (0.00-0.30); Lipase 58 U/L (73-393); Protein, Total 8.1 g/dL (6.4-8.2)
[2020-07-13 20:15] LABS: Squamous Epithelial Cells - UA 0-5 SEEN /hpf (0-5); White Blood Cells 0-5 SEEN /hpf (0-5)
--- NOTE | 2020-07-13 21:52 | US_ITS ---
STUDY: ABDOMINAL ULTRASOUND - RIGHT UPPER QUADRANT REASON FOR VISIT: Male, 45 years old RUQ PAIN TECHNIQUE: Ultrasound evaluation of the right upper quadrant was performed with real-time and static chowdhury-scale imaging. TECHNICAL QUALITY: Adequate. COMPARISON: CT of abdomen and pelvis dated July 13, 2020. Gallbladder ultrasound dated July 31, 2019 FINDINGS: Liver: The liver measures 16.5 cm. There is increased echogenicity consistent with fatty infiltration. The bile ducts are within normal limits. There is hepatic color flow. The direction of portal flow is hepatopetal. There is no demonstrated mass lesion. Tiny cyst of the liver mentioned of no clinical significance. Gallbladder: Normal distended gallbladder. The gallbladder wall measures 3 mm. There is no pericholecystic fluid. There are no gallstones. Common Bile Duct (C.B.D.): The common bile duct measures 4 mm. Pancreas: Unremarkable visualized aspects of the pancreas. There is normal echogenicity of the pancreas. There is no demonstrated pancreatic mass or cyst. Right Kidney: Normal size of the right kidney. The right kidney measures 10.8 x 6.3 x 6.6 cm. Normal renal cortex. There is no demonstrated renal mass or cyst. There is no right hydronephrosis. US/Abdomen Limited IMPRESSION: 1. No demonstrated acute or significant process 2. No visualized gallstones or obvious sludge Electronically Signed: Matthieu Birch MD at 23:06 EST , Service support ,
[2020-07-13 22:21] VITALS: BP 137/97; PULSE 69; RESP 18; O2SAT 96
[2020-07-13 23:17] VITALS: BP 148/59; PULSE 81; RESP 16; O2SAT 98
== END 2020-07-13 23:21 | disposition home or self-care (01) ==
PROVIDERS: Emergency Provider Emergency Medicine; PCP Internal Medicine
DX: R10.11 Right upper quadrant pain (principal); R10.31 Right lower quadrant pain; F17.200 Nicotine dependence, unspecified, uncomplicated; Z79.899 Other long term (current) drug therapy
CPT/HCPCS: 74177; 76705; 80048; 80076; 81001; 83690; 85025; 96361; 96374; 96375; 99283; J7030; Q9967; A4216; J2405

== ENCOUNTER 2020-12-03 19:53 | Emergency (ER) | payer MEDICAID, SELFPAY ==
[2020-12-03 19:54] VITALS: BP 136/83; PULSE 107; RESP 16; TEMP 36.4; O2SAT 95; BMI 30.6
--- NOTE | 2020-12-03 19:56 | EKG12_ITS ---
Test Reason : CP Blood Pressure : / mmHG Vent. Rate : 089 BPM Atrial Rate : 089 BPM P-R Int : 156 ms QRS Dur : 092 ms QT Int : 344 ms P-R-T Axes : 074 075 064 degrees QTc Int : 418 ms Normal sinus rhythm Normal ECG Confirmed by BING HICKEY, DANIELLE ([id number]), subeditor WAQAS DENNISON ([id number]) on 12/05/2020 10:34:18 AM Referred By: Confirmed By:DANIELLE SMART MD
[2020-12-03 20:18] LABS: Absolute Lymphocyte Count 3.75 X10^3/uL (0.83-4.51); Absolute Neutrophil Count 5.4 X10^3/uL (2.0-7.7); Basophil# 0.06 X10^3/uL; Basophil% 0.6 % (0-1); Eosinophil# 0.28 X10^3/uL; Eosinophils% 2.7 % (0-5); Hematocrit 45.8 % (40-54); Lymphocyte # 3.75 X10^3/ul (0.83-4.51); Lymphocyte % 36.4 % (19-41); Mean Corp Hgb Conc 32.8 g/dL (32-36); Mean Corpuscular Hgb 27.8 pg (27.0-32.0); Mean Corpuscular Volume 84.8 fL (80-94); Mean Platelet Vol. 9.2 fl (6.2-12.0); Monocyte# 0.79 X10^3/uL; Monocyte% 7.7 % (0-10); NRBC Flagged by Analyzer 0 % (0-5); Neutrophil # 5.37 X10^3/uL (2.7-7.7); Neutrophil % 52.1 % (47-70); Platelet Count 335 K/mm3 (150-450); RBC Distribution Width CV 13.2 % (11.6-14.6); RBC Distribution Width SD 41.1 fl (35.1-43.9); White Blood Count 10.3 K/mm3 (4.4-11.0)
[2020-12-03 20:44] LABS: Anion Gap 6 (5-15); BUN 12 mg/dL (7-18); BUN/Creat Ratio 14.3 RATIO (10-20); Calcium,Total 9.2 mg/dL (8.5-10.1); Chloride 106 mmol/L (98-107); Creatinine, Serum 0.84 mg/dL (0.70-1.30); EST Glomerular Filtration Rate 105 mL/min (>60); Est Glom Filt Rate - Afr Amer 127 mL/min (>60); Estimated Creatinine Clearance 130.48 ml/min; Glucose 134 mg/dL (74-106); Potassium 4.1 mmol/L (3.5-5.1); Sodium Level 137 mmol/L (136-145); Troponin-I HS < 3.0 pg/mL (3.0-78.5)
[2020-12-03 21:53] VITALS: BP 118/77; PULSE 67; RESP 12; O2SAT 96
--- NOTE | 2020-12-03 22:43 | RAD_ITS ---
HISTORY: chest pain EXAMINATION/TECHNIQUE: XR Chest 1 View: COMPARISON: 09/15/2019 FINDINGS: LINES/DEVICES: None. LUNGS: No airspace consolidation. Unremarkable interstitium. No effusion. No pneumothorax. MEDIASTINUM: No cardiomegaly. MUSCULOSKELETAL: No acute osseous finding. RAD/Chest 1 View (Portable) IMPRESSION: No evidence of acute cardiopulmonary process. at 2329 Reported and signed by: Americo Moya MD Electronically Signed: Americo Moya MD at 23:27 EDT Tel , Service support ,
--- NOTE | 2020-12-03 22:59 | CT_ITS ---
HISTORY: Abdominal pain TECHNIQUE: Multiple axial images were obtained of the abdomen and pelvis without oral or IV contrast. Coronal and sagittal reformats obtained. A radiation dose optimization technique was used for this scan. COMPARISON: 07/13/2020 FINDINGS: # of images incl. paperwork: [phone] LUNG BASES: Unremarkable. Mild basilar bronchiectasis. LIVER T BILIARY TRACT: Unremarkable gallbladder. Multiple small hepatic cysts with other tiny hypodensities that are too small to characterize. ADRENAL GLANDS: Unremarkable. SPLEEN: Unremarkable. PANCREAS: Unremarkable. KIDNEYS/URETERS/BLADDER: No nephrolithiasis, hydronephrosis or perinephric inflammation. Unremarkable ureters and bladder. LYMPH NODES: No suspicious adenopathy. STOMACH, SMALL AND LARGE BOWEL: No acute gastric finding. No small bowel obstruction or gross wall thickening. Normal appendix. Large colonic stool burden. Minimal distal colonic diverticulosis without evidence of diverticulitis. ASCITES/FREE AIR: No free fluid or free air. AORTA: Mild Atherosclerosis without ectasia. PELVIS: Unremarkable. MUSCULOSKELETAL: No acute osseous finding. Trace fat-containing umbilical hernia without inflammation. CT/Abdomen/Pelvis without Cont IMPRESSION: Large colonic stool burden as be seen with constipation. Minimal distal colonic diverticulosis without evidence of diverticulitis. No other acute finding. Individualized dose optimization techniques were used for this CT. at 0026 Reported and signed by: Americo Moya MD Electronically Signed: Americo Moya MD at 0:24 EDT Tel , Service support ,
[2020-12-03 23:23] VITALS: BP 118/83; PULSE 85; RESP 16; O2SAT 99
[2020-12-04 00:40] VITALS: BP 111/73; PULSE 65; RESP 16; O2SAT 99
--- NOTE | 2020-12-04 00:45 | EX.ED.DYSGE1 ---
HPI History of Present Illness Chief Complaint: Chest Pain Informant: patient Onset/Context/Timing Onset: Weeks (3) Context: Gradual Onset Timing: Waxes and wanes Quality: Pressure, vibration Location: Right upper chest Worsened by: Nothing Relieved by: Nothing Narrative Narrative: Patient presents with chest pain that has been waxing and waning over the past 3 weeks. Patient states pain is over the right upper chest. Patient states that it is a mild discomfort constantly but occasionally he gets sharp pains and vibration in his right upper chest. Patient also states it feels like a pressure at times. Patient states nothing makes it worse and nothing makes it better. Patient admits to some occasional shortness of breath. Patient admits to some nausea but denies any vomiting. [facility] Medical History Abdominal pain Atrial fibrillation with rapid ventricular response (03/07/17) Caffeine abuse Chest pain Essential (primary) hypertension Intermittent palpitations Nicotine dependence Paroxysmal atrial fibrillation Home Medications omeprazole 40 mg PO DAILY 07/31/19 [History Last Taken 07/31/19] dicyclomine 10 mg PO 4X/DAY 09/15/19 [History Last Taken Unknown] naproxen 500 mg PO BID PRN PRN 01/27/20 [History Last Taken Unknown] Allergy/AdvReac Type Severity Reaction Status Date / Time No Known Allergies Allergy Verified 07/13/20 17:46 Family History Other Sirena-Danlos syndrome Surgical History History of cardioversion (03/07/17) History of herniorrhaphy Social History Smoking Status: Current some day smoker tobacco type: cigarettes substance use type: marijuana caffeine: Yes ROS ROS ED Constitutional Constitutional ED: Denies chills or fever(s) Eyes Eyes: Denies blurry vision or change in vision ENT ENT ED: Reports sore throat; Denies rhinorrhea Cardiovascular Cardiovascular: Reports chest pain; Denies palpitations Respiratory/Chest Respiratory/Chest: Reports dyspnea; Denies cough Gastrointestinal Gastrointestinal: Denies nausea or vomiting Genitourinary Genitourinary ED: Reports urinary frequency; Denies dysuria or hematuria Musculoskeletal Musculoskeletal: Reports neck pain; Denies back pain Integumentary Denies abscess or rash Neurologic Neurologic: Denies headache(s) or weakness Psychiatric Psychiatric: Reports anxiety Allergic/Immunologic Allergic/Immunologic ED: Denies mouth swelling or urticaria EXAM Physical Exam Const Vital Signs: 12/03/20 19:54 12/03/20 21:53 12/03/20 21:57 Temperature 97.5 F L Temperature Source Temporal Pulse Rate 107 H 67 Respiratory Rate 16 12 Respiratory Effort Non-Labored Respiratory Pattern Normal Blood Pressure 136/83 H 118/77 Blood Pressure Mean 100 90 Pulse Ox 95 96 Oxygen Delivery Method Room Air Room Air 12/03/20 23:23 12/04/20 00:40 Temperature Temperature Source Pulse Rate 85 65 Respiratory Rate 16 16 Respiratory Effort Respiratory Pattern Blood Pressure 118/83 H 111/73 Blood Pressure Mean 94 85 Pulse Ox 99 99 Oxygen Delivery Method Room Air Room Air Positive well nourished and well developed General Appearance ED: well developed HEENT Reports moist mucous membranes Neck supple and no JVD Resp normal respiratory effort and clear to auscultation bilaterally Cardio regular rate, regular rhythm and no murmurs GI normal to inspection, nondistended, normoactive bowel sounds and non-tender Palpation: soft Extremity normal to inspection General Extremety ED: Negative for edema or tenderness General Extremity: Negative for edema Neuro oriented x3, CN's II-XII intact bilaterally and no sensory deficits noted Sensorium / Orientation: alert Motor Exam: strength 5/5 throughout Psych mental status grossly normal Skin no rashes or lesions noted MDM MDM MDM Narrative Medical decision making narrative: EKG was obtained. On my interpretation, it showed a normal sinus rhythm with a rate of 89. SC interval, QRS interval, and QTc intervals were all normal. Randall was normal. There are no acute ST or T wave changes. Portable 1 view chest x-ray was obtained. On my interpretation, lung stephens are clear. There is normal cardiac silhouette. Bony thorax is normal. There is no acute process noted. Radiologist also interpreted the x-ray and agrees. CBC and basic metabolic profile were within normal limits. Troponin was normal. CT scan of the abdomen and pelvis was obtained. There is no acute intra-abdominal process noted. There is some constipation noted. This was interpreted by the radiologist and reviewed by myself. Patient is feeling better on reevaluation. Patient was advised of his findings. Patient was instructed to follow-up with his primary care physician in 5 to 7 days. Patient understood and was agreeable with the plan. All questions were answered. Lab Data Attestation: I reviewed the patient's lab results. Labs: Laboratory Results - last 24 hr 12/03/20 12/03/20 20:10 20:10 WBC 10.3 RBC 5.40 Hgb 15.0 Hct 45.8 MCV 84.8 MCH 27.8 MCHC 32.8 RDW Std Deviation 41.1 RDW Coeff of Alhaji 13.2 Plt Count 335 MPV 9.2 Immature Gran % (Auto) 0.500 Neut % (Auto) 52.1 Lymph % (Auto) 36.4 [place] % (Auto) 7.7 Eos % (Auto) 2.7 Baso % (Auto) 0.6 Absolute Neuts (auto) 5.4 Absolute Lymphs (auto) 3.75 Nucleated RBC % 0 Sodium 137 Potassium 4.1 Chloride 106 Carbon Dioxide 25.0 Anion Gap 6 BUN 12 Creatinine 0.84 Estim Creat Clear Calc 130.48 Est GFR (MDRD) Af Amer 127 Est GFR (MDRD) Non-Af 105 BUN/Creatinine Ratio 14.3 Glucose 134 H Calcium 9.2 Troponin I High Sens < 3.0 L Radiography Chest X-Ray - ED: 1 View, Read by Radiologist and Normal Diagnostic Testing: Radiology Impression Chest X-Ray 12/03/20 22:43 IMPRESSION: No evidence of acute cardiopulmonary process. at 2329 Reported and signed by: Americo Moya MD Electronically Signed: Americo Moya MD at 23:27 EDT Tel , Service support , Abdomen/Pelvis CT 12/03/20 22:59 IMPRESSION: Large colonic stool burden as be seen with constipation. Minimal distal colonic diverticulosis without evidence of diverticulitis. No other acute finding. Individualized dose optimization techniques were used for this CT. at 0026 Reported and signed by: Americo Moya MD Electronically Signed: Americo Moya MD at 0:24 EDT Tel , Service support , EKG Initial EKG: Attestation: I personally reviewed and interpreted this EKG as follows: Interpretation: Sinus Rhythm (89) and No Acute Injury Pattern Discharge Plan Triage Chief Complaint: Chest Pain ED Provider: [place] Blanca Dx/Rx/DC Orders Clinical Impression: Chest pain Instructions: ED Chest Pain, Uncertain Cause Prescriptions: No Action omeprazole 40 MG capsule,delayed release(DR/EC) 40 mg PO DAILY RF: 0 dicyclomine 10 MG capsule 10 mg PO 4X/DAY RF: 0 naproxen 500 MG tablet 500 mg PO BID PRN PRN (Reason: Pain Or Fever) RF: 0 Primary Care Provider: Phu Jimenez Referrals: Phu Jimenez MD [Primary Care Provider] - 5-7 Days Disposition Disposition: Home, Self Care
== END 2020-12-04 01:02 | disposition home or self-care (01) ==
PROVIDERS: Emergency Provider Emergency Medicine; PCP Internal Medicine
DX: R07.9 Chest pain, unspecified (principal); R06.02 Shortness of breath; R11.0 Nausea; I48.0 Paroxysmal atrial fibrillation; I10 Essential (primary) hypertension; F17.210 Nicotine dependence, cigarettes, uncomplicated
CPT/HCPCS: 71045; 74176; 80048; 84484; 85025; 93005; 99283

== ENCOUNTER 2021-03-18 21:06 | Emergency (ER) | payer MEDICAID, SELFPAY ==
[2021-03-18 21:07] VITALS: BP 167/95; PULSE 102; RESP 16; TEMP 36.6; O2SAT 98; BMI 27.6
--- NOTE | 2021-03-18 21:20 | EKG12_ITS ---
Test Reason : CP Blood Pressure : / mmHG Vent. Rate : 087 BPM Atrial Rate : 087 BPM P-R Int : 150 ms QRS Dur : 094 ms QT Int : 340 ms P-R-T Axes : 065 064 042 degrees QTc Int : 409 ms Normal sinus rhythm Normal ECG Confirmed by BING HICKEY, DANIELLE ([id number]), editor book WAQAS DENNISON ([id number]) on 03/20/2021 9:24:53 AM Referred By: RELL Confirmed By:DANIELLE SMART MD
[2021-03-18] MEDS: 0.9% Normal Saline 1,000 ML 999 ML IV (21:47)
[2021-03-18 21:54] LABS: Absolute Lymphocyte Count 2.28 X10^3/uL (0.83-4.51); Absolute Neutrophil Count 4.3 X10^3/uL (2.0-7.7); Basophil# 0.05 X10^3/uL; Basophil% 0.7 % (0-1); Eosinophil# 0.11 X10^3/uL; Eosinophils% 1.5 % (0-5); Hematocrit 45.2 % (40-54); Hemoglobin 15.3 g/dL (13.0-16.5); Lymphocyte # 2.28 X10^3/ul (0.83-4.51); Lymphocyte % 30.5 % (19-41); Mean Corp Hgb Conc 33.8 g/dL (32-36); Mean Corpuscular Hgb 28.7 pg (27.0-32.0); Mean Corpuscular Volume 84.6 fL (80-94); Mean Platelet Vol. 9.5 fl (6.2-12.0); Monocyte# 0.73 X10^3/uL; Monocyte% 9.8 % (0-10); NRBC Flagged by Analyzer 0 % (0-5); Neutrophil # 4.28 X10^3/uL (2.7-7.7); Neutrophil % 57.1 % (47-70); Platelet Count 334 K/mm3 (150-450); RBC Distribution Width CV 12.7 % (11.6-14.6); RBC Distribution Width SD 39.2 fl (35.1-43.9); Red Blood Count 5.34 M/mm3 (4.6-6.2); White Blood Count 7.5 K/mm3 (4.4-11.0)
[2021-03-18 22:06] LABS: International Normalized Ratio 1.1; Prothrombin Time (Protime)PT. 13.1 SECONDS (11.7-14.9)
[2021-03-18 22:07] LABS: Partial Thromboplast Time 34.5 Seconds (24.1-36.2)
[2021-03-18 22:11] LABS: AST(SGOT) 13 U/L (15-37); Alanine Aminotransfer ALT/SGPT 21 U/L (16-61); Albumin, Serum 4.2 g/dL (3.2-5.0); Alkaline Phosphatase 84 U/L (45-117); Anion Gap 8 (5-15); BUN 9 mg/dL (7-18); BUN/Creat Ratio 10.7 RATIO (10-20); Bilirubin, Direct 0.08 mg/dL (0.00-0.30); Calcium,Total 9.2 mg/dL (8.5-10.1); Chloride 110 mmol/L (98-107); Creatinine, Serum 0.84 mg/dL (0.70-1.30); EST Glomerular Filtration Rate 105 mL/min (>60); Est Glom Filt Rate - Afr Amer 128 mL/min (>60); Estimated Creatinine Clearance 130.48 ml/min; Globulin 4.4 g/dL (2.2-4.2); Glucose 114 mg/dL (74-106); Lipase 115 U/L (73-393); Protein, Total 8.6 g/dL (6.4-8.2); Sodium Level 141 mmol/L (136-145); Troponin-I HS 5 pg/mL (3.0-78.0)
--- NOTE | 2021-03-18 22:18 | CT_ITS ---
STUDY: CTA CHEST AND CTA ABDOMEN/PELVIS WITH CONTRAST REASON FOR EXAM: Male, 45 years old. chest pain RADIATION DOSAGE (If Supplied By Facility): CTDIvol = ( 16.41 ) mGy, DLP = ( 1430.95 ) mGycm TECHNIQUE: The examination was performed with the intravenous administration of IV 100mL Isovue-370. Post-processing of the angiographic images was performed, with multiplanar reformation and 3D reconstruction. Individualized dose optimization techniques were used for this CT. COMPARISON: No relevant priors. FINDINGS: CTA Chest Normal enhancement of the main pulmonary artery and right and left pulmonary arteries. Normal enhancement of the bilateral peripheral pulmonary arteries. There is no demonstrated pulmonary embolism. Normal thoracic aorta and visualized great vessels. There is no demonstrated aortic dissection. Normal heart and pericardium. Normal mediastinum. Normal hilar regions. Normal visualized trachea and bronchi. The lungs are well expanded. Normal pulmonary parenchyma. Normal pleura. Normal chest wall structures. Normal osseous structures. Normal visualized upper abdomen. CTA Abdomen T Pelvis The visualized lung bases are unremarkable. The visualized portions of the heart are within normal limits. Numerous nonenhancing liver cysts throughout the liver. Otherwise, unremarkable liver. Normal gallbladder and extrahepatic biliary system. Normal spleen. There is diffuse atrophy of the pancreas. Normal bilateral adrenal glands. Normal right kidney. Normal left kidney. Normal visualized stomach. Normal small intestine. Normal colon. The appendix is visualized and appears normal. Normal abdominal aorta. Normal abdominal aortic takeoffs with normal aortic bifurcation, iliac arteries and proximal femoral arteries. Normal inferior vena cava. Normal retroperitoneum. Normal urinary bladder. Normal abdominal wall. Normal osseous structures. CT/CTA Chst, Abd, Pel W and/or WO IMPRESSION: Normal CTA chest and CTA abdomen and pelvis with contrast. No evidence of aortic dissection or aneurysm. Lungs are clear. Negative for pulmonary embolism. No acute findings of the abdomen or pelvis. Normal appendix. Electronically Signed: Juan Sanchez DO at 22:51 EDT Tel , Service support ,
--- NOTE | 2021-03-18 22:39 | EDS_ITS ---
HPI History of Present Illness Chief Complaint: Chest Pain Narrative Narrative: Patient is a 45-year-old male with past medical history of Sirena- Danlos syndrome. He states he had multiple members of his family have a very dissections and around age 51. He states for the past 3 days he will have short-lived bouts of sharp chest pain that can come on suddenly and then resolved within a few minutes. He denies any fevers chills or trauma but with his chronic medical condition and family history is concerned and presents for evaluation [facility] Medical History Abdominal pain Atrial fibrillation with rapid ventricular response (03/07/17) Caffeine abuse Chest pain Sirena-Danlos disease Essential (primary) hypertension Intermittent palpitations Nicotine dependence Paroxysmal atrial fibrillation Home Medications omeprazole 40 mg PO DAILY 07/31/19 [History Last Taken 07/31/19] dicyclomine 10 mg PO 4X/DAY 09/15/19 [History Last Taken Unknown] naproxen 500 mg PO BID PRN PRN 01/27/20 [History Last Taken Unknown] Allergy/AdvReac Type Severity Reaction Status Date / Time No Known Allergies Allergy Verified 03/18/21 21:09 Family History Other Sirena-Danlos syndrome Surgical History History of cardioversion (03/07/17) History of herniorrhaphy Social History Smoking Status: Current some day smoker tobacco type: cigarettes substance use type: marijuana caffeine: Yes ROS ROS ED Constitutional Constitutional ED: Denies chills or fever(s) ENT ENT ED: Denies sore throat Cardiovascular Cardiovascular: Reports chest pain Respiratory/Chest Respiratory/Chest: Denies cough or dyspnea Gastrointestinal Gastrointestinal: Reports abdominal pain and nausea; Denies diarrhea or vomiting Genitourinary Genitourinary ED: Denies dysuria Musculoskeletal Musculoskeletal: Denies myalgias Integumentary Denies rash Neurologic Neurologic: Denies headache(s) Hematologic/Lymphatic Hematologic/Lymphatic: Denies easy bleeding or easy bruising EXAM Physical Exam Const Vital Signs: 03/18/21 21:07 03/18/21 21:12 Temperature 97.8 F Temperature Source Temporal Pulse Rate 102 H Respiratory Rate 16 Respiratory Effort Normal Non-Labored Blood Pressure 167/95 H Blood Pressure Mean 119 Pulse Ox 98 Oxygen Delivery Method Room Air Positive well nourished and well developed General Appearance ED: well developed HEENT Reports moist mucous membranes Eyes PERRL and EOMs intact bilaterally Neck supple Chest Wall palpation of chest normal Chest Narrative: No reproducible pain with palpation no bony deformity or crepitance Resp normal respiratory effort and clear to auscultation bilaterally Cardio regular rate and regular rhythm Rate: other Other Details: Radial pulses are plus 2 out of 4 bilaterally are equal and symmetric GI normal to inspection, nondistended, normoactive bowel sounds, non-tender and non-distended GI Narrative: No voluntary guarding or rigidity no pulsatile mass Auscultation: normoactive bowel sounds Palpation: soft Back/Spine no CVA tenderness Extremity normal to inspection Extremity Narrative: No asymmetric edema no pitting edema negative Homans' sign bilaterally Neuro oriented x3 and CN's II-XII intact bilaterally Sensorium / Orientation: alert Psych mental status grossly normal Skin no rashes or lesions noted MDM MDM MDM Narrative Medical decision making narrative: Patient presented to the ER mildly hypertensive and with his history of Sirena-Danlos syndrome and family history of multiple aortic dissections there was concern for this with his report of chest pain and abdominal discomfort. Therefore cardiac work-up with a CTA was ordered. CTA revealed no dissection pulmonary embolism lung pathology or abdominal pathology. His labs revealed no acute finding. With the patient also having some midepigastric to right upper quadrant pain that he states radiates to his shoulder these intermittent symptoms could be related to biliary colic. The CT showed no signs of of infection or gallstones and his liver enzymes are normal but the gallbladder may just be not functioning properly. Therefore I recommended the patient talk to his family doctor about a HIDA scan to assess this and if negative discussed may be an EGD to assess for possible ulcer as a cause of his recurrent pain. However at this time with overall negative work-up and negative CT scan he is safe for discharge Lab Data Attestation: I reviewed the patient's lab results. Labs: Laboratory Results - last 24 hr 03/18/21 03/18/21 03/18/21 21:20 21:20 21:20 WBC 7.5 RBC 5.34 Hgb 15.3 Hct 45.2 MCV 84.6 MCH 28.7 MCHC 33.8 RDW Std Deviation 39.2 RDW Coeff of Alhaji 12.7 Plt Count 334 MPV 9.5 Immature Gran % (Auto) 0.400 Neut % (Auto) 57.1 Lymph % (Auto) 30.5 [place] % (Auto) 9.8 Eos % (Auto) 1.5 Baso % (Auto) 0.7 Absolute Neuts (auto) 4.3 Absolute Lymphs (auto) 2.28 Nucleated RBC % 0 PT 13.1 INR 1.1 APTT 34.5 Sodium 141 Potassium 4.0 Chloride 110 H Carbon Dioxide 23.0 Anion Gap 8 BUN 9 Creatinine 0.84 Estim Creat Clear Calc 130.48 Est GFR (MDRD) Af Amer 128 Est GFR (MDRD) Non-Af 105 BUN/Creatinine Ratio 10.7 Glucose 114 H Calcium 9.2 Total Bilirubin 0.30 Direct Bilirubin 0.08 AST 13 L ALT 21 Alkaline Phosphatase 84 Troponin I High Sens 5 Total Protein 8.6 H Albumin 4.2 Globulin 4.4 H Lipase 115 Radiography Diagnostic Testing: Clinical Impression(s) from Imaging Studies Chest/Abdomen/Pelvis CTA 03/18/21 22:18 IMPRESSION: Normal CTA chest and CTA abdomen and pelvis with contrast. No evidence of aortic dissection or aneurysm. Lungs are clear. Negative for pulmonary embolism. No acute findings of the abdomen or pelvis. Normal appendix. Electronically Signed: Juan Sanchez DO at 22:51 EDT Tel , Service support , Discharge Plan Triage Chief Complaint: Chest Pain ED Provider: Chris Sidhu Dx/Rx/DC Orders Clinical Impression: Nonspecific chest pain, Nonspecific abdominal pain Instructions: Abdominal Pain, ED Chest Pain, Uncertain Cause Prescriptions: No Action omeprazole 40 MG capsule,delayed release(DR/EC) 40 mg PO DAILY RF: 0 dicyclomine 10 MG capsule 10 mg PO 4X/DAY RF: 0 naproxen 500 MG tablet 500 mg PO BID PRN PRN (Reason: Pain Or Fever) RF: 0 Primary Care Provider: Phu Jimenez Referrals: Phu Jimenez MD [Primary Care Provider] - Disposition Disposition: Home, Self Care
[2021-03-18] MEDS: Morphine 4 MG/ML Syringe IV (22:56)
[2021-03-18] MEDS: Ondansetron 4 MG/2 ML Vial IV (22:56)
[2021-03-18 23:26] VITALS: BP 144/86; PULSE 73; RESP 14; O2SAT 96
== END 2021-03-18 23:40 | disposition home or self-care (01) ==
PROVIDERS: Emergency Provider Emergency Medicine; PCP Internal Medicine
DX: R07.9 Chest pain, unspecified (principal); R10.11 Right upper quadrant pain; I48.0 Paroxysmal atrial fibrillation; I10 Essential (primary) hypertension; Q79.60 Ehlers-Danlos syndrome, unspecified; F17.210 Nicotine dependence, cigarettes, uncomplicated; Z79.899 Other long term (current) drug therapy
CPT/HCPCS: 71275; 74174; 80048; 80076; 83690; 84484; 85025; 85610; 85730; 93005; 96361; 96374; 96375; 99283; J7030; Q9967; A4216; J2405

== ENCOUNTER 2021-06-11 23:34 | Emergency (ER) | payer MEDICAID, SELFPAY ==
[2021-06-11 23:35] VITALS: BP 148/95; PULSE 85; RESP 18; TEMP 36.6; O2SAT 97; BMI 28.2
--- NOTE | 2021-06-11 23:58 | CT_ITS ---
STUDY: CTA OF THE ABDOMINAL AORTA REASON FOR EXAM: Male, 46 years old. 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 Axial images and MIP images were reconstructed from the axial data set. Post-processing of the angiographic images was performed, with multiplanar reformation and 3D reconstruction. Individualized dose optimization techniques were used for this CT. TECHNICAL QUALITY: Good COMPARISON: None. Descriptors of Narrowing: None (0%) Mild (< 50%) Moderate (50-70%) Severe (70-90%) Subtotal/Total Occlusion (90-100%) Non-Evaluable (technically non-diagnostic FINDINGS: Unremarkable abdominal aorta. Evidence of dissection or aneurysm. Normal great vessel takeoff from the abdominal aorta. Normal aortic bifurcation and normal common iliac arteries. Lung bases are clear. Unremarkable liver outside of several small cysts. Unremarkable spleen, pancreas, adrenal glands and kidneys. Contracted gallbladder. Unremarkable stomach and small bowel. Large bowel demonstrates colonic diverticulosis without evidence of acute diverticulitis. Normal appendix. No concerning lymphadenopathy. Remainder is unremarkable CT/CT ANGIO ABD&PEL W/O&W/DYE IMPRESSION: Unremarkable abdominal aorta and great vessel takeoff. Small liver cysts. No acute findings throughout. Electronically Signed: Juan Sanchez DO at 2:12 EST Tel , Service support ,
--- NOTE | 2021-06-12 | EDS_ITS ---
HPI HPI - GI History of Present Illness Chief Complaint: Abd Pain Informant: patient Narrative Narrative: Patient presents with persistent upper abdominal pain rating to his lower abdomen since Ty[place] more than 2 weeks ago. States constant pain with intermittent sharp sensations. Nausea without vomiting. No diarrhea. He states family history Sirena-Danlos syndrome with dissection in the past. He is here with this concern. Also family history of IBS, states has been constipated for 3 days. No fevers. No urinary symptoms. Upper endoscopy over a year ago with gastritis findings on omeprazole. He states he has a pending colonoscopy due to previous blood in the stools. States can be performed by [facility]. History of paroxysmal atrial fibrillation. He does not take anticoagulants. Reports pain worse with movement does not worsening with food. He states he may had a CAT scan his abdomen 6 months ago with no noted aneurysms. 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) hypertension Intermittent palpitations Nicotine dependence Paroxysmal atrial fibrillation Home Medications omeprazole 40 mg PO DAILY 07/31/19 [History Last Taken 07/31/19] dicyclomine 10 mg PO 4X/DAY 09/15/19 [History Last Taken Unknown] naproxen 500 mg PO BID PRN PRN 01/27/20 [History Last Taken Unknown] Allergy/AdvReac Type Severity Reaction Status Date / Time No Known Allergies Allergy Verified 03/18/21 21:09 Family History Other Sirena-Danlos syndrome Surgical History History of cardioversion (03/07/17) History of herniorrhaphy Social History Smoking Status: Current some day smoker tobacco type: cigarettes substance use type: marijuana caffeine: Yes ROS ROS ED Constitutional Constitutional ED: Denies chills, fever(s) or sweats Eyes Eyes: Denies change in vision ENT ENT ED: Denies dysphagia or sore throat Cardiovascular Cardiovascular: Denies chest pain, leg edema, palpitations or racing heartbeat Respiratory/Chest Respiratory/Chest: Denies cough, dyspnea or dyspnea on exertion Gastrointestinal Gastrointestinal: Reports abdominal pain and nausea; Denies diarrhea or vomiting Genitourinary Genitourinary ED: Denies dysuria, hematuria or urinary frequency Musculoskeletal Musculoskeletal: Denies back pain, extremity pain or neck pain Integumentary Denies rash or wounds Neurologic Neurologic: Denies headache(s), paresthesias or weakness EXAM Physical Exam Const Vital Signs: 06/11/21 23:35 Temperature 98 F Temperature Source Temporal Pulse Rate 85 Respiratory Rate 18 Blood Pressure 148/95 H Blood Pressure Mean 112 Pulse Ox 97 Oxygen Delivery Method Room Air Positive well nourished and well developed General Appearance ED: well developed and NAD HEENT Reports dry mucous membranes HEENT Narrative: Mild dry mucosal membranes normocephalic and atraumatic Mouth ED: Yes dry mucous membranes Mouth: dry mucous membranes Eyes PERRL, EOMs intact bilaterally and conjunctivae normal General Eye ED: Yes normal appearance of both eyes Neck no lymphadenopathy and supple General: Negative for tenderness Chest Wall Chest: Negative for tenderness Resp normal respiratory effort and normal air movement Effort and Inspection: symmetric chest movement; Negative for respiratory distress Cardio regular rate, regular rhythm and no murmurs Peripheral Pulses: pulses 2+ throughout GI normal to inspection, nondistended, normoactive bowel sounds and non-tender GI Narrative: Negative Campos's or McBurney's tenderness. Palpation: Negative for guarding or rebound tenderness present Back/Spine no CVA tenderness and no thoracic nor lumbar tenderness Extremity normal to inspection General Extremety ED: Negative for edema or tenderness General Extremity: Negative for edema Neuro oriented x3 and no sensory deficits noted Sensorium / Orientation: awake and alert Skin no rashes or lesions noted and no wounds MDM MDM MDM Narrative Medical decision making narrative: Patient with a nonsurgical abdomen on exam. Reports family history of Sirena-Danlos syndrome concerning for dissection. I did check abdominal labs all normal. Initially declined any pain medicines after CT scan requested pain medicines with fentanyl was given. He was given fluids and Zofran initially. Scan results negative for any vascular findings. Structures also normal except for noted small liver cyst. Discussed this with the patient. Here to discuss intermittent right upper quadrant pain that be sharp. Symptoms do not worsen with meals. Discussed possible outpatient ultrasounds right upper quadrant for evaluation of cyst and gallbladder can be done by his PCP. No availability at this time. However lower suspicion for biliary colic. Nonspecific abdominal pain currently. He is on a PPI. He will follow-up with the PCP. Patient is being discharged under pandemic conditions under declared global, national and state disaster activation, with limited medical resources. Patient and community understands this. Results discussed in layman's terms to the patient satisfaction. All questions answered in layman's terms. Patient understands importance of follow-up care as directed. Patient has been instructed to return to the ED immediately if new symptoms, problems, or questions occur. We mutually agree with the plan of disposition. The patient understand that they may call or return with any questions or concerns at any time. Lab Data Attestation: I reviewed the patient's lab results. Labs: Laboratory Results - last 24 hr 06/12/21 06/12/21 00:34 00:34 WBC 8.1 RBC 4.92 Hgb 14.2 Hct 42.8 MCV 87.0 MCH 28.9 MCHC 33.2 RDW Std Deviation 41.1 RDW Coeff of Alhaji 13.0 Plt Count 75 L MPV 10.9 Immature Gran % (Auto) 0.200 Neut % (Auto) 45.5 L Lymph % (Auto) 43.2 H [place] % (Auto) 7.8 Eos % (Auto) 2.6 Baso % (Auto) 0.7 Absolute Neuts (auto) 3.7 Absolute Lymphs (auto) 3.48 Nucleated RBC % 0 Differential Comment SCANNED Platelet Estimate MOD DEC Plt Morphology Comment CLUMPED Sodium 141 Potassium 4.7 Chloride 108 H Carbon Dioxide 22.0 Anion Gap 11 BUN 13 Creatinine 0.79 Estim Creat Clear Calc 137.29 Est GFR (MDRD) Af Amer 137 Est GFR (MDRD) Non-Af 113 BUN/Creatinine Ratio 16.5 Glucose 115 H Calcium 9.0 Total Bilirubin 0.30 AST 24 ALT 35 Alkaline Phosphatase 77 Total Protein 7.6 Albumin 3.7 Globulin 3.9 Albumin/Globulin Ratio 0.9 Lipase 51 L Radiography Diagnostic Testing: Clinical Impression(s) from Imaging Studies Abdomen/Pelvis CTA 06/11/21 23:58 IMPRESSION: Unremarkable abdominal aorta and great vessel takeoff. Small liver cysts. No acute findings throughout. Electronically Signed: Juan Sanchez DO at 2:12 EST Tel , Service support , Discharge Plan Triage Chief Complaint: Abd Pain ED Provider: Reuben Cooper Dx/Rx/DC Orders Clinical Impression: Abdominal pain, Liver cyst Instructions: Abdominal Pain Prescriptions: No Action omeprazole 40 MG capsule,delayed release(DR/EC) 40 mg PO DAILY RF: 0 dicyclomine 10 MG capsule 10 mg PO 4X/DAY RF: 0 naproxen 500 MG tablet 500 mg PO BID PRN PRN (Reason: Pain Or Fever) RF: 0 Primary Care Provider: Phu Jimenez Referrals: Phu Jimenez MD [Primary Care Provider] - 3-5 Days if not improving Activity Restrictions/Additional Instructions: CT angiogram abdomen pelvis negative for any vascular disease or aneurysms. Incidental small liver cyst noted. Abdominal labs were normal. Follow-up with your doctor for further evaluation testing as an outpatient. Disposition Disposition: Home, Self Care Discharge Date/Time: 06/12/21 02:37
[2021-06-12 00:45] LABS: Absolute Lymphocyte Count 3.48 X10^3/uL (0.83-4.51); Absolute Neutrophil Count 3.7 X10^3/uL (2.0-7.7); Basophil# 0.06 X10^3/uL; Basophil% 0.7 % (0-1); Eosinophil# 0.21 X10^3/uL; Eosinophils% 2.6 % (0-5); Hematocrit 42.8 % (40-54); Hemoglobin 14.2 g/dL (13.0-16.5); Lymphocyte # 3.48 X10^3/ul (0.83-4.51); Lymphocyte % 43.2 % (19-41); Mean Corp Hgb Conc 33.2 g/dL (32-36); Mean Corpuscular Hgb 28.9 pg (27.0-32.0); Mean Platelet Vol. 10.9 fl (6.2-12.0); Monocyte# 0.63 X10^3/uL; Monocyte% 7.8 % (0-10); NRBC Flagged by Analyzer 0 % (0-5); Neutrophil # 3.65 X10^3/uL (2.7-7.7); Neutrophil % 45.5 % (47-70); POSITIVE COUNT YES; Platelet Count 75 K/mm3 (150-450); RBC Distribution Width SD 41.1 fl (35.1-43.9); Red Blood Count 4.92 M/mm3 (4.6-6.2); White Blood Count 8.1 K/mm3 (4.4-11.0)
[2021-06-12 00:46] LABS: Differential Indicated SCAN CRITERIA MET
[2021-06-12] MEDS: 0.9% Normal Saline 1,000 ML 1000 ML IV (00:50)
[2021-06-12 01:13] LABS: ALB/GLOB Ratio 0.9 RATIO (0.9-2.4); AST(SGOT) 24 U/L (15-37); Alanine Aminotransfer ALT/SGPT 35 U/L (16-61); Albumin, Serum 3.7 g/dL (3.2-5.0); Alkaline Phosphatase 77 U/L (45-117); Anion Gap 11 (5-15); BUN 13 mg/dL (7-18); BUN/Creat Ratio 16.5 RATIO (10-20); Chloride 108 mmol/L (98-107); Creatinine, Serum 0.79 mg/dL (0.70-1.30); EST Glomerular Filtration Rate 113 mL/min (>60); Est Glom Filt Rate - Afr Amer 137 mL/min (>60); Estimated Creatinine Clearance 137.29 ml/min; Globulin 3.9 g/dL (2.2-4.2); Glucose 115 mg/dL (74-106); Lipase 51 U/L (73-393); Potassium 4.7 mmol/L (3.5-5.1); Protein, Total 7.6 g/dL (6.4-8.2); Sodium Level 141 mmol/L (136-145)
[2021-06-12 01:20] LABS: Differential Comment SCANNED; Platelet Estimate MOD DEC (ADEQ)
[2021-06-12 01:21] LABS: Platelet Morphology CLUMPED
[2021-06-12] MEDS: fentaNYL 100 MCG/2 ML Ampul 25 MCG IV (01:40)
== END 2021-06-12 02:37 | disposition home or self-care (01) ==
PROVIDERS: Emergency Provider Emergency Medicine; PCP Internal Medicine; Visit Provider Emergency Medicine
DX: R10.9 Unspecified abdominal pain (principal); K76.89 Other specified diseases of liver; F17.210 Nicotine dependence, cigarettes, uncomplicated; F12.10 Cannabis abuse, uncomplicated; Z79.899 Other long term (current) drug therapy
CPT/HCPCS: J2405; 74174; 80053; 83690; 85025; 96361; 96374; 99284; J7030; Q9967

== ENCOUNTER 2021-07-29 05:02 | Emergency (ER) | payer MEDICAID, SELFPAY ==
[2021-07-29 05:04] VITALS: BP 159/92; PULSE 110; RESP 18; TEMP 36.6; O2SAT 99; BMI 30.8
--- NOTE | 2021-07-29 05:23 | EDS_ITS ---
HPI HPI - GI History of Present Illness Chief Complaint: Flank Pain Informant: patient Abdominal Pain/Flank Pain Onset: Today Context: Sudden Onset Timing: Continuous Quality: Sharp Location: RLQ Worsened by: Nothing Relieved by: Nothing Nausea/Vomiting/Emesis GI Symptom: Negative for Nausea and Vomiting Diarrhea/Melena/Hematochezia GI Symptom: Negative for Diarrhea, Melena and Hematochezia Associated Symptoms Associated Symptoms: Negative for Dysuria, Frequency and Hematuria Narrative Narrative: Patient presents with right-sided abdominal pain that began today. Patient states the pain is sharp. Patient states pain is over the right lower quadrant but radiates up to his right upper quadrant and into the right side of his chest. Patient states nothing makes it better nothing makes it worse. Patient denies any nausea or vomiting. Patient denies any melena or hematochezia. Patient denies any dysuria or hematuria. Patient states the pain also radiates into his low back. [facility] Medical History Abdominal pain Atrial fibrillation with rapid ventricular response (03/07/17) Caffeine abuse Chest pain Sirena-Danlos disease Essential (primary) hypertension Intermittent palpitations Nicotine dependence Paroxysmal atrial fibrillation Home Medications omeprazole 40 mg PO DAILY 07/31/19 [History Last Taken 07/31/19] naproxen 500 mg PO BID PRN PRN 01/27/20 [History Last Taken Unknown] Allergy/AdvReac Type Severity Reaction Status Date / Time No Known Allergies Allergy Verified 07/29/21 05:07 Family History Other Sirena-Danlos syndrome Surgical History History of cardioversion (03/07/17) History of herniorrhaphy Social History Smoking Status: Current some day smoker tobacco type: cigarettes substance use type: marijuana caffeine: Yes ROS ROS ED Constitutional Constitutional ED: Denies chills or fever(s) Eyes Eyes: Denies blurry vision or change in vision ENT ENT ED: Reports sore throat; Denies rhinorrhea Cardiovascular Cardiovascular: Denies chest pain or palpitations Respiratory/Chest Respiratory/Chest: Denies cough or dyspnea Gastrointestinal Gastrointestinal: Reports abdominal pain; Denies nausea or vomiting Genitourinary Genitourinary ED: Denies dysuria or hematuria Musculoskeletal Musculoskeletal: Reports back pain; Denies neck pain Integumentary Denies abscess or rash Neurologic Neurologic: Reports headache(s); Denies weakness Allergic/Immunologic Allergic/Immunologic ED: Denies mouth swelling or urticaria EXAM Physical Exam Const Vital Signs: 07/29/21 05:04 Temperature 97.9 F Temperature Source Temporal Pulse Rate 110 H Respiratory Rate 18 Blood Pressure 159/92 H Blood Pressure Mean 114 Pulse Ox 99 Oxygen Delivery Method Room Air Positive well nourished and well developed General Appearance ED: well developed HEENT Reports moist mucous membranes Neck supple and no JVD Resp normal respiratory effort and clear to auscultation bilaterally Cardio regular rate, regular rhythm and no murmurs GI normal to inspection, nondistended, normoactive bowel sounds Palpation: soft and tender RLQ and RUQ; Negative for guarding or rebound tenderness present Extremity normal to inspection General Extremety ED: Negative for edema or tenderness General Extremity: Negative for edema Neuro oriented x3, CN's II-XII intact bilaterally and no sensory deficits noted Sensorium / Orientation: alert Motor Exam: strength 5/5 throughout Psych mental status grossly normal Skin no rashes or lesions noted MDM MDM MDM Narrative Medical decision making narrative: Patient was given IV fluids, morphine, and Zofran. CBC shows a mild leukocytosis of 14.0. Comprehensive metabolic profile was within normal limits. Lipase was normal. Urinalysis was within normal limi ts. CT scan of the abdomen and pelvis was ordered and is pending. Care of the patient was turned over to the oncoming physician pending CT results. Lab Data Attestation: I reviewed the patient's lab results. Labs: Laboratory Results - last 24 hr 07/29/21 07/29/21 07/29/21 05:15 05:15 05:41 WBC 14.0 H RBC 4.89 Hgb 14.5 Hct 42.3 MCV 86.5 MCH 29.7 MCHC 34.3 RDW Std Deviation 39.8 RDW Coeff of Alhaji 12.6 Plt Count 344 MPV 9.6 Immature Gran % (Auto) 0.300 Neut % (Auto) 44.2 L Lymph % (Auto) 44.2 H [place] % (Auto) 7.4 Eos % (Auto) 3.3 Baso % (Auto) 0.6 Absolute Neuts (auto) 6.2 Absolute Lymphs (auto) 6.19 H Nucleated RBC % 0 Atypical Lymphocytes 1+ Sodium 139 Potassium 3.4 L Chloride 107 Carbon Dioxide 23.0 Anion Gap 9 BUN 8 Creatinine 0.92 Estim Creat Clear Calc 117.89 Est GFR (MDRD) Af Amer 114 Est GFR (MDRD) Non-Af 94 BUN/Creatinine Ratio 8.6 L Glucose 129 H Calcium 8.6 Total Bilirubin 0.20 AST 16 ALT 26 Alkaline Phosphatase 83 Total Protein 8.1 Albumin 4.1 Globulin 4.0 Albumin/Globulin Ratio 1.0 Lipase 54 L Urine Color Yellow Urine Clarity Clear Urine pH 6.0 Ur Specific [place] 1.015 Urine Protein 15 H Urine Glucose (UA) Normal Urine Ketones Negative Urine Occult Blood Negative Urine Nitrite Negative Urine Bilirubin Negative Urine Urobilinogen Normal Ur Leukocyte Esterase Negative Urine RBC 0 SEEN Urine WBC 0 SEEN Ur Squamous Epith Cells 0 SEEN Urine Bacteria 0 SEEN Urine Mucus 0 SEEN Discharge Plan Triage Chief Complaint: Flank Pain ED Provider: [place] Blanca Dx/Rx/DC Orders Clinical Impression: Abdominal pain Prescriptions: No Action omeprazole 40 MG capsule,delayed release(DR/EC) 40 mg PO DAILY RF: 0 naproxen 500 MG tablet 500 mg PO BID PRN PRN (Reason: Pain Or Fever) RF: 0 Primary Care Provider: Phu Jimenez Referrals: Phu Jimenez MD [Primary Care Provider] -
[2021-07-29 05:35] LABS: Absolute Lymphocyte Count 6.19 X10^3/uL (0.83-4.51); Absolute Neutrophil Count 6.2 X10^3/uL (2.0-7.7); Basophil# 0.09 X10^3/uL; Basophil% 0.6 % (0-1); Differential Indicated SCAN CRITERIA MET; Eosinophil# 0.46 X10^3/uL; Eosinophils% 3.3 % (0-5); Hematocrit 42.3 % (40-54); Hemoglobin 14.5 g/dL (13.0-16.5); Lymphocyte # 6.19 X10^3/ul (0.83-4.51); Lymphocyte % 44.2 % (19-41); Mean Corp Hgb Conc 34.3 g/dL (32-36); Mean Corpuscular Hgb 29.7 pg (27.0-32.0); Mean Corpuscular Volume 86.5 fL (80-94); Mean Platelet Vol. 9.6 fl (6.2-12.0); Monocyte# 1.04 X10^3/uL; Monocyte% 7.4 % (0-10); NRBC Flagged by Analyzer 0 % (0-5); Neutrophil # 6.18 X10^3/uL (2.7-7.7); Neutrophil % 44.2 % (47-70); POSITIVE DIFFERENTIAL YES; POSITIVE MORPHOLOGY YES; Platelet Count 344 K/mm3 (150-450); RBC Distribution Width CV 12.6 % (11.6-14.6); RBC Distribution Width SD 39.8 fl (35.1-43.9); Red Blood Count 4.89 M/mm3 (4.6-6.2)
[2021-07-29] MEDS: 0.9% Normal Saline 1,000 ML 1000 ML IV (05:36)
[2021-07-29] MEDS: Ondansetron 4 MG/2 ML Vial IV (05:38)
[2021-07-29] MEDS: Morphine 4 MG/ML Syringe IV (05:38)
[2021-07-29 05:51] LABS: Atypical Lymphocyte 1+ %
[2021-07-29 05:53] LABS: Bacteria 0 SEEN /hpf (None Seen); Mucous, Urine 0 SEEN /hpf (<or=2+); Red Blood Cells-Urine 0 SEEN /hpf (0-5); Squamous Epithelial Cells - UA 0 SEEN /hpf (0-5); White Blood Cells 0 SEEN /hpf (0-5)
[2021-07-29 05:57] LABS: Color, Urine Yellow (Yellow); Glucose, Dipstick Normal (Normal); Ketone-Dipstick Negative (Negative); Leukocyte Esterase-Dipstick Negative /ul (Negative); Nitrite-Dipstick Negative (Negative); Occult Blood-Urine Negative /ul (Negative); Protein-Dipstick 15 mg/dl (Negative); Specific Gravity, Urine 1.015 (1.002-1.030); Urine Bilirubin Dipstick Negative (Negative); Urine Clarity Clear (Clear); Urine Urobilinogen Normal (Normal)
[2021-07-29 06:25] LABS: AST(SGOT) 16 U/L (15-37); Alanine Aminotransfer ALT/SGPT 26 U/L (16-61); Albumin, Serum 4.1 g/dL (3.2-5.0); Alkaline Phosphatase 83 U/L (45-117); Anion Gap 9 (5-15); BUN 8 mg/dL (7-18); BUN/Creat Ratio 8.6 RATIO (10-20); Calcium,Total 8.6 mg/dL (8.5-10.1); Chloride 107 mmol/L (98-107); Creatinine, Serum 0.92 mg/dL (0.70-1.30); EST Glomerular Filtration Rate 94 mL/min (>60); Est Glom Filt Rate - Afr Amer 114 mL/min (>60); Estimated Creatinine Clearance 117.89 ml/min; Glucose 129 mg/dL (74-106); Lipase 54 U/L (73-393); Potassium 3.4 mmol/L (3.5-5.1); Protein, Total 8.1 g/dL (6.4-8.2); Sodium Level 139 mmol/L (136-145)
--- NOTE | 2021-07-29 07:15 | CT_ITS ---
EXAM: CT ABDOMEN AND PELVIS WITH INTRAVENOUS CONTRAST : 1975 CLINICAL INDICATION: Right lower quadrant abdominal pain -- IV PO Contrast TECHNIQUE: Helically acquired images were obtained of the abdomen and pelvis with intravenous contrast. This CT exam was performed using one or more of the following dose reduction techniques: automated exposure control, adjustment of the mA and/or kV according to patient size, and/or use of iterative reconstruction technique. This report was created using [employer] report generation technology. CONTRAST: Oral Tamp; IV Gastrografin Tamp; 100mL Isovue-300 COMPARISON: 06/12/21 FINDINGS: LOWER THORAX: Bibasilar atelectasis. No cardiomegaly. No significant pericardial effusion. ABDOMEN: LIVER: Multiple small benign hepatic cysts. GALLBLADDER AND BILE DUCTS: Unremarkable. No calcified gallstones. No gallbladder distention or wall edema. No intra- or extrahepatic biliary ductal dilation. PANCREAS: Unremarkable. No focal cystic or solid mass. SPLEEN: Unremarkable. Normal size without focal cystic or solid mass. ADRENALS: Unremarkable. No nodules. KIDNEYS AND URETERS: Unremarkable. Normal renal size and position. No hydronephrosis. STOMACH AND BOWEL: Unremarkable. No stomach or bowel distention. No focal inflammatory change. PELVIS: APPENDIX: The appendix is normal. BLADDER: Unremarkable. REPRODUCTIVE: Unremarkable as visualized. No mass. ABDOMEN and PELVIS: INTRAPERITONEAL SPACE: Unremarkable. No ascites or other fluid collection. No free air. BONES/JOINTS: Unremarkable. No suspicious lytic or blastic abnormality. SOFT TISSUES: Unremarkable. No discrete abdominal or pelvic wall hernia. VASCULATURE: Unremarkable. Abdominal aorta is non-dilated. LYMPH NODES: Unremarkable. No enlarged lymph nodes. CT/Abdomen/Pelvis WITH Contrast IMPRESSION: No acute findings in the abdomen or pelvis. Individualized dose optimization techniques were used for this CT. at 0751 Reported and signed by: Donal Barrett MD Electronically Signed: Donal Barrett MD at 7:50 EST ,
[2021-07-29] MEDS: Dicyclomine 10 MG Capsule 20 MG PO (08:14)
[2021-07-29] MEDS: Ketorolac 15 MG/ML Vial IV (08:15)
[2021-07-29 08:28] VITALS: RESP 16
== END 2021-07-29 08:28 | disposition home or self-care (01) ==
PROVIDERS: Emergency Provider Emergency Medicine; PCP Internal Medicine; Visit Provider Emergency Medicine
DX: R10.31 Right lower quadrant pain (principal); I48.0 Paroxysmal atrial fibrillation; R10.11 Right upper quadrant pain; F17.210 Nicotine dependence, cigarettes, uncomplicated; I10 Essential (primary) hypertension; D72.829 Elevated white blood cell count, unspecified; M54.50 Low back pain, unspecified; Q79.60 Ehlers-Danlos syndrome, unspecified; Z79.1 Long term (current) use of non-steroidal anti-inflammatories (NSAID); Z79.899 Other long term (current) drug therapy
CPT/HCPCS: 74177; 80053; 81001; 83690; 85025; 96361; 96374; 96375; 99284; Q9967; A4216; J2405

== ENCOUNTER 2021-10-21 11:27 | Emergency (ER) | payer MEDICAID, SELFPAY ==
[2021-10-21 11:28] VITALS: BP 153/95; PULSE 96; RESP 17; TEMP 35.8; O2SAT 97; BMI 30.4
--- NOTE | 2021-10-21 11:56 | EDS_ITS ---
HPI History of Present Illness Chief Complaint: Dental Informant: patient Onset/Context/Timing Onset: Today Context: Gradual Onset Timing: Continuous Quality: Sharp Location: Right upper and lower molars Worsened by: Nothing Relieved by: - (Nothing) Associated Symptoms Assocated Symptom - Dental: jaw swelling, face swelling, cold sensitivity and hot sensitivity; Negative for fever Narrative Narrative: Patient presents with right upper and lower dental pain that became worse today. Patient states it is gradually gotten worse. Patient states he has an appointment with his dentist next week. Patient describes his pain is sharp. Patient states it is over the right upper and lower molars. Patient states nothing makes it worse. Patient states nothing makes it better. Patient admits to some swelling of his jaw and face. Patient also admits to hot and cold sensitivity. Patient denies any fevers or chills. Patient states his hands do get sweaty however. PFSH [facility] Medical History Abdominal pain Atrial fibrillation with rapid ventricular response (03/07/17) Caffeine abuse Chest pain Sirena-Danlos disease Essential (primary) hypertension Intermittent palpitations Nicotine dependence Paroxysmal atrial fibrillation Home Medications omeprazole 40 mg PO DAILY 07/31/19 [History Last Taken 07/31/19] naproxen 500 mg PO BID PRN PRN 01/27/20 [History Last Taken Unknown] fluoxetine 20 mg capsule 20 mg PO DAILY cap 10/16/21 [History Last Taken Unknown] penicillin V potassium 500 mg PO 4X/DAY #40 tab 10/21/21 [Rx Last Taken Unknown] Allergy/AdvReac Type Severity Reaction Status Date / Time No Known Allergies Allergy Verified 10/21/21 11:27 Family History Other Sirena-Danlos syndrome Surgical History History of cardioversion (03/07/17) History of herniorrhaphy Social History Smoking Status: Current every day smoker tobacco type: cigarettes alcohol intake: never substance use type: marijuana caffeine: Yes Type: coffee Number of servings: 2 ROS ROS ED Constitutional Constitutional ED: Reports sweats; Denies chills or fever(s) Eyes Eyes: Denies blurry vision or change in vision ENT ENT ED: Reports sore throat; Denies rhinorrhea Cardiovascular Cardiovascular: Denies chest pain or palpitations Respiratory/Chest Respiratory/Chest: Denies cough or dyspnea Gastrointestinal Gastrointestinal: Denies nausea or vomiting Genitourinary Genitourinary ED: Denies dysuria or hematuria Musculoskeletal Musculoskeletal: Reports neck pain; Denies back pain Integumentary Denies abscess or rash Neurologic Neurologic: Denies headache(s) or weakness Allergic/Immunologic Allergic/Immunologic ED: Denies mouth swelling or urticaria EXAM Physical Exam Const Vital Signs: 10/21/21 11:28 Temperature 96.5 F L Temperature Source Temporal Pulse Rate 96 Respiratory Rate 17 Blood Pressure 153/95 H Blood Pressure Mean 114 Pulse Ox 97 Oxygen Delivery Method Room Air Positive well nourished and well developed General Appearance ED: well developed and NAD HEENT Mouth ED: Yes tongue normal Mouth: tongue normal Teeth and Gingiva: caries; Negative for gingiva abnormal Throat: posterior oropharynx normal Eyes PERRL and EOMs intact bilaterally Neck supple and no JVD General: Negative for anterior neck swelling or submandibular swelling Resp normal respiratory effort and clear to auscultation bilaterally Cardio regular rate and regular rhythm Neuro oriented x3, CN's II-XII intact bilaterally, moves all extremities, no focal motor deficits and no sensory deficits noted Sensorium / Orientation: alert Psych mental status grossly normal MDM MDM MDM Narrative Medical decision making narrative: Patient was given a dose of Pen-Vee K here. Patient was given a prescription for Pen-Vee K. Patient was instructed to continue the Naprosyn as needed for pain. Patient was instructed to follow-up with his dentist as scheduled. Patient understood and was agreeable with the plan. All questions were answered. Discharge Plan Triage Chief Complaint: Dental ED Provider: [place] Blanca Dx/Rx/DC Orders Clinical Impression: Infected dental caries, Nicotine dependence Instructions: ED Dental Cavity Prescriptions: New penicillin V potassium 500 MG tablet 500 mg PO 4X/DAY Qty: 40 RF: 0 No Action fluoxetine 20 mg capsule 20 mg PO DAILY RF: 0 omeprazole 40 MG capsule,delayed release(DR/EC) 40 mg PO DAILY RF: 0 naproxen 500 MG tablet 500 mg PO BID PRN PRN (Reason: Pain Or Fever) RF: 0 Primary Care Provider: Phu Jimenez Referrals: Phu Jimenez MD [Primary Care Provider] - Dentist,Your [STAFF PHYSICIAN] - Keep Bhargavi appointment Disposition Disposition: Home, Self Care
[2021-10-21] MEDS: Penicillin Vk 250 MG Tablet 500 MG PO (12:20)
--- NOTE | 2021-10-21 12:33 | ED.RN ---
PT ANGRY THAT HE WAS NOT RECEIVING NARCOTIC MEDICATION. OFFERED TO DO A DENTAL BLOCK. PT IS ANGRY ABOUT THAT. PT THENGETS UP STATES HE HAS TO LEAVE AND WALKS OUT WITH NO PAPERWORK
== END 2021-10-21 12:36 | disposition home or self-care (01) ==
PROVIDERS: Emergency Provider Emergency Medicine; PCP Internal Medicine; Visit Provider Emergency Medicine
DX: K02.9 Dental caries, unspecified (principal); I10 Essential (primary) hypertension; Q79.60 Ehlers-Danlos syndrome, unspecified; F17.210 Nicotine dependence, cigarettes, uncomplicated; Z79.1 Long term (current) use of non-steroidal anti-inflammatories (NSAID)
CPT/HCPCS: 99283

== ENCOUNTER 2025-04-28 04:47 | Emergency (ER) | payer MEDICAID, SELFPAY ==
[2025-04-28 04:48] VITALS: BP 158/106; PULSE 118; RESP 20; TEMP 36.9; O2SAT 98; BMI 29.2
--- NOTE | 2025-04-28 04:58 | EKG12_ITS ---
Test Reason : ABD PAIN Blood Pressure : */* mmHG Vent. Rate : 100 BPM Atrial Rate : 100 BPM P-R Int : 174 ms QRS Dur : 92 ms QT Int : 348 ms P-R-T Axes : 73 72 52 degrees QTcB Int : 448 ms Normal sinus rhythm Possible Left atrial enlargement Minimal voltage criteria for LVH, may be normal variant ( Sokolow-Marshall ) Nonspecific ST abnormality Abnormal ECG When compared with ECG of 18-Mar-2021 21:20, ST now depressed in Anterolateral leads Nonspecific T wave abnormality now evident in Lateral leads Confirmed by BING HICKEY, DANIELLE ([id number]), associate entertainment editor WAQAS DENNISON ([id number]) on 05/02/2025 10:34:02 AM Referred By: GUNNER Confirmed By: DANIELLE SMART MD
--- OUTSIDE RECORDS SUMMARY | 2025-04-28 05:13 | XMS RPT_ITS | CCD ---
Author Organization [facility] Care Team Providers Care Animal Treatment Investigator Name Role Phone Caden Palomares Unavailable Unavailable Phu Jimenez MD Primary Care Provider Dr. Phu Jimenez Primary Care Provider Dr. Phu Jimenez Referring Provider Cameron INFANTRYMAN, INFANTRYMAN-C Greta Campoverde Attending Provider Phu Jimenez MD Primary Care Provider TONY HICKEY, DR NOLASCO Primary Care Physician [phone] [place] Blanca Attending Unavailable Tony, Phu Primary Care Unavailable Tony, Phu Primary Care Unavailable Montana Blanca Attending Unavailable Reuben Cooper Attending Unavailable Tony, Phu Primary Care Unavailable Phu Jimenez Primary Care Unavailable Phu Jimenez Referring Unavailable Greta Barnes Attending Unavailable Tony, Phu Primary Care Unavailable Phu Jimenez Referring Unavailable Greta Barnes Attending Unavailable Valeriano Rodriguez MD Primary Care Provider LISSY HICKEY, DR ARAYA Attending Unavailgeovanna JIMENEZ MD, DR NOLASCO Primary Care Unavailrufino HORTON MD, DR GABRIELLA Katz Attending Unavailable TONY HICKEY, DR NOLASCO Primary Care UnavailValeriano Veloz MD Primary Care Provider Jacques CARPENTER PROTOTYPE.COMMODITIES REQUIREMENTS ANALYST, Nelson Unavailable Kun CARPENTER PROTOTYPE.METROLOGIST, Sherrie Unavailable Jacques ORDOÑEZN.COMMODITIES REQUIREMENTS ANALYST, Nelson Unavailable VALERIANO RODRIGUEZ Primary Care Unavailable NELSON HANNA Attending Unavailable VALERIANO RODRIGUEZ Primary Care Unavailable NELSON HANNA Referring Unavailable VALERIANO RODRIGUEZ Primary Care Unavailable Medications Current Medications Medication Drug Class(es) Dates Sig (Normalized) Sig (Original) acetaminophen 325 mg / HYDROcodone bitartrate 5 mg oral tablet (6 sources) Opioid Agonist Start: 03-31-2023 End: 04-02-2023 take 1 tablet by mouth every six hours as needed for pain [place] 325- 5 mg oral tablet Dose = 1 tab(s), Oral, q6h, PRN as needed for pain, X 2 day(s), # 8 tab(s), 0 Refill(s), Dental infection, 97.7 Start Date: 03/31/23 Stop Date: 04/02/23 Status: Ordered Start: 05-11-2022 End: 05-14-2022 take 1 tablet by mouth every eight hours as needed for pain [place] 325- 5 mg oral tablet Dose = 1 tab(s), Oral, q8h, PRN as needed for pain, X 3 day(s), # 9 tab(s), 0 Refill(s), Rib pain Start Date: 05/11/22 Stop Date: 05/14/22 Status: Ordered Start: 09-19-2019 End: 09-21-2019 take 1 tablet by mouth every four hours as needed Hydrocodone-Acetaminophen Discontinued 1 TABLET PO EVERY 4 HOURS NEEDED 8 September 19, 2019 2:56am September 21, 2019 12:02am Start: 12-04-2018 End: 12-07-2018 take 1 tablet by mouth every six hours as needed Hydrocodone-Acetaminophen Discontinued 1 TABLET PO EVERY 6 HOURS NEEDED 10 3 December 04, 2018 1:00am December 07, 2018 12:07am Start: 04-21-2018 End: 04-25-2018 take 1 tablet by mouth every four hours as needed Hydrocodone-Acetaminophen Discontinued 1 TABLET PO EVERY 4 HOURS NEEDED 14 2 April 23, 2018 5:38pm April 25, 2018 1:15am clindamycin 150 mg oral capsule (2 sources) Lincosamide Antibacterial Start: 02-10-2022 End: 02-20-2022 clindamycin 150 mg oral capsule Dose : 450 mg = 3 cap(s), Oral, q8h, X 10 day(s), # 30 cap(s), 0 Refill(s), 02/20/22 14:05:00 EDT Start Date: 02/10/22 Stop Date: 02/20/22 Status: Ordered Start: 04-23-2018 End: 07-15-2018 take 300 mg by mouth every six hours Clindamycin Hcl Discontinued 300 MG PO EVERY 6 HOURS 40 April 23, 2018 5:38pm July 15, 2018 4:02pm cyclobenzaprine hydrochloride 10 mg oral tablet (1 source) Muscle Relaxant Start: 05-11-2022 End: 05-16-2022 cyclobenzaprine 10 mg oral tablet Dose : 10 mg = 1 tab(s), Oral, TID, X 5 day(s), # 15 tab(s), 0 Refill(s), 05/16/22 19:35:00 EST Start Date: 05/11/22 Stop Date: 05/16/22 Status: Ordered dicyclomine hydrochloride 20 mg oral tablet (20 sources) Anticholinergic Start: 10-11-2021 End: 12-22-2025 take 1 tablet by mouth at bedtime as needed dicyclomine (BENTYL) 20 mg tablet Indications: Irritable bowel syndrome with diarrhea Take 1 tablet by mouth before meals and at bedtime. As needed for IBS 120 tablet 11 12/22/2024 12/22/2025 Active Start: 06-11-2020 take 1 tablet by krista th at bedtime dicyclomine (BENTYL) 20 mg tablet Take 1 tablet by mouth before meals and at bedtime. 120 tablet 3 06/11/2020 Active Comment on above: Take 1 tablet by krista th before meals and at bedtime. Take 1 tablet by krista th before meals and at bedtime. As needed for IBS FLUoxetine 40 mg oral capsule (20 sources) Serotonin Reuptake Inhibitor Start: 12-22-2024 take 1 capsule by mouth once daily FLUoxetine (PROZAC) 40 mg capsule Indications: Moderate episode of recurrent major depressive disorder (HCC) , PTSD (post-traumatic stress disorder) Take 1 capsule by mouth once daily. 90 capsule 3 12/22/2024 Active Start: 07-07-2022 End: 12-22-2024 take 1 capsule by mouth once daily FLUoxetine (PROZAC) 40 mg capsule Indications: Moderate episode of recurrent major depressive disorder (HCC) , PTSD (post-traumatic stress disorder) Take 1 capsule by mouth once daily. 30 capsule 5 12/22/2024 12/22/2024 Discontinued Start: 10-11-2021 End: 07-07-2022 FLUoxetine 20 mg oral capsul e 0 Refill(s) Start Date: 05/11/22 Status: Ordered Comment on above: Take 1 capsule by [facility] once daily. lidocaine 0.05 mg/mg medicated patch (1 source) Antiarrhythmic, Amide Local Anesthetic Start: 05-11-20 End: 06-10-19 Lidoderm 5% topical patch Apply 1 patch(es), Transdermal, qDay, X 30 day(s), # 30 patch(es), 0 Refill(s) Start Date: 05/11/22 Stop Date: 06/10/22 Status: Ordered naproxen 500 mg oral tablet (1 source) Nonsteroidal Anti-inflammatory Drug Start: 01-27-20 take 500 mg by mouth twice daily as needed Naproxen Active 500 MG PO TWICE DAILY NEEDED January 27, 2020 5:06pm omeprazole 40 mg delayed release oral capsule (20 sources) Proton Pump Inhibitor Start: 12-23-19 take 1 capsule by mouth once daily as needed omeprazole (PRILOSEC) 40 mg capsule Indications: Gastroesophageal reflux disease without esophagitis , Epigastric pain Take 1 capsule by mouth once daily as needed. 90 capsule 3 12/22/2024 Active Start: 02-11-2022 End: 12-22-2024 take 1 capsule by mouth once daily as needed omeprazole (PRILOSEC) 40 mg capsule Indications: Gastroesophageal reflux disease without esophagitis , Epigastric pain Take 1 capsule by mouth once daily as needed. 90 capsule 1 12/22/2024 12/22/2024 Discontinued Start: 07-31-2019 End: 02-07-2022 take 1 capsule by mouth once daily as needed omeprazole (PRILOSEC) 40 mg capsule Indications: Gastroesophageal reflux disease without esophagitis , Epigastric pain Take 1 capsule by mouth once daily as needed. 30 capsule 2 10/29/2021 02/07/2022 Discontinued Comment on above: Take 1 capsule by [facility] once daily as needed. penicillin v potassium 500 mg oral tablet (3 sources) Start: 03-31-2023 End: 04-10-2023 penicillin V potassium 500 mg oral tablet Dose : 500 mg = 1 tab(s), Oral, QID, X 10 day(s), # 40 tab(s), 0 Refill(s), 04/10/23 10:56:00 PM EDT, 97.7 Start Date: 03/31/23 Stop Date: 04/10/23 Status: Ordered Start: 01-10-2022 End: 01-15-2022 take 1 tablet by mouth four times daily penicillin V potassium (V-CILLIN, VEETIDS) 500 mg tablet Indications: Toothache Take 1 tablet by mouth four times daily for 5 days. 20 tablet 0 01/10/2022 01/15/2022 Active Start: 10-21-2021 take 500 mg by mouth four times daily Penicillin V Potassium Active 500 MG PO 4 TIMES DAILY October 21, 2021 12:02pm Comment on above: Take 1 tablet by krista four times daily for 5 days. Completed/Discontinued Medications Medication Drug Class(es) Dates Sig (Normalized) Sig (Original) acetaminophen 500 mg oral tablet (2 sources) End: 10-11-2021 take 1 tablet by mouth every eight hours as needed acetaminophen (TYLENOL) 500 mg tablet Take 500 mg by mouth every 8 hours as needed. 0 10/11/2021 Discontinued (Course of therapy completed) Comment on above: Take 500 mg by mouth every 8 hours as needed. mupirocin 0.02 mg/mg topical ointment (1 source) RNA Synthetase Inhibitor Antibacterial Start: 09-19-2019 End: 09-29-2019 Mupirocin Discontinued 1 APPLIC NASAL TWICE A DAY 1 September 19, 2019 2:54am September 29, 2019 12:02am polyethylene glycol 3350 287857 mg / potassium chloride 2970 mg / sodium bicarbonate 6740 mg / sodium chloride 5860 mg / sodium sulfate 11142 mg powder for oral solution (1 source) Osmotic Laxative Start: 08-26-2022 End: 08-26-2022 peg 3350-Electrolytes (GOLYTELY) 236-22.74-6.74 -5.86 gram suspension Take 4,000 mL by mouth one time only for 1 dose. 1 Each 0 08/26/2022 08/26/2022 Comment on above: Take 4,000 mL by krista one time only for 1 dose. rivaroxaban 20 mg oral tablet (1 source) Factor Xa Inhibitor Start: 03-12-2017 take 1 tablet by mouth once daily XARELTO 20 MG TABS One tablet by mouth daily RIVAROXABAN [id number] Greta Barnes INFANTRYMAN tamsulosin hydrochloride 0.4 mg oral capsule (2 sources) alpha-Adrenergic Erendira Start: 06-04-2020 End: 10-11-2021 take 1 capsule by mouth once daily at bedtime tamsulosin ER (FLOMAX) 0.4 mg Indications: Lower urinary tract symptoms (LUTS) Take 1 capsule by mouth daily at bedtime. 30 capsule 1 06/04/2020 10/11/2021 Discontinued (Discontinued by Patient) Comment on above: Take 1 capsule by mo [facility] daily at bedtime. Problems Active Problems Problem Classification Problem Date Documented Da te Episodic/Chronic Anxiety disorders (4 sources) Posttraumatic stress disorder; Translations: [Post-traumatic stress disorder, unspecified] Onset: 5 12-22-2024 Chronic Cardiac dysrhythmias (3 sources) Atrial fibrillation; Translations: [Paroxysmal atrial fibrillation] Onset: 7 03-12-2017 Chronic Cardiac dysrhythmias (4 sources) Palpitations; Translations: [Palpitations] Onset: 7 03-12-2017 Episodic Disorders of teeth and jaw (5 sources) Dental caries; Translations: [Dental caries, unspecified] Onset: 3 Episodic Esophageal disorders (20 sources) Gastroesophageal reflux disease without esophagitis; Translations: [Gastro-esophageal reflux disease without esophagitis] Onset: 0 09-16-2019 Chronic Essential hypertension (1 source) Essential hypertension; Translations: [Essential (primary) hypertension] Chronic Genitourinary symptoms and ill-defined conditions (2 sources) Increased frequency of urination; Translations: [Frequency of micturition] Onset: 5 12-22-2024 Episodic Immunizations and screening for infectious disease (5 sources) Viral screening status; Translations: [Encounter for screening for other viral diseases] Onset: 5 Episodic Mood disorders (20 sources) Recurrent major depressive episodes, moderate ; Translations: [Major depressive disorder, recurrent, moderate] Onset: 2 10-11-2021 Chronic Nonspecific chest pain (7 sources) Chest pain; Translations: [Chest pain, unspecified] Onset: 2 Episodic Other connective tissue disease (1 source) Pain in right lower limb; Translations: [Pain in right leg] Episodic Other gastrointestinal disorders (20 sources) Irritable bowel syndrome with diarrhea; Translations: [Irritable bowel syndrome with diarrhea] Onset: 0 09-11-2020 Chronic Other gastrointestinal disorders (1 source) Irritable bowel syndrome with diarrhea; Translations: [Irritable bowel syndrome with diarrhea] Onset: 1 Chronic Other gastrointestinal disorders (1 source) History of irritable bowel syndrome; Translations: [Personal history of other diseases of the digestive system] Episodic Other liver diseases (1 source) Liver cyst; Translations: [Other specified diseases of liver] Chronic Other lower respiratory disease (1 source) Pleuritic pain; Translations: [Pleurodynia] Onset: 2 Episodic Other screening for suspected conditions (not mental disorders or infectious disease) (12 sources) Patient encounter status; Translations: [Encounter for screening for malignant neoplasm of colon] Onset: 5 Episodic Other upper respiratory disease (1 source) Nasal infection; Translations: [Other specified disorders of nose and nasal sinuses] Episodic Residual codes; unclassified (1 source) Genetic susceptibility to other disease; Translations: [Genetic susceptibility to other disease] Onset: 2 Episodic Residual codes; unclassified (1 source) Medical care unavailable; Translations: [Procedure and treatment not carried out for other reasons] 03-29-2024 Episodic Residual codes; unclassified (2 sources) Family history of cardiac disorder; Translations: [Family history of ischemic heart disease and other diseases of the circulatory system] 12-22-2024 Episodic Residual codes; unclassified (1 source) Family history of ischemic heart disease and other diseases of the circulatory system; Translations: [Family history of heart disease] Onset: 5 Episodic Screening and history of mental health and substance abuse codes (4 sources) H/O: manic depressive disorder; Translations: [Personal history of other mental and behavioral disorders] Onset: 5 12-22-2024 Episodic Substance-related disorders (20 sources) Tobacco user; Translations: [Nicotine dependence, unspecified, uncomplicated] Onset: 1 09-11-2020 Chronic Superficial injury; contusion (2 sources) Abrasion of groin, infected; Translations: [Abrasion of abdominal wall, initial encounter] Episodic Unclassified (1 source) Patient encounter status 12-22-2024 Past or Other Problems Problem Classification Problem Date Documented Da te Episodic/Chronic Abdominal pain (20 sources) Epigastric pain; Translations: [Epigastric pain] Onset: 09-16-2019 09-16-2019 Episodic Headache; including migraine (20 sources) Chronic pain in face; Translations: [Chronic facial pain] Onset: 09-11-2020 09-11-2020 Episodic Other gastrointestinal disorders (20 sources) Dysphagia; Translations: [Other dysphagia] Onset: 09-16-2019 09-16-2019 Episodic Results Test Name Value Interpretation Reference Range Facility CBC W Auto Differential pane l (Bld)on 12-22-2024 Basophils (Bld) [#/Vol] 0.08 10*3/uL Normal <0.11 [facility] Comment on above: Order Comment: Speci men Type: BLOOD SPECIMEN Ordering Facility: [facility] Address: [address] [place] [address] Performed By: #### 5 7021-8 #### [facility] CLIA [id number] [address] [place] [address] [place] Basophils/100 WBC (Bld) 1.0 % Normal [facility] Comment on above: Order Comment: Speci men Type: BLOOD SPECIMEN Ordering Facility: [facility] Address: [address] [place] [address] Performed By: #### 5 7021-8 #### [facility] CLIA [id number] [address] [place] [address] [place] Differential cell count method Nom (Bld) Auto Normal [facility] Comment on above: Order Comment: Speci men Type: BLOOD SPECIMEN Ordering Facility: [facility] Address: [address] [place] [address] Performed By: #### 5 7021-8 #### [facility] CLIA [id number] [address] [place] [address] [place] Eosinophils (Bld) [#/Vol] 0.41 10*3/uL Normal <0.46 [facility] Comment on above: Order Comment: Speci men Type: BLOOD SPECIMEN Ordering Facility: [facility] Address: [address] [place] [address] Performed By: #### 5 7021-8 #### [facility] CLIA [id number] [address] [place] [address] [place] Eosinophils/100 WBC (Bld) 5.3 % Normal [facility] Comment on above: Order Comment: Speci men Type: BLOOD SPECIMEN Ordering Facility: [facility] Address: [address] [place] [address] Performed By: #### 5 7021-8 #### [facility] CLIA [id number] [address] [place] [address] [place] Erythrocyte distribution width (RBC) [Ratio] 12.3 % Normal 11.5-15.0 [facility] Comment on above: Order Comment: Speci men Type: BLOOD SPECIMEN Ordering Facility: [facility] Address: [address] [place] [address] Performed By: #### 5 7021-8 #### [facility] CLIA [id number] [address] [place] [address] [place] Hematocrit (Bld) [Volume fraction] 45.3 % Normal 39.0-51.0 [facility] Comment on above: Order Comment: Speci men Type: BLOOD SPECIMEN Ordering Facility: [facility] Address: [address] [place] [address] Performed By: #### 5 7021-8 #### [facility] CLIA [id number] [address] [place] [address] [place] Hemoglobin (Bld) [Mass/Vol] 15.1 g/dL Normal 13.0-17.0 [facility] Comment on above: Order Comment: Speci men Type: BLOOD SPECIMEN Ordering Facility: [facility] Address: [address] [place] [address] Performed By: #### 5 7021-8 #### [facility] CLIA [id number] [address] [place] [address] [place] Immature granulocytes (Bld) [#/Vol] 0.04 10*3/uL Normal <0.10 [facility] Comment on above: Order Comment: Speci men Type: BLOOD SPECIMEN Ordering Facility: [facility] Address: [address] [place] [address] Performed By: #### 5 7021-8 #### [facility] CLIA [id number] [address] [place] [address] [place] Immature granulocytes/100 WBC (Bld) 0.5 % Normal [facility] Comment on above: Order Comment: Speci men Type: BLOOD SPECIMEN Ordering Facility: [facility] Address: [address] [place] [address] Performed By: #### 5 7021-8 #### [facility] CLIA [id number] [address] [place] [address] [place] Lymphocytes (Bld) [#/Vol] 2.94 10*3/uL Normal 1.00-4.00 [facility] Comment on above: Order Comment: Speci men Type: BLOOD SPECIMEN Ordering Facility: [facility] Address: [address] [place] [address] Performed By: #### 5 7021-8 #### [facility] CLIA [id number] [address] [place] [address] [place] Lymphocytes/100 WBC (Bld) 37.9 % Normal [facility] Comment on above: Order Comment: Speci men Type: BLOOD SPECIMEN Ordering Facility: [facility] Address: [address] [place] [address] Performed By: #### 5 7021-8 #### [facility] CLIA [id number] [address] [place] [address] [place] MCH (RBC) [Entitic mass] 28.2 pg Normal 26.0-34.0 [facility] Comment on above: Order Comment: Speci men Type: BLOOD SPECIMEN Ordering Facility: [facility] Address: [address] [place] [address] Performed By: #### 5 7021-8 #### [facility] CLIA [id number] [address] [place] [address] [place] MCHC (RBC) [Mass/Vol] 33.3 g/dL Normal 30.5-36.0 [facility] Comment on above: Order Comment: Speci men Type: BLOOD SPECIMEN Ordering Facility: [facility] Address: [address] [place] [address] Performed By: #### 5 7021-8 #### [facility] CLIA [id number] [address] [place] [address] [place] MCV (RBC) [Entitic vol] 84.7 fL Normal 80.0-100.0 [facility] Comment on above: Order Comment: Speci men Type: BLOOD SPECIMEN Ordering Facility: [facility] Address: [address] [place] [address] Performed By: #### 5 7021-8 #### [facility] CLIA [id number] [address] [place] [address] [place] Monocytes (Bld) [#/Vol] 0.80 10*3/uL Normal <0.87 [facility] Comment on above: Order Comment: Speci men Type: BLOOD SPECIMEN Ordering Facility: [facility] Address: [address] [place] [address] Performed By: #### 5 7021-8 #### [facility] CLIA [id number] [address] [place] [address] [place] Monocytes/100 WBC (Bld) 10.3 % Normal [facility] Comment on above: Order Comment: Speci men Type: BLOOD SPECIMEN Ordering Facility: [facility] Address: [address] [place] [address] Performed By: #### 5 7021-8 #### [facility] CLIA [id number] [address] [place] [address] [place] Neutrophils (Bld) [#/Vol] 3.49 10*3/uL Normal 1.45-7.50 [facility] Comment on above: Order Comment: Speci men Type: BLOOD SPECIMEN Ordering Facility: [facility] Address: [address] [place] [address] Performed By: #### 5 7021-8 #### [facility] CLIA [id number] [address] [place] [address] [place] Neutrophils/100 WBC (Bld) 45.0 % Normal [facility] Comment on above: Order Comment: Speci men Type: BLOOD SPECIMEN Ordering Facility: [facility] Address: [address] [place] [address] Performed By: #### 5 7021-8 #### [facility] CLIA [id number] [address] [place] [address] [place] Nucleated RBC (Bld) [#/Vol] 10*3/uL Normal <0.01 [facility] Comment on above: Order Comment: Speci men Type: BLOOD SPECIMEN Ordering Facility: [facility] Address: [address] [place] [address] Performed By: #### 5 7021-8 #### [facility] CLIA [id number] [address] [place] [address] [place] Nucleated RBC/100 WBC (Bld) [Ratio] 0.0 /100 WBC Normal [facility] Comment on above: Order Comment: Speci men Type: BLOOD SPECIMEN Ordering Facility: [facility] Address: [address] [place] [address] Performed By: #### 5 7021-8 #### [facility] CLIA [id number] [address] [place] [address] [place] Platelet mean volume (Bld) [Entitic vol] 9.8 fL Normal 9.0-12.7 [facility] Comment on above: Order Comment: Speci men Type: BLOOD SPECIMEN Ordering Facility: [facility] Address: [address] [place] [address] Performed By: #### 5 7021-8 #### [facility] CLIA [id number] [address] [place] [address] [place] Platelets (Bld) [#/Vol] 366 10*3/uL Normal 150-400 [facility] Comment on above: Order Comment: Speci men Type: BLOOD SPECIMEN Ordering Facility: [facility] Address: [address] [place] [address] Performed By: #### 5 7021-8 #### [facility] CLIA [id number] [address] [place] [address] [place] RBC (Bld) [#/Vol] 5.35 10*6/uL Normal 4.20-6.00 [facility] Comment on above: Order Comment: Speci men Type: BLOOD SPECIMEN Ordering Facility: [facility] Address: [address] [place] [address] Performed By: #### 5 7021-8 #### [facility] CLIA [id number] [address] [place], [place] [id number] [place] WBC (Bld) [#/Vol] 7.76 10*3/uL Normal 3.70-11.00 [facility] Comment on above: Order Comment: Speci men Type: BLOOD SPECIMEN Ordering Facility: [facility] Address: [address] [place] [address] Performed By: #### 5 7021-8 #### [facility] CLIA [id number] [address] [place] [address] [place] [facility] CNOVon 12-22-2024 CNOV Office Visit (INTMWS ) GRETA ALMAGUER ([id number]) 1975 M Date Time Provider Department 12/22/24 7:00 AM NELSON HANNA INTMWS During your visit today, we recorded the following information about you: Pulse Respiration Blood pressure Weight 90/minute 16/minute 150/82 106.2 kg Height 1.915 m Nelson Hanna APRN.COMMODITIES REQUIREMENTS ANALYST 12/22/2024 8:02 AM Signed Subjective Patient ID: Greta is a 49 year old male who presents for Yearly Exam. HPI Greta Almaguer is a 49-year-old male with a history of bipolar disorder, PTSD, and GERD, presenting for a routine visit and medication refills. Bipolar Disorder and PTSD: - On disability for bipolar disorder and PTSD. - Currently experiencing a full-blown attack. - Previously managed with Prozac, but medication was discontinued due to missed office visits, leading to a spiral. - Reports being "caustic and short with people" when off medication. - Requests referral to mental health services; [facility] [place]. - Expresses preference for medication management by a psychiatrist. - Has been on various medications throughout life, including lithium and Risperdal. - Greta's mother, who managed his care, 25 years ago, leading to a period of "floundering." - Institutionalized and placed on disability after Greta's mother's . - Describes life as "very dysfunctional" without medication. - Unclear if he has bipolar 1 or 2. GERD: - Chronic condition managed with Prilosec, which provides relief. - Requests refill of Prilosec. Abdominal Pain: - History of abdominal pain managed with dicyclomine (Bentyl); requests refill. - Reports current abdominal pain and discomfort. - Experiences nausea, managed with cannabis. - Denies emesis or dysphagia. - Reports mucous and bloody stools. - Family history of IBS. Colorectal Cancer Screening: - Due for colonoscopy; reports bleeding and pain. - Has a history of EGD. Family History of Vascular Sirena-Danlos Syndrome: - Family history of vascular Sirena-Danlos syndrome, leading to aortic aneurysms. - Affected family members include Greta's mother, maternal grandfather, uncle, and aunt. 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 - Experiences discomfort in the chest area. - Previously seen by Greta Barnes at [facility] after a cardiac event. - Reports an irregular heartbeat episode after consuming an energy drink, with heart rate reaching 180 bpm. Vaccinations: - Pro-science and up-to-date on vaccinations. - Declines COVID booster, citing natural immunity from previous infections and vaccinations. - Started Hepatitis B vaccine series 15 years ago but did not complete it. Vision Care: - Needs new eyeglasses; current pair is four years old. - Experiences stibismus and difficulty with night driving. - Previously seen at [facility] for eye care. Notes no smoking or vaping. Does use marijuana for nausea. ROS Eyes: (+) blurred vision, (+) impaired night vision Cardiovascular: (+) chest discomfort Gastrointestinal: (+) abdominal pain, (+) nausea, (+) rectal pain, (+) hematochezia, (+) mucus in stool, (-) vomiting, (-) dysphagia Psychiatric: (+) irritability Objective BP 150/82 Pulse 90 Resp 16 Ht 191.5 cm (6' 3.39") Wt 106.2 kg (234 lb 2.1 oz) SpO2 97% BMI 28.96 kg/m? Physical Exam Vitals and nursing note reviewed. Constitutional: Appearance: Normal appearance. HENT: Head: Normocephalic and atraumatic. Eyes: Conjunctiva/sclera: Conjunctivae normal. Neck: Thyroid: No thyroid mass or thyromegaly. Vascular: Normal carotid pulses. No carotid bruit or JVD. Cardiovascular: Rate and Rhythm: Normal rate and regular rhythm. Pulses: Carotid pulses are 2+ on the right side and 2+ on the left side. Radial pulses are 2+ on the right side and 2+ on the left side. Heart sounds: Normal heart sounds. Pulmonary: Effort: Pulmonary effort is normal. Breath sounds: Normal breath sounds. Abdominal: General: Bowel sounds are normal. Palpations: Abdomen is soft. Musculoskeletal: Right lower leg: No edema. Left lower leg: No edema. Skin: General: Skin is warm and dry. Neurological: General: No focal deficit present. Mental Status: He is alert and oriented to person, place, and time. Latest Ref Rng 12/11/2020 WBC 3.70 - 11.00 k/uL 10.12 RBC 4.20 - 6.00 m/uL 4.96 Hemoglobin 13.0 - 17.0 g/dL 14.2 Hematocrit 39.0 - 51.0 % 42.9 MCV 80.0 - 100.0 fL 86.5 MCH 26.0 - 34.0 pG 28.6 MCHC 30.5 - 36.0 g/dL 33.1 RDW-CV 11.5 - 15.0 % 13.6 Platelet Count 150 - 400 k/uL 354 MPV 9.0 - 12.7 fL 10.2 Neut% % 51.0 Abs Neut (ANC) 1.45 - 7.50 k/uL 5.16 Lymph% % 39.0 Abs Lymph 1.00 - 4.00 k/uL 3.95 Guadalupe% % 7.1 Abs Guadalupe <0.87 k/uL 0.72 Eosin% % 2. (more content not included)... Normal [facility] Comprehensive metabolic 2000 panelon 12-22-2024 Albumin [Mass/Vol] 4.7 g/dL Normal 3.9-4.9 [facility] Comment on above: Order Comment: Theresa gardner Type: BLOOD SPECIMEN Ordering Facility: [facility] Address: [address] [place] [address] Performed By: #### 2 4323-8, 78650-1 #### [facility] CLIA [id number] [address] [place] [address] [place] ALP [Catalytic activity/Vol] 86 U/L Normal 38-113 [facility] Comment on above: Order Comment: Theresa gardner Type: BLOOD SPECIMEN Ordering Facility: [facility] Address: [address] [place] [address] Performed By: #### 2 4323-8, 35148-5 #### [facility] CLIA [id number] [address] [place], [place] [id number] [place] ALT [Catalytic activity/Vol] 22 U/L Normal 10-54 [facility] Comment on above: Order Comment: Speci men Type: BLOOD SPECIMEN Ordering Facility: [facility] Address: [address] [place] [address] Performed By: #### 2 4323-8, 31462-0 #### [facility] CLIA [id number] [address] [place] [address] [place] Anion gap [Moles/Vol] 14 mmol/L Normal 8-15 [facility] Comment on above: Order Comment: Speci men Type: BLOOD SPECIMEN Ordering Facility: [facility] Address: [address] [place] [address] Performed By: #### 2 4323-8, 75616-6 #### [facility] CLIA [id number] [address] [place], [place] [id number] [place] AST [Catalytic activity/Vol] 23 U/L Normal 14-40 [facility] Comment on above: Order Comment: Speci men Type: BLOOD SPECIMEN Ordering Facility: [facility] Address: [address] [place] [address] Performed By: #### 2 4323-8, 48778-9 #### [facility] CLIA [id number] [address] [place], [place] [address] [place] Bilirubin [Mass/Vol] 0.2 mg/dL Normal 0.2-1.3 [facility] Comment on above: Order Comment: Speci men Type: BLOOD SPECIMEN Ordering Facility: [facility] Address: [address] [place] [address] Performed By: #### 2 4323-8, 84887-9 #### [facility] CLIA [id number] [address] [place] [address] [place] Calcium [Mass/Vol] 10.2 mg/dL Normal 8.5-10.2 [facility] Comment on above: Order Comment: Speci men Type: BLOOD SPECIMEN Ordering Facility: [facility] Address: [address] [place] [address] Performed By: #### 2 4323-8, 01800-7 #### [facility] CLIA [id number] [address] [place] [address] [place] Chloride [Moles/Vol] 105 mmol/L Normal 98-107 [facility] Comment on above: Order Comment: Speci men Type: BLOOD SPECIMEN Ordering Facility: [facility] Address: [address] [place] [address] Performed By: #### 2 4323-8, 70598-7 #### [facility] CLIA [id number] [address] [place] [address] [place] CO2 [Moles/Vol] 21 mmol/L Low 22-30 [facility] Comment on above: Order Comment: Speci men Type: BLOOD SPECIMEN Ordering Facility: [facility] Address: [address] [place] [address] Performed By: #### 2 4323-8, 97869-2 #### [facility] CLIA [id number] [address] [place] [address] [place] Creatinine [Mass/Vol] 0.72 mg/dL Low 0.73-1.22 [facility] Comment on above: Order Comment: Speci men Type: BLOOD SPECIMEN Ordering Facility: [facility] Address: [address] [place] [address] Performed By: #### 2 4323-8, 20209-5 #### [facility] CLIA [id number] [address] [place], [place] [address] [place] eGFRcr SerPlBld CKD-EPI 2020 113 mL/min/1.73m??? Normal >=60 [facility] Comment on above: Order Comment: Theresa gardner Type: BLOOD SPECIMEN Ordering Facility: [facility] Address: [address] [place] [address] Result Comment: Sanam mated Glomerular Filtration Rate (eGFR) is calculated using the 2020 CKD-EPI creatinine equation. This equation utilizes serum creatinine, sex, and age as parameters. The creatinine assay has traceable calibration to isotope dilution-mass spectrometry. Refer to KDIGO guidelines for clinical interpretation. In patients with unstable renal function, e.g. those with acute kidney injury, the eGFR may not accurately reflect actual GFR. Performed By: #### 2 4323-8, 87557-4 #### [facility] CLIA [id number] [address] [place] [address] [place] Glucose [Mass/Vol] 92 mg/dL Normal 74-99 [facility] Comment on above: Order Comment: Theresa gardner Type: BLOOD SPECIMEN Ordering Facility: [facility] Address: [address] [place] [address] Result Comment: The [place] Diabetes Association (ADA) provides guidance for cutoff values for fasting glucose and random glucose. The ADA defines fasting as no caloric intake for at least 8 hours. Fasting plasma glucose results between 100 to 125 mg/dL indicate increased risk for diabetes (prediabetes). Fasting plasma glucose results greater than or equal to 126 mg/dL meet the criteria for diagnosis of diabetes. In the absence of unequivocal hyperglycemia, results should be confirmed by repeat testing. In a patient with classic symptoms of hyperglycemia or hyperglycemic crisis, random plasma glucose results greater than or equal to 200 mg/dL meet the criteria for diagnosis of diabetes. Reference: Standards of Medical Care in Diabetes 2016, [place] Diabetes Association. Diabetes Care. 2016.39(Suppl 1). Performed By: #### 2 4323-8, 42230-9 #### [facility] CLIA [id number] [address] [place] [address] [place] Potassium [Moles/Vol] 4.8 mmol/L Normal 3.7-5.1 [facility] Comment on above: Order Comment: Theresa gardner Type: BLOOD SPECIMEN Ordering Facility: [facility] Address: [address] [place] [address] Performed By: #### 2 4323-8, 56374-6 #### [facility] CLIA [id number] [address] [place] [address] [place] Protein [Mass/Vol] 8.1 g/dL High 6.3-8.0 [facility] Comment on above: Order Comment: Speci men Type: BLOOD SPECIMEN Ordering Facility: [facility] Address: [address] [place] [address] Performed By: #### 2 4323-8, 75427-1 #### [facility] CLIA [id number] [address] [place] [address] [place] Sodium [Moles/Vol] 140 mmol/L Normal 136-144 [facility] Comment on above: Order Comment: Speci men Type: BLOOD SPECIMEN Ordering Facility: [facility] Address: [address] [place] [address] Performed By: #### 2 4323-8, 34370-8 #### [facility] CLIA [id number] [address] [place] [address] [place] Urea nitrogen [Mass/Vol] 15 mg/dL Normal 9-24 [facility] Comment on above: Order Comment: Speci men Type: BLOOD SPECIMEN Ordering Facility: [facility] Address: [address] [place] [address] Performed By: #### 2 4323-8, 96339-4 #### [facility] CLIA [id number] [address] [place] [address] [place] HCV Ab Ser Qlon 12-22-2024 HCV Ab Ql (S) Negative Normal Negative [facility] Comment on above: Order Comment: Speci men Type: BLOOD SPECIMEN Ordering Facility: [facility] Address: [address] [place] [address] Result Comment: The result suggests no evidence of infection with Hepatitis C virus. Should recent infection be suspected, repeat testing may be considered 4-6 weeks after this draw. Performed By: #### 1 6128-1 #### [facility] CLIA [id number] [address] [place] [address] [place] Lipid 1996 panelon 5 Cholesterol [Mass/Vol] 253 mg/dL High <200 [facility] Comment on above: Order Comment: Speci men Type: BLOOD SPECIMEN Ordering Facility: [facility] Address: [address] [place] [address] Result Comment: <200 mg/dL, Desirable 200-239 mg/dL, Borderline high >239 mg/dL, High Performed By: #### 2 4323-8, 26398-9 #### [facility] CLIA [id number] [address] [place] [address] [place] Cholesterol in HDL [Mass/Vol] 36 mg/dL Low >39 [facility] Comment on above: Order Comment: Theresa men Type: BLOOD SPECIMEN Ordering Facility: [facility] Address: [address] [place] [address] Result Comment: 40-5 9 mg/dL, Acceptable >59 mg/dL, High: Negative risk factor for coronary heart disease <40 mg/dL, Low: Positive risk factor for coronary heart disease Performed By: #### 2 4323-8, 82088-5 #### [facility] CLIA [id number] [address] [place] [address] [place] Cholesterol in LDL [Mass/Vol] 149 mg/dL High <100 [facility] Comment on above: Order Comment: Speci men Type: BLOOD SPECIMEN Ordering Facility: [facility] Address: [address] [place] [address] Result Comment: <100 mg/dL, Optimal 100-129 mg/dL, Near optimal/above optimal 130-159 mg/dL, Borderline high 160-189 mg/dL, High >189 mg/dL, Very high Secondary prevention optimal LDL Cholesterol levels are recommended to be <70 mg/dL LDL cholesterol is calculated using the Trevino-NIH equation. Performed By: #### 2 4323-8, 54507-5 #### [facility] CLIA [id number] [address] [place], [place] [address] [place] Cholesterol in LDL/Cholesterol in HDL [Mass ratio] 4.14 {ratio} High <2.54 [facility] Comment on above: Order Comment: Theresa gardner Type: BLOOD SPECIMEN Ordering Facility: [facility] Address: [address] [place] [address] Result Comment: Livier fountaince: 1. National Cholesterol Education Program ATP III Guideline At-A-Glance Quick Desk Reference: National Heart, Lung, and Blood [place]. National Institutes of Health. 2001: NIH Publication No. 01-3305. 2. An International Atherosclerosis Society position paper: global recommendations for the management of dyslipidemia: executive summary, Atherosclerosis. 2014: 232(2):410-413. Performed By: #### 2 4323-8, 26450-1 #### [facility] CLIA [id number] [address] [place] [address] [place] Cholesterol in VLDL [Mass/Vol] 69 mg/dL High <30 [facility] Comment on above: Order Comment: Theresa gardner Type: BLOOD SPECIMEN Ordering Facility: [facility] Address: [address] [place] [address] Performed By: #### 2 4323-8, 46458-8 #### [facility] CLIA [id number] [address] [place], [place] [address] [place] Cholesterol non HDL [Mass/Vol] 217 mg/dL High <130 [facility] Comment on above: Order Comment: Theresa gardner Type: BLOOD SPECIMEN Ordering Facility: [facility] Address: [address] [place] [address] Result Comment: <130 mg/dL, Optimal 130-159 mg/dL, Near optimal/above optimal 160-189 mg/dL, Borderline high 190-219 mg/dL, High >219 mg/dL, Very high Secondary prevention optimal non HDL Cholesterol levels are recommended to be <100 mg/dL Performed By: #### 2 4323-8, 06435-0 #### [facility] CLIA [id number] [address] [place] [address] [place] Cholesterol.total/ Cholesterol in HDL [Mass ratio] 7.03 {ratio} High <5.10 [facility] Comment on above: Order Comment: Speci men Type: BLOOD SPECIMEN Ordering Facility: [facility] Address: [address] [place] [address] Performed By: #### 2 4323-8, 27056-4 #### [facility] CLIA [id number] [address] [place] [address] [place] FASTING TIME 12 hrs Normal [facility] Comment on above: Order Comment: Speci men Type: BLOOD SPECIMEN Ordering Facility: [facility] Address: [address] [place] [address] Performed By: #### 2 4323-8, 07416-1 #### [facility] CLIA [id number] [address] [place] [address] [place] Triglyceride [Mass/Vol] 364 mg/dL High <150 [facility] Comment on above: Order Comment: Speci men Type: BLOOD SPECIMEN Ordering Facility: [facility] Address: [address] [place] [address] Result Comment: <150 mg/dL, Normal 150-199 mg/dL, Borderline high 200-499 mg/dL, High >499 mg/dL, Very high Performed By: #### 2 4323-8, 84622-1 #### [facility] CLIA [id number] [address] [place] [address] [place] PSA/PROSTATE SPECIFIC ANTIGE N SCREENINGon 12-22-2024 Prostate specific Ag [Mass/Vol] 0.54 ng/mL Normal <2.60 [facility] Comment on above: Order Comment: Speci men Type: BLOOD SPECIMEN Ordering Facility: [facility] Address: [address] [place] [address] Result Comment: Tota l PSA test methodology used is the Electrochemiluminescence Immunoassay by [employer]. Total PSA values by differing methodologies cannot be interchanged. Performed By: #### P SAS1 #### [facility] CLIA [id number] [address] [place] [address] [place] XR RIBS 2 VIEWS RIGHTon 12-0 XR RIBS 2 VIEWS RIGHT ORIGINAL EXAMINATION: FOUR XRAY VIEWS OF THE RIGHT RIBS 05/11/2022 7:24 pm COMPARISON: None. HISTORY: ORDERING SYSTEM PROVIDED HISTORY: Reason for Exam: rib pain FINDINGS: No displaced rib fracture. The included lungs are clear. IMPRESSION: No displaced rib fracture. I have personally reviewed the images of this examination and agree with the resident's findings and interpretation. Interpreted by: Louis Houser Preliminary Report By: Minda Rossi Electronically signed By Louis Houser Dictated Date: 05/11/2022 7:29:11 PM Prelim Date: 05/11/2022 7:31:04 PM Sign Date: 05/11/2022 7:48:47 PM Ordering Provider: GABRIELLA HORTON [facility] [place] 12 Lead EKG performed by [facility] on 03-26-2022 12 Lead EKG performed by [facility] [address] [place] [address] 12 Lead EKG performed by [facility] 03/26/22 1451 MR#: [id number] Acct: [id number] Name: GRETA ALMAGUER Rep #: [id number] : 1975 46 From: Greta Barnes INFANTRYMAN INFANTRYMAN-C Attending Dr: MARANDA SolorioC Status: DEP AMB Ordering Dr: Greta Barnes INFANTRYMAN INFANTRYMAN-C Date: 03/26/22 [place] [facility] [place] Sex: M C Admitted: [facility]/12 Lead EKG performed by [facility] ECG Report Interpretation S inus Rhythm - Negative precordial T-waves -May be normal -consider anteroseptal ischemia. BORDERLINEElectronically signed on 04/01/2022 at 17:30 by Javier Canchola Software Version [id number] 04/01/22 1736 Date Greta Gilles Cameron APARICIO CC: Dr. Phu Jimenez MD Date Dictated: 03/26/221450 Date Transcribed: 03/26/221450 Egg Processing Supervisor: MALACHI Signed Normal [facility] Cardiology Visit Reporton Cardiology Visit Report [facility] [address] [place] [address] OFFICE VISIT Date of Service: 03/26/22 MR#: [id number] Acct: [id number] Name: GRETA ALMAGUER Rep #: [id number] : 1975 Provider: MARKUS blankenship Age/Sex: 46/M Location: [facility] Status: Signed HPI HPI History of Present Illness Details: GRETA ALMAGUER, is a 46 M who presents to the office today for a follow-up visit. He had previously presented to us in 2016 with paroxysmal atrial fibrillation and underwent DC cardioversion. You do remember his last echocardiogram from February 2017 demonstrated ejection fraction of 60%. He had stress echocardiogram on 10/18/2019 there was negative for ischemia at a high workload. No arrhythmia was noted. He states positive COVID-19 home test on 03-14 that has improved by 03/19. He states noting an increase in chest tightness. This radiate to his back/shoulder blades and left arm. This is worse with activity and smoking. He notes increase in diaphoresis, most noted with activity. He rates this a 4/10. He states this pain is similar in sensation, but different in location. This improves with rest. He denies any food related components. He describes 3 sharp episodes. He notes an increase in palpitation. He states his energy and activity level is reduced. Intake Vital Signs 10/21/21 11:28 03/26/22 14:14 03/26/22 14:14 Height 6 ft 2 in 6 ft 2 in 6 ft 2 in Weight: 236 lb 15.951 oz 230 lb BMI 30.4 29.5 BP 153/95 H 137/82 H Blood Pressure Location Lt brachial Position Sitting Respiration 17 16 Pulse 96 94 Pulse Source Auscultation Temp 96.5 F L Pulse Oximetry (%) 97 Intake Visit Reasons: req. sooner appt Loan Approver Required: No Accompanied by: Self Is patient in pain?: Yes (chest discomfort) Allergies No Known Allergies Allergy (Verified 03/26/22 14:18) Medications omeprazole 40 mg capsule,delayed release 40 mg PO DAILY 07/31/19 [History Confirmed 03/26/22] naproxen 500 mg tablet 500 mg PO BID PRN PRN Pain Or Fever 01/27/20 [History Confirmed 03/26/22] fluoxetine 20 mg capsule 20 mg PO DAILY 10/16/21 [History Confirmed 03/26/22] acetaminophen 500 mg capsule 1,000 mg PO Q6H PRN 03/26/22 [History Confirmed 03/26/22] colchicine 0.6 mg tablet 0.6 mg PO BID #28 tabs 03/26/22 [Rx Confirmed 03/26/22] Ejection fraction %: 60 to 64 PFSH Medical History (Updated 03/26/22 @ 14:34 by Greta Barnes INFANTRYMAN, INFANTRYMAN-C) Abdominal pain Atrial fibrillation with rapid ventricular response (03/07/17) Caffeine abuse Chest pain COVID-19 ( 03/14/22) Sirena-Danlos disease Essential (primary) hypertension Intermittent palpitations Monoallelic mutation of TGFB2 gene Nicotine dependence Paroxysmal atrial fibrillation Surgical History History of cardioversion (03/07/17) History of herniorrhaphy Family History Other Sirena-Danlos syndrome Social History Smoking Status: Current every day smoker tobacco type: e-cigarettes Electronic Cigarette Use: with nicotine alcohol intake: never substance use type: marijuana caffeine: Yes Type: coffee Number of servings: 2 ROS Const Const: Negative for fatigue, weakness, body ache, fever(s) or chills ENT ENT: Negative for dizziness or Nosebleed/epistaxis Cardio Chest Pain: Yes Palpitations: Yes Edema: None Muscle aches with walking: None Resp Respiratory: Positive for SOB with activity; Negative for SOB at rest, SOB orthopnea SOB lying down, Cough or paroxysmal nocturnal dyspnea GI GI: Negative nausea, vomiting blood/hematemesis, bright, red blood in stools or black,tarry stools : Negative for hematuria or frequent nighttime urination/ nocturia Musc Musc: Negative for muscle aches/ myalgia Skin Skin: Negative non-healing lesions or rash Neuro Neuro: Positive for lightheadedness and orthostatic symptoms; Negative for dizziness, near syncope, syncope or weakness Endo Endo: Negative for fatigue Allergy Allergy/Immunology: Negative for rash Cardiology Exam Const Appearance: cooperative, healthy appearing, comfortable and no acute distress Nutritional Appearance: well nourished and overweight Orientation: alert, awake and oriented x3 Head Head: normal to inspection Ears: hearing grossly normal bilaterally Nose: external nose normal Face and Sinus: face symmetric Mouth: oral mucosae normal Eyes General: appearance normal, both eyes and all related structures Eyelids: eyelids normal EOM: EOM intact bilaterally Neck Neck: normal visual inspection and no JVD Carotids: normal carotid upstroke Chest Chest inspection: normal inspection of the chest, symmetric chest movement and normal respiratory (more content not included)... Normal [facility] Emergency Department Summary on 10-21-2021 Emergency Department Summary [facility] Medical Records Department [address] [place] [address] Emergency Department Summary 10/21/21 MR#: [id number] Acct: [id number] Name: GRETA ALMAGUER Rep #: [id number] : 1975 46 From: [place] Blanca DO PCP: Dr. Phu Jimenez MD Status:DEP ER Location: ED HPI History of Present Illness Chief Complaint: Dental Informant: patient Onset/Context/Timing Onset: Today Context: Gradual Onset Timing: Continuous Quality: Sharp Location: Right upper and lower molars Worsened by: Nothing Relieved by: - (Nothing) Associated Symptoms Assocated Symptom - Dental: jaw swelling, face swelling, cold sensitivity and hot sensitivity; Negative for fever Narrative Narrative: Patient presents with right upper and lower dental pain that became worse today. Patient states it is gradually gotten worse. Patient states he has an appointment with his dentist next week. Patient describes his pain is sharp. Patient states it is over the right upper and lower molars. Patient states nothing makes it worse. Patient states nothing makes it better. Patient admits to some swelling of his jaw and face. Patient also admits to hot and cold sensitivity. Patient denies any fevers or chills. Patient states his hands do get sweaty however. [facility] Medical History Abdominal pain Atrial fibrillation with rapid ventricular response (03/07/17) Caffeine abuse Chest pain Sirena-Danlos disease Essential (primary) hypertension Intermittent palpitations Nicotine dependence Paroxysmal atrial fibrillation Home Medications omeprazole 40 mg PO DAILY 07/31/19 [History Last Taken 07/31/19] naproxen 500 mg PO BID PRN PRN 01/27/20 [History Last Taken Unknown] fluoxetine 20 mg capsule 20 mg PO DAILY cap 10/16/21 [History Last Taken Unknown] penicillin V potassium 500 mg PO 4X/DAY #40 tab 10/21/21 [Rx Last Taken Unknown] Allergy/AdvReac Type Severity Reaction Status Date / Time No Known Allergies Allergy Verified 10/21/21 11:27 Family History Other Sirena-Danlos syndrome Surgical History History of cardioversion (03/07/17) History of herniorrhaphy Social History Smoking Status: Current every day smoker tobacco type: cigarettes alcohol intake: never substance use type: marijuana caffeine: Yes Type: coffee Number of servings: 2 ROS ROS ED Constitutional Constitutional ED: Reports sweats; Denies chills or fever(s) Eyes Eyes: Denies blurry vision or change in vision ENT ENT ED: Reports sore throat; Denies rhinorrhea Cardiovascular Cardiovascular: Denies chest pain or palpitations Respiratory/Chest Respiratory/Chest: Denies cough or dyspnea Gastrointestinal Gastrointestinal: Denies nausea or vomiting Genitourinary Genitourinary ED: Denies dysuria or hematuria Musculoskeletal Musculoskeletal: Reports neck pain; Denies back pain Integumentary Denies abscess or rash Neurologic Neurologic: Denies headache(s) or weakness Allergic/Immunologic Allergic/Immunologic ED: Denies mouth swelling or urticaria EXAM Physical Exam Const Vital Signs: 10/21/21 11:28 Temperature 96.5 F L Temperature Source Temporal Pulse Rate 96 Respiratory Rate 17 Blood Pressure 153/95 H Blood Pressure Mean 114 Pulse Ox 97 Oxygen Delivery Method Room Air Positive well nourished and well developed General Appearance ED: well developed and NAD HEENT Mouth ED: Yes tongue normal Mouth: tongue normal Teeth and Gingiva: caries; Negative for gingiva abnormal Throat: posterior oropharynx normal Eyes PERRL and EOMs intact bilaterally Neck supple and no JVD General: Negative for anterior neck swelling or submandibular swelling Resp normal respiratory effort and clear to auscultation bilaterally Cardio regular rate and regular rhythm Neuro oriented x3, CN's II-XII intact bilaterally, moves all extremities, no focal motor deficits and no sensory deficits noted Sensorium / Orientation: alert Psych mental status grossly normal MDM MDM MDM Narrative Medical decision making narrative: Patient was given a dose of Pen-Vee K here. Patient was given a prescription for Pen-Vee K. Patient was instructed to continue the Naprosyn as needed for pain. Patient was instructed to follow-up with his dentist as scheduled. Patient understood and was agreeable with the plan. All questions were answered. Discharge Plan Triage Chief Complaint: Dental ED Provider: Montana Blanca Dx/Rx/DC Orders Clinical Impression: Infected dental caries, Nicotine dependence Instructions: ED Dental Cavity Prescriptions: New penicil (more content not included)... Normal [facility] Cardiology Visit Reporton Cardiology Visit Report [facility] [address] [place] [address]. [address] [place] [address] OFFICE VISIT Date of Service: 10/16/21 MR#: [id number] Acct: [id number] Name: GRETA ALMAGUER Rep #: [id number] : 1975 Provider: MARKUS blankenship Age/Sex: 46/M Location: [facility] Status: Signed [facility] History of Present Illness Details: GRETA ALMAGUER, is a 46 M who presents to the office today for a follow-up visit. He is a gentleman with a family history of Sirena-Danlos syndrome and palpitations. He had previously presented to us in 2016 with paroxysmal atrial fibrillation and underwent DC cardioversion. You do remember his last echocardiogram from February 2017 demonstrated ejection fraction of 60%. He had stress echocardiogram on 10/18/2019 there was negative for ischemia at a high workload. No arrhythmia was noted. He acknowledges continuous sharp, left-sided chest discomfort. This radiates into his left axillary region, down his left arm, and into his back. He rates this a 2 out of 10. This was more noticed after smoking.This has been ongoing for two weeks. He acknowledges palpitations described as a flip- flopping that are not new. He states continuos "seizure" in his abdomen and is unknown if it begin in his chest or abdomen. He denies bilateral lower extremity edema. He acknowledges shortness breath activity that occurs quicker than previous. This is most noted when going up stairs. He denies shortness of breath at rest, orthopnea, cough, or PND. He denies lightheadedness, dizziness, nursing, or syncope. He acknowledges fatigue and excessive sweating. He states taking Naproxen daily d/t previous orbital fracture. Intake Vital Signs 10/16/21 14:07 Height 6 ft 2 in Weight: 230 lb BMI 29.5 BP 130/91 H Blood Pressure Location Lt brachial Position Sitting Respiration 18 Pulse 77 Pulse Source Monitor Intake Visit Reasons: CP, ARM PIT PAIN, PER Jose Luis DELACRUZ Loan Approver Required: No Accompanied by: None Is patient in pain?: Yes (left chest into left arm and back) Pain scale (1-10): 2 Allergies No Known Allergies Allergy (Verified 10/21/21 11:27) Medications omeprazole 40 mg PO DAILY 07/31/19 [History Confirmed 10/16/21] naproxen 500 mg PO BID PRN PRN 01/27/20 [History Confirmed 10/16/21] fluoxetine 20 mg capsule 20 mg PO DAILY cap 10/16/21 [History Confirmed 10/16/21] penicillin V potassium 500 mg PO 4X/DAY #40 tab 10/21/21 [Rx] Ejection fraction %: 60 to 64 [facility] Medical History (Updated 10/25/21 @ 12:56 by Greta Barnes INFANTRYMAN, INFANTRYMAN-C) Abdominal pain Atrial fibrillation with rapid ventricular response (03/07/17) Caffeine abuse Chest pain Sirena-Danlos disease Essential (primary) hypertension Intermittent palpitations Nicotine dependence Paroxysmal atrial fibrillation Surgical History History of cardioversion (03/07/17) History of herniorrhaphy Family History Other Sirena-Danlos syndrome Social History Smoking Status: Current every day smoker tobacco type: cigarettes alcohol intake: never substance use type: marijuana caffeine: Yes Type: coffee Number of servings: 2 ROS Const Const: Positive for fatigue and excessive sweating; Negative for weakness, headache(s) or frequent falls Eyes Eyes: Negative for blurry vision or double vision ENT ENT: Negative for headache(s), dizziness, Nosebleed/epistaxis or balance problems Cardio Chest Pain: Yes Frequency: other (Continuous over last couple weeks) Character: sharp (Intermittent sharp pain) and dull (constant pain) Location: left chest (into left arm pit, down left arm and into back) Duration: continuous (over last couple weeks) Palpitations: Yes feels like its: other (flip flopping-not new) Edema: None Muscle aches with walking: None Resp Respiratory: Positive for SOB with activity (Occurs quicker than previous, stairs); Negative for SOB at rest, SOB orthopnea SOB lying down, Cough or paroxysmal nocturnal dyspnea GI GI: Positive for heartburn; Negative nausea, vomiting or black,tarry stools : Negative for hematuria Musc Musc: Positive for joint pain (right hip, both elbows); Negative for muscle aches/ myalgia or balance problems Neuro Neuro: Negative for dizziness, lightheadedness, near syncope, syncope, frequent falls, headache(s), weakness, blurry vision or double vision Endo Endo: Positive for fatigue and excessive sweating Cardiology Exam Const Appearance: cooperative, healthy appearing, comfortable and no acute distress Nutritional Appearance: well nourished and overweight Orientation: alert, awake and oriented x3 Head Head: normal to inspection Ears: hearing grossly normal (more content not included)... Normal [facility] Abdomen/Pelvis WITH Contrast on 07-29-2021 Abdomen/Pelvis WITH Contrast [facility] [address] [place] [address] Abdomen/Pelvis WITH Contrast MR#: [id number] Acct: [id number] Name: GRETA ALMAGUER Rep #: [id number] : 1975 M 46 From: Donal Barrett MD PCP: Dr. Phu Jimenez MD Status: [facility] Study: Abdomen/Pelvis WITH Contrast Date of Exam: Exam# [id number] Ordering Dr: [place] Blanca DO EXAM: CT ABDOMEN AND PELVIS WITH INTRAVENOUS CONTRAST : 1975 CLINICAL INDICATION: Right lower quadrant abdominal pain -- IV PO Contrast TECHNIQUE: Helically acquired images were obtained of the abdomen and pelvis with intravenous contrast. This CT exam was performed using one or more of the following dose reduction techniques: automated exposure control, adjustment of the mA and/or kV according to patient size, and/or use of iterative reconstruction technique. This report was created using [employer] report [employer] technology. CONTRAST: Oral Tamp; IV Gastrografin Tamp; 100mL Isovue-300 COMPARISON: 06/12/21 FINDINGS: LOWER THORAX: Bibasilar atelectasis. No cardiomegaly. No significant pericardial effusion. ABDOMEN: LIVER: Multiple small benign hepatic cysts. GALLBLADDER AND BILE DUCTS: Unremarkable. No calcified gallstones. No gallbladder distention or wall edema. No intra- or extrahepatic biliary ductal dilation. PANCREAS: Unremarkable. No focal cystic or solid mass. SPLEEN: Unremarkable. Normal size without focal cystic or solid mass. ADRENALS: Unremarkable. No nodules. KIDNEYS AND URETERS: Unremarkable. Normal renal size and position. No hydronephrosis. STOMACH AND BOWEL: Unremarkable. No stomach or bowel distention. No focal inflammatory change. PELVIS: APPENDIX: The appendix is normal. BLADDER: Unremarkable. REPRODUCTIVE: Unremarkable as visualized. No mass. ABDOMEN and PELVIS: INTRAPERITONEAL SPACE: Unremarkable. No ascites or other fluid collection. No free air. BONES/JOINTS: Unremarkable. No suspicious lytic or blastic abnormality. SOFT TISSUES: Unremarkable. No discrete abdominal or pelvic wall hernia. VASCULATURE: Unremarkable. Abdominal aorta is non-dilated. LYMPH NODES: Unremarkable. No enlarged lymph nodes. CT/Abdomen/Pelvis WITH Contrast IMPRESSION: No acute findings in the abdomen or pelvis. Individualized dose optimization techniques were used for this CT. at 0751 Reported and signed by: Donal Barrett MD Electronically Signed: Donal Barrett MD at 7:50 EST , CC: Dr. Montana Blanca DO; Dr. 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 Chloride [Moles/Vol] 107 mmol/L 98-107 [facility] Work Phone: Eosinophils/100 WBC (Bld) 3.3 % 0-5 [facility] Work Phone: Glucose [Mass/Vol] 129 mg/dL 74-[address] [facility] Work Phone: Comment on above: Fasting Glucose resu lt greater than or equal to 126 mg/dL suggests DIABETES MELLITUS per A.D.A. criteria. Neutrophils (Bld) [#/Vol] 6.2 10*3/uL 2.0-7.7 [facility] Work Phone: Neutrophils/100 WBC (Bld) 44.2 % 47-70 [facility] Work Phone: Potassium [Moles/Vol] 3.4 mmol/L 3.5-5.1 [facility] Work Phone: Protein [Mass/Vol] 8.1 g/dL 6.4-8.[address] [facility] Work Phone: Sodium [Moles/Vol] 139 mmol/L 136-[address] [facility] Work Phone: WBC (Bld) [#/Vol] 14.0 10*3/uL 4.4-11.0 [facility] Work Phone: Bilirubin Test strip Ql (U)o n 07-29-2021 Bilirubin Ql (U) Negative Negative [facility] Work Phone: Blood erythrocytes count (nu mber/volume)on 07-29-2021 RBC (Bld) [#/Vol] 4.89 10*6/uL 4.6-6.2 [facility] Work Phone: Blood hemoglobin measurement (mass/volume)on 07-29-2021 Hemoglobin (Bld) [Mass/Vol] 14.5 g/dL 13.0-16.5 [facility] Work Phone: Blood lymphocytes/100 leukoc yteson 07-29-2021 Lymphocytes/100 WBC (Bld) 44.2 % 19-41 [facility] Work Phone: Blood monocytes/100 leukocyt eson 07-29-2021 Monocytes/100 WBC (Bld) 7.4 % 0-10 [facility] Work Phone: Blood platelet mean volumeon 07-29-2021 Platelet mean volume (Bld) [Entitic vol] 9.6 fL 6.2-12.0 [facility] Work Phone: [phone] CBC W/Diff, Automatedon 07-10 ATYPICAL LYMPH 1+ Normal [facility] Comment on above: Performed By: #### L 100.0100, L501.2450, L500.4050 #### [facility] [address] [place], [place], [id number] Comprehensive Metabolic Prof ilon 07-29-2021 Albumin [Mass/Vol] 4.1 g/dL Normal 3.2-5.[address] [facility] Comment on above: Order Comment: SPECI MEN IS LIPEMIC. ULTRACENTRIFUGATION TECHNIQUE USED FOR ANALYSIS. Performed By: #### L 100.0100, L501.2450, L500.4050 #### [facility] [address] [place], [address] Albumin/Globulin [Mass ratio] 1.0 {ratio} Normal 0.9-2.4 [facility] Comment on above: Order Comment: SPECI MEN IS LIPEMIC. ULTRACENTRIFUGATION TECHNIQUE USED FOR ANALYSIS. Performed By: #### L 100.0100, L501.2450, L500.4050 #### [facility] [address] [place], [address] ALK P 83 U/L Normal 45-117 [facility] Comment on above: Order Comment: SPECI MEN IS LIPEMIC. ULTRACENTRIFUGATION TECHNIQUE USED FOR ANALYSIS. Performed By: #### L 100.0100, L501.2450, L500.4050 #### [facility] [address] [place], [address] ALT [Catalytic activity/Vol] 26 U/L Normal 16-61 [facility] Comment on above: Order Comment: SPECI MEN IS LIPEMIC. ULTRACENTRIFUGATION TECHNIQUE USED FOR ANALYSIS. Performed By: #### L 100.0100, L501.2450, L500.4050 #### [facility] [address] [place], [address] AST [Catalytic activity/Vol] 16 U/L Normal 15-37 [facility] Comment on above: Order Comment: SPECI MEN IS LIPEMIC. ULTRACENTRIFUGATION TECHNIQUE USED FOR ANALYSIS. Performed By: #### L 100.0100, L501.2450, L500.4050 #### [facility] [address] [place], [address] Bilirubin [Mass/Vol] 0.20 mg/dL Normal 0.20-1.00 [facility] Comment on above: Order Comment: SPECI MEN IS LIPEMIC. ULTRACENTRIFUGATION TECHNIQUE USED FOR ANALYSIS. Result Comment: For patients on eltrombopag therapy, use of [place] TBIL is not recommended. Performed By: #### L 100.0100, L501.2450, L500.4050 #### [facility] [address] [place], [address] BUN/CRE 8.6 RATIO Low 10-20 [facility] Comment on above: Order Comment: SPECI MEN IS LIPEMIC. ULTRACENTRIFUGATION TECHNIQUE USED FOR ANALYSIS. Performed By: #### L 100.0100, L501.2450, L500.4050 #### [facility] [address] [place], [address] CA,Total 8.6 mg/dL Normal 8.5-10.1 [facility] Comment on above: Order Comment: SPECI MEN IS LIPEMIC. ULTRACENTRIFUGATION TECHNIQUE USED FOR ANALYSIS. Performed By: #### L 100.0100, L501.2450, L500.4050 #### [facility] [address] [place], [address] Chloride [Moles/Vol] 107 mmol/L Normal 98-107 [facility] Comment on above: Order Comment: SPECI MEN IS LIPEMIC. ULTRACENTRIFUGATION TECHNIQUE USED FOR ANALYSIS. Performed By: #### L 100.0100, L501.2450, L500.4050 #### [facility] [address] [place], [address] CO2 [Moles/Vol] 23.0 mmol/L Normal 21.0-32.0 [facility] Comment on above: Order Comment: SPECI MEN IS LIPEMIC. ULTRACENTRIFUGATION TECHNIQUE USED FOR ANALYSIS. Performed By: #### L 100.0100, L501.2450, L500.4050 #### [facility] [address] [place], [address] Creatinine [Mass/Vol] 0.92 mg/dL Normal 0.70-1.30 [facility] Comment on above: Order Comment: SPECI MEN IS LIPEMIC. ULTRACENTRIFUGATION TECHNIQUE USED FOR ANALYSIS. Result Comment: The validity of the calculated GFR GFRAA in patients over 70 years has not been determined. Clinical correlation is essential. Performed By: #### L 100.0100, L501.2450, L500.4050 #### [facility] [address] [place], [address] ECRCL 117.89 ml/min Normal [facility] Comment on above: Order Comment: SPECI MEN IS LIPEMIC. ULTRACENTRIFUGATION TECHNIQUE USED FOR ANALYSIS. Performed By: #### L 100.0100, L501.2450, L500.4050 #### [facility] [address] [place], [address] EST GFR - AA 114 mL/min Normal >60 [facility] Comment on above: Order Comment: SPECI MEN IS LIPEMIC. ULTRACENTRIFUGATION TECHNIQUE USED FOR ANALYSIS. Result Comment: Afri can Cymro GFR Calc Performed By: #### L 100.0100, L501.2450, L500.4050 #### [facility] [address] [place], [address] GAP 9 Normal 5-15 [facility] Comment on above: Order Comment: SPECI MEN IS LIPEMIC. ULTRACENTRIFUGATION TECHNIQUE USED FOR ANALYSIS. Performed By: #### L 100.0100, L501.2450, L500.4050 #### [facility] [address] [place], [address] GFR/1.73 sq M.predicted among non-blacks MDRD (S/P/Bld) [Vol rate/Area] 94 mL/min/{1.73_m2} Normal >60 [facility] Comment on above: Order Comment: SPECI MEN IS LIPEMIC. ULTRACENTRIFUGATION TECHNIQUE USED FOR ANALYSIS. Result Comment: Non- GFR Calc Performed By: #### L 100.0100, L501.2450, L500.4050 #### [facility] [address] [place], [address] Globulin (S) [Mass/Vol] 4.0 g/dL Normal 2.2-4.2 [facility] Comment on above: Order Comment: SPECI MEN IS LIPEMIC. ULTRACENTRIFUGATION TECHNIQUE USED FOR ANALYSIS. Performed By: #### L 100.0100, L501.2450, L500.4050 #### [facility] [address] [place], [address] Glucose [Mass/Vol] 129 mg/dL High 74-[address] [facility] Comment on above: Order Comment: THERESA GARDNER IS LIPEMIC. ULTRACENTRIFUGATION TECHNIQUE USED FOR ANALYSIS. Result Comment: Fast ing Glucose result greater than or equal to 126 mg/dL suggests DIABETES MELLITUS per A.D.A. criteria. Performed By: #### L 100.0100, L501.2450, L500.4050 #### [facility] [address] [place], [address] Potassium [Moles/Vol] 3.4 mmol/L Low 3.5-5.1 [facility] Comment on above: Order Comment: THERESA GARDNER IS LIPEMIC. ULTRACENTRIFUGATION TECHNIQUE USED FOR ANALYSIS. Performed By: #### L 100.0100, L501.2450, L500.4050 #### [facility] [address] [place], [address] Sodium [Moles/Vol] 139 mmol/L Normal 136-[address] [facility] Comment on above: Order Comment: THERESA GARDNER IS LIPEMIC. ULTRACENTRIFUGATION TECHNIQUE USED FOR ANALYSIS. Performed By: #### L 100.0100, L501.2450, L500.4050 #### [facility] [address] [place], [address] T PROT 8.1 g/dL Normal 6.4-8.2 [facility] Comment on above: Order Comment: THERESA GARDNER IS LIPEMIC. ULTRACENTRIFUGATION TECHNIQUE USED FOR ANALYSIS. Performed By: #### L 100.0100, L501.2450, L500.4050 #### [facility] [address] [place], [address] Urea nitrogen [Mass/Vol] 8 mg/dL Normal 7-18 [facility] Comment on above: Order Comment: SPECI MEN IS LIPEMIC. ULTRACENTRIFUGATION TECHNIQUE USED FOR ANALYSIS. Performed By: #### L 100.0100, L501.2450, L500.4050 #### [facility] [address] [place], [address] Determination of erythrocyte mean corpuscular volume (MCV)on 07-29-2021 MCV (RBC) [Entitic vol] 86.5 fL 80-94 [facility] Work Phone: Emergency Department Summary on 07-29-2021 Emergency Department Summary [facility] Medical Records Department [address] [place] [address] Emergency Department Summary 07/29/21 MR#: [id number] Acct: [id number] Name: GRETA ALMAGUER Rep #: [id number] : 1975 46 From: Montana Blanca DO PCP: Dr. Phu Jimenez MD Status:REG ER Location: ED HPI HPI - GI History of Present Illness Chief Complaint: Flank Pain Informant: patient Abdominal Pain/Flank Pain Onset: Today Context: Sudden Onset Timing: Continuous Quality: Sharp Location: RLQ Worsened by: Nothing Relieved by: Nothing Nausea/Vomiting/Emesis GI Symptom: Negative for Nausea and Vomiting Diarrhea/Melena/Hematochezi a GI Symptom: Negative for Diarrhea, Melena and Hematochezia Associated Symptoms Associated Symptoms: Negative for Dysuria, Frequency and Hematuria Narrative Narrative: Patient presents with right-sided abdominal pain that began today. Patient states the pain is sharp. Patient states pain is over the right lower quadrant but radiates up to his right upper quadrant and into the right side of his chest. Patient states nothing makes it better nothing makes it worse. Patient denies any nausea or vomiting. Patient denies any melena or hematochezia. Patient denies any dysuria or hematuria. Patient states the pain also radiates into his low back. [facility] Medical History Abdominal pain Atrial fibrillation with rapid ventricular response (03/07/17) Caffeine abuse Chest pain Sirena-Danlos disease Essential (primary) hypertension Intermittent palpitations Nicotine dependence Paroxysmal atrial fibrillation Home Medications omeprazole 40 mg PO DAILY 07/31/19 [History Last Taken 07/31/19] naproxen 500 mg PO BID PRN PRN 01/27/20 [History Last Taken Unknown] Allergy/AdvReac Type Severity Reaction Status Date / Time No Known Allergies Allergy Verified 07/29/21 05:07 Family History Other Sirena-Danlos syndrome Surgical History History of cardioversion (03/07/17) History of herniorrhaphy Social History Smoking Status: Current some day smoker tobacco type: cigarettes substance use type: marijuana caffeine: Yes ROS ROS ED Constitutional Constitutional ED: Denies chills or fever(s) Eyes Eyes: Denies blurry vision or change in vision ENT ENT ED: Reports sore throat; Denies rhinorrhea Cardiovascular Cardiovascular: Denies chest pain or palpitations Respiratory/Chest Respiratory/Chest: Denies cough or dyspnea Gastrointestinal Gastrointestinal: Reports abdominal pain; Denies nausea or vomiting Genitourinary Genitourinary ED: Denies dysuria or hematuria Musculoskeletal Musculoskeletal: Reports back pain; Denies neck pain Integumentary Denies abscess or rash Neurologic Neurologic: Reports headache(s); Denies weakness Allergic/Immunologic Allergic/Immunologic ED: Denies mouth swelling or urticaria EXAM Physical Exam Const Vital Signs: 07/29/21 05:04 Temperature 97.9 F Temperature Source Temporal Pulse Rate 110 H Respiratory Rate 18 Blood Pressure 159/92 H Blood Pressure Mean 114 Pulse Ox 99 Oxygen Delivery Method Room Air Positive well nourished and well developed General Appearance ED: well developed HEENT Reports moist mucous membranes Neck supple and no JVD Resp normal respiratory effort and clear to auscultation bilaterally Cardio regular rate, regular rhythm and no murmurs GI normal to inspection, nondistended, normoactive bowel sounds Palpation: soft and tender RLQ and RUQ; Negative for guarding or rebound tenderness present Extremity normal to inspection General Extremety ED: Negative for edema or tenderness General Extremity: Negative for edema Neuro oriented x3, CN's II-XII intact bilaterally and no sensory deficits noted Sensorium / Orientation: alert Motor Exam: strength 5/5 throughout Psych mental status grossly normal Skin no rashes or lesions noted MDM MDM MDM Narrative Medical decision making narrative: Patient was given IV fluids, morphine, and Zofran. CBC shows a mild leukocytosis of 14.0. Comprehensive metabolic profile was within normal limits. Lipase was normal. Urinalysis was within normal limits. CT scan of the abdomen and pelvis was ordered and is pending. Care of the patient was turned over to the oncoming physician pending CT results. Lab Data Attestation: I reviewed the patient's lab results. Labs: Laboratory Results - last 24 hr 07/29/21 07/29/21 07/29/21 05:15 05:15 05:41 WBC 14.0 H RBC 4.89 Hgb 14.5 Hct 42.3 MCV 86.5 MCH 29.7 MCHC 34.3 RDW Std Deviation 39.8 RDW Coef (more content not included)... Normal [facility] Hematocrit Auto (Bld) [Volum e fraction]on 07-29-2021 Hematocrit (Bld) [Volume fraction] 42.3 % 40-54 [facility] Work Phone: Ketones Test strip Ql (U)on 07-29-2021 Ketones Ql (U) Negative Negative [facility] Work Phone: Laboratory - Chemistry and C hemistry - challengeon 07-29-2021 ALP [Catalytic activity/Vol] 83 U/L 45-117 [facility] Work Phone: ALT [Catalytic activity/Vol] 26 U/L 16-61 [facility] Work Phone: CO2 [Moles/Vol] 23.0 mmol/L 21.0-32.0 [facility] Work Phone: Globulin (S) [Mass/Vol] 4.0 g/dL 2.2-4.2 [facility] Work Phone: Lipase [Catalytic activity/Vol] 54 U/L 73-393 [facility] Work Phone: Urea nitrogen/Creatinin e [Mass ratio] 8.6 mg/mg 10-20 [facility] Work Phone: [phone] Laboratory - Hematology and Cell countson 07-29-2021 Erythrocyte distribution width (RBC) [Entitic vol] 39.8 fL 35.1-43.9 [facility] Work Phone: [phone] Erythrocyte distribution width (RBC) [Ratio] 12.6 % 11.6-14.6 [facility] Work Phone: [phone] Immature granulocytes/100 WBC (Bld) 0.300 % 0.0-0.9 [facility] Work Phone: [phone] Comment on above: IG% - Immature Granu locytes (promyelocytes, myelocytes and metamyelocytes) > 1% indicates that a LEFT SHIFT is Present. MCH (RBC) [Entitic mass] 29.7 pg 27.0-32.0 [facility] Work Phone: [phone] Nucleated RBC/100 WBC (Bld) [Ratio] 0 % 0-5 [facility] Work Phone: [phone] Lipaseon 07-29-2021 Lipase [Catalytic activity/Vol] 54 U/L Low 73-393 [facility] Comment on above: Order Comment: SPECI MEN IS LIPEMIC. ULTRACENTRIFUGATION TECHNIQUE USED FOR ANALYSIS. Performed By: #### L 100.0100, L501.2450, L500.4050 #### [facility] Laboratory [address] [place], [place], [id number] MCHC Auto (RBC) [Mass/Vol]on 07-29-2021 MCHC (RBC) [Mass/Vol] 34.3 g/dL 32-36 [facility] Work Phone: [phone] Mucus LM Ql (Urine sed)on Mucus Ql (Urine sed) 0 SEEN /hpf [facility] Work Phone: [phone] Nitrite Test strip Ql (U)on 07-29-2021 Nitrite Ql (U) Negative Negative [facility] Work Phone: [phone] Panel Informationon 07-29 Atypical Lymphocytes 1+ % [facility] Work Phone: [phone] Estimated Creatinine Clearance Calc 117.89 ml/min [facility] Work Phone: [phone] Estimated GFR (MDRD) Amer 114 mL/min >60 [facility] Work Phone: Comment on above: GFR Calc Estimated GFR (MDRD) Non-Af Amer 94 mL/min >60 [facility] Work Phone: Comment on above: Non- GFR Calc Platelets bldon 07-29-2021 Platelets (Bld) [#/Vol] 344 10*3/uL 150-450 [facility] Work Phone: [phone] Protein Test strip Ql (U)on 07-29-2021 Protein Ql (U) 15 mg/dl Negative [facility] Work Phone: [phone] Serum or plasma albumin trisha urement (mass/volume)on 07-29-2021 Albumin [Mass/Vol] 4.1 g/dL 3.2-5.[address] [facility] Work Phone: [phone] Serum or plasma albumin/glob ulin mass ratioon 07-29-2021 Albumin/Globulin [Mass ratio] 1.0 {ratio} 0.9-2.4 [facility] Work Phone: [phone] Serum or plasma calcium trisha urement (mass/volume)on 07-29-2021 Calcium [Mass/Vol] 8.6 mg/dL 8.5-10.[address] [facility] Work Phone: Serum or plasma creatinine m easurement (mass/volume)on 07-29-2021 Creatinine [Mass/Vol] 0.92 mg/dL 0.70-1.30 [facility] Work Phone: Comment on above: The validity of the calculated GFR & GFRAA in patients over 70 years has not been determined. Clinical correlation is essential. Serum or plasma urea nitroge n measurement (mass/volume)on 07-29-2021 Urea nitrogen [Mass/Vol] 8 mg/dL 7-18 [facility] Work Phone: [phone] Squamous epithelial cells de tection in urine sediment by light microscopyon 07-29-2021 Epithelial cells.squamous LM Ql (Urine sed) 0 SEEN /hpf [facility] Work Phone: Thin prep Papanicolaou smear with manual screeningon 07-29-2021 Thin prep Papanicolaou smear with manual screening 16 U/L 15-37 [facility] Work Phone: Thin prep Papanicolaou smear with manual screening 9 5-15 [facility] Work Phone: Urinalysis, Completeon 07-29 BACTERIA 0 SEEN Normal None Seen [facility] Comment on above: Order Comment: CLEAN CATCH Performed By: #### L 400.0001 #### [facility] [address] [place], [address] EPI,SQUAMOUS 0 SEEN Normal 0-5 [facility] Comment on above: Order Comment: CLEAN CATCH Performed By: #### L 400.0001 #### [facility] [address] [place], [address] Mucus Ql (Urine sed) 0 SEEN Normal [facility] Comment on above: Order Comment: CLEAN CATCH Performed By: #### L 400.0001 #### [facility] [address] [place], [address] RBC 0 SEEN Normal 0-5 [facility] Comment on above: Order Comment: CLEAN CATCH Performed By: #### L 400.0001 #### [facility] [address] [place], [address] WBC 0 SEEN Normal 0-5 [facility] Comment on above: Order Comment: CLEAN CATCH Performed By: #### L 400.0001 #### [facility] [address] [place], [address] Urine blood detectionon - RBC Ql (U) Negative Negative [facility] Work Phone: RBC Ql (U) 0 SEEN /hpf [facility] Work Phone: Urine clarityon 07-29-2021 Clarity (U) Clear Clear [facility] Work Phone: Urine color determinationon 07-29-2021 Color (U) Yellow Yellow [facility] Work Phone: Urine glucose detectionon Glucose Ql (U) Normal mg/dl Normal [facility] Work Phone: Urine leukocyte esterase det ection by dipstickon 07-29-2021 Leukocyte esterase Test strip Ql (U) Negative Negative [facility] Work Phone: Urine pHon 07-29-2021 pH (U) 6.0 [pH] [facility] Work Phone: Urine sediment bacteria coun t by microscopy (number/high power field)on 07-29-2021 Bacteria LM.HPF (Urine sed) [#/Area] 0 /[HPF] None Seen [facility] Work Phone: Urine specific gravity measu rementon 07-29-2021 Specific gravity (U) [Rel density] 1.015 [facility] Work Phone: Urobilinogen Auto test strip Ql (U)on 07-29-2021 Urobilinogen Ql (U) Normal mg/dl Normal [facility] Work Phone: CBC W/Diff, Automatedon PLT MORPH CLUMPED Normal [facility] Comment on above: Performed By: #### L 501.2450, L500.4050, L100.0100 #### [facility] [address] [place], [address] PLT EST MOD DEC Normal ADEQ [facility] Comment on above: Performed By: #### L 501.2450, L500.4050, L100.0100 #### [facility] [address] [place], [address] SMEAR COMMENT SCANNED Normal [facility] Comment on above: Performed By: #### L 501.2450, L500.4050, L100.0100 #### [facility] [address] [place], [address] CT ANGIO ABD PEL W/O W/DYEon 06-12-2021 CT ANGIO ABD PEL W/O W/DYE [facility] Services [address] [place] [address] CT ANGIO ABD PEL W/O W/DYE MR#: [id number] Acct: [id number] Name: GRETA ALMAGUER Rep #: [id number] : 1975 M 46 From: Juan Sanchez DO PCP: Dr. Phu Jimenez MD Status: REG ER Study: CT ANGIO ABD PEL W/O W/DYE Date of Exam: 06/11 Exam# [id number] Ordering Dr: Reuben Cooper DO STUDY: CTA OF THE ABDOMINAL AORTA REASON FOR EXAM: Male, 46 years old. 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 Axial images and MIP images were reconstructed from the axial data set. Post-processing of the angiographic images was performed, with multiplanar reformation and 3D reconstruction. Individualized dose optimization techniques were used for this CT. TECHNICAL QUALITY: Good COMPARISON: None. Descriptors of Narrowing: None (0%) Mild (< 50%) Moderate (50-70%) Severe (70-90%) Subtotal/Total Occlusion (90-100%) Non-Evaluable (technically non-diagnostic FINDINGS: Unremarkable abdominal aorta. Evidence of dissection or aneurysm. Normal great vessel takeoff from the abdominal aorta. Normal aortic bifurcation and normal common iliac arteries. Lung bases are clear. Unremarkable liver outside of several small cysts. Unremarkable spleen, pancreas, adrenal glands and kidneys. Contracted gallbladder. Unremarkable stomach and small bowel. Large bowel demonstrates colonic diverticulosis without evidence of acute diverticulitis. Normal appendix. No concerning lymphadenopathy. Remainder is unremarkable CT/CT ANGIO ABD PEL W/O W/DYE IMPRESSION: Unremarkable abdominal aorta and great vessel takeoff. Small liver cysts. No acute findings throughout. Electronically Signed: Juan DO Daniel at 2:12 EST Tel , Service support , CC: Dr. Reuben Cooper DO; Dr. Phu Jimenez MD Egg Processing Supervisor: Signed Normal [facility] Comprehensive Metabolic Prof ilon 06-12-2021 Albumin [Mass/Vol] 3.7 g/dL Normal 3.2-5.[address] [facility] Comment on above: Performed By: #### L 501.2450, L500.4050, L100.0100 ####[facility] [address] [place], [address] Albumin/Globulin [Mass ratio] 0.9 {ratio} Normal 0.9-2.4 [facility] Comment on above: Performed By: #### L 501.2450, L500.4050, L100.0100 ####[facility] [address] [place], [address] ALK P 77 U/L Normal 45-117 [facility] Comment on above: Performed By: #### L 501.2450, L500.4050, L100.0100 ####[facility] [address] [place], [address] ALT [Catalytic activity/Vol] 35 U/L Normal 16-61 [facility] Comment on above: Performed By: #### L 501.2450, L500.4050, L100.0100 ####[facility] [address] [place], [address] AST [Catalytic activity/Vol] 24 U/L Normal 15-37 [facility] Comment on above: Result Comment: Mode rate Hemolysis, Result may be falsely increased. Performed By: #### L 501.2450, L500.4050, L100.0100 ####[facility] [address] [place], [address] Bilirubin [Mass/Vol] 0.30 mg/dL Normal 0.20-1.00 [facility] Comment on above: Result Comment: For patients on eltrombopag therapy, use of Dimension [place] TBIL is not recommended. Performed By: #### L 501.2450, L500.4050, L100.0100 ####[facility] [address] [place], [address] BUN/CRE 16.5 RATIO Normal 10-20 [facility] Comment on above: Performed By: #### L 501.2450, L500.4050, L100.0100 ####[facility] [address] [place], [address] CA,Total 9.0 mg/dL Normal 8.5-10.1 [facility] Comment on above: Performed By: #### L 501.2450, L500.4050, L100.0100 ####[facility] [address] [place], [address] Chloride [Moles/Vol] 108 mmol/L High 98-107 [facility] Comment on above: Performed By: #### L 501.2450, L500.4050, L100.0100 ####[facility] [address] [place], [address] CO2 [Moles/Vol] 22.0 mmol/L Normal 21.0-32.0 [facility] Comment on above: Performed By: #### L 501.2450, L500.4050, L100.0100 ####[facility] [address] [place], [address] Creatinine [Mass/Vol] 0.79 mg/dL Normal 0.70-1.30 [facility] Comment on above: Result Comment: The validity of the calculated GFR GFRAA in patients over 70 years has not been determined. Clinical correlation is essential. Performed By: #### L 501.2450, L500.4050, L100.0100 ####[facility] [address] [place], [address] ECRCL 137.29 ml/min Normal [facility] Comment on above: Performed By: #### L 501.2450, L500.4050, L100.0100 ####[facility] [address] [place], [address] EST GFR - AA 137 mL/min Normal >60 [facility] Comment on above: Result Comment: Afri can Cymro GFR Calc Performed By: #### L 501.2450, L500.4050, L100.0100 ####[facility] [address] [place], [address] GAP 11 Normal 5-15 [facility] Comment on above: Performed By: #### L 501.2450, L500.4050, L100.0100 ####[facility] [address] [place], [address] GFR/1.73 sq M.predicted among non-blacks MDRD (S/P/Bld) [Vol rate/Area] 113 mL/min/{1.73_m2} Normal >60 [facility] Comment on above: Result Comment: Non- GFR Calc Performed By: #### L 501.2450, L500.4050, L100.0100 ####[facility] [address] [place], [address] Globulin (S) [Mass/Vol] 3.9 g/dL Normal 2.2-4.2 [facility] Comment on above: Performed By: #### L 501.2450, L500.4050, L100.0100 ####[facility] [address] [place], [address] Glucose [Mass/Vol] 115 mg/dL High 74-[address] [facility] Comment on above: Result Comment: Fast ing Glucose result from 100 to 125 mg/dL suggests IMPAIRED HOMEOSTASIS per A.D.A. criteria. Please note revised GLUCOSE reference range effective 2017. Performed By: #### L 501.2450, L500.4050, L100.0100 ####[facility] [address] [place], [address] Potassium [Moles/Vol] 4.7 mmol/L Normal 3.5-5.1 [facility] Comment on above: Result Comment: Mode rate Hemolysis, Result may be falsely increased. Performed By: #### L 501.2450, L500.4050, L100.0100 ####[facility] [address] [place], [address] Sodium [Moles/Vol] 141 mmol/L Normal 136-[address] [facility] Comment on above: Performed By: #### L 501.2450, L500.4050, L100.0100 ####[facility] [address] [place], [address] T PROT 7.6 g/dL Normal 6.4-8.2 [facility] Comment on above: Performed By: #### L 501.2450, L500.4050, L100.0100 ####[facility] [address] [place], [address] Urea nitrogen [Mass/Vol] 13 mg/dL Normal 7-18 [facility] Comment on above: Performed By: #### L 501.2450, L500.4050, L100.0100 ####[facility] [address] [place], [address] Emergency Department Summary on 06-12-2021 Emergency Department Summary [facility] Medical Records Department [address] [place] [address] Emergency Department Summary 06/12/21 MR#: [id number] Acct: [id number] Name: GRETA ALMAGUER Rep #: [id number] : 1975 46 From: Reuben Rashid PCP: Dr. Phu Jimenez MD Status:DEP ER Location: ED HPI HPI - GI History of Present Illness Chief Complaint: Abd Pain Informant: patient Narrative Narrative: Patient presents with persistent upper abdominal pain rating to his lower abdomen since [place] more than 2 weeks ago. States constant pain with intermittent sharp sensations. Nausea without vomiting. No diarrhea. He states family history Sirena-Danlos syndrome with dissection in the past. He is here with this concern. Also family history of IBS, states has been constipated for 3 days. No fevers. No urinary symptoms. Upper endoscopy over a year ago with gastritis findings on omeprazole. He states he has a pending colonoscopy due to previous blood in the stools. States can be performed by [facility]. History of paroxysmal atrial fibrillation. He does not take anticoagulants. Reports pain worse with movement does not worsening with food. He states he may had a CAT scan his abdomen 6 months ago with no noted aneurysms. 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) hypertension Intermittent palpitations Nicotine dependence Paroxysmal atrial fibrillation Home Medications omeprazole 40 mg PO DAILY 07/31/19 [History Last Taken 07/31/19] dicyclomine 10 mg PO 4X/DAY 09/15/19 [History Last Taken Unknown] naproxen 500 mg PO BID PRN PRN 01/27/20 [History Last Taken Unknown] Allergy/AdvReac Type Severity Reaction Status Date / Time No Known Allergies Allergy Verified 03/18/21 21:09 Family History Other Sirena-Danlos syndrome Surgical History History of cardioversion (03/07/17) History of herniorrhaphy Social History Smoking Status: Current some day smoker tobacco type: cigarettes substance use type: marijuana caffeine: Yes ROS ROS ED Constitutional Constitutional ED: Denies chills, fever(s) or sweats Eyes Eyes: Denies change in vision ENT ENT ED: Denies dysphagia or sore throat Cardiovascular Cardiovascular: Denies chest pain, leg edema, palpitations or racing heartbeat Respiratory/Chest Respiratory/Chest: Denies cough, dyspnea or dyspnea on exertion Gastrointestinal Gastrointestinal: Reports abdominal pain and nausea; Denies diarrhea or vomiting Genitourinary Genitourinary ED: Denies dysuria, hematuria or urinary frequency Musculoskeletal Musculoskeletal: Denies back pain, extremity pain or neck pain Integumentary Denies rash or wounds Neurologic Neurologic: Denies headache(s), paresthesias or weakness EXAM Physical Exam Const Vital Signs: 06/11/21 23:35 Temperature 98 F Temperature Source Temporal Pulse Rate 85 Respiratory Rate 18 Blood Pressure 148/95 H Blood Pressure Mean 112 Pulse Ox 97 Oxygen Delivery Method Room Air Positive well nourished and well developed General Appearance ED: well developed and NAD HEENT Reports dry mucous membranes HEENT Narrative: Mild dry mucosal membranes normocephalic and atraumatic Mouth ED: Yes dry mucous membranes Mouth: dry mucous membranes Eyes PERRL, EOMs intact bilaterally and conjunctivae normal General Eye ED: Yes normal appearance of both eyes Neck no lymphadenopathy and supple General: Negative for tenderness Chest Wall Chest: Negative for tenderness Resp normal respiratory effort and normal air movement Effort and Inspection: symmetric chest movement; Negative for respiratory distress Cardio regular rate, regular rhythm and no murmurs Peripheral Pulses: pulses 2+ throughout GI normal to inspection, nondistended, normoactive bowel sounds and non-tender GI Narrative: Negative Campos's or McBurney's tenderness. Palpation: Negative for guarding or rebound tenderness present Back/Spine no CVA tenderness and no thoracic nor lumbar tenderness Extremity normal to inspection General Extremety ED: Negative for edema or tenderness General Extremity: Negative for edema Neuro oriented x3 and no sensory deficits noted Sensorium / Orientation: awake and alert Skin no rashes or lesions noted and no wounds MDM MDM MDM Narrative Medical decision making narrative: Patient with a nonsurgical abdomen on exam. Reports family history of Sirena-Danlos syndrome concerning for dissection. I did check a (more content not included)... Normal [facility] Lipaseon 06-12-2021 Lipase [Catalytic activity/Vol] 51 U/L Low 73-393 [facility] Comment on above: Performed By: #### L 501.2450, L500.4050, L100.0100 ####[facility] [address] [place], [address] Office Visit: Ron 03-31-20 Documentation of current medications (procedure) Done Invalid Interpretation Code [facility] Work Phone: [phone] Fall risk assessment No Invalid Interpretation Code [facility] Work Phone: [phone] Replaced Document: Daniel CAPONE Observationson 03-31-2017 EKG QRS axis 80 deg Invalid Interpretation Code [facility] Work Phone: Interpretation Sinus Rhythm WITHIN NORMAL LIMITS Invalid Interpretation Code [facility] Work Phone: [phone] P Holderness 71 deg Invalid Interpretation Code [facility] Work Phone: [phone] [place] Interval 168 ms Invalid Interpretation Code [facility] Work Phone: [phone] Pulse (Heart Rate) 71 /min Invalid Interpretation Code [facility] Work Phone: [phone] QRS Duration 92 ms Invalid Interpretation Code [facility] Work Phone: [phone] QT Interval new path ms Invalid Interpretation Code [facility] Work Phone: [phone] QTc Polanco 391 ms Invalid Interpretation Code [facility] Work Phone: [phone] T Holderness 62 deg Invalid Interpretation Code [facility] Work Phone: [phone] Clinical Lists Update: Prelo ticket maker 03-12-2017 Tobacco use [facility] Current every day smoker Invali d Interpretation Code [facility] Work Phone: Vital Signs Date Time Vital Sign Value Performing Clinician Facility 12-22-2024 07:03-0400 Body height 191.5 cm Nelson Hanna [employer]COMMODITIES REQUIREMENTS ANALYST Work Phone: [facility] 12-22-2024 07:03-0400 Body mass index (BMI) [Ratio] 28.96 kg/m2 Nelson Hanna [employer]COMMODITIES REQUIREMENTS ANALYST Work Phone: [facility] 12-22-2024 07:03-0400 Body weight 106.2 kg Nelson Hanna [employer]COMMODITIES REQUIREMENTS ANALYST Work Phone: [facility] 12-22-2024 07:03-0400 Diastolic blood pressure 82 mm[Hg] Nelson Hanna [employer]COMMODITIES REQUIREMENTS ANALYST Work Phone: [facility] 12-22-2024 07:03-0400 Heart rate 90 /min Nelson Hanna [employer]COMMODITIES REQUIREMENTS ANALYST Work Phone: [facility] 12-22-2024 07:03-0400 Respiratory rate 16 /min Nelson Hanna [employer]COMMODITIES REQUIREMENTS ANALYST Work Phone: [facility] 12-22-2024 07:03-0400 SaO2% (BldA) [Mass fraction] 97 % Nelson Hanna [employer]COMMODITIES REQUIREMENTS ANALYST Work Phone: [facility] 12-22-2024 07:03-0400 Systolic blood pressure 150 mm[Hg] Nelson Hanna [employer]COMMODITIES REQUIREMENTS ANALYST Work Phone: [facility] 03-31-2023 22:44-0400 Blood Pressure Cuff Size DR MARSHAL YUAN MD [facility] 03-31-2023 22:44-[address] MARSHAL YUAN MD [facility] 03-31-2023 22:44-[address] MARSHAL YUAN MD [facility] 03-31-2023 22:44-0400 Body height [address] MARSHAL YUAN MD [facility] 03-31-2023 22:44-0400 Body temperature 98.6 [degF] DR MARSHAL YUAN MD [facility] 03-31-2023 22:44-0400 Body weight 97.[address] MARSHAL YUAN MD [facility] 03-31-2023 22:44-0400 Diastolic Blood Pressure Non-Invasive [address] MARSHAL YUAN MD [facility] 03-31-2023 22:44-0400 Heart rate 84 /min DR MARSHAL YUAN MD [facility] 03-31-2023 22:44-0400 Reason For Taking VItal Signs DR MARSHAL YUAN MD [facility] 03-31-2023 22:44-0400 Respiratory rate 20 /min DR MARSHAL YUAN MD [facility] 03-31-2023 22:44-0400 Systolic Blood Pressure Non-Invasive [address] MARSHAL YUAN MD [facility] 08-26-2022 08:15-0400 Body height 188 cm Katelynn Pittsburg PA-C Work Phone: [facility] 08-26-2022 08:15-0400 Body temperature 97.2 [degF] Katelynn Pittsburg PA-C Work Phone: [facility] 08-26-2022 08:15-0400 Body weight 94.8 kg Katelynn Linda PA-C Work Phone: [facility] 08-26-2022 08:15-0400 Diastolic blood pressure 84 mm[Hg] Katelynn Pittsburg PA-C Work Phone: [facility] 08-26-2022 08:15-0400 Heart rate 107 /min Katelynn Linda PA-C Work Phone: [facility] 08-26-2022 08:15-0400 SaO2% (BldA) [Mass fraction] 96 % Katelynn Linda PA-C Work Phone: [facility] 08-26-2022 08:15-0400 Systolic blood pressure 146 mm[Hg] Katelynn Pittsburg PA-C Work Phone: [facility] 07-07-2022 15:02-0500 Body height 187.3 cm Sherrie Kun CARPENTER PROTOTYPE.METROLOGIST Work Phone: [facility] 07-07-2022 15:02-0500 Body weight 97.98 kg Sherrie Kun [employer]PENTER PROTOTYPE.METROLOGIST Work Phone: [facility] 07-07-2022 15:02-0500 Diastolic blood pressure 68 mm[Hg] Sherrie Kun CARPENTER PROTOTYPE.METROLOGIST Work Phone: [facility] 07-07-2022 15:02-0500 Heart rate 77 /min Sherrie Kun [employer]PENTER PROTOTYPE.METROLOGIST Work Phone: [facility] 07-07-2022 15:02-0500 SaO2% (BldA) [Mass fraction] 96 % Sherrie Kun CARPENTER PROTOTYPE.METROLOGIST Work Phone: [facility] 07-07-2022 15:02-0500 Systolic blood pressure 104 mm[Hg] Sherrie Kun [employer]PENTER PROTOTYPE.METROLOGIST Work Phone: [facility] 05-11-2022 18:20-0500 Body temperature 98.6 [degF] DR GABRIELLA HORTON MD [facility] 05-11-2022 18:20-0500 Diastolic Blood Pressure Non-Invasive [address] GABRIELLA HORTON MD [facility] 05-11-2022 18:20-0500 Heart rate 74 /min DR GABRIELLA HORTON MD [facility] 05-11-2022 18:20-0500 Respiratory rate 18 /min DR GABRIELLA HORTON MD [facility] 05-11-2022 18:20-0500 Systolic Blood Pressure Non-Invasive [address] GABRIELLA HORTON MD [facility] 02-10-2022 13:46-0400 Body temperature 98.42 [degF] GAGAN AZVALA MD [facility] 02-10-2022 13:46-0400 Diastolic blood pressure 82 mm[Hg] GAGAN ZAVALA MD [facility] 02-10-2022 13:46-0400 Heart rate 88 /min GAGAN ZAVALA MD [facility] 02-10-2022 13:46-0400 Respiratory rate 18 /min GAGAN ZAVALA MD [facility] 02-10-2022 13:46-0400 Systolic blood pressure 134 mm[Hg] GAGAN ZAVALA MD [facility] 01-10-2022 19:26-0400 Body temperature 96.49 [degF] Benito Rasmussen MD Work Phone: [facility] 01-10-2022 19:26-0400 Body weight 105.96 kg Benito Rasmussen MD Work Phone: [facility] 01-10-2022 19:26-0400 Diastolic blood pressure 88 mm[Hg] Benito Rasmussen MD Work Phone: [facility] 01-10-2022 19:26-0400 Heart rate 80 /min Benito Rasmussen MD Work Phone: [facility] 01-10-2022 19:26-0400 Respiratory rate 20 /min Benito Rasmussen MD Work Phone: [facility] 01-10-2022 19:26-0400 SaO2% (BldA) [Mass fraction] 98 % Benito Rasmussen MD Work Phone: [facility] 01-10-2022 19:26-0400 Systolic blood pressure 132 mm[Hg] Benito Rasmussen MD Work Phone: [facility] 10-21-2021 11:28-0400 Body height 187.[address] Phu Jimenez Work Phone: [facility] Work Phone: 10-21-2021 11:28-0400 Body mass index (BMI) [Ratio] 30.4 kg/m2 Dr. Phu Jimenez Work Phone: [facility] Work Phone: 10-21-2021 11:28-0400 Body temperature 96.5 [degF] Dr. Phu Jimenez Work Phone: [facility] Work Phone: 10-21-2021 11:28-0400 Body weight 107.[address] Phu Jimenez Work Phone: [facility] Work Phone: 10-21-2021 11:28-0400 Diastolic blood pressure 95 mm[Hg] Dr. Phu Jimenez Work Phone: [facility] Work Phone: 10-21-2021 11:28-0400 Heart rate 96 /min Dr. Phu Jimenez Work Phone: [facility] Work Phone: 10-21-2021 11:28-0400 Respiratory rate 17 /min Dr. Phu Jimenez Work Phone: [facility] Work Phone: 10-21-2021 11:28-0400 SaO2% (BldA) [Mass fraction] 97 % Dr. Phu Jimenez Work Phone: [facility] Work Phone: 10-21-2021 11:28-0400 Systolic blood pressure 153 mm[Hg] Dr. Phu Jimenez Work Phone: [facility] Work Phone: 10-16-2021 14:07-0400 Body mass index (BMI) [Ratio] 29.5 kg/m2 Dr. Phu Jimenez Work Phone: [facility] Work Phone: 10-16-2021 14:07-0400 Body weight 104.[address] Phu Jimenez Work Phone: [facility] Work Phone: 10-16-2021 14:07-0400 Diastolic blood pressure 91 mm[Hg] Dr. Phu Jimenez Work Phone: [facility] Work Phone: 10-16-2021 14:07-0400 Heart rate 77 /min Dr. Phu Jimenez Work Phone: [facility] Work Phone: 10-16-2021 14:07-0400 Respiratory rate 18 /min Dr. Phu Jimenez Work Phone: [facility] Work Phone: 10-16-2021 14:07-0400 Systolic blood pressure 130 mm[Hg] Dr. Phu Jimenez Work Phone: [facility] Work Phone: 07-29-2021 07:28-0500 Respiratory rate 16 /min Dr. Phu Jimenez Work Phone: [facility] Work Phone: 07-29-2021 04:04-0500 Body mass index (BMI) [Ratio] 30.8 kg/m2 Dr. Phu Jimenez Work Phone: [facility] Work Phone: 07-29-2021 04:04-0500 Body temperature 97.9 [degF] Dr. Phu Jimenez Work Phone: [facility] Work Phone: 07-29-2021 04:04-0500 Body weight 108.[address] Phu Jimenez Work Phone: [facility] Work Phone: 07-29-2021 04:04-0500 Diastolic blood pressure 92 mm[Hg] Dr. Phu Jimenez Work Phone: [facility] Work Phone: 07-29-2021 04:04-0500 Heart rate 110 /min Dr. Phu Jimenez Work Phone: [facility] Work Phone: 07-29-2021 04:04-0500 SaO2% (BldA) [Mass fraction] 99 % Dr. Phu Jimenez Work Phone: [facility] Work Phone: 07-29-2021 04:04-0500 Systolic blood pressure 159 mm[Hg] Dr. Phu Jimenez Work Phone: [facility] Work Phone: 03-31-2017 08:01-0400 BMI (Body Mass Index) 23.25 kg/m2 [facility] Work Phone: 03-31-2017 08:01-0400 BP Diastolic 78 mm[Hg] [facility] Work Phone: 03-31-2017 08:01-0400 BP Systolic 120 mm[Hg] [facility] Work Phone: 03-31-2017 08:01-0400 Height 190.5 cm [facility] Work Phone: 03-31-2017 08:01-0400 Pulse (Heart Rate) 71 /min [facility] Work Phone: 03-31-2017 08:01-0400 Respiratory Rate 18 /min [facility] Work Phone: 03-31-2017 08:01-0400 Weight 84.37 kg [facility] Work Phone: Encounters Encounter Date Encounter Type Care Provider Facility Start: 12-22-2024 End: 12-22-2024 ambulatory [facility] Facility:[facility] Start: 12-22-2024 End: 12-22-2024 Patient encounter procedure [facility] COMMODITIES REQUIREMENTS ANALYST Work Phone: [facility] [place] Comment on above: Routine medical exam (Primary Dx); Screening for diabetes mellitus (DM); Encounter for immunization; Encounter for screening examination for other mental health and behavioral disorders; Special screening examination for viral disease; Screening for colon cancer; Colon cancer screening; Moderate episode of recurrent major depressive disorder (HCC); Gastroesophageal reflux disease without esophagitis; Epigastric pain; Irritable bowel syndrome with diarrhea; PTSD (post-traumatic stress disorder); History of bipolar disorder; Family history of heart disease; Urinary frequency Start: 12-22-2024 End: 12-22-2024 Patient encounter status Nelson Hanna COMMODITIES REQUIREMENTS ANALYST Work Phone: [facility] Start: 12-22-2024 End: 12-22-2024 ambulatory [facility] Facility:[facility] Start: 12-22-2024 Encounter for genera l adult medical examination without abnormal findings NELSON [facility] Start: 09-20-2024 End: 10-21-2024 Admission to same day surgery center Valeriano Rodriguez MD Work Phone: Ambulatory Surgery Comment on above: Outpatient [place] py (Patient is overdue for colorectal cancer screening (has never done). Patient will need consult with Marva Franklin CNP prior to colorectal cancer screening.///) Start: 09-20-2024 End: 10-21-2024 ambulatory Valeriano Rodriguez MD Work Phone: Ambulatory Surgery Start: 03-29-2024 End: 03-29-2024 ambulatory VALERIANO RODRIGUEZ Facility:[facility] Start: 03-29-2024 End: 03-29-2024 Telemedicine consultation with patient George Bryant METROLOGIST Work Phone: Telemedicine Comment on above: Treatment not availa ble (Primary Dx) Start: 03-25-2024 End: 03-29-2024 Refill Sherrie Tristan APRN.CNP Work Phone: [facility] [place] Comment on above: Refill Request Start: 11-27-2023 Telephone encounter Zuly fuentes APRN.METROLOGIST Work Phone: [facility] [place] Comment on above: Appointment Start: 05-03-2023 Refill Sherrie Tristan CARPENTER PROTOTYPE.METROLOGIST Work Phone: [facility] Comment on above: Refill Request Start: 04-01-2023 End: 04-01-2023 Emergency department patient visit DR MARSHAL YUAN MD Facility:[facility] Start: 03-31-2023 End: 03-31-2023 Emergency department patient visit DR MARSHAL YUAN MD [facility] Start: 03-16-2023 Refill Sherrie Tristan CARPENTER PROTOTYPE.METROLOGIST Work Phone: [facility] [place] Comment on above: Refill Request Start: 02-19-2023 Telephone encounter Katelynn blankenship PA-C Work Phone: General Surgery Comment on above: cancelled request Start: 09-18-2022 ambulatory Katelynnpiedad Mckeon PA -C Work Phone: General Surgery Comment on above: Scheduled procedure Start: 08-26-2022 End: 08-26-2022 Patient encounter procedure Katelynn Pittsburg PA-C Work Phone: General Surgery Comment on above: Colon cancer screeni ng (Primary Dx); Right sided abdominal pain; History of IBS Start: 08-25-2022 Refill Valeriano austin MD Work Phone: [facility] [place] Comment on above: Refill Request Start: 07-07-2022 End: 07-07-2022 Patient encounter procedure Sherrie Tristan [employer]PENTER PROTOTYPE.METROLOGIST Work Phone: [facility] [place] Comment on above: Wellness examination (Primary Dx); Right sided abdominal pain; Colon cancer screening; Moderate episode of recurrent major depressive disorder (HCC); Right leg pain; Encounter for screening for diabetes mellitus; Screening for lipid disorders; Special screening examination for viral disease Start: 07-07-2022 End: 07-07-2022 Patient encounter status Sherrie Tristan APRN.METROLOGIST Work Phone: [facility] [place] Start: 05-11-2022 End: 05-11-2022 Emergency department patient visit DR GABRIELLA HORTON MD Facility:[facility] Start: 05-11-2022 End: 05-11-2022 Emergency department patient visit DR GABRIELLA HORTON MD [facility] Start: 03-26-2022 End: 03-26-2022 [facility] Start: 02-10-2022 End: 02-10-2022 Emergency department patient visit GAGAN ZAVALA MD [facility] Start: 02-07-2022 Refill Arcelia Older [employer]PENTER [employer]OTOTYPE .METROLOGIST Work Phone: [facility] [place] Comment on above: Refill Request Start: 02-05-2022 Telephone encounter Mia Pulido [facility] Work Phone: [facility] [employer] Comment on above: Results Start: 01-24-2022 Telephone encounter Mia Pulido [facility] Work Phone: [facility] Comment on above: Results (TGFB2 varia nt of uncertain significance) Start: 01-22-2022 Refill Benito valentino MD Work Phone: [place] [facility] Comment on above: Refill Request Start: 01-10-2022 End: 01-10-2022 Patient encounter procedure Benito Rasmussen MD Work Phone: [facility] Comment on above: Toothache (Primary D x) Start: 10-28-2021 Refill Arcelia Older [employer] .METROLOGIST Work Phone: [facility] [place] Comment on above: Refill Request Start: 10-21-2021 Chart abstracting Meghan CELIS Work Phone: Psycholgy Start: 10-21-2021 End: 10-21-2021 Emergency department patient visit Phu Jimenez Facility:[facility] Start: 10-21-2021 End: 10-21-2021 Emergency department patient visit Dr. Phu Jimenez Work Phone: [facility] Start: 10-16-2021 End: 10-16-2021 ambulatory Phu Jimenez Facility:[facility] Start: 10-16-2021 End: 10-16-[address] Phu Jimenez Work Phone: [facility] Start: 10-11-2021 Chart abstracting Meghan CELIS Work Phone: Psycholgy Start: 07-29-2021 End: 07-29-2021 Emergency department patient visit Montana Blanca Facility:[facility] Start: 07-29-2021 End: 07-29-2021 Emergency department patient visit Dr. Phu Jimenez Work Phone: [facility] Start: 06-12-2021 End: 06-12-2021 Emergency department patient visit Reuben Allison Facility:[facility] Start: 03-26-2021 Telephone encounter Phu bartlett MD Work Phone: [facility] [place] Comment on above: [facility] ER f/u abdominal pain/rectal bleed Procedures Date Procedure Procedure Detail Performing Clinician Start: 07-29-2021 Computed tomography of abdomen and pelvis with contrast Dr. Phu Jimenez Work Phone: Start: 12-11-2020 Lipid 1996 panel - S sharad or Plasma Katelynn Pittsburg PA-C Work Phone: Start: 09-10-2020 Adult depression screening assessment Phu Jimenez MD Work Phone: Start: 03-31-2017 End: 03-31-2017 LEASE OUT WORKER Greta Barnes INFANTRYMAN Work Phone: Start: 03-31-2017 End: 03-31-2017 Ecg routine ecg w/least 12 lds w/i&r Greta Barnes NP Work Phone: Start: 03-31-2017 End: 03-31-2017 Follow Up Appt 1 year Greta Barnes NP Work Phone: None (qualifier value) DR JAEL HORTON MD Plan of Treatment Date Care Activity Detail Author Start: 12-22-2034 Urine microalbumin profile DTaP,Tdap,Td Vaccine (2 - Td or Tdap) [facility] Start: 12-22-2025 Anxiety Screening Anxiety Screening [facility] Start: 12-22-2025 Covid-19 Vaccine ( season) Covid-19 Vaccine () [facility] Comment on above: Postponed from 02/06 (Declined at this time) Start: 12-11-2025 Lipid 1996 panel - S sharad or Plasma Lipid Screening [facility] Start: 12-11-2025 Lipid panel Lipid Screening [facility] Start: 12-11-2025 LIPID SCREEN LIPID SCREEN [facility] Start: 06-20-2025 Hepb vaccine adult 3 dose schedule for im use HEP B VACCINE, 3-DOSE, AGE 20+ YR (ENGERIX-B, RECOMBIVAX HB) Immunization/Injection Routine Encounter for immunization Expected: 06/20/2025 [facility] Comment on above: Expected: 06/20/2025 Start: 02-06-2025 Influenza vaccination [facility] Start: 12-22-2024 End: 03-23-2025 CBC W Auto Differential panel - Blood [facility] Comment on above: Expected: 12/22/2024 , Expires: 03/23/2025 Start: 12-22-2024 End: 03-23-2025 Comprehensive metabolic 2000 panel - Serum or Plasma [facility] Comment on above: Expected: 12/22/2024 , Expires: 03/23/2025 Start: 12-22-2024 End: 03-23-2025 Hepatitis C virus Ab [Presence] in Serum [facility] Work Phone: Comment on above: Expected: 12/22/2024 , Expires: 03/23/2025 Start: 12-22-2024 End: 03-23-2025 Lipid 1996 panel - Serum or Plasma [facility] Comment on above: Expected: 12/22/2024 , Expires: 03/23/2025 Start: 12-22-2024 End: 03-23-2025 PSA/PROSTATE SPECIFIC ANTIGEN SCREENING [facility] Comment on above: Expected: 12/22/2024 , Expires: 03/23/2025 Start: 12-22-2024 End: 03-23-2025 Urinalysis complete panel - Urine URINALYSIS (WITH MICROSCOPIC) WITH CULTURE IF INDICATED Lab Routine Urinary frequency Expected: 12/22/2024, Expires: 03/23/2025 [facility] Comment on above: Expected: 12/22/2024 , Expires: 03/23/2025 Start: 02-07-2024 Covid-19 Vaccine () Covid-19 Vaccine () [facility] Start: 02-07-2024 Influenza vaccination C [facility] Start: 12-12-2023 DIABETES SCREEN DIABETES SCREEN [facility] Start: 12-12-2023 Diabetes Screening Diabetes Screenin g [facility] Start: 02-06-2023 Covid-19 Vaccine ( season) Covid-19 Vaccine () [facility] Start: 02-06-2023 Influenza vaccination C [facility] Start: 07-07-2022 End: 09-06-2022 CBC panel - Blood by Automated count CBC Lab Routine Wellness examination Expected: 07/07/2022, Expires: 09/06/2022 [facility] Work Phone: Comment on above: Expected: 07/07/2022 , Expires: 09/06/2022 Start: 07-07-2022 End: 09-06-2022 Comprehensive metabolic 2000 panel - Serum or Plasma COMP METABOLIC PANEL Lab Routine Wellness examination Encounter for screening for diabetes mellitus Expected: 07/07/2022, Expires: 09/06/2022 [facility] Work Phone: Comment on above: Expected: 07/07/2022 , Expires: 09/06/2022 Start: 07-07-2022 End: 09-06-2022 Hepatitis C virus Ab [Presence] in Serum HEP C AB IA W/CONF SCRN Lab Routine Wellness examination Special screening examination for viral disease Expected: 07/07/2022, Expires: 09/06/2022 [facility] Work Phone: Comment on above: Expected: 07/07/2022 , Expires: 09/06/2022 Start: 07-07-2022 End: 09-06-2022 Lipid 1996 panel - Serum or Plasma LIPID PANEL BASIC Lab Routine Wellness examination Screening for lipid disorders Expected: 07/07/2022, Expires: 09/06/2022 [facility] Work Phone: Comment on above: Expected: 07/07/2022 , Expires: 09/06/2022 Start: 02-06-2022 Influenza vaccination [facility] Start: 09-10-2021 Adult depression screening assessment DEPRESSION SCREENING [facility] Start: 04-08-2021 COVID-19 VACCINE (3 - Booster for Moderna series) COVID-19 VACCINE (3 - Booster for Moderna series) [facility] Start: 2021 COLOGUARD (FIT-DNA) COLOGUARD (FIT-D NA) [facility] Start: 2021 Colonoscopy COLONOSCOPY [facility] Start: 2021 COLORECTAL CANCER SCREENING COLORECTAL CANCER SCREENING [facility] Start: [address] COLONOGRAPHY [facility] Start: 2021 FECAL OCCULT BLOOD FECAL OCCULT BLOO D [facility] Start: 2021 Screening for malign ant neoplasm of colon [facility] Start: 2021 SIGMOIDOSCOPY SIGMOIDOSCOPY [facility] Start: 01-01-2021 COVID-19 VACCINE (3 - Booster for Moderna series) COVID-19 VACCINE (3 - Booster for Moderna series) [facility] Start: 01-01-2021 Covid-19 Vaccine (3 - Moderna series) Covid-19 Vaccine (3 - Moderna series) [facility] Start: 04-01-2018 End: 04-01-2018 Appointment Appointment [facility] Work Phone: Start: 03-31-2017 End: 03-31-2017 LEASE OUT WORKER LEASE OUT WORKER [facility] Work Phone: Start: 03-31-2017 End: 03-31-2017 Follow Up Appt 1 year Follow Up Appt 1 year [place] [facility] Work Phone: Start: 1995 Hepatitis B Vaccine (1 of 3 - 19+ 3-dose series) Hepatitis B Vaccine (1 of 3 - 19+ 3-dose series) [facility] Start: 1995 ONE PNEUMOVAX PRIOR TO AGE 65 ONE PNEUMOVAX PRIOR TO AGE 65 [facility] Start: 1995 Urine microalbumin profile [facility] Start: 1994 Anxiety Screening Anxiety Screening [facility] Start: 1994 HEPATITIS C SCREENING HEPATITIS C [facility] Start: 1994 Hepatitis C screening Hepatitis C [facility] Start: 1982 PNEUMOCOCCAL (1 - PCV) PNEUMOCOCCAL (1 - PCV) [facility] Start: 1976 HEPATITIS B (1 of 3 - 3-dose series) HEPATITIS B (1 of 3 - 3-dose series) [facility] Start: 1976 Hepatitis B Vaccine (1 of 3 - 3-dose series) Hepatitis B Vaccine (1 of 3 - 3-dose series) [facility] Patient Education [facility] Work Phone: Patient referral [facility] Work Phone: End: 07-07-2023 [facility] V[facility] Lab Routine Right leg pain 1 Occurrences starting 07/07/2022 until 07/07/2023 [facility] Work Phone: Comment on above: 1 Occurrences starti ng 07/07/2022 until 07/07/2023 [facility] Immunizations Immunization Date Immunization Notes Care Provider Gracia cartagena 12-22-2024 tetanus toxoid, redu mendy diphtheria toxoid, and acellular pertussis vaccine, adsorbed Nelson Hanna CARPENTER PROTOTYPE.COMMODITIES REQUIREMENTS ANALYST Work Phone: [facility] 11-06-2020 COVID-19 original vaccine, full dose, monovalent (MODERNA) Sherrie Kun CARPENTER PROTOTYPE.METROLOGIST Work Phone: [facility] Work Phone: 09-27-2020 COVID-19 original vaccine, full dose, monovalent (MODERNA) Sherrie Kun CARPENTER PROTOTYPE.METROLOGIST Work Phone: [facility] Work Phone: Payers Date Payer Category Payer Medicaid [id number] 2021 Self-pay [id number] 2019 Medicaid [employer] [facility] [id number] 2019-Present [phone] [address] [place] [address] Medicaid [id number] 2019 Medicaid [id number] 2017 Unknown [id number] 1976 Unknown [id number] 1976 Unknown [id number] Unknown [id number] Unknown [id number] Unknown [id number] Unknown [id number] Unknown [id number] Social History Date Type Detail Facility Start: 03-03-2019 Tobacco smoking status NHIS Smokes tobacco daily [facility] Start: 03-03-2019 End: 07-07-2022 Tobacco use and exposure Smokeless tobacco non-user [facility] Start: 11-28-2020 End: 12-22-2024 Alcohol intake Ex-drinker (finding) [facility] Start: 09-10-2020 End: 07-07-2022 History SDOH Alcohol Frequency 1 [facility] Start: 07-26-2019 End: 07-07-2022 History SDOH Alcohol Std Drinks 98 [facility] Start: 09-10-2020 End: 07-07-2022 History SDOH Social Connections Phone 4 [facility] Start: 09-10-2020 End: 07-07-2022 History SDOH Social Connections Membership 2 [facility] Start: 09-10-2020 End: 07-07-2022 History SDOH Social Connections Living 8 [facility] Start: 09-10-2020 End: 07-07-2022 History SDOH Stress 5 [facility] Start: 09-10-2020 Education 15 [facility] Start: 1975 Sex Assigned At Male [facility] Start: 06-24-2021 End: 01-10-2022 Exposure to SARS-CoV-2 (event) Not sure [facility] Start: 10-21-2021 Tobacco smoking status SDIS Unknown if ever smoked [facility] Work Phone: Start: 05-01-2019 None [facility] Work Phone: Start: 05-01-2019 Marijuana [facility] Work Phone: Start: 07-13-2020 Spouse/ Significant Other [facility] Work Phone: Start: 07-13-2020 Cigarettes [facility] Work Phone: Tobacco smoking status No Smokin g Status Entered [facility] Start: 07-07-2022 Tobacco smoking status NHIS Ex-smoker [facility] Work Phone: History of tobacco use Current smoker [facility] Work Phone: History of tobacco use Cigarette Smoker C [facility] Work Phone: Start: 07-07-2022 History SDOH Alcohol Std Drinks 0 [facility] Start: 07-07-2022 History SDOH Social Connections Phone 3 [facility] Start: 07-07-2022 End: 11-27-2023 History of Social function [facility] Start: 07-07-2022 End: 11-27-2023 Social connection and isolation panel [facility] Do you belong to any clubs or organizations such as baptism groups, unions, fraternal or athletic groups, or school groups? No [facility] How often do you att end meetings of the clubs or organizations you belong to? Patient refused [facility] Are you now , , , , never or living with a partner? Living with partner [facility] How often to you hav e a drink containing alcohol? Never [facility] How hard is it for y ou to pay for the very basics like food, housing, medical care, and heating Not very hard [facility] Do you feel stress - tense, restless, nervous, or anxious, or unable to sleep at night because your mind is troubled all the time - these days [OSQ] Very much [facility] (I/We) worried wheth er (my/our) food would run out before (I/we) got money to buy more. Never true [facility] Start: 05-07-2021 Gender identity Identifies as male gender (finding) [facility] Start: 05-07-2021 Sexual orientation Heterosexual (finding) [facility] Has the [employer], oil, or water company threatened to shut off services in your home in past 12Mo Yes [facility] How hard is it for y ou to pay for the very basics like food, housing, medical care, and heating Somewhat hard [facility] Functional Status Date Assessment Result Facility 03-31-2023 Functional Status [facility] 05-11-2022 Functional Status [facility] 05-11-2022 Functional Status Standard Safet y ID band on, Call device within reach, Bed in low position, Wheels locked, Upper/Half-Length side-rails up, Phone within reach, personal items within reach, Assistive devices within reach, Toileting device within reach, Bedside Cart Locked, Visitor at bedside, Safety level maintained [facility] 02-10-2022 Functional Status Standard Safet y ID band on, Call device within reach, Bed in low position, Wheels locked, Upper/Half-Length side-rails up, Bedside Cart Locked, Safety level maintained [facility] Mental Status Date Assessment Result Facility 03-31-2023 Mental Status Oriented x 4 [facility] 05-11-2022 Mental Status Orientation Oriented x 4 [facility] 05-11-2022 Mental Status [facility] 02-10-2022 Mental Status Orientation Oriented x 4 [facility] Clinical Notes 03-26-2021 to 01-04-2025 Patient InstructionsNelson Hanna APRN.CNS - 12/22/2024 7:09 AM George Rubi APRN.CNP - 03/29/2024 12:11 PM EDTTelephone Encounter - Marva Saleh MA - 11/30/2023 9:39 AM EDT Note Date & Type Note Facility 01-04-2025 Note HNO ID: [id number] Author: ?, ?, ? Service: ? Author Type: ? Type: Progress Notes Filed: 01/04/2025 10:37 Note Text: Contacted patient, scheduled consult for colonoscopy and consult to PTSD. Mailed appointment reminder [facility] 12-22-2024 Instructions Nelson Hanna APRN.CNS - 12/22/2024 7:41 AM EDT - Refill your current medications: Prozac (fluoxetine), omeprazole (Prilosec) for reflux, and dicyclomine (Bentyl) for abdominal cramps. - Schedule visits with psychiatry for medication management and with psychology for therapy to address your bipolar disorder and PTSD. - Arrange a colonoscopy with general surgery for colon cancer screening as discussed. - Go to the lab today for fasting blood work, including routine tests and a hepatitis C screening. - Receive a [id number] (Tdap) booster vaccine and review your hepatitis B immunization status to complete the three-dose series if needed. - Schedule an eye exam with an automotive parts counter associate who accepts your insurance to update your eyeglasses. - Sign and submit a medical records release form so [facility] can send your records to [employer]. documented in this encounter [facility] 12-22-2024 Note HNO ID: [id number] Author: NELSON HANNA APRN.COMMODITIES REQUIREMENTS ANALYST Service: ? Author Type: Nurse Specialist Type: Progress Notes Filed: 12/22/2024 08:02 Note Text: Subjective Patient ID: Greta is a 49 year old male who presents for Yearly Exam. HPI Greta Almaguer is a 49-year-old male with a history of bipolar disorder, PTSD, and GERD, presenting for a routine visit and medication refills. Bipolar Disorder and PTSD: - On disability for bipolar disorder and PTSD. - Currently experiencing a full-blown attack. - Previously managed with Prozac, but medication was discontinued due to missed office visits, leading to a spiral. - Reports being "caustic and short with people" when off medication. - Requests referral to mental health services; [facility] [place]. - Expresses preference for medication management by a psychiatrist. - Has been on various medications throughout life, including lithium and Risperdal. - Greta's mother, who managed his care, 25 years ago, leading to a period of "floundering." - Institutionalized and placed on disability after Greta's mother's . - Describes life as "very dysfunctional" without medication. - Unclear if he has bipolar 1 or 2. GERD: - Chronic condition managed with Prilosec, which provides relief. - Requests refill of Prilosec. Abdominal Pain: - History of abdominal pain managed with dicyclomine (Bentyl); requests refill. - Reports current abdominal pain and discomfort. - Experiences nausea, managed with cannabis. - Denies emesis or dysphagia. - Reports mucous and bloody stools. - Family history of IBS. Colorectal Cancer Screening: - Due for colonoscopy; reports bleeding and pain. - Has a history of EGD. Family History of Vascular Sirena-Danlos Syndrome: - Family history of vascular Sirena-Danlos syndrome, leading to aortic aneurysms. - Affected family members include Greta's mother, maternal grandfather, uncle, and aunt. 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 - Experiences discomfort in the chest area. - Previously seen by Greta Barnes at [facility] after a cardiac event. - Reports an irregular heartbeat episode after consuming an energy drink, with heart rate reaching 180 bpm. Vaccinations: - Pro-science and up-to-date on vaccinations. - Declines COVID booster, citing natural immunity from previous infections and vaccinations. - Started Hepatitis B vaccine series 15 years ago but did not complete it. Vision Care: - Needs new eyeglasses; current pair is four years old. - Experiences stibismus and difficulty with night driving. - Previously seen at [facility] for eye care. Notes no smoking or vaping. Does use marijuana for nausea. ROS Eyes: (+) blurred vision, (+) impaired night vision Cardiovascular: (+) chest discomfort Gastrointestinal: (+) abdominal pain, (+) nausea, (+) rectal pain, (+) hematochezia, (+) mucus in stool, (-) vomiting, (-) dysphagia Psychiatric: (+) irritability Objective BP 150/82 Pulse 90 Resp 16 Ht 191.5 cm (6' 3.39") Wt 106.2 kg (234 lb 2.1 oz) SpO2 97% BMI 28.96 kg/m? Physical Exam Vitals and nursing note reviewed. Constitutional: Appearance: Normal appearance. HENT: Head: Normocephalic and atraumatic. Eyes: Conjunctiva/sclera: Conjunctivae normal. Neck: Thyroid: No thyroid mass or thyromegaly. Vascular: Normal carotid pulses. No carotid bruit or JVD. Cardiovascular: Rate and Rhythm: Normal rate and regular rhythm. Pulses: Carotid pulses are 2+ on the right side and 2+ on the left side. Radial pulses are 2+ on the right side and 2+ on the left side. Heart sounds: Normal heart sounds. Pulmonary: Effort: Pulmonary effort is normal. Breath sounds: Normal breath sounds. Abdominal: General: Bowel sounds are normal. Palpations: Abdomen is soft. Musculoskeletal: Right lower leg: No edema. Left lower leg: No edema. Skin: General: Skin is warm and dry. Neurological: General: No focal deficit present. Mental Status: He is alert and oriented to person, place, and time. Latest Ref Rng 12/11/2020 WBC 3.70 - 11.00 k/uL 10.12 RBC 4.20 - 6.00 m/uL 4.96 Hemoglobin 13.0 - 17.0 g/dL 14.2 Hematocrit 39.0 - 51.0 % 42.9 MCV 80.0 - 100.0 fL 86.5 MCH 26.0 - 34.0 pG 28.6 MCHC 30.5 - 36.0 g/dL 33.1 RDW-CV 11.5 - 15.0 % 13.6 Platelet Count 150 - 400 k/uL 354 MPV 9.0 - 12.7 fL 10.2 Neut% % 51.0 Abs Neut (ANC) 1.45 - 7.50 k/uL 5.16 Lymph% % 39.0 Abs Lymph 1.00 - 4.00 k/uL 3.95 Guadalupe% % 7.1 Abs Guadalupe <0.87 k/uL 0.72 Eosin% % 2.2 Abs Eosin <0.46 k/uL 0.22 Baso% % 0.7 Abs Baso <0.11 k/uL 0.07 Nucleated Reds 0 /100 WBC 0.0 Absolute nRBC <0.01 k/uL <0.01 Diff Type Auto Diff Protein, Total 6.3 - 8.0 g/dL 7.3 Albumin 3.9 - 4.9 g/dL 4.2 Calcium 8.5 - 10.2 mg/dL 9.3 Bilirubin, Total 0.2 - (more content not included)... [facility] 12-22-2024 History of Presen t illness Narrative Subjective Patient ID: Greta is a 49 year old male who presents for Yearly Exam. HPI Greta Almaguer is a 49-year-old male with a history of bipolar disorder, PTSD, and GERD, presenting for a routine visit and medication refills. Bipolar Disorder and PTSD: - On disability for bipolar disorder and PTSD. - Currently experiencing a full-blown attack. - Previously managed with Prozac, but medication was discontinued due to missed office visits, leading to a spiral. - Reports being "caustic and short with people" when off medication. - Requests referral to mental health services; [facility] [place]. - Expresses preference for medication management by a psychiatrist. - Has been on various medications throughout life, including lithium and Risperdal. - Greta's mother, who managed his care, 25 years ago, leading to a period of floundering. - Institutionalized and placed on disability after Greta's mother's . - Describes life as "very dysfunctional" without medication. - Unclear if he has bipolar 1 or 2. GERD: - Chronic condition managed with Prilosec, which provides relief. - Requests refill of Prilosec. Abdominal Pain: - History of abdominal pain managed with dicyclomine (Bentyl); requests refill. - Reports current abdominal pain and discomfort. - Experiences nausea, managed with cannabis. - Denies emesis or dysphagia. - Reports mucous and bloody stools. - Family history of IBS. Colorectal Cancer Screening: - Due for colonoscopy; reports bleeding and pain. - Has a history of EGD. Family History of Vascular Sirena-Danlos Syndrome: - Family history of vascular Sirena-Danlos syndrome, leading to aortic aneurysms. - Affected family members include Greta's mother, maternal grandfather, uncle, and aunt. 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 - Experiences discomfort in the chest area. - Previously seen by Greta Barnes at [facility] after a cardiac event. - Reports an irregular heartbeat episode after consuming an energy drink, with heart rate reaching 180 bpm. Vaccinations: - Pro-science and up-to-date on vaccinations. - Declines COVID booster, citing natural immunity from previous infections and vaccinations. - Started Hepatitis B vaccine series 15 years ago but did not complete it. Vision Care: - Needs new eyeglasses; current pair is four years old. - Experiences stibismus and difficulty with night driving. - Previously seen at [facility] for eye care. Notes no smoking or vaping. Does use marijuana for nausea. ROS Eyes: (+) blurred vision, (+) impaired night vision Cardiovascular: (+) chest discomfort Gastrointestinal: (+) abdominal pain, (+) nausea, (+) rectal pain, (+) hematochezia, (+) mucus in stool, (-) vomiting, (-) dysphagia Psychiatric: (+) irritability Objective BP 150/82 Pulse 90 Resp 16 Ht 191.5 cm (6' 3.39") Wt 106.2 kg (234 lb 2.1 oz) SpO2 97% BMI 28.96 kg/m Physical Exam Vitals and nursing note reviewed. Constitutional: Appearance: Normal appearance. HENT: Head: Normocephalic and atraumatic. Eyes: Conjunctiva/sclera: Conjunctivae normal. Neck: Thyroid: No thyroid mass or thyromegaly. Vascular: Normal carotid pulses. No carotid bruit or JVD. Cardiovascular: Rate and Rhythm: Normal rate and regular rhythm. Pulses: Carotid pulses are 2+ on the right side and 2+ on the left side. Radial pulses are 2+ on the right side and 2+ on the left side. Heart sounds: Normal heart sounds. Pulmonary: Effort: Pulmonary effort is normal. Breath sounds: Normal breath sounds. Abdominal: General: Bowel sounds are normal. Palpations: Abdomen is soft. Musculoskeletal: Right lower leg: No edema. Left lower leg: No edema. Skin: General: Skin is warm and dry. Neurological: General: No focal deficit present. Mental Status: He is alert and oriented to person, place, and time. Latest Ref [facility] 12/11/2020 WBC 3.70 - 11.00 k/uL 10.12 RBC 4.20 - 6.00 m/uL 4.96 Hemoglobin 13.0 - 17.0 g/dL 14.2 Hematocrit 39.0 - 51.0 % 42.9 MCV 80.0 - 100.0 fL 86.5 MCH 26.0 - 34.0 pG 28.6 MCHC 30.5 - 36.0 g/dL 33.1 RDW-CV 11.5 - 15.0 % 13.6 Platelet Count 150 - 400 k/uL 354 MPV 9.0 - 12.7 fL 10.2 Neut% % 51.0 Abs Neut (ANC) 1.45 - 7.50 k/uL 5.16 Lymph% % 39.0 Abs Lymph 1.00 - 4.00 k/uL 3.95 Guadalupe% % 7.1 Abs Guadalupe <0.87 k/uL 0.72 Eosin% % 2.2 Abs Eosin <0.46 k/uL 0.22 Baso% % 0.7 Abs Baso <0.11 k/uL 0.07 Nucleated Reds 0 /100 WBC 0.0 Absolute nRBC <0.01 k/uL <0.01 Diff Type Auto Diff Protein, Total 6.3 - 8.0 g/dL 7.3 Albumin 3.9 - 4.9 g/dL 4.2 Calcium 8.5 - 10.2 mg/dL 9.3 Bilirubin, Total 0.2 - 1.3 mg/dL 0.3 Alkaline Phosphatase 38 - 113 U/L 81 AST 14 - 40 U/L 26 Glucose 74 - 99 mg/dL 83 BUN 9 - 24 mg/dL 11 Creatinine 0.73 - 1.22 mg/dL 0.65 (L) Sodium 136 - 144 mmol/L 137 Potassium 3.7 - 5.1 mmol/L 4.2 Chloride 97 - 105 mmol/L 104 CO2 22 - 30 mmol/L 20 (L) Anion Gap 9 - 18 mmol/L 13 ALT 10 - 54 U/L 15 eGFR- >60 eGFR-All Other Races . >60 Cholesterol, Total <200 mg/dL 217 (H) Triglyceride <150 mg/dL 254 (H) HDL Cholesterol >39 mg/dL 24 (L) LDL Cholesterol, Calculated <100 mg/dL 142 (H) Non HDL Cholesterol <130 mg/dL 193 (H) Fasting Time hrs 12 VLDL Cholesterol <30 mg/dL 51 (H) TC:HDL Ratio <5.10 9.04 (H) LDL:HDL Ratio <2.54 5.92 (H) HIV 12 Combo (Ag/Ab) Non Reactive Non Reactive HIV-1/2 AB Test Not Indicated HIV Interpretation Negative 1. Routine medical exam (Z00.00) - Comprehensive evaluation performed. - Discussed the importance of regular follow-ups to manage chronic conditions and medication refills. - Patient is due for routine lab work; ordered and to be completed today. - Advised follow-up annually for routine medical exams and to maintain needed prescriptions. 2. Screening for diabetes mellitus (DM) (Z13.1) - Ordered fasting blood glucose and HbA1c as part of routine lab work. 3. Encounter for immunization (Z23) - Administered Tdap booster. - Discussed Hepatitis B vaccination series; reports two injections in the past - Declined COVID-19 booster. 4. Encounter for screening examination for other mental health and behavioral disorders (Z13.39) 5. Moderate episode of recurrent major depressive disorder (HCC) (F33.1) 6. PTSD (post-traumatic stress disorder) (F43.10) 7. History of bipolar disorder (Z86.59) - Referred to psychiatry and psychology for comprehensive mental health evaluation and management. - Refilled Prozac prescription and sent to [facility]. - Discussed the importance of medication adherence and regular psychiatric follow-ups. - Patient agrees to video visits for convenience. 8. Special screening examination for viral disease (Z11.59) - Ordered Hepatitis C screening as part of routine lab work. 9. Screening for colon cancer (Z12.11) 10. Colon cancer screening (Z12.11) - Referred to general surgery for colonoscopy. - Discussed the importance of screening due to family history and current symptoms. 11. Gastroesophageal reflux disease without esophagitis (K21.9) - Refilled Prilosec prescription. - Advised continuation of medication for symptom management. 12. Epigastric pain (R10.13) 13. Irritable bowel syndrome with diarrhea (K58.0) - Refilled dicyclomine prescription. - Discussed dietary modifications and regular follow-ups for symptom management. - Patient to monitor symptoms and report any changes. 14. Family history of heart disease (Z82.49) - Patient has a family history of vascular Sirena-Danlos syndrome with aortic aneurysms. - Genetic testing revealed a mutation affecting the aorta. - Patient is under the care of [facility]; advised to continue regular follow-ups. 15. Urinary frequency (R35.0) Requests PSA, recommend urinalysis. Nelson Hanna APRN.BRIGHT documented in this encounter [facility] 09-20-2024 Note Patient Outreach ( [facility]) GRETA ALMAGUER ([id number]) 1975 M Date Time Provider Department 09/20/24 VALERIANO RODRIGUEZ During your visit today, we recorded the following information about you: Allergies As of Date: 09/20/2024 (No Known Allergies) Date Reviewed: 03/29/2024 Reviewed by: George Bryant APRN.METROLOGIST - Fully Assessed Reason for Visit: Outpatient Colonoscopy [482] Cmt: Patient is overdue for colorectal cancer screening (has never done). Patient will need consult with Marva Franklin CNP prior to colorectal cancer screening. Primary Visit Diagnosis:Screening for colorectal cancer [Z12.11, Z12.12] Prescriptions as of 10/21/2024 - omeprazole (PRILOSEC) 40 mg capsule Take 1 capsule by mouth once daily as needed. - FLUoxetine (PROZAC) 40 mg capsule Take 1 capsule by mouth once daily. - dicyclomine (BENTYL) 20 mg tablet Take 1 tablet by mouth before meals and at bedtime. As needed for IBS Problem List As Of Date 09/20/2024 Noted Resolved Gastroesophageal reflux disease without esophag*09/16/2019 Epigastric pain [R10.13] 09/16/2019 Other dysphagia [R13.19] 09/16/2019 Tobacco use disorder [F17.200] 09/11/2020 Irritable bowel syndrome with diarrhea [K58.0] 10/21/2019 Chronic facial pain [R51.9, G89.29] 09/11/2020 Moderate episode of recurrent major depressive *10/11/2021 Encounter Status:Closed by [employer] on 10/21/24 [facility] 03-29-2024 Note HNO ID: [id number] Author: GEORGE BRYANT APRN.ARABELLA Service: ? Author Type: Nurse Practitioner Type: Progress Notes Filed: 03/29/2024 12:18 Note Text: Pt presents demanding medication refill for his Prozac. Pt states he has been off of this medication for 45 days and he voices he is extremely upset that his primary refuses to refill it without a visit. Patient states I refuse to go in the office just to get a refill on a medication I have been on for years. Pt informed that keeping an established rotating appointment with primary for medication refills especially for mental health are crucial and required, which is why his PCP office did not refill without a visit. Pt acknowledges that he has not scheduled and did not call to schedule an appointment as recommended by PCP office. Pt informed that because he has been off this medication for 45 days it is not considered a medication refill and he would need to get in with his PCP office for screening and evaluation. Pt began to scream incoherent things at provider. I tried to interrupt to tell the patient he can seek a virtual visit with primary and I can provide him with the telephone number but he would not hear anything of it. To avoid any more verbal abuse I the provider ended the visit. Appt canceled and fee waived. George Bryant APRN.CNP [facility] 03-29-2024 History of Presen t illness Narrative Pt presents demanding medication refill for his Prozac. Pt states he has been off of this medication for 45 days and he voices he is extremely upset that his primary refuses to refill it without a visit. Patient states I refuse to go in the office just to get a refill on a medication I have been on for years. Pt informed that keeping an established rotating appointment with primary for medication refills especially for mental health are crucial and required, which is why his PCP office did not refill without a visit. Pt acknowledges that he has not scheduled and did not call to schedule an appointment as recommended by PCP office. Pt informed that because he has been off this medication for 45 days it is not considered a medication refill and he would need to get in with his PCP office for screening and evaluation. Pt began to scream incoherent things at provider. I tried to interrupt to tell the patient he can seek a virtual visit with primary and I can provide him with the telephone number but he would not hear anything of it. To avoid any more verbal abuse I the provider ended the visit. Appt canceled and fee waived. George Bryant APRN.ARABELLA documented in this encounter [facility] 11-30-2023 Telephone encounter Note Pt not seen in office. Closing encounter. Will send mychart message to pt if abdominal pain continues he needs to be evaluated in the office. Marva Saleh MA [facility] 11-30-2023 Miscellaneous Notes Pt not seen in office. Closing encounter. Will send mychart message to pt if abdominal pain continues he needs to be evaluated in the office. Mavra Saleh MA 2nd attempt at reaching patient. Message left to call office back prior to appointment time. Sandhya Alfonso LPN Message left for patient to call office back. Sandhya Alfonso LPN Will need to be seen in office for abdominal discomfort.I can not properly assess this via virtual. Zuly Gardner APRN.ARABELLA documented in this encounter [facility] 11-27-2023 Telephone encounter Note 2nd attempt at reaching patient. Message left to call office back prior to appointment time. Sandhya Alfonso LPN [facility] 11-27-2023 Telephone encounter Note Message left for patient to call office back. Sandhya Alfonso LPN [facility] 11-27-2023 Telephone encounter Note Will need to be seen in office for abdominal discomfort.I can not properly assess this via virtual. Zuly Gardner APRN.METROLOGIST [facility] Work Phone: 05-04-2023 Miscellaneous Notes Patient has been identified by name and date of : Yes Patient phones for refill(s): Requested Prescriptions Pending Prescriptions Disp Refills omeprazole (PRILOSEC) 40 mg capsule 90 capsule 1 Sig: Take 1 capsule by mouth once daily as needed. Date of last office visit in primary care: Visit date not found Date of next office visit in primary care: Visit date not found Last 2 Encounter Wt Readings: Date: Wt: 08/26/2022 94.8 kg (209 lb) 07/07/2022 98 kg (216 lb) Previous labs/tests for medication: Not applicable Please advise. Thank you. Dora Singh LPN. documented in this encounter [facility] 04-01-2023 Hospital Discharg e instructions Patient Education 03/31/2023 22:56:47 Dental Pain Dental Pain A crack or cavity in a tooth can cause tooth pain. This is because the crack or cavity exposes the sensitive inner area of the tooth. An infection in the gum or the root of the tooth can cause pain and swelling. The pain is often made worse when you drink hot or cold beverages. It can also be worse when you bite on hard foods. Pain may spread from the tooth to your ear or the area of the jaw on the same side. Home care Follow these tips when caring for yourself at home: Don't have hot and cold foods and drinks. Your tooth may be sensitive to changes in temperature. Use toothpaste made for sensitive teeth. [place] gently up and down instead of sideways. Brushing sideways can wear away root surfaces if they are exposed. If your tooth is chipped or cracked, or if there is a large open cavity, put oil of cloves directly on the tooth to relieve pain. You can buy oil of cloves at drugstores. Some pharmacies carry an pgqu-byr-nkssvmw "toothache kit." This contains a paste that you can put on the exposed tooth to make it less sensitive. Put a cold pack on your jaw over the sore area to help reduce pain. You may use tnkb-hsh-odpvkgr medicine to ease pain, unless your doctor prescribed another medicine. If you have chronic liver or kidney disease, talk with your healthcare provider before using acetaminophen or ibuprofen. Also talk with your provider if you ve had a stomach ulcer or GI bleeding. If you have signs of an infection, you will be given an antibiotic. Take it as directed. Follow-up care Follow up with your dentist, or as advised. Your pain may go away with the treatment given today. But only a dentist can fully look at and treat the cause of your pain. This will keep the pain from coming back. Call 911 Call 911 if any of these occur: Unusual drowsiness Headache or stiff neck Weakness or fainting Difficulty swallowing or breathing When to seek medical advice Call your health care provider right away if any of these occur: Your face becomes swollen or red Pain gets worse or spreads to your neck Fever of 100.4 F (38.0 C) or higher, or as directed by your healthcare provider Pus drains from the tooth [id number] The [employer]. [address] [place] [address]. All rights reserved. This information is not intended as a substitute for professional medical care. Always follow your healthcare professional's instructions. Follow Up Care 03/31/2023 22:43:21 With:Take antibiotics as prescribed. Follow-up closely with your dentist. Address:Unknown When:2-4 days [facility] 03-31-2023 Note Discharge Instructions Thank you for allowing [place] to assist you with your healthcare needs. The following is important discharge information regarding your hospital visit. Diagnosis from Today's Visit Dental infection Dental pain What to Do Next Instructions from Your Care Team No qualifying data available. Post Acute Orders No qualifying data available. You Need to Schedule the Following Appointments Follow Up with Take antibiotics as prescribed. Follow-up closely with your dentist. When Within 2-4 days Allergies NKA Medications Please ask your primary doctor or pharmacist before taking any other medication not listed, including over the counter drugs, herbal medications, vitamins and or supplements as they may interact with your home medications. What How Much When Why Instructions Last Dose New acetaminophen-hydrocodone ([place] 325- 5 mg oral tablet) 1 tab(s) by mouth Every 6 hours as needed for as needed for pain Dental infection Duration: 2 Days Printed Prescription New penicillin V potassium (penicillin V potassium 500 mg oral tablet) 1 tab(s) by mouth Four (4) times a day Duration: 10 Days Printed Prescription Unchanged FLUoxetine (FLUoxetine 20 mg oral capsule) Please take this list to your next doctor s visit. Bring all medications you take, including over the counter medications, herbals and other supplements with you to your doctor s visit. Patients and families are reminded to discard old lists and to update any records with all medication providers or retail pharmacies. Education Materials Dental Pain A crack or cavity in a tooth can cause tooth pain. This is because the crack or cavity exposes the sensitive inner area of the tooth. An infection in the gum or the root of the tooth can cause pain and swelling. The pain is often made worse when you drink hot or cold beverages. It can also be worse when you bite on hard foods. Pain may spread from the tooth to your ear or the area of the jaw on the same side. Home care Follow these tips when caring for yourself at home: Don't have hot and cold foods and drinks. Your tooth may be sensitive to changes in temperature. Use toothpaste made for sensitive teeth. [place] gently up and down instead of sideways. Brushing sideways can wear away root surfaces if they are exposed. If your tooth is chipped or cracked, or if there is a large open cavity, put oil of cloves directly on the tooth to relieve pain. You can buy oil of cloves at [employer]. Some pharmacies carry an qqvr-eej-ijjkqzo "toothache kit." This contains a paste that you can put on the exposed tooth to make it less sensitive. Put a cold pack on your jaw over the sore area to help reduce pain. You may use nyij-rqp-wduijfq medicine to ease pain, unless your doctor prescribed another medicine. If you have chronic liver or kidney disease, talk with your healthcare provider before using acetaminophen or ibuprofen. Also talk with your provider if you ve had a stomach ulcer or GI bleeding. If you have signs of an infection, you will be given an antibiotic. Take it as directed. Follow-up care Follow up with your dentist, or as advised. Your pain may go away with the treatment given today. But only a dentist can fully look at and treat the cause of your pain. This will keep the pain from coming back. Call 911 Call 911 if any of these occur: Unusual drowsiness Headache or stiff neck Weakness or fainting Difficulty swallowing or breathing When to seek medical advice Call your health care provider right away if any of these occur: Your face becomes swollen or red Pain gets worse or spreads to your neck Fever of 100.4 F (38.0 C) or higher, or as directed by your healthcare provider Pus drains from the tooth [id number] The [employer] [address] [place] [address], [place] [address]. All rights reserved. This information is not intended as a substitute for professional medical care. Always follow your healthcare professional's instructions. Additional Information VACCINATE! IT SAVES LIVES! Members of the community who have not yet received the COVID-19 vaccine and would like to receive it can visit one of [facility] vaccine clinics. There are many vaccine clinic locations within the [facility]. For locations and available times, please visit [email or web address].[email or web address] [email or web address] It is important to note that some COVID mobile vaccine clinics are held outdoors and may be canceled in rainy or stormy conditions. To learn more about pediatric vaccinations (ages 5-11), we invite you to visit the [facility] webpage. https://[email or web address].org/p [email or web address]-Uohpn-Dwfbnowgwvz-Freq lfvcaf-Dmyry-Otvdvmwhg.[email or web address] To learn more about the COVID-19 vaccine, we invite you to visit the CDC website for a list of frequently asked questions. https://www.cdc.gov/coronavirus/ 2019-ncov/vaccines/faq.html [place] [facility] Patient Portal Access Instructions: Stay connected with your healthcare team and access your personal medical information anytime with the [facility] Patient Portal. If you would like a full copy of your medical records please contact the [facility] Medical Records Department Thursday through Thursday between 8a.m. and 4:30p.m. Please follow the directions below to access the portal: 1.Access the email account you provided upon registration to the hospital.2.Look for an invitation email from [facility].3.Open the email and access the invitation link: Accept Invitation to [facility]4.Fill in the required stephens to create your account. Sign into [email or web address] with your username and password that you created in the above steps to stay up to date. You can then view a summary of results, a summary of your visits, and the ability to download your summaries to your computer or send the information securely to a physician. Remember that your healthcare information is confidential, so carefully consider who you will allow to register on the [facility] Patient Portal for access to your information. You can also access the [facility] Patient Portal on the [employer]ica. Simply click on "Health Records" under "Health Data" and then click on the [employer] logo. HOW TO SAFELY DISPOSE OF PRESCRIPTION MEDICATIONS Please use one of the following methods to safely dispose of your unused medications. 1.Use a drug disposal kit: the drug disposal pouch allows you to safely discard your old and unused drugs. Ask your nurse to give you one when you are discharged.2.Visit a local take-back location: Many local pharmacies and police departments have programs that collect old and unwanted prescription drugs. Call your local pharmacy or go to http://[employer]/4R9Pc3t to find one close to you.3.Make use of household items: Use cat litter or old coffee grounds to dispose medications if other options are not available. Mix your drugs with these household products, seal them in an airtight container and throw it into the garbage. Call [facility]: [phone] to be sure your drugs can be disposed of in this way. Some medicines may require a different approach.4.Never flush your medications down the toilet. IF YOU HAVE BEEN PRESCRIBED AN OPIOIDS FOR PAIN If you have been prescribed an opioid (such as hydrocodone, oxycodone or morphine), it is critical to understand the possible side effects and risks of opioid pain medications. Even when taken as directed, opioids can have several side effects including: Tolerance, meaning you might need to take more of a medication for the same pain relief. Nausea, vomiting and/or constipation. Sleepiness, dizziness, dry mouth, confusion, depression or itching. Physical dependence, meaning you have withdrawal symptoms when a medication is stopped ? this can develop within a few days. KNOW YOUR RESPONSIBILITIES It is important to know exactly how much and how often to take the opioid pain medications you are prescribed. Never take opioids in higher amounts or more often than prescribed. Do not combine opioids with alcohol or other drugs that cause drowsiness, such as benzodiazepines, also known as benzos, including diazepam and alprazolam, muscle relaxants or sleep aids. Never sell or share prescription opioids. This is illegal. Store opioids in a secure place and out of reach of others (including children, family, friends and visitors). The last page(s) of this document has been signed and retained as a CHART COPY Signatures Patient Education Materials Dental Pain Medication Leaflets My discharge plan and instructions have been reviewed and explained to me and I,GRETA ALMAGUER understand my current condition and have read and understand these discharge instructions. I have received a written copy of the plan/instructions. If I have questions, I am aware that I should contact my doctor. Patient/Waterproofer Signature: Date/Time: Relationship to Patient: Witness Name/Signature: Date/Time: [facility] 03-17-2023 Miscellaneous Notes The following approved medication requests have been transmitted electronically. Requested Prescriptions Signed Prescriptions Disp Refills FLUoxetine (PROZAC) 40 mg capsule 30 capsule 5 Sig: Take 1 capsule by mouth once daily. Authorizing Provider: VALERIANO RODRIGUEZ MD Patient has been identified by name and date of : Yes Requested Prescriptions Pending Prescriptions Disp Refills FLUoxetine (PROZAC) 40 mg capsule 30 capsule 5 Sig: Take 1 capsule by mouth once daily. RX INSTRUCTIONS: Patient aware RX will be sent to pharmacy. No need to notify patient. Patient last office visit: 06/13/22 Patient next office visit: none scheduled Page Comer MA documented in this encounter [facility] 02-19-2023 Miscellaneous Notes 3rd failed attempt to rs EGD and colonoscopy. Left VM, sent MyChart message, and letter. Cancelled request, please place new order when patient is ready to schedule. Thank you! JN 02/19 documented in this encounter [facility] 09-19-2022 Miscellaneous Notes My chart message sent to patient.Delma Junior RN Recommend urgent ED evaluation for chest pain please. No problem to r/s procedure-he can contact us once his cardiac evaluation has been completed documented in this encounter [facility] 08-26-2022 History of Presen t illness Narrative HISTORY AND PHYSICAL Greta Almaguer 1975 REFERRING PHYSICIAN: Sherrie Tristan APRN.METROLOGIST CHIEF COMPLAINT: Consult (colonoscopy) HPI: The patient is a 47 year old male referred for endoscopy. Greta notes change in bowel habits with smaller stools and some recent blood in stools. Notes some vague right-sided abdominal pain which is aggravated by constipation. Notes unintended weight loss. Notes family history of IBS. Patient notes history of tobacco use. Greta has undergone prior endoscopy-had EGD by Dr. Sarah in 2019 with findings of reflux esophagitis. Patient's past medical history is significant for atrial fibrillation and atrial flutter, follows with [facility] for this. Patient denies problems with sedation in the past. PAST MEDICAL HISTORY Diagnosis Date Atrial fibrillation and flutter (HCC) 03/07/2017 cardioverted, converted Blunt trauma of face 2009 right side Dysphagia 09/16/2019 Gastroesophageal reflux disease without esophagitis 09/16/2019 Inguinal hernia Irritable bowel syndrome with diarrhea 10/21/2019 Spinal stenosis Tobacco use disorder 09/11/2020 PAST SURGICAL HISTORY Procedure Laterality Date EGD 09/27/2019 reflux esophagitis, neg H Pylori PAST SURGICAL HISTORY OF 1975 had hernia repair at Current Outpatient Medications Medication Sig FLUoxetine (PROZAC) 40 mg capsule Take 1 capsule by mouth once daily. omeprazole (PRILOSEC) 40 mg capsule Take 1 capsule by mouth once daily as needed. dicyclomine (BENTYL) 20 mg tablet Take 1 tablet by mouth before meals and at bedtime. As needed for IBS (Patient not taking: Reported on 08/26/2022) No current facility-administered medications for this visit. ALLERGIES: Patient has no known allergies. PERSONAL HISTORY: Social History Tobacco Use Smoking status: Former Types: Cigarettes Smokeless tobacco: Never Vaping Use Vaping Use: Never used Substance Use Topics Alcohol use: Not Currently Drug use: Yes Types: Marijuana Comment: daily FAMILY HISTORY: FAMILY HISTORY Problem Relation Age of Onset Aneurysm Mother Ehler Danlos other (rare tissue disease) Mother other (Other) Mother vascular Ehler Danlos Syndrome other (IBS) Mother other (bph) Father prostate enlargement other (MVA) Brother half brother other (lung cancer) Maternal Grandmother other (aortic dissection) Maternal Grandfather 59 other (Fhx of rare connective tissue dx.) Other REVIEW OF SYMPTOMS: The review of systems data was entered by the nurse and reviewed by in Nursing Notes: Sofi Oleary LPN 08/26/2022 8:18 AM Signed REVIEW OF SYSTEMS: General: The patient notes fatigue, notes weight loss, denies weight gain, denies feeling hot, and denies feelings of cold. Eyes: The patient denies glaucoma, denies eye injury/surgery, wears glasses or contacts. Ear/Nose/Throat: The patient notes allergies, denies hayfever, denies ear infections, and denies bloody noses. Cardiovascular: The patient notes chest pain, denies heart disease, denies high blood pressure,denies cardiac stent, denies prior heart attack, denies irregular heart beat, denies high cholesterol, denies poor circulation, denies heart failure, other cardiac issues, denies claudication, denies cold feet, denies peripheral arterial stent. Respiratory: The patient denies tuberculosis, denies pneumonia, denies frequent cough, denies pulmonary embolism, denies shortness of breath, and denies coughing up blood. Gastrointestinal: The patient denies difficulty swallowing, notes acid reflux, denies ulcers, denies vomiting, denies jaundice/hepatitis, denies gallbladder problems, denies black or tarry stools, denies hemorrhoids, denies bleeding from rectum, denies diverticulitis, notes constipation, notes diarrhea, denies loss of stool control, and denies hernias. Kidney/Bladder: The patient denies kidney stones, denies urine infections, and denies bloody urine. Skin: The patient denies a history of skin cancer, denies bleeding/changing moles, and denies a history of skin rash. Neurologic: The patient denies a history of epilepsy/convulsions, denies headaches, denies head/spinal injuries, and denies stroke/TIA. Psychiatric: The patient denies psychiatric medications, notes depression, and denies voices, denies substance abuse. Endocrine: The patient denies thyroid disorders, denies diabetes, and denies hormonal problems. Hematologic: The patient denies a history of bruising, denies bleeding, and denies anemia, denies blood clots. Infections: The patient denies a history of measles and mumps, denies rheumatic fever, and denies sexually transmitted diseases. Musculoskeletal: The patient notes back pain/injury, denies back problems, denies sciatica, denies knee/foot trouble, denies arthritis, or denies gout. When was patient's last Mammogram screening? N/A Last Colonoscopy: none Sofi Oleary LPN I have confirmed and edited as necessary, the PFSH and ROS obtained by others. Katelynn Mckeon PA-C PHYSICAL EXAMINATION: General: The patient is 47 year old male, well nourished, well hydrated in no acute distress. The patient is oriented to time, place, and person. VITALS: Blood pressure 146/84, pulse 107, temperature 36.2 C (97.2 F), height 188 cm (6' 2"), weight 94.8 kg (209 lb), SpO2 96 %. There is no height or weight on file to calculate BMI. HEENT: Normal cephalic, ataumatic, pupils are equally round, sclera are anicteric, mucous membranes are moist, oropharynx is clear. Neck has no masses, asymmetry or lymphadenopathy. Respiratory: Clear to auscultation and percussion. Normal respiratory excursion and pattern. Cardiac: Examination is regular rate and rhythm. Normal S1/S2 Abdominal exam: Soft, nontender, with no palpable masses. No hepatosplenomegaly. No palpable hernias. Extremities: no clubbing, cyanosis or edema. No adenopathy. LABORATORY VALUES: As Noted RADIOLOGIC STUDIES: As Noted Assessment IMPRESSION: right-sided abdominal pain, weight change, change in bowel habits PLAN: I have reviewed my findings with the surgeon. Will plan for upper and lower endoscopy with biopsies. We discussed the risks and benefits of the planned endoscopy. I have informed the patient that complications can occur including failure to complete the endoscopy and perforation. The patient had the opportunity to ask questions concerning the planned endoscopy. My staff has also explained the procedure to the patient in understandable terms and has given the patient printed material concerning the procedure. The patient freely consents to surgery. The patient was offered a surgery/procedure at a [facility] facility. I have counseled the patient regarding the risk of exposure to and/or potential harm posed by the COVID-19 virus with having a surgery/procedure at this time versus the risk of delaying the surgery/procedure. It is not possible to know either the risk of delaying the surgery or procedure or chance of getting an infection with perfect accuracy, but a joint decision was made between the patient and myself to proceed at this time with endoscopy. I plan to use Golytely bowel preparation I have explained to the patient the difference between IV conscious sedation and MAC anesthesia - and I have offered either, according to the patient's wishes. I have explained that with IV conscious sedation there is no anesthesia provider available and therefore there is a limitation of the amount of IV medications that can be given and that the patient may wake up in the middle of the procedure and/or experience pain/discomfort during the procedure. Further discussion was done and the patient was given the opportunity to ask questions and all questions were answered. The patient chooses IV conscious sedation I have explained to the patient the difference between IV conscious sedation and MAC anesthesia - and I have offered either, according to the patient's wishes. I have explained that with IV conscious sedation there is no anesthesia provider available and therefore there is a limitation of the amount of IV medications that can be given and that the patient may wake up in the middle of the procedure and/or experience pain/discomfort during the procedure. Further discussion was done and the patient was given the opportunity to ask questions and all questions were answered. The patient chooses IV conscious sedation, wants soonest available. Cardiac clearance requested from [facility] Diagnoses: (Z12.11) Colon cancer screening (primary encounter diagnosis) (R10.9) Right sided abdominal pain (Z87.19) History of IBS Consultation requested by Sherrie Tristan CNP for an opinion regarding abdominal pain and need for colonoscopy. My final recommendations will be communicated back to the requesting physician by way of shared Medical record or letter to requesting physician via US mail. Katelynn Mckeon PA-C documented in this encounter [facility] 08-26-2022 Nurse Note REVIEW OF SYSTEMS: General: The patient notes fatigue, notes weight loss, denies weight gain, denies feeling hot, and denies feelings of cold. Eyes: The patient denies glaucoma, denies eye injury/surgery, wears glasses or contacts. Ear/Nose/Throat: The patient notes allergies, denies hayfever, denies ear infections, and denies bloody noses. Cardiovascular: The patient notes chest pain, denies heart disease, denies high blood pressure,denies cardiac stent, denies prior heart attack, denies irregular heart beat, denies high cholesterol, denies poor circulation, denies heart failure, other cardiac issues, denies claudication, denies cold feet, denies peripheral arterial stent. Respiratory: The patient denies tuberculosis, denies pneumonia, denies frequent cough, denies pulmonary embolism, denies shortness of breath, and denies coughing up blood. Gastrointestinal: The patient denies difficulty swallowing, notes acid reflux, denies ulcers, denies vomiting, denies jaundice/hepatitis, denies gallbladder problems, denies black or tarry stools, denies hemorrhoids, denies bleeding from rectum, denies diverticulitis, notes constipation, notes diarrhea, denies loss of stool control, and denies hernias. Kidney/Bladder: The patient denies kidney stones, denies urine infections, and denies bloody urine. Skin: The patient denies a history of skin cancer, denies bleeding/changing moles, and denies a history of skin rash. Neurologic: The patient denies a history of epilepsy/convulsions, denies headaches, denies head/spinal injuries, and denies stroke/TIA. Psychiatric: The patient denies psychiatric medications, notes depression, and denies voices, denies substance abuse. Endocrine: The patient denies thyroid disorders, denies diabetes, and denies hormonal problems. Hematologic: The patient denies a history of bruising, denies bleeding, and denies anemia, denies blood clots. Infections: The patient denies a history of measles and mumps, denies rheumatic fever, and denies sexually transmitted diseases. Musculoskeletal: The patient notes back pain/injury, denies back problems, denies sciatica, denies knee/foot trouble, denies arthritis, or denies gout. When was patient's last Mammogram screening? N/A Last Colonoscopy: none Sofi Oleary LPN documented in this encounter [facility] 08-26-2022 Miscellaneous Notes Patient has been identified by name and date of : No Patient phones for refill(s): Requested Prescriptions Pending Prescriptions Disp Refills omeprazole (PRILOSEC) 40 mg capsule 90 capsule 1 Sig: Take 1 capsule by mouth once daily as needed. Date of last office visit in primary care: 07/07/22 Last 2 Encounter Wt Readings: Date: Wt: 07/07/2022 98 kg (216 lb) 01/10/2022 106 kg (233 lb 9.6 oz) Previous labs/tests for medication: Not applicable Please advise. Thank you. Tamiko Wallace LPN Patient has been identified by name and date of : Yes Last office visit in this department: Visit date not found RX INSTRUCTIONS: Patient aware RX will be sent to pharmacy. No need to notify patient. Patient phones requesting refills as follows: Requested Prescriptions Pending Prescriptions Disp Refills omeprazole (PRILOSEC) 40 mg capsule 90 capsule 1 Sig: Take 1 capsule by mouth once daily as needed. FLUoxetine (PROZAC) 40 mg capsule 30 capsule 5 Sig: Take 1 capsule by mouth once daily. Please review and advise. Sarah Hopkins documented in this encounter [facility] 07-07-2022 History of Presen t illness Narrative CHIEF COMPLAINT: Patient presents with: Establish Care HISTORY: Greta Almaguer is a 47 year old male who presents 07/07/2022 for his Yearly Physical Exam. They are here today for a wellness exam. Feels like health is not good, bad habits. Working on weight loss. Is able to complete ADL's with independence. Some concerns of abdominal discomfort that is chronic. Mostly to right side. Has taken bentyl for this in the past. Would like to get screening colonoscopy done. Issues with right leg, has some tingling, concerns this is vascular. Denies any changes in color or changes in temperature. Other Providers: Sees cardiology Depression Screen Q1: Over the past two weeks, have you felt down, depressed or hopeless? Yes Q2: Over the past two weeks, have you felt little interest or pleasure in doing things? Yes Home status: 4 year old autistic daughter Current job: stays at home with daughter Current exercise habits: sedentary Dietary habits: poor diet Hearing difficulties: no Safe in current home environment: Yes Tobacco: off and on vape ETOH: none Family History Cancer Colon: no Prostate: no Past Medical History: PAST MEDICAL HISTORY Diagnosis Date Atrial fibrillation and flutter (HCC) 03/07/2017 cardioverted, converted Blunt trauma of face 2009 right side Dysphagia 09/16/2019 Gastroesophageal reflux disease without esophagitis 09/16/2019 Inguinal hernia Irritable bowel syndrome with diarrhea 10/21/2019 Spinal stenosis Tobacco use disorder 09/11/2020 Family Medical History: FAMILY HISTORY Problem Relation Age of Onset Aneurysm Mother Ehler Danlos other (rare tissue disease) Mother other (Other) Mother vascular Ehler Danlos Syndrome other (bph) Father prostate enlargement other (MVA) Brother half brother other (lung cancer) Maternal Grandmother other (aortic dissection) Maternal Grandfather 59 other (Fhx of rare connective tissue dx.) Other Social History: Social History Tobacco Use Smoking status: Former Types: Cigarettes Smokeless tobacco: Never Vaping Use Vaping Use: Never used Substance Use Topics Alcohol use: Not Currently Drug use: Yes Types: Marijuana Comment: daily Allergies: ALLERGIES No Known Allergies Medications: Current Outpatient Medications Medication Sig omeprazole (PRILOSEC) 40 mg capsule Take 1 capsule by mouth once daily as needed. dicyclomine (BENTYL) 20 mg tablet Take 1 tablet by mouth before meals and at bedtime. As needed for IBS FLUoxetine (PROZAC) 40 mg capsule Take 1 capsule by mouth once daily. No current facility-administered medications for this visit. Chronic Problem List: ACTIVE PROBLEM LIST Moderate Episode of Recurrent Major Depressive Disorder (Hcc) - 10/11/2021 Tobacco Use Disorder - 09/11/2020 Chronic Facial Pain - 09/11/2020 Irritable Bowel Syndrome With Diarrhea - 10/21/2019 Gastroesophageal Reflux Disease Without Esophagitis - 09/16/2019 Epigastric Pain - 09/16/2019 Other Dysphagia - 09/16/2019 Review of Systems Review of Systems Respiratory: Negative for cough, shortness of breath and wheezing. Gastrointestinal: Positive for abdominal pain. Psychiatric/Behavioral: Positive for dysphoric mood. The patient is nervous/anxious. OBJECTIVE BP 104/68 Pulse 77 Ht 6' 1.75" (1.87m) Wt 216 lb (98.0kg) SpO2 96% BMI 27.93 kg/(m^2). Physical Exam Vitals and nursing note reviewed. Constitutional: General: He is awake. He is not in acute distress. Appearance: Normal appearance. He is well-developed and well-groomed. He is not ill-appearing, toxic-appearing or diaphoretic. HENT: Head: Normocephalic. Right Ear: External ear normal. Left Ear: External ear normal. Nose: Nose normal. Eyes: General: Vision grossly intact. Conjunctiva/sclera: Conjunctivae normal. Pupils: Pupils are equal, round, and reactive to light. Neck: Vascular: No JVD. Trachea: Trachea normal. Cardiovascular: Rate and Rhythm: Normal rate and regular rhythm. Pulses: Normal pulses. Heart sounds: Normal heart sounds. No murmur heard. Pulmonary: Effort: Pulmonary effort is normal. No accessory muscle usage, prolonged expiration or respiratory distress. Breath sounds: Normal breath sounds. Abdominal: General: Bowel sounds are normal. There is no distension. Palpations: Abdomen is soft. There is no mass. Tenderness: There is no abdominal tenderness. There is no guarding or rebound. Musculoskeletal: Cervical back: Neck supple. Right lower leg: No edema. Left lower leg: No edema. Skin: General: Skin is warm and dry. Capillary Refill: Capillary refill takes less than 2 seconds. Neurological: General: No focal deficit present. Mental Status: He is alert and oriented to person, place, and time. Mental status is at baseline. Psychiatric: Attention and Perception: Attention and perception normal. Mood and Affect: Mood and affect normal. Speech: Speech normal. Behavior: Behavior normal. Behavior is cooperative. Thought Content: Thought content normal. Cognition and Memory: Cognition and memory normal. Judgment: Judgment normal. ASSESSMENT/PLAN: 1. Wellness examination - ICD9: V70.0, ICD10: Z00.00 (primary diagnosis) - Counseled on healthy diet and regular exercise - CBC - COMP METABOLIC PANEL - LIPID PANEL BASIC - HEP C AB IA W/CONF SCRN 2. Right sided abdominal pain - ICD9: 789.09, ICD10: R10.9 - CONSULT TO GENERAL SURGERY 3. Colon cancer screening - ICD9: V76.51, ICD10: Z12.11 - CONSULT TO GENERAL SURGERY 4. Moderate episode of recurrent major depressive disorder (HCC) - ICD9: 296.32, ICD10: F33.1 Increase Prozac. - FLUOXETINE 40 MG CAPSULE 5. Right leg pain - ICD9: 729.5, ICD10: M79.604 Can check on circulation. - [facility] 6. Encounter for screening for diabetes mellitus - ICD9: V77.1, ICD10: Z13.1 - COMP METABOLIC PANEL 7. Screening for lipid disorders - ICD9: V77.91, ICD10: Z13.220 - LIPID PANEL BASIC 8. Special screening examination for viral disease - ICD9: V73.99, ICD10: Z11.59 - HEP C AB IA W/CONF SCRN Wellness exam completed. Health maintenance reviewed and updated. Chronic conditions and medications reviewed and updated as needed. Encouraged regular physical activity as tolerated, Healthy diet, and health promoting lifestyle. Encouraged regular eye doctor and dental visits. Wellness handout given Portions of this note have been entered by ancillary staff. I have reviewed and when necessary edited, so that they are an adequate record of my encounter with this patient Please note that parts of this document were created using [employer] and therefore may contain grammatical errors. Patient verbalizes understanding of instructions from today's visit and in agreement with treatment plan. Questions answered. Agrees to call the office if questions, concerns or issues with acute symptoms not improving or if they worsen. See diagnoses and orders for additional plan(s). Allergies and medications were reviewed, list was updated, and refills given if needed. Past medical, surgical, social, and family history reviewed and updated as appropriate. Encouraged proper diet & exercise as well as compliance with taking medications. Age-appropriate health preventative measures were discussed. Return in about 3 months (around 10/05/2022) for Follow up on chronic conditions and medications.. BELLO Bolanos documented in this encounter [facility] 05-11-2022 Hospital Discharg e instructions Patient Education 05/11/2022 19:35:27 Rib Contusion Rib Contusion A rib contusion is a bruise to one or more rib bones. It may cause pain, tenderness, swelling and a purplish discoloration. There may be a sharp pain while breathing. You will be assessed for other injuries. You will likely be given pain medicine. Rib contusions heal on their own, without further treatment. However, pain may take weeks to months to go away. Note that a small crack (fracture) in the rib may cause the same symptoms as a rib contusion. The small crack may not be seen on a chest X-ray. However, the conditions are managed in the same way. Home care Rest. Avoid heavy lifting, strenuous exertion, or any activity that causes pain. Ice the area to reduce pain and swelling. Put ice cubes in a plastic bag or use a cold pack. (Wrap the cold source in a thin towel. Do not place it directly on your skin.) Ice the injured area for 20 minutes every 1 to 2 hours the first day. Continue with ice packs 3 to 4 times a day for the next 2 days, then as needed for the relief of pain and swelling. Take any prescribed pain medicine as directed by your healthcare provider. If none was prescribed, take acetaminophen, ibuprofen, or naproxen to control pain. If you have a significant injury, you may be given a device called an incentive spirometer to keep your lungs healthy. Use as directed. Follow-up care Follow up with your healthcare provider during the next week or as directed. When to seek medical advice Call your healthcare provider for any of the following: Shortness of breath or trouble breathing Increasing chest pain with breathing Coughing Dizziness, weakness, or fainting New or worsening pain Fever of 100.4 F (38 C) or higher, or as directed by your healthcare provider [phone] The [employer]. [address] [place] [address]. All rights reserved. This information is not intended as a substitute for professional medical care. Always follow your healthcare professional's instructions. Follow Up Care 05/11/2022 18:16:01 With:PHU JIMENEZ MD [facility] [address] [facility] [place] [id number]- When:2-4 days [facility] 05-11-2022 Note ORIGINAL EXAMINATION: FOUR XRAY VIEWS OF THE RIGHT RIBS 05/11/2022 7:24 pm COMPARISON: None. HISTORY: ORDERING SYSTEM PROVIDED HISTORY: Reason for Exam: rib pain FINDINGS: No displaced rib fracture. The included lungs are clear. IMPRESSION: No displaced rib fracture. I have personally reviewed the images of this examination and agree with the resident's findings and interpretation. Interpreted by: Louis Houser Preliminary Report By: Minda Rossi Electronically signed By Louis Houser Dictated Date: 05/11/2022 7:29:11 PM Prelim Date: 05/11/2022 7:31:04 PM Sign Date: 05/11/2022 7:48:47 PM Ordering Provider: GABRIELLA HORTON [facility] 05-11-2022 Note Discharge Instructions Thank you for allowing [place] to assist you with your healthcare needs. The following is important discharge information regarding your hospital visit. Diagnosis from Today's Visit Rib pain Rib/trunk pain-swelling What to Do Next Instructions from Your Care Team No qualifying data available. Post Acute Orders No qualifying data available. You Need to Schedule the Following Appointments Follow Up with PHU JIMENEZ MD When Within 2-4 days Where: [address] [facility] [place] [id number]- Allergies NKA Medications Please ask your primary doctor or pharmacist before taking any other medication not listed, including over the counter drugs, herbal medications, vitamins and or supplements as they may interact with your home medications. What How Much When Why Instructions Last Dose New acetaminophen-hydrocodone ([place] 325- 5 mg oral tablet) 1 tab(s) by mouth Every 8 hours as needed for as needed for pain Rib pain Duration: 3 Days Printed Prescription New cyclobenzaprine (cyclobenzaprine 10 mg oral tablet) 1 tab(s) by mouth Three (3) times a day Duration: 5 Days Printed Prescription New lidocaine topical (Lidoderm 5% topical patch) 1 patch(es) Transdermal Once a day Duration: 30 Days Printed Prescription Unchanged FLUoxetine (FLUoxetine 20 mg oral capsule) Please take this list to your next doctor s visit. Bring all medications you take, including over the counter medications, herbals and other supplements with you to your doctor s visit. Patients and families are reminded to discard old lists and to update any records with all medication providers or retail pharmacies. Medication Leaflets lidocaine topical (LYE ram cerrato TOP i francy) AneCream, Bactine, Glydo, LidaMantle, Lidoderm, LidoRx, Medi-Quik Spencer, RadiaGuard, RectiCare, Regenecare AUGUSTINE Spencer, Solarcaine Cool Aloe What is the most important information I should know about lidocaine topical? An overdose of numbing medicine can cause fatal side effects if too much of the medicine is absorbed through your skin. Do not use large amounts of lidocaine topical, or cover treated skin areas with a bandage or plastic wrap without medical advice. Keep both used and unused lidocaine skin patches out of the reach of children or pets. The amount of lidocaine in the skin patches could be harmful to a child or pet who accidentally sucks on or swallows the patch. What is lidocaine topical? Lidocaine is a local anesthetic (numbing medication). There are many brands and forms of lidocaine available. Not all brands are listed on this leaflet. Lidocaine topical (for use on the skin) is used to reduce pain or discomfort caused by skin irritations such as sunburn, insect bites, poison love, poison oak, poison sumac, and minor cuts, scratches, or anderson. Lidocaine topical is also used to treat rectal discomfort caused by hemorrhoids. Lidocaine intradermal device can be used in minor medical procedures such as venipuncture or peripheral intravenous cannulation. Lidocaine topical may also be used for purposes not listed in this medication guide. What should I discuss with my healthcare provider before using lidocaine topical? You should not use lidocaine topical if you are allergic to any type of numbing medicine. Fatal overdoses have occurred when numbing medicines were used without the advice of a medical doctor (such as during a cosmetic procedure like laser hair removal). However, overdose has also occurred in women treated with a numbing medicine before having a mammography. Be aware that many cosmetic procedures are performed without a medical doctor present. Tell your doctor if you have ever had: a blood cell disorder called methemoglobinemia (in you or a family member); liver disease; or if you take a heart rhythm medicine. Tell your doctor if you are or . If you apply lidocaine topical to your chest, avoid areas that may come into contact with the baby's mouth. How should I use lidocaine topical? Use this medicine exactly as directed on the label, or as it has been prescribed by your doctor. Do not apply this medicine in larger amounts than recommended. Improper use of lidocaine topical may result in . Lidocaine topical comes in many different forms (gel, spray, cream, lotion, ointment, liquid, skin patch, and others). Do not take by mouth. Topical medicine is for use only on the skin. If this medicine gets in your eyes, nose, mouth, rectum, or vagina, rinse with water. Read and carefully follow any Instructions for Use provided with your medicine. Ask your doctor or pharmacist if you do not understand these instructions. Use the smallest amount of medicine needed to numb the skin or relieve pain. Your body may absorb too much of this medicine if you use too much, if you apply it over large skin areas, or if you apply heat, bandages, or plastic wrap to treated skin areas. Skin that is cut or irritated may also absorb more topical medication than healthy skin. Do not apply this medicine to swollen skin areas or deep puncture wounds. Avoid using the medicine on skin that is raw or blistered, such as a severe burn or abrasion. Do not cover treated skin unless your doctor has told you to. Lidocaine topical may be applied with your finger tips or a cotton swab. Lidocaine intradermal device is applied by a healthcare provider. Store at room temperature away from moisture and heat. Keep both used and unused lidocaine topical skin patches out of the reach of children or pets. The amount of lidocaine in the skin patches could be harmful to a child or pet who accidentally sucks on or swallows the patch. Seek emergency medical attention if this happens. What happens if I miss a dose? Since lidocaine topical is used when needed, you may not be on a dosing schedule. Skip any missed dose if it's almost time for your next dose. Do not use two doses at one time. What happens if I overdose? Seek emergency medical attention or call the Poison Help line at . An overdose of numbing medicine can cause fatal side effects if too much of the medicine is absorbed through your skin and into your blood. Overdose symptoms may include uneven heartbeats, seizure (convulsions), slowed breathing, coma, or respiratory failure (breathing stops). Lidocaine applied to the skin is not likely to cause an overdose unless you apply more than the recommended dose. What should I avoid while using lidocaine topical? Avoid touching the sticky side of a lidocaine skin patch while applying it. Avoid accidentally injuring treated skin areas while they are numb. Avoid coming into contact with very hot or very cold surfaces. What are the possible side effects of lidocaine topical? Get emergency medical help if you have signs of an allergic reaction: hives; difficulty breathing; swelling of your face, lips, tongue, or throat. Call your doctor at once if you have: severe headache or vomiting; severe burning, stinging, or irritation where the medicine was applied; swelling or redness; sudden dizziness or drowsiness after medicine is applied; confusion, problems with speech or vision, ringing in your ears; or unusual sensations of temperature. Common side effects include: mild irritation where the medication is applied; or numbness in places where the medicine is accidentally applied. This is not a complete list of side effects and others may occur. Call your doctor for medical advice about side effects. You may report side effects to FDA at 0-465-ZBX-6052. What other drugs will affect lidocaine topical? Medicine used on the skin is not likely to be affected by other drugs you use. But many drugs can interact with each other. Tell each of your health care providers about all medicines you use, including prescription and [id number] medicines, vitamins, and herbal products. Where can I get more information? Your pharmacist can provide more information about lidocaine topical. Remember, keep this and all other medicines out of the reach of children, never share your medicines with others, and use this medication only for the indication prescribed. Every effort has been made to ensure that the information provided by [employer]') is accurate, up-to-date, and complete, but no guarantee is made to that effect. Drug information contained herein may be time sensitive. [employer] information has been compiled for use by healthcare practitioners and consumers in the [place] and therefore [employer] does not warrant that uses outside of the [place] are appropriate, unless specifically indicated otherwise. [employer] drug information does not endorse drugs, diagnose patients or recommend therapy. [employer] drug information is an informational resource designed to assist licensed healthcare practitioners in caring for their patients and/or to serve consumers viewing this service as a supplement to, and not a substitute for, the expertise, skill, knowledge and judgment of healthcare practitioners. The absence of a warning for a given drug or drug combination in no way should be construed to indicate that the drug or drug combination is safe, effective or appropriate for any given patient. [employer] does not assume any responsibility for any aspect of healthcare administered with the aid of information [employer] provides. The information contained herein is not intended to cover all possible uses, directions, precautions, warnings, drug interactions, allergic reactions, or adverse effects. If you have questions about the drugs you are taking, check with your doctor, nurse or pharmacist. Copyright 2864-8155 [employer] Version: 9.02. Revision Date: 10/22/2021. cyclobenzaprine (david canales) Amrix, Comfort Pac with Cyclobenzaprine, Fexmid What is the most important information I should know about cyclobenzaprine? You should not use cyclobenzaprine if you have a thyroid disorder, heart block, congestive heart failure, a heart rhythm disorder, or you have recently had a heart attack. Do not use cyclobenzaprine if you have taken an MAO inhibitor in the past 14 days, such as isocarboxazid, linezolid, phenelzine, rasagiline, selegiline, or tranylcypromine. What is cyclobenzaprine? Cyclobenzaprine is a muscle relaxant. It works by blocking nerve impulses (or pain sensations) that are sent to your brain. Cyclobenzaprine is used together with rest and physical therapy to relieve muscle spasms caused by painful conditions such as an injury. Cyclobenzaprine may also be used for purposes not listed in this medication guide. What should I discuss with my healthcare provider before taking cyclobenzaprine? You should not use cyclobenzaprine if you are allergic to it, or if you have: a thyroid disorder; heart block, heart rhythm disorder, congestive heart failure; or if you have recently had a heart attack. Cyclobenzaprine is not approved for use by anyone younger than 15 years old. Do not use cyclobenzaprine if you have taken an MAO inhibitor in the past 14 days. A dangerous drug interaction could occur. MAO inhibitors include isocarboxazid, linezolid, phenelzine, rasagiline, selegiline, and tranylcypromine. Some medicines can interact with cyclobenzaprine and cause a serious condition called serotonin syndrome. Be sure your doctor knows if you also take stimulant medicine, opioid medicine, herbal products, or medicine for depression, mental illness, Parkinson's disease, migraine headaches, serious infections, or prevention of nausea and vomiting. Ask your doctor before making any changes in how or when you take your medications. Tell your doctor if you have ever had: liver disease; glaucoma; enlarged prostate; or problems with urination. It is not known whether this medicine will harm an unborn baby. Tell your doctor if you are or plan to become . It may not be safe to breast-feed while using this medicine. Ask your doctor about any risk. Older adults may be more sensitive to the effects of this medicine. How should I take cyclobenzaprine? Follow all directions on your prescription label and read all medication guides or instruction sheets. Your doctor may occasionally change your dose. Use the medicine exactly as directed. Cyclobenzaprine is usually taken once daily for only 2 or 3 weeks. Follow your doctor's dosing instructions very carefully. Swallow the capsule whole and do not crush, chew, break, or open it. Take the medicine at the same time each day. Call your doctor if your symptoms do not improve after 3 weeks, or if they get worse. Store at room temperature away from moisture, heat, and light. What happens if I miss a dose? Take the medicine as soon as you can, but skip the missed dose if it is almost time for your next dose. Do not take two doses at one time. What happens if I overdose? Seek emergency medical attention or call the Poison Help line at . An overdose of cyclobenzaprine can be fatal. Overdose symptoms may include severe drowsiness, vomiting, fast heartbeats, tremors, agitation, or hallucinations. What should I avoid while taking cyclobenzaprine? Avoid driving or hazardous activity until you know how this medicine will affect you. Your reactions could be impaired. Avoid drinking alcohol. Dangerous side effects could occur. What are the possible side effects of cyclobenzaprine? Get emergency medical help if you have signs of an allergic reaction: hives; difficult breathing; swelling of your face, lips, tongue, or throat. Stop using cyclobenzaprine and call your doctor at once if you have: fast or irregular heartbeats; chest pain or pressure, pain spreading to your jaw or shoulder; or sudden numbness or weakness (especially on one side of the body), slurred speech, balance problems. Seek medical attention right away if you have symptoms of serotonin syndrome, such as: agitation, hallucinations, fever, sweating, shivering, fast heart rate, muscle stiffness, twitching, loss of coordination, nausea, vomiting, or diarrhea. Serious side effects may be more likely in older adults. Common side effects may include: drowsiness, tiredness; headache, dizziness; dry mouth; or upset stomach, nausea, constipation. This is not a complete list of side effects and others may occur. Call your doctor for medical advice about side effects. You may report side effects to FDA at 8-735-UXT-9462. What other drugs will affect cyclobenzaprine? Using cyclobenzaprine with other drugs that make you drowsy can worsen this effect. Ask your doctor before using opioid medication, a sleeping pill, a muscle relaxer, or medicine for anxiety or seizures. Tell your doctor about all your other medicines, especially: bupropion (Zyban, for smoking cessation); meperidine; tramadol; verapamil; cold or allergy medicine that contains an antihistamine (Benadryl and others); medicine to treat Parkinson's disease; medicine to treat excess stomach acid, stomach ulcer, motion sickness, or irritable bowel syndrome; medicine to treat overactive bladder; or bronchodilator asthma medication. This list is not complete. Other drugs may affect cyclobenzaprine, including prescription and gzlm-yix-ffmaetd medicines, vitamins, and herbal products. Not all possible drug interactions are listed here. Where can I get more information? Your pharmacist can provide more information about cyclobenzaprine. Remember, keep this and all other medicines out of the reach of children, never share your medicines with others, and use this medication only for the indication prescribed. Every effort has been made to ensure that the information provided by [employer]') is accurate, up-to-date, and complete, but no guarantee is made to that effect. Drug information contained herein may be time sensitive. [employer] information has been compiled for use by healthcare practitioners and consumers in the [place] and therefore [employer] does not warrant that uses outside of the [place] are appropriate, unless specifically indicated otherwise. [employer] drug information does not endorse drugs, diagnose patients or recommend therapy. [employer] drug information is an informational resource designed to assist licensed healthcare practitioners in caring for their patients and/or to serve consumers viewing this service as a supplement to, and not a substitute for, the expertise, skill, knowledge and judgment of healthcare practitioners. The absence of a warning for a given drug or drug combination in no way should be construed to indicate that the drug or drug combination is safe, effective or appropriate for any given patient. [employer] does not assume any responsibility for any aspect of healthcare administered with the aid of information [employer] provides. The information contained herein is not intended to cover all possible uses, directions, precautions, warnings, drug interactions, allergic reactions, or adverse effects. If you have questions about the drugs you are taking, check with your doctor, nurse or pharmacist. Copyright 6892-1102 [employer]. Version: 5.01. Revision Date: 03/03/2018. acetaminophen and hydrocodone (a SEET a MIN oh fen and leeann droe KOE done) Hycet, Lorcet, [place], Verdrocet, Vicodin, Xodol, Zamicet What is the most important information I should know about acetaminophen and hydrocodone? MISUSE OF OPIOID MEDICINE CAN CAUSE ADDICTION, OVERDOSE, OR . Keep the medication in a place where others cannot get to it. Taking opioid medicine during may cause life-threatening withdrawal symptoms in the . Fatal side effects can occur if you use opioid medicine with alcohol, or with other drugs that cause drowsiness or slow your breathing. Stop taking this medicine and call your doctor right away if you have skin redness or a rash that spreads and causes blistering and peeling. What is acetaminophen and hydrocodone? Acetaminophen and hydrocodone is a combination medicine used to relieve moderate to severe pain. Acetaminophen and hydrocodone contains an opioid medicine, and may be habit-forming. Acetaminophen and hydrocodone may also be used for purposes not listed in this medication guide. What should I discuss with my healthcare provider before taking acetaminophen and hydrocodone? You should not use this medicine if you are allergic to acetaminophen or hydrocodone, or if you have: severe asthma or breathing problems; or a blockage in your stomach or intestines. Tell your doctor if you have ever had: breathing problems, sleep apnea (breathing stops during sleep); liver disease; a drug or alcohol addiction; kidney disease; a head injury or seizures; urination problems; or problems with your thyroid, pancreas, or gallbladder. If you use opioid medicine while you are , your baby could become dependent on the drug. This can cause life-threatening withdrawal symptoms in the baby after it is born. Babies born dependent on opioids may need medical treatment for several weeks. Ask a doctor before using opioid medicine if you are . Tell your doctor if you notice severe drowsiness or slow breathing in the nursing baby. How should I take acetaminophen and hydrocodone? Follow all directions on your prescription label. Never take this medicine in larger amounts, or for longer than prescribed. An overdose can damage your liver or cause . Tell your doctor if you feel an increased urge to use more of this medicine. Never share this medicine with another person, especially someone with a history of drug abuse or addiction. MISUSE CAN CAUSE ADDICTION, OVERDOSE, OR . Keep the medicine in a place where others cannot get to it. Selling or giving away this medicine is against the law. Measure liquid medicine carefully. Use the dosing syringe provided, or use a medicine dose-measuring device (not a kitchen spoon). If you need surgery or medical tests, tell the doctor ahead of time that you are using this medicine. You should not stop using this medicine suddenly. Follow your doctor's instructions about tapering your dose. Store at room temperature away from moisture and heat. Keep track of your medicine. You should be aware if anyone is using it improperly or without a prescription. Do not keep leftover opioid medication. Just one dose can cause in someone using this medicine accidentally or improperly. Ask your pharmacist where to locate a drug take-back disposal program. If there is no take-back program, flush the unused medicine down the toilet. What happens if I miss a dose? Since this medicine is used for pain, you are not likely to miss a dose. Skip any missed dose if it is almost time for your next dose. Do not use two doses at one time. What happens if I overdose? Seek emergency medical attention or call the Poison Help line at . An overdose of this medicine can be fatal, especially in a child or other person using the medicine without a prescription. Overdose symptoms may include nausea, vomiting, sweating, severe drowsiness, pinpoint pupils, slow breathing, or no breathing. Your doctor may recommend you get naloxone (a medicine to reverse an opioid overdose) and keep it with you at all times. A person caring for you can give the naloxone if you stop breathing or don't wake up. Your caregiver must still get emergency medical help and may need to perform CPR (cardiopulmonary resuscitation) on you while waiting for help to arrive. Anyone can buy naloxone from a pharmacy or local health department. Make sure any person caring for you knows where you keep naloxone and how to use it. What should I avoid while taking acetaminophen and hydrocodone? Avoid driving or operating machinery until you know how this medicine will affect you. Dizziness or drowsiness can cause falls, accidents, or severe injuries. Do not drink alcohol. Dangerous side effects or could occur. Ask a doctor or pharmacist before using any other medicine that may contain acetaminophen (sometimes abbreviated as APAP). Taking certain medications together can lead to a fatal overdose. What are the possible side effects of acetaminophen and hydrocodone? Get emergency medical help if you have signs of an allergic reaction: hives; difficulty breathing; swelling of your face, lips, tongue, or throat. Opioid medicine can slow or stop your breathing, and may occur. A person caring for you should give naloxone and/or seek emergency medical attention if you have slow breathing with long pauses, blue colored lips, or if you are hard to wake up. In rare cases, acetaminophen may cause a severe skin reaction that can be fatal. This could occur even if you have taken acetaminophen in the past and had no reaction. Stop taking this medicine and call your doctor right away if you have skin redness or a rash that spreads and causes blistering and peeling. Call your doctor at once if you have: noisy breathing, sighing, shallow breathing, breathing that stops; a light-headed feeling, like you might pass out; liver problems--nausea, upper stomach pain, tiredness, loss of appetite, dark urine, erendira-colored stools, jaundice (yellowing of the skin or eyes); low cortisol levels-- nausea, vomiting, loss of appetite, dizziness, worsening tiredness or weakness; o high levels of serotonin in the body--agitation, hallucinations, fever, sweating, shivering, fast heart rate, muscle stiffness, twitching, loss of coordination, nausea, vomiting, diarrhea. Serious breathing problems may be more likely in older adults and in those who are debilitated or have wasting syndrome or chronic breathing disorders. Common side effects include: dizziness, drowsiness, feeling tired; nausea, vomiting, stomach pain; constipation; or headache. This is not a complete list of side effects and others may occur. Call your doctor for medical advice about side effects. You may report side effects to FDA at 1-841-ZNC-8509. What other drugs will affect acetaminophen and hydrocodone? You may have breathing problems or withdrawal symptoms if you start or stop taking certain other medicines. Tell your doctor if you also use an antibiotic, antifungal medication, heart or blood pressure medication, seizure medication, or medicine to treat HIV or hepatitis C. Opioid medication can interact with many other drugs and cause dangerous side effects or . Be sure your doctor knows if you also use: cold or allergy medicines, bronchodilator asthma/COPD medication, or a diuretic ('water pill'); medicines for motion sickness, irritable bowel syndrome, or overactive bladder; other opioids--opioid pain medicine or prescription cough medicine; a sedative like Valium--diazepam, alprazolam, lorazepam, Xanax, Klonopin, Versed, and others; drugs that make you sleepy or slow your breathing--a sleeping pill, muscle relaxer, medicine to treat mood disorders or mental illness; drugs that affect serotonin levels in your body--a stimulant, or medicine for depression, Parkinson's disease, migraine headaches, serious infections, or nausea and vomiting. This list is not complete. Other drugs may affect acetaminophen and hydrocodone, including prescription and dsvf-brt-cugkyhy medicines, vitamins, and herbal products. Not all possible interactions are listed here. Where can I get more information? Your doctor or pharmacist can provide more information about acetaminophen and hydrocodone. Remember, keep this and all other medicines out of the reach of children, never share your medicines with others, and use this medication only for the indication prescribed. Every effort has been made to ensure that the information provided by [employer] is accurate, up-to-date, and complete, but no guarantee is made to that effect. Drug information contained herein may be time sensitive. [employer] information has been compiled for use by healthcare practitioners and consumers in the [place] and therefore [employer] does not warrant that uses outside of the [place] are appropriate, unless specifically indicated otherwise. [employer] drug information does not endorse drugs, diagnose patients or recommend therapy. [employer] drug information is an informational resource designed to assist licensed healthcare practitioners in caring for their patients and/or to serve consumers viewing this service as a supplement to, and not a substitute for, the expertise, skill, knowledge and judgment of healthcare practitioners. The absence of a warning for a given drug or drug combination in no way should be construed to indicate that the drug or drug combination is safe, effective or appropriate for any given patient. [employer] does not assume any responsibility for any aspect of healthcare administered with the aid of information [employer] provides. The information contained herein is not intended to cover all possible uses, directions, precautions, warnings, drug interactions, allergic reactions, or adverse effects. If you have questions about the drugs you are taking, check with your doctor, nurse or pharmacist. Copyright 8132-4416 [employer]. Version: 16.. Revision Date: 07/10/2020. Education Materials Rib Contusion A rib contusion is a bruise to one or more rib bones. It may cause pain, tenderness, swelling and a purplish discoloration. There may be a sharp pain while breathing. You will be assessed for other injuries. You will likely be given pain medicine. Rib contusions heal on their own, without further treatment. However, pain may take weeks to months to go away. Note that a small crack (fracture) in the rib may cause the same symptoms as a rib contusion. The small crack may not be seen on a chest X-ray. However, the conditions are managed in the same way. Home care Rest. Avoid heavy lifting, strenuous exertion, or any activity that causes pain. Ice the area to reduce pain and swelling. Put ice cubes in a plastic bag or use a cold pack. (Wrap the cold source in a thin towel. Do not place it directly on your skin.) Ice the injured area for 20 minutes every 1 to 2 hours the first day. Continue with ice packs 3 to 4 times a day for the next 2 days, then as needed for the relief of pain and swelling. Take any prescribed pain medicine as directed by your healthcare provider. If none was prescribed, take acetaminophen, ibuprofen, or naproxen to control pain. If you have a significant injury, you may be given a device called an incentive spirometer to keep your lungs healthy. Use as directed. Follow-up care Follow up with your healthcare provider during the next week or as directed. When to seek medical advice Call your healthcare provider for any of the following: Shortness of breath or trouble breathing Increasing chest pain with breathing Coughing Dizziness, weakness, or fainting New or worsening pain Fever of 100.4 F (38 C) or higher, or as directed by your healthcare provider [phone] The [employer]. [address] [place] [address]. All rights reserved. This information is not intended as a substitute for professional medical care. Always follow your healthcare professional's instructions. Additional Information VACCINATE! IT SAVES LIVES! Members of the community who have not yet received the COVID-19 vaccine and would like to receive it can visit one of [facility] vaccine clinics. There are many vaccine clinic locations within the [facility]. For locations and available times, please visit [email or web address]. It is important to note that some COVID mobile vaccine clinics are held outdoors and may be canceled in rainy or stormy conditions. To learn more about pediatric vaccinations (ages 5-11), we invite you to visit the [facility] webpage. [email or web address] To learn more about the COVID-19 vaccine, we invite you to visit the [place] website for a list of frequently asked questions. [email or web address] [facility] Patient Portal Access Instructions: Stay connected with your healthcare team and access your personal medical information anytime with the [place] [facility] Patient Portal. If you would like a full copy of your medical records please contact the [facility] Medical Records Department Thursday through Thursday between 8a.m. and 4:30p.m. Please follow the directions below to access the portal: 1.Access the email account you provided upon registration to the [facility].2.Look for an invitation email from [facility].3.Open the email and access the invitation link: Accept Invitation to [facility]4.Fill in the required stephens to create your account. Sign into [email or web address] Program with your username and password that you created in the above steps to stay up to date. You can then view a summary of results, a summary of your visits, and the ability to download your summaries to your computer or send the information securely to a physician. Remember that your healthcare information is confidential, so carefully consider who you will allow to register on the [place] [employer] Patient Portal for access to your information. You can also access the [facility] Patient Portal on the [employer]. Simply click on "Health Records" under "Health Data" and then click on the [place] logo. HOW TO SAFELY DISPOSE OF PRESCRIPTION MEDICATIONS Please use one of the following methods to safely dispose of your unused medications. 1.Use a drug disposal kit: the drug disposal pouch allows you to safely discard your old and unused drugs. Ask your nurse to give you one when you are discharged.2.Visit a local take-back location: Many local pharmacies and police departments have programs that collect old and unwanted prescription drugs. Call your local pharmacy or go to http://bit.[employer]/1T4Ol2u to find one close to you.3.Make use of household items: Use cat litter or old coffee grounds to dispose medications if other options are not available. Mix your drugs with these household products, seal them in an airtight container and throw it into the garbage. Call [facility]: [phone] to be sure your drugs can be disposed of in this way. Some medicines may require a different approach.4.Never flush your medications down the toilet. IF YOU HAVE BEEN PRESCRIBED AN OPIOIDS FOR PAIN If you have been prescribed an opioid (such as hydrocodone, oxycodone or morphine), it is critical to understand the possible side effects and risks of opioid pain medications. Even when taken as directed, opioids can have several side effects including: Tolerance, meaning you might need to take more of a medication for the same pain relief. Nausea, vomiting and/or constipation. Sleepiness, dizziness, dry mouth, confusion, depression or itching. Physical dependence, meaning you have withdrawal symptoms when a medication is stopped ? this can develop within a few days. KNOW YOUR RESPONSIBILITIES It is important to know exactly how much and how often to take the opioid pain medications you are prescribed. Never take opioids in higher amounts or more often than prescribed. Do not combine opioids with alcohol or other drugs that cause drowsiness, such as benzodiazepines, also known as benzos, including diazepam and alprazolam, muscle relaxants or sleep aids. Never sell or share prescription opioids. This is illegal. Store opioids in a secure place and out of reach of others (including children, family, friends and visitors). The last page(s) of this document has been signed and retained as a CHART COPY Signatures Patient Education Materials Rib Contusion Medication Leaflets lidocaine topical, cyclobenzaprine, acetaminophen and hydrocodone My discharge plan and instructions have been reviewed and explained to me and IROSINA JOHN T understand my current condition and have read and understand these discharge instructions. I have received a written copy of the plan/instructions. If I have questions, I am aware that I should contact my doctor. Patient/Waterproofer Signature: Date/Time: Relationship to Patient: Witness Name/Signature: Date/Time: [facility] 05-11-2022 Note ORIGINAL EXAMINATION: FOUR XRAY VIEWS OF THE RIGHT RIBS 05/11/2022 7:24 pm COMPARISON: None. HISTORY: ORDERING SYSTEM PROVIDED HISTORY: Reason for Exam: rib pain FINDINGS: No displaced rib fracture. The included lungs are clear. IMPRESSION: No displaced rib fracture. I have personally reviewed the images of this examination and agree with the resident's findings and interpretation. Interpreted by: Louis Houser Preliminary Report By: Minda Rossi Electronically signed By Louis Houser Dictated Date: 05/11/2022 7:29:11 PM Prelim Date: 05/11/2022 7:31:04 PM Sign Date: 05/11/2022 7:48:47 PM Ordering Provider: GABRIELLA HORTON [facility] 02-11-2022 Miscellaneous Notes EITAN: 09/10/2020 NOV: 06/13/2022 Last refill: 10/29/2021 QTY: 30 Refills: 2 Patient phones requesting refills as follows: Requested Prescriptions Pending Prescriptions Disp Refills omeprazole (PRILOSEC) 40 mg capsule 30 capsule 2 Sig: Take 1 capsule by mouth once daily as needed. Please review and advise. Sourva Dale Ma documented in this encounter [facility] 02-10-2022 Hospital Discharg e instructions Patient Education 02/10/2022 14:02:18 Dental Abscess Dental Abscess An abscess is a pocket of pus at the tip of a tooth root in your jaw bone. It is caused by an infection at the root of the tooth. It can cause pain and swelling of the gum, cheek, or jaw. Pain may spread from the tooth to your ear or the area of your jaw on the same side. If the abscess isn t treated, it appears as a bubble or swelling on the gum near the tooth. The pressure that builds in this swelling is the source of the pain. More serious infections cause your face to swell. An abscess can be caused by a crack in the tooth, a cavity, a gum infection, or a combination of these. Once the pulp of the tooth is exposed, bacteria can spread down the roots to the tip. If the bacteria are not stopped, they can damage the bone and soft tissue, and an abscess can form. Home care Follow these guidelines when caring for yourself at home: Don't have hot and cold foods and drinks. Your tooth may be sensitive to changes in temperature. Don t chew on the side of the infected tooth. If your tooth is chipped or cracked, or if there is a large open cavity, put oil of cloves directly on the tooth to relieve pain. You can buy oil of cloves at [employer]. Some pharmacies carry an xvrx-pcw-ipjeevz "toothache kit." This contains a paste that you can put on the exposed tooth to make it less sensitive. Put a cold pack on your jaw over the sore area to help reduce pain. You may use isjd-ggh-xyyedic medicine to ease pain, unless another medicine was prescribed. If you have chronic liver or kidney disease, talk with your healthcare provider before using acetaminophen or ibuprofen. Also talk with your provider if you ve had a stomach ulcer or GI bleeding. An antibiotic will be prescribed. Take it until finished, even if you are feeling better after a few days. Follow-up care Follow up with your dentist or an oral surgeon, or as advised. Once an infection occurs in a tooth, it will continue to be a problem until the infection is drained. This is done through surgery or a root canal. Or you may need to have your tooth pulled. Call 911 Call 911 if any of these occur: Unusual drowsiness Headache or stiff neck Weakness or fainting Difficulty swallowing, breathing, or opening your mouth Swollen eyelids When to seek medical advice Call your healthcare provider right away if any of these occur: Your face becomes more swollen or red Pain gets worse or spreads to your neck Fever of 100.4 F (38.0 C) or higher, or as directed by your healthcare provider Pus drains from the tooth [id number] The [employer]. [address] [place] [address], [place] [address]. All rights reserved. This information is not intended as a substitute for professional medical care. Always follow your healthcare professional's instructions. Follow Up Care 02/10/2022 13:45:10 With:Follow up with primary care provider Address: When:02/20/2022 14:03:00 Comments:Prescheduled oral surgeon appointment 15SEP. [facility]ui Zhou 02-10-2022 Emergency department Discharge summary Discharge Instructions Thank you for allowing [facility] to assist you with your healthcare needs. The following is important discharge information regarding your hospital visit. Diagnosis from Today's Visit Dental pain What to Do Next Instructions from Your Care Team No qualifying data available. Post Acute Orders No qualifying data available. You Need to Schedule the Following Appointments Follow Up with Follow up with primary care provider When 02/20/2022 02:03 PM EDT Why: Prescheduled oral surgeon appointment 15SEP. Where: Allergies [facility] Medications Please ask your primary doctor or pharmacist before taking any other medication not listed, including over the counter drugs, herbal medications, vitamins and or supplements as they may interact with your home medications. What How Much When Instructions Last Dose New clindamycin (clindamycin 150 mg oral capsule) 3 cap by mouth Every 8 hours Duration: 10 Days Printed Prescription Please take this list to your next doctor s visit. Bring all medications you take, including over the counter medications, herbals and other supplements with you to your doctor s visit. Patients and families are reminded to discard old lists and to update any records with all medication providers or retail pharmacies. Education Materials Dental Abscess An abscess is a pocket of pus at the tip of a tooth root in your jaw bone. It is caused by an infection at the root of the tooth. It can cause pain and swelling of the gum, cheek, or jaw. Pain may spread from the tooth to your ear or the area of your jaw on the same side. If the abscess isn t treated, it appears as a bubble or swelling on the gum near the tooth. The pressure that builds in this swelling is the source of the pain. More serious infections cause your face to swell. An abscess can be caused by a crack in the tooth, a cavity, a gum infection, or a combination of these. Once the pulp of the tooth is exposed, bacteria can spread down the roots to the tip. If the bacteria are not stopped, they can damage the bone and soft tissue, and an abscess can form. Home care Follow these guidelines when caring for yourself at home: Don't have hot and cold foods and drinks. Your tooth may be sensitive to changes in temperature. Don t chew on the side of the infected tooth. If your tooth is chipped or cracked, or if there is a large open cavity, put oil of cloves directly on the tooth to relieve pain. You can buy oil of cloves at drugstores. Some pharmacies carry an rnnv-ehe-xuveznp "toothache kit." This contains a paste that you can put on the exposed tooth to make it less sensitive. Put a cold pack on your jaw over the sore area to help reduce pain. You may use uuwg-yyl-vlckbgd medicine to ease pain, unless another medicine was prescribed. If you have chronic liver or kidney disease, talk with your healthcare provider before using acetaminophen or ibuprofen. Also talk with your provider if you ve had a stomach ulcer or GI bleeding. An antibiotic will be prescribed. Take it until finished, even if you are feeling better after a few days. Follow-up care Follow up with your dentist or an oral surgeon, or as advised. Once an infection occurs in a tooth, it will continue to be a problem until the infection is drained. This is done through surgery or a root canal. Or you may need to have your tooth pulled. Call 911 Call 911 if any of these occur: Unusual drowsiness Headache or stiff neck Weakness or fainting Difficulty swallowing, breathing, or opening your mouth Swollen eyelids When to seek medical advice Call your healthcare provider right away if any of these occur: Your face becomes more swollen or red Pain gets worse or spreads to your neck Fever of 100.4 F (38.0 C) or higher, or as directed by your healthcare provider Pus drains from the tooth [phone] [employer]. [address] [place] [address]. All rights reserved. This information is not intended as a substitute for professional medical care. Always follow your healthcare professional's instructions. Additional Information VACCINATE! IT SAVES LIVES! Members of the community who have not yet received the COVID-19 vaccine and would like to receive it can visit one of [facility] vaccine clinics. There are many vaccine clinic locations within the [facility]. For locations and available times, please visit [email or web address]. It is important to note that some COVID mobile vaccine clinics are held outdoors and may be canceled in rainy or stormy conditions. To learn more about pediatric vaccinations (ages 5-11), we invite you to visit the [facility] webpage. [email or web address] [email or web address]-[email or web address]-Ozwkginbaba-Freq aakzvy-[email or web address]-Lsgreylyk.html To learn more about the COVID-19 vaccine, we invite you to visit the [place] website for a list of frequently asked questions. [email or web address] requently_[email or web address] [place] [facility] Patient Portal Access Instructions: Stay connected with your healthcare team and access your personal medical information anytime with the [place] [facility] Patient Portal. If you would like a full copy of your medical records please contact the [facility] Medical Records Department Thursday through Thursday between 8a.m. and 4:30p.m. Please follow the directions below to access the portal: 1.Access the email account you provided upon [facility] the [facility].2.Look for an invitation email from [facility].3.Open the email and access the invitation link: Accept Invitation to [facility]4.Fill in the required stephens to create your account. Sign into [email or web address] with your username and password that you created in the above steps to stay up to date. You can then view a summary of results, a summary of your visits, and the ability to download your summaries to your computer or send the information securely to a physician. Remember that your healthcare information is confidential, so carefully consider who you will allow to register on the [facility] Patient Portal for access to your information. You can also access the [facility] Patient Portal on the [employer]. Simply click on "Health Records" under "Health Data" and then click on the [employer] logo. HOW TO SAFELY DISPOSE OF PRESCRIPTION MEDICATIONS Please use one of the following methods to safely dispose of your unused medications. 1.Use a drug disposal kit: the drug disposal pouch allows you to safely discard your old and unused drugs. Ask your nurse to give you one when you are discharged.2.Visit a local take-back location: Many local pharmacies and police departments have programs that collect old and unwanted prescription drugs. Call your local pharmacy or go to http://[facility].[employer]/5D4Bd0f to find one close to you.3.Make use of household items: Use cat litter or old coffee grounds to dispose medications if other options are not available. Mix your drugs with these household products, seal them in an airtight container and throw it into the garbage. Call [facility]: [phone] to be sure your drugs can be disposed of in this way. Some medicines may require a different approach.4.Never flush your medications down the toilet. IF YOU HAVE BEEN PRESCRIBED AN OPIOIDS FOR PAIN If you have been prescribed an opioid (such as hydrocodone, oxycodone or morphine), it is critical to understand the possible side effects and risks of opioid pain medications. Even when taken as directed, opioids can have several side effects including: Tolerance, meaning you might need to take more of a medication for the same pain relief. Nausea, vomiting and/or constipation. Sleepiness, dizziness, dry mouth, confusion, depression or itching. Physical dependence, meaning you have withdrawal symptoms when a medication is stopped ? this can develop within a few days. KNOW YOUR RESPONSIBILITIES It is important to know exactly how much and how often to take the opioid pain medications you are prescribed. Never take opioids in higher amounts or more often than prescribed. Do not combine opioids with alcohol or other drugs that cause drowsiness, such as benzodiazepines, also known as benzos, including diazepam and alprazolam, muscle relaxants or sleep aids. Never sell or share prescription opioids. This is illegal. Store opioids in a secure place and out of reach of others (including children, family, friends and visitors). The last page(s) of this document has been signed and retained as a CHART COPY Signatures Patient Education Materials Dental Abscess Medication Leaflets My discharge plan and instructions have been reviewed and explained to me and IROSINA JOHN T understand my current condition and have read and understand these discharge instructions. I have received a written copy of the plan/instructions. If I have questions, I am aware that I should contact my doctor. Patient/Waterproofer Signature: Date/Time: Relationship to Patient: Witness Name/Signature: Date/Time: [facility] Hui Zhou 02-05-2022 Miscellaneous Notes I tried to reach Greta Almaguer with his results today but there was no answer. He has viewed his test results in [facility]'s portal and is aware of them from the call I made last week. He has my phone number for return call. documented in this encounter [facility] 01-24-2022 Miscellaneous Notes Images from the original note were not included. I briefly spoke to Greta Almaguer to review his results. He informed me he only had 3 minutes and asked if we could do it another time. I will send a [facility] summary and possible time for a scheduled call. 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 Mia Pulido MS, [facility] Licensed Genetic Counselor [phone] documented in this encounter [facility] 01-22-2022 Miscellaneous Notes TC to patient - offered express care or a scheduled appointment for tomorrow morning. Patient upset stating that he has an autistic daughter that he has to take care of / and can't just run to the clinic. Advised patient that he will need to be seen and evaluated for an antibiotic. Patient irritated and states that he will call or come in if he can figure something out. He will need to be seen for the dental issue, can schedule appointment or go to the urgent care. Arcelia Flores APRN.METROLOGIST Pt reports he has been off this pill for a couple days and he needs it as soon as possible. Pt was also requesting that provider send him more of the antibiotic he was prescribed in the [facility] as he has a tooth abscess. He states the pain had gone away, but now it is coming back. Pt reports he is not able to get into a dentist until 02/10/22. Please call and advise. Patient has been identified by name and date of : Yes Requested Prescriptions Pending Prescriptions Disp Refills FLUoxetine (PROZAC) 20 mg capsule 30 capsule 5 Sig: Take 1 capsule by mouth once daily. RX INSTRUCTIONS: MyChart request Scheduled 06/13/[address] Cindi Vitale LPN documented in this encounter [facility] 01-10-2022 History of Presen t illness Narrative Patient presents with: Dental Problem: R side tooth infection x1 month HPI: Tooth pain: Duration: Flared for weeks; his told him to come in for treatment tonight. Location: Right lower molars Character: aching, sharp and throbbing Radiation: To the right ear, right neck, right maxillary sinus congestion Aggravating: Biting, temperature Relieving: Took some left over amoxicillin today. Pain relievers: Taking tylenol, aleve, oragel Associated: Difficulty eating, sweating today, dental decay Pertinent negatives: Denies MEDICATIONS: omeprazole (PRILOSEC) 40 mg capsule Take 1 capsule by mouth once daily as needed. dicyclomine (BENTYL) 20 mg tablet Take 1 tablet by mouth before meals and at bedtime. As needed for IBS FLUoxetine (PROZAC) 20 mg capsule Take 1 capsule by mouth once daily. ALLERGIES: ALLERGIES No Known Allergies VITALS: BP 132/88 Pulse 80 Temp (!) 35.8 C (96.5 F) Resp 20 Wt 106 kg (233 lb 9.6 oz) SpO2 98% BMI 29.99 kg/m PHYSICAL EXAM: GEN: pleasant, alert, somewhat uncomfortable HEENT: PERRL, EOMI, MMM 2 right lower molars with significant erosion along the gum line. NECK: supple, no lymphadenopathy, no thyromegaly HEART: regular rate, regular rhythm, no murmurs LUNGS: clear to auscultation, no wheezes or crackles, no increased WOB EXT: no clubbing, no cyanosis, no edema ASSESSMENT/PLAN: 1. Toothache - ICD9: 525.9, ICD10: K08.89 - PENICILLIN V POTASSIUM 500 MG TABLET Continue pain regimen He is switching dentist. His soonest appointment is scheduled in February. Benito Rasmussen MD documented in this encounter [facility] 10-28-2021 Miscellaneous Notes Patient has been identified by name and date of : Yes Patient phones for refill(s): Pending Prescriptions Disp Refills OMEPRAZOLE 40 MG CAPSULE,DELAYED RELEASE 30 capsule 2 Sig: Take 1 capsule by mouth once daily as needed. CHAKA: No Date of last office visit in primary care: 10/11/2021 Appt: 06/13/2022 Last 2 Encounter Wt Readings: Date: Wt: 07/24/2021 106.1 kg (234 lb) 09/27/2019 104.8 kg (231 lb) Previous labs/tests for medication: Not applicable Please advise. Thank you. Dora Singh LPN documented in this encounter [facility] 03-26-2021 Miscellaneous Notes Patient phoned in expressing anger with [facility] and with [facility]. Reports he needs a f/u appt with pcp, for [facility] ER visit on 03-24-21. Angry b/c he can never see his doctor, and even when he does, doctor can not find what is wrong with him. Reports he went to Er with c/o severe abdominal pain and rectal bleed. Reports they did imaging, and found no cause, gave him morphine and sent him home. 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 Reports yesterday he passed a blood clot (bright red, fresh blood) with BM. No blood today, but BM "was only rachel today." Today having severe abdominal pain 8/10. Reports omeprazole does not really help, and anything OTC does not help. Reports eating activates the pain, so he can't eat, he dreads having to eat. Reports the only way he can eat is to smoke marijuana. Reports he feels ok in the morning, then when eats, goes through the pain all over again. Reports he had his gallbladder checked - tests were negative, has had scopes- tests were negative. Reports arthuryl does nothing. Pain is mostly under his left ribs, but also from sternum to groin, daily. Patient remained angry this whole discussion. Appt scheduled 04-10-21 (soonest with pcp). Patient declined a sooner appt w/[facility] on 03-28-21. Advised if he is having severe abdominal pain with rectal bleed, he needs to return to the ER. This statement made patient angry, stating what are they going to do. documented in this encounter [facility] Evaluation + Plan note No data available for this section [facility] Evaluation note No assessment inform ation available [facility] Work Phone: Evaluation note Diagnosis Gastroesophageal reflux disease without esophagitis Esophageal reflux Epigastric pain Abdominal pain, epigastric [facility] Diagnosis Toothache- Primary Unspecified disorder of the teeth and supporting structures [facility] Diagnosis Toothache Unspecified disorder of the teeth and supporting structures [facility] Diagnosis Moderate episode of recurrent major depressive disorder (HCC) [facility] Diagnosis Gastroesophageal reflux disease without esophagitis Esophageal reflux Epigastric pain Abdominal pain, epigastric [facility] Diagnosis Wellness examination- Primary Right sided abdominal pain Abdominal pain, unspecified site Colon cancer screening Special screening for malignant neoplasms, colon Moderate episode of recurrent major depressive disorder (HCC) Right leg pain Pain in limb Encounter for screening for diabetes mellitus Screening for diabetes mellitus Screening for lipid disorders Special screening examination for viral disease Special screening examination for unspecified viral disease [facility] Diagnosis Gastroesophageal reflux disease without esophagitis Esophageal reflux Epigastric pain Abdominal pain, epigastric Moderate episode of recurrent major depressive disorder (HCC) documented in this encounter [facility] note* Diagnosis Colon cancer screening- Primary Special screening for malignant neoplasms, colon Right sided abdominal pain Abdominal pain, unspecified site History of IBS Personal history of other diseases of digestive system [facility] Diagnosis Moderate episode of recurrent major depressive disorder (HCC) documented in this encounter [facility] note* Diagnosis Gastroesophageal reflux disease without esophagitis Esophageal reflux Epigastric pain Abdominal pain, epigastric documented in this encounter [facility] note* Diagnosis Moderate episode of recurrent major depressive disorder (HCC) documented in this encounter [facility] note* Diagnosis Treatment not available- Primary Procedure not carried out for other reasons documented in this encounter [facility] note* Diagnosis Screening for colorectal cancer- Primary Special screening for malignant neoplasms, colon documented in this encounter [facility] note* Diagnosis Routine medical exam- Primary Routine general medical examination at a health care facility Screening for diabetes mellitus (DM) Screening for diabetes mellitus Encounter for immunization Need for other specified prophylactic vaccination against single bacterial disease Encounter for screening examination for other mental health and behavioral disorders Special screening examination for viral disease Special screening examination for unspecified viral disease Screening for colon cancer Special screening for malignant neoplasms, colon Colon cancer screening Special screening for malignant neoplasms, colon Moderate episode of recurrent major depressive disorder (HCC) Gastroesophageal reflux disease without esophagitis Esophageal reflux Epigastric pain Abdominal pain, epigastric Irritable bowel syndrome with diarrhea Irritable bowel syndrome PTSD (post-traumatic stress disorder) Posttraumatic stress disorder History of bipolar disorder Personal history of affective disorder Family history of heart disease Family history of other cardiovascular diseases Urinary frequency documented in this encounter [facility] for referral (narrative)* Outpatient Procedure (Routine) - Pending Review Specialty Diagnoses / Procedures Referred By Contac t Referred To [facility] Diagnoses Right leg pain Procedures [facility] NON-INVASIVE PHYSIOLOGIC STUDY EXTREMITY 3 Sherrie Howard APRN.CNP [address] [place] [address] [facility] [address] [place] [address] Referral ID Status Reason Start Date Expiration Date Visits Requested Visits Authorized [id number] Pending Review Auto-Generat ed Referral 07/07/2022 07/07/2023 1 1 * Consult, Test, Treat (Routine) - Authorized Specialty Diagnoses / Procedures Referred By Nancy abreu Referred To Contact General Surgery Diagnoses Right sided abdominal pain Colon cancer screening Procedures CONSULT TO GENERAL SURGERY OFFICE/OUTPATIENT [facility] 60-74 MINUTES Sherrie Tristan APRN.CNP [address] [place] [address] Referral ID Status Reason Start Date Expiration Date Visits Requested Visits Authorized [id number] Authorized PCP Requested Referral 07/07/2022 07/07/2023 1 1 [facility] Advance Directives No Advanced Directives Records FoundDocuments on File Type Date Recorded 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 Advance Directive(s) 09/27/2019 1:22 PM Advance Directive Response Recorded Date/ Time Living Will No October 21, 2021 1 1:37am Power of Director Of Sustainability Programs No October 21, 2021 11:37am Chief Complaint and Reason for Visit Chief Complaint FLANK CP, ARM PIT PAIN, PER Jose Luis [facility] Summary Purpose Family History No Family History Records Found Additional Source Comments Source Comments (unrecognize d section and content) In the event this informatio n is protected by the Federal Confidentiality of Alcohol and Drug Abuse Patient Records regulations: The Federal rules restrict any use of the information to criminally investigate or prosecute any alcohol or drug abuse patient.[facility] the event this information is protected by the Federal Confidentiality of Alcohol and Drug Abuse Patient Records regulations: The Federal rules restrict any use of the information to criminally investigate or prosecute any alcohol or drug abuse patient.[facility] the event this information is protected by the Federal Confidentiality of Alcohol and Drug Abuse Patient Records regulations: The Federal rules restrict any use of the information to criminally investigate or prosecute any alcohol or drug abuse patient.[facility] the event this information is protected by the Federal Confidentiality of Alcohol and Drug Abuse Patient Records regulations: The Federal rules restrict any use of the information to criminally investigate or prosecute any alcohol or drug abuse patient.[facility] the event this information is protected by the Federal Confidentiality of Alcohol and Drug Abuse Patient Records regulations: The Federal rules restrict any use of the information to criminally investigate or prosecute any alcohol or drug abuse patient.[facility] [facility] HospitalIn the event this information is protected by the Federal Confidentiality of Alcohol and Drug Abuse Patient Records regulations: The Federal rules restrict any use of the information to criminally investigate or prosecute any alcohol or drug abuse patient.[facility] HospitalIn the event this information is protected by the Federal Confidentiality of Alcohol and Drug Abuse Patient Records regulations: The Federal rules restrict any use of the information to criminally investigate or prosecute any alcohol or drug abuse patient.[facility] HospitalIn the event this information is protected by the Federal Confidentiality of Alcohol and Drug Abuse Patient Records regulations: The Federal rules restrict any use of the information to criminally investigate or prosecute any alcohol or drug abuse patient.[facility] HospitalIn the event this information is protected by the Federal Confidentiality of Alcohol and Drug Abuse Patient Records regulations: The Federal rules restrict any use of the information to criminally investigate or prosecute any alcohol or drug abuse patient.[facility] HospitalIn the event this information is protected by the Federal Confidentiality of Alcohol and Drug Abuse Patient Records regulations: The Federal rules restrict any use of the information to criminally investigate or prosecute any alcohol or drug abuse patient.[facility] HospitalIn the event this information is protected by the Federal Confidentiality of Alcohol and Drug Abuse Patient Records regulations: The Federal rules restrict any use of the information to criminally investigate or prosecute any alcohol or drug abuse patient.[facility] HospitalIn the event this information is protected by the Federal Confidentiality of Alcohol and Drug Abuse Patient Records regulations: The Federal rules restrict any use of the information to criminally investigate or prosecute any alcohol or drug abuse patient.[facility] HospitalIn the event this information is protected by the Federal Confidentiality of Alcohol and Drug Abuse Patient Records regulations: The Federal rules restrict any use of the information to criminally investigate or prosecute any alcohol or drug abuse patient.[facility] HospitalIn the event this information is protected by the Federal Confidentiality of Alcohol and Drug Abuse Patient Records regulations: The Federal rules restrict any use of the information to criminally investigate or prosecute any alcohol or drug abuse patient.[facility] HospitalIn the event this information is protected by the Federal Confidentiality of Alcohol and Drug Abuse Patient Records regulations: The Federal rules restrict any use of the information to criminally investigate or prosecute any alcohol or drug abuse patient.[facility] HospitalIn the event this information is protected by the Federal Confidentiality of Alcohol and Drug Abuse Patient Records regulations: The Federal rules restrict any use of the information to criminally investigate or prosecute any alcohol or drug abuse patient.[facility] HospitalIn the event this information is protected by the Federal Confidentiality of Alcohol and Drug Abuse Patient Records regulations: The Federal rules restrict any use of the information to criminally investigate or prosecute any alcohol or drug abuse patient.[facility] HospitalIn the event this information is protected by the Federal Confidentiality of Alcohol and Drug Abuse Patient Records regulations: The Federal rules restrict any use of the information to criminally investigate or prosecute any alcohol or drug abuse patient.[facility] HospitalIn the event this information is protected by the Federal Confidentiality of Alcohol and Drug Abuse Patient Records regulations: The Federal rules restrict any use of the information to criminally investigate or prosecute any alcohol or drug abuse patient.[facility] HospitalIn the event this information is protected by the Federal Confidentiality of Alcohol and Drug Abuse Patient Records regulations: The Federal rules restrict any use of the information to criminally investigate or prosecute any alcohol or drug abuse patient.[facility] HospitalIn the event this information is protected by the Federal Confidentiality of Alcohol and Drug Abuse Patient Records regulations: The Federal rules restrict any use of the information to criminally investigate or prosecute any alcohol or drug abuse patient.[facility] HospitalIn the event this information is protected by the Federal Confidentiality of Alcohol and Drug Abuse Patient Records regulations: The Federal rules restrict any use of the information to criminally investigate or prosecute any alcohol or drug abuse patient.[facility] HospitalIn the event this information is protected by the Federal Confidentiality of Alcohol and Drug Abuse Patient Records regulations: The Federal rules restrict any use of the information to criminally investigate or prosecute any alcohol or drug abuse patient.[facility] Reason for Visit (unrecogniz ed section and content) Reason Comments [facility] ER f/u abdominal pain/rectal bleed Reason Onset Date Comments Refill Request 10/28/2021 Reason Comments Dental Problem R side tooth infecti on x1 month Reason Onset Date Comments Refill Request 01/22/2022 Reason Comments 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 Reason Comments Results Reason Onset Date Comments Refill Request 02/07/2022 Reason Comments Establish Care Reason Onset Date Comments Refill Request 08/25/2022 Reason Comments Consult colonoscopy Specialty Diagnoses / Procedures Referred By Nancy t Referred To Contact General Surgery Diagnoses Right sided abdominal pain Colon cancer screening Procedures CONSULT TO GENERAL SURGERY OFFICE/OUTPATIENT [facility] 60-74 MINUTES Sherrie Tristan APRN.CNP [address] [place] [address] Referral ID Status Reason Start Date Expiration Date V isits Requested Visits Authorized [id number] Closed PCP Requested Referral 07/07/2022 07/07/2023 1 1 Reason Comments cancelled request Reason Onset Date Comments Refill Request 03/16/2023 Reason Onset Date Comments Refill Request 05/03/2023 Reason Comments Appointment Reason Onset Date Comments Refill Request 03/25/2024 Reason Comments Refill Request Reason Onset Date Comments Outpatient Colonoscopy 09/20/2024 Patient i s overdue for colorectal cancer screening (has never done). Patient will need consult with Marva Franklin CNP prior to colorectal cancer screening. Reason Comments Yearly Exam Care Teams (unrecognized sec tion and content) Animal Treatment Investigator Relationship Specialty Start Date End Date Phu Jimenez MD [address] [place], [place] [id number] PCP - General Internal Medicine 07/26/19 Animal Treatment Investigator Relationship Specialty Start Date End Date Phu Jimenez MD [address] [place], [place] [id number] PCP - General Internal Medicine 07/26/19 Animal Treatment Investigator Relationship Specialty Start Date End Date Phu Jimenez MD [address] [place] [address] PCP - General Internal Medicine 07/26/19 Animal Treatment Investigator Relationship Specialty Start Date End Date Phu Jimenez MD [address] [place], [place] [id number] PCP - General Internal Medicine 07/26/19 Animal Treatment Investigator Relationship Specialty Start Date End Date Phu Jimenez MD [address] [place] [address] PCP - General Internal Medicine 07/26/19 Animal Treatment Investigator Relationship Specialty Start Date End Date Valeriano Rodriguez MD [address] [facility] [place] [address] PCP - General Internal Medicine 07/07/22 Animal Treatment Investigator Relationship Specialty Start Date End Date Valeriano Rodriguez MD [address] [facility] [place] [address] PCP - General Internal Medicine 07/07/22 Animal Treatment Investigator Relationship Specialty Start Date End Date Valeriano Rodriguez MD [address] [facility] [place] [address] PCP - General Internal Medicine 07/07/22 Animal Treatment Investigator Relationship Specialty Start Date End Date Valeriano Rodriguez MD [address] [facility] [place] [address] PCP - General Internal Medicine 07/07/22 Animal Treatment Investigator Relationship Specialty Start Date End Date Valeriano Rodriguez MD [address] [facility] [place] [address] PCP - General Internal Medicine 07/07/22 Animal Treatment Investigator Relationship Specialty Start Date End Date Valeriano Rodriguez MD [address] [facility] [place] [address] PCP - General Internal Medicine 07/07/22 Animal Treatment Investigator Relationship Specialty Start Date End Date Valeriano Rodriguez MD [address] [facility] [place] [address] PCP - General Internal Medicine 07/07/22 Animal Treatment Investigator Relationship Specialty Start Date End Date Valeriano Rodriguez MD [address] [facility] [place] [address] PCP - General Internal Medicine 07/07/22 Animal Treatment Investigator Relationship Specialty Start Date End Date Valeriano Rodriguez MD [address] [place] [address] PCP - General Internal Medicine 07/07/22 Nelson Hanna, CARPENTER [email or web address].COMMODITIES REQUIREMENTS ANALYST [address] [place] [address] Anthropological Linguist Internal Medicine 05/16/24 Sherrie Tristan, CARPENTER [email or web address].[email or web address] [address] [place] [address] [facility] Internal Medicine 08/30/24 Animal Treatment Investigator Relationship Specialty Start Date End Date Valeriano Rodriguez MD [address] [place] [address] PCP - General Internal Medicine 07/07/22 Sherrie Tristan, CARPENTER [email or web address].[email or web address] [address] [place] [address] Anthropological Linguist Internal Medicine 08/30/24 Nelson Hanna, CARPENTER PROTOTYPE.COMMODITIES REQUIREMENTS ANALYST [address] [place] [address] [facility] Internal Medicine 10/26/24 Goals (unrecognized section and content) Goals may be documented in a n alternate section No data available for this section No data available for this section No data available for this section Care Team (unrecognized sect ion and content) Care Team Personnel Name: PHU JIMENEZ MD Member Role: Primary Care Physician Address: Address: [address] [place] [address]- [place] Name: MAULIK Dutton Position: ED RN Member Role: ED RN Name: VINNIE TAMAYO MD Position: Resident Member Role: Resident Address: Address: [address] [facility] [address]- [place] Care Team Personnel Name: PHU JIMENEZ MD Member Role: Primary Care Physician Address: Address: [address] [place] [address]- [place] Name: GABRIELLA HORTON MD Position: ED Physician Member Role: Attending Physician Address: Address: [address] [place] [address]- (unrecognized sect ion and content) No Status Records FoundNo Status Records FoundNo Status Records Found INFORMATION SOURCE (unrecogn ized section and content) DATE CREATED AUTHOR 04/02/2022 [facility] DATE CREATED AUTHOR AUTHOR'S ORGANIZ ATION 2023 [facility] ([place]) DATE CREATED AUTHOR AUTHOR'S ORGANIZ ATION 01/06/2025 [facility] FOR RECORDS PERTAINING TO PATIENTS WHO ARE OR HAVE BEEN ENROLLED IN A CHEMICAL DEPENDENCY/SUBSTANCEABUSE PROGRAM, SOME INFORMATION MAY BE OMITTED. This clinical summary was aggregated from multiple sources. Caution should be exercised in using it in the provision of clinical care. This summary normalizes information from multiple sources, and as a consequence, information in this document may materially change the coding, format and clinical context of patient data. In addition, data may be omitted in some cases. CLINICAL DECISIONS SHOULD BE BASED ON THE PRIMARY CLINICAL RECORDS. [employer] [facility]. provides no warranty or guarantee of the accuracy or completeness of information in this document.
--- NOTE | 2025-04-28 05:16 | CT_ITS ---
PROCEDURE: CTA CHST, ABD, PEL W AND/OR WO 04/28/2025 REASON FOR EXAM: FAMILY HISTORY OF RUPTURED AAA AND DISSECTIONS TECHNIQUE: Procedure Code: CTCTA.CHAP.2 Modality: CT Procedure: CTA CHST, ABD, PEL W AND/OR WO Coronal and Sagittal reconstruction series were provided. One or more dose reduction techniques were used (e.g., Automated exposure control, adjustment of the mA and/or kV according to patient size, use of iterative reconstruction technique. CONTRAST: Isovue 370 VOLUME: 100 mL RADIATION DOSE SUMMARY: CTDlvol: 18.44 mGy DLP: 1427 mGycm COMPARISON: CT scan on 07/29/2021. CT scan on 03/18/2021. CT scan on 03/18/2021. FINDINGS: Unchanged scattered simple hepatic cysts with the largest 1.2 cm. Fat containing umbilical hernia without incarceration. Normal enhancement of the main pulmonary artery and right and left pulmonary arteries. Normal enhancement of the bilateral peripheral pulmonary arteries. There is no demonstrated pulmonary embolism. Normal thoracic aorta and visualized great vessels. There is no demonstrated aortic dissection. Normal heart and pericardium. Normal mediastinum. Normal hilar regions. Normal visualized trachea and bronchi. The lungs are well expanded. Normal pulmonary parenchyma. Normal pleura. Normal gallbladder and extrahepatic biliary system. Normal spleen. Normal pancreas. Normal bilateral adrenal glands. Normal size of the right kidney. There is no right renal mass. There are no right renal calculi. There is no right hydronephrosis. Normal visualized right ureter. Normal size of the left kidney. There is no left renal mass. There are no left renal calculi. There is no left hydronephrosis. Normal visualized left ureter. Normal visualized stomach. Normal small intestine. Normal colon. The appendix is visualized and appears normal. There is no demonstrated peritoneal fluid. Mild atheromatous plaques of the abdominal aorta. Normal inferior vena cava. Normal retroperitoneum. Normal urinary bladder. There is no pelvic mass lesion or lymphadenopathy. Scattered prostatic calcifications. There is no pelvic fluid. Normal abdominal wall. Mild diffuse spondylosis. CT/CTA Chst, Abd, Pel W and/or WO IMPRESSION: No CT evidence of pulmonary embolus or aortic dissection. No aortic aneurysm is noted. Unchanged scattered simple hepatic cysts. Reading [facility]
[2025-04-28 05:27] LABS: Hematocrit 42.2 % (40-54); Hemoglobin 13.7 g/dL (13.0-16.5); Immature Granulocytes Count 0.050 X10^3/uL (0.0-0.0); Mean Corp Hgb Conc 32.5 g/dL (32-36); Mean Corpuscular Volume 85.4 fL (80-94); Mean Platelet Vol. 9.9 fl (6.2-12.0); NRBC Flagged by Analyzer 0 % (0-5); POSITIVE DIFFERENTIAL YES; POSITIVE MORPHOLOGY YES; Platelet Count 351 K/mm3 (150-450); RBC Distribution Width CV 13.1 % (11.6-14.6); RBC Distribution Width SD 41.1 fl (35.1-43.9); Red Blood Count 4.94 M/mm3 (4.6-6.2); White Blood Count 12.2 K/mm3 (4.4-11.0)
[2025-04-28] MEDS: 0.9% Normal Saline (1000mL) 1,000 ML 999 ML IV (05:44)
[2025-04-28 05:48] VITALS: BP 122/69; PULSE 68; RESP 16; O2SAT 97
--- NOTE | 2025-04-28 05:50 | EDS_ITS ---
HPI History of Present Illness Chief Complaint: Abd Pain Narrative Narrative: Patient was seen and examined after presenting to ED for abdominal pain states that he felt like it was pulsing and because of his family history with his mom and her father and their father before them all having ruptured AAA's or dissection of their aorta he decided that he should come in he states that he has been tested for Erler's Danlos syndrome he was not positive for it but he was told that there was some sort of abnormality. 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 Intermittent palpitations Abdominal pain Chest pain Paroxysmal atrial fibrillation Atrial fibrillation with rapid ventricular response (03/07/17) Essential (primary) hypertension Nicotine dependence Caffeine abuse Home Medications Medication Instructions Recorded Last Taken Type omeprazole 40 mg capsule,delayed 40 mg PO DAILY 07/31/19 History release naproxen 500 mg tablet 500 mg PO BID PRN PRN Pain O r Fever 01/27/20 Unknown History acetaminophen 500 mg capsule 1,000 mg PO Q6H PRN fever or pain 03/26/22 Unknown History fluoxetine 40 mg capsule 40 mg PO DAILY 04/28/25 Unkn own History Allergy/AdvReac Type Severity Reaction Status Date / Time No Known Allergies Allergy Verified 04/28/25 04:48 Family History Other Sirena-Danlos syndrome Surgical History History of cardioversion (03/07/17) History of herniorrhaphy Social History Smoking Status: Current every day smoker tobacco type: cigarettes and e- cigarettes Electronic Cigarette Use: with nicotine alcohol intake: never substance use type: marijuana caffeine: Yes Type: coffee Number of servings: 2 ROS ROS ED ROS Narrative Pertinent Positives: Abdominal pain with family history of AAA's and aortic dissections Pertinent Negatives: Chest pain pressure vomiting fevers black or bloody stool use of anticoagulation The remainder of review of systems negative unless otherwise stated in the HPI above. Systems reviewed including constitutional, psychiatric, cardiovascular, respiratory, integument, HENT, gastrointestinal. EXAM Physical Exam Narrative Exam Narrative: Afebrile hemodynamically stable does not appear toxic or in distress he has normal heart and lung sounds his abdomen is soft nontender nondistended no palpable pulsatile mass I did take a bedside ultrasound images were not saved I did not see evidence of a positive fast sign or an obvious abdominal aortic aneurysm or dissection. He did have intact and equal MSPs in all of his ext remities Const Vital Signs: 04/28/25 04:48 04/28/25 05:48 04/28/25 06:00 Temperature 98.5 F Temperature Source Oral Pulse Rate 118 H 68 71 Respiratory Rate 20 H 16 17 Blood Pressure 158/106 H 122/69 H 122/78 H Blood Pressure Mean 123 86 92 Pulse Ox 98 97 97 Oxygen Delivery Method Room Air Room Air 04/28/25 07:00 04/28/25 08:00 Temperature Temperature Source Pulse Rate 18 L 61 Respiratory Rate 14 16 Blood Pressure 118/76 119/76 Blood Pressure Mean 90 90 Pulse Ox 97 99 Oxygen Delivery Method Room Air MDM MDM MDM Narrative Medical decision making narrative: Nursing notes, triage notes, available previous documentation, and vital signs were reviewed. Any discrepancies noted were addressed. Differential Diagnoses: Need to consider the possibility of a AAA or aortic dissection given the strong family history of it although I do have a lower suspicion for low suspicion for ACS could be pancreatitis or diverticular disease nephrolithiasis although lower suspicion for that as well as pyelonephritis Interventions: Morphine Zofran Fluids Given: 1 L normal saline Labs Reviewed: Slight leukocytosis 12.2 no anemia electrolyte abnormality renal insufficiency troponin elevation or transaminitis lipase was 17. Lactic acid was 1.4. Delta troponin came back at less than 6 Imaging Reviewed: CT angio of the chest abdomen and pelvis are without acute pathology EKG: Sinus tachycardia rate of 100 no IA or QTc abnormalities of significance no ST segment elevation. EKG interpretation is noted and agreed to in the EMR. The interpretation of this patient's EKG contributed directly to the care and management of this patient. Previous Documentation Reviewed: None available or applicable at this time. ED Course: Patient presenting with symptoms as stated above we are getting labs regarding his CT angios of his chest abdomen and pelvis as well and then barring any significant findings patient could potentially be discharged home. Patient's workup was unremarkable delta troponin came back and it was negative CT angios of the chest abdomen pelvis were also unremarkable. Patient be discharged home return precautions follow-up recommendations provided This note was made utilizing voice recognition software. All attempts were made to correct spelling or other errors prior to note completion. However, due to the fast-paced nature of emergency medicine, some errors may still be present. Lab Data Labs: Laboratory Results - last 24 hr 04/28/25 04/28/25 04/28/25 05:01 05:39 06:32 WBC 12.2 H RBC 4.94 Hgb 13.7 Hct 42.2 MCV 85.4 MCH 27.7 MCHC 32.5 RDW Std Deviation 41.1 RDW Coeff of Alhaji 13.1 Plt Count 351 MPV 9.9 Immature Gran % (Auto) 0.400 Neut % (Auto) 38.4 L Lymph % (Auto) 48.4 H Meigs % (Auto) 7.9 Eos % (Auto) 4.0 Baso % (Auto) 0.9 Absolute Neuts (auto) 4.7 Absolute Lymphs (auto) 5.91 H Nucleated RBC % 0 Reactive Lymphocytes 2+ Sodium 137 Potassium 3.8 Chloride 101 Carbon Dioxide 21.7 Anion Gap 14 BUN 14 Creatinine 0.79 Estim Creat Clear Calc 145.01 Est GFR (MDRD) Non-Af 109 BUN/Creatinine Ratio 17.2 Glucose 125 H Lactic Acid 1.4 Calcium 9.4 Total Bilirubin 0.27 AST 25 ALT 13 Alkaline Phosphatase 86 Troponin T High Sens < 6 Troponin T Hi Sens 2 Hr Total Protein 8.0 Albumin 4.4 Globulin 3.6 Albumin/Globulin Ratio 1.2 Lipase 17 Urine Color Yellow Urine Clarity Clear Urine pH 6.5 Ur Specific [place] 1.005 Urine Protein 15 H Urine Glucose (UA) Normal Urine Ketones Negative Urine Occult Blood Negative Urine Nitrite Negative Urine Bilirubin Negative Urine Urobilinogen Normal Ur Leukocyte Esterase Negative Urine RBC 0 SEEN Urine WBC 0 SEEN Ur Squamous Epith Cells 0 SEEN Urine Bacteria 0 SEEN Urine Mucus 0 SEEN 04/28/25 07:05 WBC RBC Hgb Hct MCV MCH MCHC RDW Std Deviation RDW Coeff of Alhaji Plt Count MPV Immature Gran % (Auto) Neut % (Auto) Lymph % (Auto) Meigs % (Auto) Eos % (Auto) Baso % (Auto) Absolute Neuts (auto) Absolute Lymphs (auto) Nucleated RBC % Reactive Lymphocytes Sodium Potassium Chloride Carbon Dioxide Anion Gap BUN Creatinine Estim Creat Clear Calc Est GFR (MDRD) Non-Af BUN/Creatinine Ratio Glucose Lactic Acid Calcium Total Bilirubin AST ALT Alkaline Phosphatase Troponin T High Sens Troponin T Hi Sens 2 Hr < 6 Total Protein Albumin Globulin Albumin/Globulin Ratio Lipase Urine Color Urine Clarity Urine pH Ur Specific [place] Urine Protein Urine Glucose (UA) Urine Ketones Urine Occult Blood Urine Nitrite Urine Bilirubin Urine Urobilinogen Ur Leukocyte Esterase Urine RBC Urine WBC Ur Squamous Epith Cells Urine Bacteria Urine Mucus Radiography Diagnostic Testing: Clinical Impression(s) from Imaging Studies Chest/Abdomen/Pelvis CTA 04/28/25 05:16 IMPRESSION: No CT evidence of pulmonary embolus or aortic dissection. No aortic aneurysm is noted. Unchanged scattered simple hepatic cysts. Reading Location: [place] [address] Discharge Plan Triage Chief Complaint: Abd Pain ED Provider: Gentry Gonzalez Dx/Rx/DC Orders Clinical Impression: Abdominal pain, Family history of abdominal aortic aneurysm (AAA) Instructions: ED Abdominal Pain Unkn Cause Male... Prescriptions: No Action acetaminophen 500 mg capsule 1,000 mg PO Q6H PRN (Reason: fever or pain) omeprazole 40 MG capsule,delayed release(DR/EC) 40 mg PO DAILY naproxen 500 MG tablet 500 mg PO BID PRN PRN (Reason: Pain Or Fever) fluoxetine 40 mg capsule 40 mg PO DAILY Primary Care Provider: Phu Jimenez Referrals: Phu Jimneez MD [Primary Care Provider, Internal Medicine] Activity Restrictions/Additional Instructions: Be sure to follow-up with your primary care doctor if you have worsening symptoms do not hesitate to return Print Language: Ethiopian Disposition Disposition: Home, Self Care
[2025-04-28 06:00] VITALS: BP 122/78; PULSE 71; RESP 17; O2SAT 97
[2025-04-28 06:04] LABS: Lipase 17 U/L (13-75)
[2025-04-28 06:05] LABS: AST(SGOT) 25 U/L (<=37); Alanine Aminotransfer ALT/SGPT 13 U/L (<=46); Albumin, Serum 4.4 g/dL (3.5-5.0); Alkaline Phosphatase 86 U/L (40-129); Anion Gap 14 (5-15); BUN 14 mg/dL (4-19); BUN/Creat Ratio 17.2 RATIO (10-20); Calcium,Total 9.4 mg/dL (7.6-11.0); Carbon Dioxide 21.7 mmol/L (21.0-32.0); Chloride 101 mmol/L (98-108); Estimated Creatinine Clearance 145.01 ml/min (50-250); Globulin 3.6 g/dL (2.2-4.2); Glucose 125 mg/dL (70-99); Potassium 3.8 mmol/L (3.3-5.1); Troponin T High Sensitivity < 6 ng/L (<=22)
[2025-04-28 06:19] LABS: Differential Indicated SCAN CRITERIA MET
[2025-04-28 07:00] VITALS: BP 118/76; PULSE 18; RESP 14; O2SAT 97
[2025-04-28 07:09] LABS: Mucous, Urine 0 SEEN /hpf (<or=2+); Red Blood Cells-Urine 0 SEEN /hpf (0-5); Squamous Epithelial Cells - UA 0 SEEN /hpf (0-5)
[2025-04-28 07:10] LABS: Color, Urine Yellow (Yellow); Glucose, Dipstick Normal (Normal); Ketone-Dipstick Negative (Negative); Leukocyte Esterase-Dipstick Negative /ul (Negative); Nitrite-Dipstick Negative (Negative); Occult Blood-Urine Negative /ul (Negative); Protein-Dipstick 15 mg/dl (Negative); Specific Gravity, Urine 1.005 (1.002-1.030); Urine Bilirubin Dipstick Negative (Negative)
[2025-04-28 07:38] LABS: Reactive Lymphocyte 2+
[2025-04-28 07:42] LABS: Troponin T High Sens 2 HR < 6 ng/L (<=22)
[2025-04-28 08:00] VITALS: BP 119/76; PULSE 61; RESP 16; O2SAT 99
[2025-04-28 08:38] VITALS: BP 124/75; PULSE 61; RESP 16; TEMP 36.6; O2SAT 96
== END 2025-04-28 08:39 | disposition home or self-care (01) ==
PROVIDERS: Emergency Provider Specialist/Technologist Athletic Trainer; PCP Internal Medicine; Visit Provider Specialist/Technologist Athletic Trainer
DX: R10.9 Unspecified abdominal pain (principal); F17.210 Nicotine dependence, cigarettes, uncomplicated; I10 Essential (primary) hypertension; Z86.16 Personal history of COVID-19; Z82.49 Family history of ischemic heart disease and other diseases of the circulatory system
CPT/HCPCS: 71275; 74174; 80053; 81001; 83605; 83690; 84484; 85025; 93005; 96361; 96374; 96375; 99283; Q9967; A4216; J2405